=== PATIENT | male | born 1975 | race Caucasian/White ===

== ENCOUNTER 2017-08-31 16:28 | Emergency (ER) | payer OTHER ==
[~2017-08-31] VITALS: Ht 177.8 cm; Wt 89.5 kg
[~2017-08-31 16:28] MED LIST: GLC500 PO; GLIP10TA10 PO; SITA25TA PO
[2017-08-31 16:39] VITALS: Ht 177.8 cm; Wt 89.5 kg
[2017-08-31] MEDS ORDERED: ONDANSETRON INJ 2 MG/ML 2 ML VIAL IV STA (16:55)
[2017-08-31] MEDS ORDERED: MoRPHine SULFATE 10 MG/ML CARP/VIAL IV STA ×2 (16:55→19:01)
[2017-08-31] MEDS ORDERED: SODIUM CHLORIDE 0.9% 1000ML 1,000 ML IV STA ×2 (16:55→19:01)
[2017-08-31] MEDS ORDERED: OPTIRAY 320 IV PRN (17:15)
[2017-08-31 17:53] LABS: CREATININE 0.86 mg/dl (0.60-1.40); POTASSIUM 4.1 mmol/L (3.5-5.1)
[2017-08-31 17:56] LABS: TOTAL PROTEIN 8.2 gm/dl (6.4-8.2)
[2017-08-31 18:17] LABS: BASO % 0.2 %; BASO ABS # 0.02 K/uL (0-0.2); EOS % 0.5 %; EOS ABS # 0.05 K/uL (0-0.5); HEMATOCRIT 31.3 % (42-52); IG# 0.02 K/uL (0.00-0.02); LYMPH % 8.9 %; LYMPH ABS # 0.94 K/uL (1.2-3.4); MEAN CORPUSCULAR HEMOGLOBIN 17.5 pg (25-34); MEAN CORPUSCULAR HGB CONC 28.8 g/dl (32-36); MEAN PLATELET VOLUME 9.4 fL (7.4-10.4); MONO % 9.3 %; MONO ABS # 0.99 K/uL (0.11-0.59); NEUT % 80.9 %; NEUT ABS # 8.57 K/uL (1.4-6.5); PLATELET COUNT 327 K/uL (130-400); RED CELL DISTRIBUTION WIDTH CV 18.7 % (11.5-14.5); RED CELL DISTRIBUTION WIDTH SD 41.2 fL (36.4-46.3); WHITE BLOOD COUNT 10.59 K/uL (4.8-10.8)
--- NOTE | 2017-08-31 18:27 | DIAGNOSTIC IMAGING REPORT ---
ABDOMEN AND PELVIS CT WITH IV CONTRAST CT DOSE: 590.66 mGy.cm HISTORY: Generalized abdominal pain. TECHNIQUE: Multiaxial CT images of the abdomen and pelvis were performed following the use of intravenous contrast. A dose lowering technique was utilized adhering to the principles of ALARA. COMPARISON STUDY: None. FINDINGS: A partially visualized 4 mm subpleural nodule along the right minor fissure. A few patchy groundglass densities within the right lung base. The left lung is clear. No pneumoperitoneum. No pneumatosis. No suspicious lytic or blastic osseous lesions. Mild bilateral gynecomastia. Trace perihepatic ascites. The liver, gallbladder, pancreas, adrenal glands, and kidneys are unremarkable. No hydronephrosis. The spleen is mildly enlarged measuring 13.5 cm in length. Normal bladder. A few colonic diverticula. Focal irregular thickening within the distal transverse colon which measures approximately 6 cm in length consistent with a colonic mass. There are multiple adjacent enlarged pericolonic/mesenteric lymph nodes. Dominant lymph node measures 13 mm best seen on image 130. Proximal to this the colon is distended and fluid-filled. Therefore, this results in a large bowel obstruction. No evidence for acute appendicitis. Trace ascites along the paracolic gutter. Multiple enlarged retroperitoneal lymph nodes. Dominant lymph node measures 2.9 x 1.6 cm. There are also enlarged left common iliac lymph nodes. The bladder is unremarkable. Ill-defined soft tissue density partially encases the proximal superior mesenteric artery best seen on image 190. This measures 15 mm and could represent a pathologically enlarged lymph node. There is also an adjacent partially calcified enlarged lymph node which measures 2.6 x 1.2 cm best seen on image 184. IMPRESSION: 1. A 6 cm mass within the distal transverse colon resulting in a large bowel obstruction. There are multiple adjacent pericolonic/mesenteric lymph nodes. There are also multiple enlarged retroperitoneal and left common iliac lymph nodes consistent with metastatic disease. Surgical consultation is recommended. 2. Trace perihepatic ascites and trace ascites within the right paracolic gutter. 3. The spleen is mildly enlarged. 4. A 1.5 cm ill-defined area of soft tissue abnormality which partially encases the superior mesenteric artery. This may also represent metastatic disease. This bears watching on future examinations. 5. A 4 mm subpleural nodule within the right minor fissure. This is likely benign. However, this also bears watching future examinations. Electronically signed by: Justin Mireles M.D. 08/31/2017 6:26 PM Dictated Date/Time: 08/31/2017 6:12 PM
[2017-08-31] MEDS ORDERED: MoRPHine SULFATE 2 MG/ML CARP ONE (19:08)
[2017-08-31] MEDS ORDERED: MoRPHine SULFATE 4 MG/ML 1 ML CARP\\VIAL ONE (19:08)
--- NOTE | 2017-08-31 19:36 | Surgery Consultation ---
Consultation Date of Consultation: Aug 31, 2017. Attending Physician: History of Present Illness The patient is a 41 year old male who presents to the Emergency Room with complaints of persistent abdominal pain starting yesterday. He has had this pain before, but just let it pass at home. The pain starts in his upper abdomen and moves into his lower abdomen. The pain improves with lying down. He reports constipation with the abdominal pain. His last bowel movement was yesterday. He normally has a bowel movement daily. He is nauseous. He denies any vomiting, diarrhea, cough, rhinorrhea, sore throat, or urinary symptoms. He has a history of type 2 diabetes and is on metformin. He has not checked his sugar recently. He has not eaten since yesterday. He still has his gallbladder and appendix. I saw pt at ER, I reviewed pt's H/P with pt, pt has some abdominal pain, no nausea, no vomiting, last BM yesterday, passed some gas 2 hours ago, pt denies bloody stool no diarrhea, no fever. Family History FH: cancer FH: diabetes mellitus FH: heart disease FH: hypertension Social History Smoking Status: Never Smoker Smokeless Tobacco Use: No Alcohol Use: none Drug Use: none Marital Status: Housing Status: lives with family Occupation Status: employed Allergies Coded Allergies: Codeine (Unverified Allergy, Mild, ?, 02/12/16) Promethazine (Unverified Allergy, Mild, ?, 02/12/16) Home Medications Scheduled Glipizide (Glipizide), 10 MG PO BID Metformin HCL (Glucophage *), 1,000 MG PO BID Sitagliptin (Januvia), 25 MG PO DAILY Current Inpatient Medications Current Inpatient Medications Medications (Trade) Dose Ordered Sig/Sera Route Start Time Stop Time Status Last Admin Dose Admin Ioversol (Optiray 320) 100 ml UD PRN IV 08/31/17 17:15 09/04/17 17:14 Sodium Chloride 1,000 ml @ 999 mls/hr Q1H1M STAT IV 08/31/17 19:01 08/31/17 20:01 08/31/17 19:11 999 MLS/HR Review of Systems Constitutional: No fever, No chills, No sweats, No weight loss, No weakness, No fatigue, No problem reported Eyes: No worsening of vision, No eye pain, No redness, No discharge, No diplopia, No problem reported ENT: No hearing loss, No unusual epistaxis, No nasal symptoms, No sore throat, No tinnitus, No dental problems, No trouble swallowing, No problem reported Respiratory: No cough, No sputum, No wheezing, No shortness of breath, No dyspnea on exertion, No dyspnea at rest, No hemoptysis, No problem reported Cardiovascular: No chest pain, No orthopnea, No PND, No edema, No claudication , No palpitations, No problem reported Abdomen: No pain, No nausea, No vomiting, No diarrhea, No constipation, No GI bleeding, No problem reported Musculoskeletal: No joint pain, No muscle pain, No swelling, No calf pain, No problem reported Genitourinary - Male: No hematuria, No dysuria, No urinary frequency, No urinary urgency, No urinary hesitancy, No urinary retention, No urinary incontinence, No penile discharge, No lesions, No impotence, No problem reported Neurologic: No memory loss, No paralysis, No weakness, No numbness/tingling, No vertigo, No balance problems, No problem reported Psychiatric: No depression symptoms, No anhedonism, No anxiety, No insomnia, No substance abuse, No problem reported Endocrine: + problem reported (DM) Hematologic / Lymphatic: No abnormal bleeding/bruising, No clotting problems, No swollen lymph nodes, No night sweats, No problem reported Physical Exam Date Time Temp Pulse Resp B/P (MAP) Pulse Ox O2 Delivery O2 Flow Rate FiO2 08/31/17 18:48 109 132/80 95 Room Air 08/31/17 16:39 37.0 130 18 139/89 99 Room Air General Appearance: WD/WN, no apparent distress Head: normocephalic Eyes: normal inspection ENT: normal ENT inspection Neck: supple, no JVD Respiratory/Chest: chest non-tender, lungs clear, normal breath sounds Cardiovascular: regular rate, rhythm, no edema, no gallop, no JVD, no murmur Abdomen/GI: normal bowel sounds, soft, no organomegaly, no pulsatile mass, normal rectal exam, + tenderness (at left abdomen, no rebound pain) Extremities/Musculoskelatal: normal inspection, no calf tenderness, normal capillary refill Neurologic/Psych: no motor/sensory deficits, alert, normal mood/affect Skin: normal color, warm/dry, no rash Lymphatic: no adenopathy Laboratory Results Last 24 Hours Test 08/31/17 17:00 08/31/17 18:20 White Blood Count 10.59 K/uL Red Blood Count 5.13 M/uL Hemoglobin 9.0 g/dL Hematocrit 31.3 % Mean Corpuscular Volume 61.0 fL Mean Corpuscular Hemoglobin 17.5 pg Mean Corpuscular Hemoglobin Concent 28.8 g/dl Platelet Count 327 K/uL Mean Platelet Volume 9.4 fL Neutrophils (%) (Auto) 80.9 % Lymphocytes (%) (Auto) 8.9 % Monocytes (%) (Auto) 9.3 % Eosinophils (%) (Auto) 0.5 % Basophils (%) (Auto) 0.2 % Neutrophils # (Auto) 8.57 K/uL Lymphocytes # (Auto) 0.94 K/uL Monocytes # (Auto) 0.99 K/uL Eosinophils # (Auto) 0.05 K/uL Basophils # (Auto) 0.02 K/uL RDW Standard Deviation 41.2 fL RDW Coefficient of Variation 18.7 % Immature Granulocyte % (Auto) 0.2 % Immature Granulocyte # (Auto) 0.02 K/uL Anisocytosis PRESENT Microcytosis PRESENT Ovalocytes 1+ Sodium Level 131 mmol/L Potassium Level 4.1 mmol/L Chloride Level 98 mmol/L Carbon Dioxide Level 26 mmol/L Anion Gap 7.0 mmol/L Blood Urea Nitrogen 9 mg/dl Creatinine 0.86 mg/dl Est Creatinine Clear Calc Drug Dose 128.6 ml/min Estimated GFR () 125.7 Estimated GFR (Non- 108.5 BUN/Creatinine Ratio 10.5 Random Glucose 260 mg/dl Calcium Level 9.0 mg/dl Total Bilirubin 0.9 mg/dl Direct Bilirubin 0.2 mg/dl Aspartate Amino Transf (AST/SGOT) 18 U/L Alanine Aminotransferase (ALT/SGPT) 24 U/L Alkaline Phosphatase 68 U/L Total Protein 8.2 gm/dl Albumin 4.0 gm/dl Lipase 101 U/L Urine Color YELLOW Urine Appearance CLEAR Urine pH 5.0 Urine Specific [place] 1.023 Urine Protein NEG Urine Glucose (UA) 1+ Urine Ketones TRACE Urine Occult Blood NEG Urine Nitrite NEG Urine Bilirubin NEG Urine Urobilinogen NEG Urine Leukocyte Esterase NEG Urine WBC (Auto) 1-5 /hpf Urine RBC (Auto) 0-4 /hpf Urine Hyaline Casts (Auto) 1-5 /lpf Urine Epithelial Cells (Auto) 0-5 /lpf Urine Bacteria (Auto) NEG Assessment & Plan CT scan-FINDINGS: A partially visualized 4 mm subpleural nodule along the right minor fissure. A few patchy groundglass densities within the right lung base. The left lung is clear. No pneumoperitoneum. No pneumatosis. No suspicious lytic or blastic osseous lesions. Mild bilateral gynecomastia. Trace perihepatic ascites. The liver, gallbladder, pancreas, adrenal glands, and kidneys are unremarkable. No hydronephrosis. The spleen is mildly enlarged measuring 13.5 cm in length. Normal bladder. A few colonic diverticula. Focal irregular thickening within the distal transverse colon which measures approximately 6 cm in length consistent with a colonic mass. There are multiple adjacent enlarged pericolonic/mesenteric lymph nodes. Dominant lymph node measures 13 mm best seen on image 130. Proximal to this the colon is distended and fluid-filled. Therefore, this results in a large bowel obstruction. No evidence for acute appendicitis. Trace ascites along the paracolic gutter. Multiple enlarged retroperitoneal lymph nodes. Dominant lymph node measures 2.9 x 1.6 cm. There are also enlarged left common iliac lymph nodes. The bladder is unremarkable. Ill-defined soft tissue density partially encases the proximal superior mesenteric artery best seen on image 190. This measures 15 mm and could represent a pathologically enlarged lymph node. There is also an adjacent partially calcified enlarged lymph node which measures 2.6 x 1.2 cm best seen on image 184. IMPRESSION: 1. A 6 cm mass within the distal transverse colon resulting in a large bowel obstruction. There are multiple adjacent pericolonic/mesenteric lymph nodes. There are also multiple enlarged retroperitoneal and left common iliac lymph nodes consistent with metastatic disease. Surgical consultation is recommended. 2. Trace perihepatic ascites and trace ascites within the right paracolic gutter. 3. The spleen is mildly enlarged. 4. A 1.5 cm ill-defined area of soft tissue abnormality which partially encases the superior mesenteric artery. This may also represent metastatic disease. This bears watching on future examinations. 5. A 4 mm subpleural nodule within the right minor fissure. This is likely benign. However, this also bears watching future examinations. Assessment: pt is a 41 year old male who presents to ER with one day history abdominal pain, pt had CT scan- colon mass, large bowel obstruction, IMP: distal transverse colon mass, large bowel obstruction, I recommend to do exploratory laparostomy, partial colectomy, colostomy, D/W benefits, risks and alternatives of the procedures, pt wants to transfer to higher level care, pt said he is 41 year old he has 6 children, pt wants colorectal surgeon to do his surgery, D/W ER attending.
[2017-08-31] MEDS ORDERED: SODIUM CHLORIDE 0.9% 1000ML 1,000 ML IV SCH (20:45)
[2017-08-31] MEDS ORDERED: INSULIN ASPART 100 UNITS/ML 3 ML PEN SC SCH (20:45)
--- NOTE | 2017-08-31 20:49 | Medical Consult ---
Consultation Date of Consultation: Aug 31, 2017. Attending Physician: History of Present Illness 41 y/o M Hx DM II. Presented to the ER with abdominal pain and persistent constipation. He reports a normal BM one day prior and denies any hematochezia. He denies weight loss, loss of appetite or night sweats. A CT abdomen/pelvis was obtained in the ER and unfortunately revealed a 6 cm mass within the distal transverse colon resulting in a large bowel obstruction. There is lymphadenopathy consistent with metastatic disease. The pt was evaluated by the surgical service and will likely undergo resection. Labs are notable for anemia which may be due to chronic blood loss or marrow suppression but is likely is slow/chronic process based on his lack of symptoms. Past Medical/Surgical History DM II Family History FH: cancer FH: diabetes mellitus FH: heart disease FH: hypertension Social History Smoking Status: Never Smoker Smokeless Tobacco Use: No Alcohol Use: none Drug Use: none Marital Status: Housing Status: lives with family Occupation Status: employed Allergies Coded Allergies: Codeine (Unverified Allergy, Mild, ?, 02/12/16) Promethazine (Unverified Allergy, Mild, ?, 02/12/16) Current Inpatient Medications Current Inpatient Medications Medications (Trade) Dose Ordered Sig/Sera Route Start Time Stop Time Status Last Admin Dose Admin Ioversol (Optiray 320) 100 ml UD PRN IV 08/31/17 17:15 09/04/17 17:14 Review of Systems Constitutional: No fever, No chills, No sweats, No weakness Eyes: No worsening of vision ENT: No hearing loss, No unusual epistaxis, No nasal symptoms Respiratory: No cough, No sputum, No wheezing Cardiovascular: No chest pain Abdomen: No pain, No nausea, No vomiting Musculoskeletal: No joint pain Genitourinary - Male: No hematuria, No dysuria Neurologic: No memory loss, No paralysis, No weakness Psychiatric: No depression symptoms Endocrine: No fatigue Hematologic / Lymphatic: No abnormal bleeding/bruising Integumentary: No rash Allergic / Immunologic: No environmental allergies Physical Exam Date Time Temp Pulse Resp B/P (MAP) Pulse Ox O2 Delivery O2 Flow Rate FiO2 08/31/17 18:48 109 132/80 95 Room Air 08/31/17 16:39 37.0 130 18 139/89 99 Room Air General Appearance: WD/WN, no apparent distress Head: normocephalic Eyes: normal inspection ENT: normal ENT inspection, pharynx normal Neck: supple, no JVD Respiratory/Chest: chest non-tender, lungs clear, normal breath sounds Cardiovascular: regular rate, rhythm, no edema, no gallop Abdomen/GI: + pertinent finding (Abdomen is firm, mildly tender, distended - no guarding/rebound) Back: normal inspection, no CVA tenderness, no muscle spasm Extremities/Musculoskelatal: normal inspection, no calf tenderness, normal capillary refill 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, no motor/sensory deficits, alert, oriented x 3 Skin: normal color, warm/dry Laboratory Results Last 24 Hours Test 08/31/17 17:00 08/31/17 18:20 White Blood Count 10.59 K/uL Red Blood Count 5.13 M/uL Hemoglobin 9.0 g/dL Hematocrit 31.3 % Mean Corpuscular Volume 61.0 fL Mean Corpuscular Hemoglobin 17.5 pg Mean Corpuscular Hemoglobin Concent 28.8 g/dl Platelet Count 327 K/uL Mean Platelet Volume 9.4 fL Neutrophils (%) (Auto) 80.9 % Lymphocytes (%) (Auto) 8.9 % Monocytes (%) (Auto) 9.3 % Eosinophils (%) (Auto) 0.5 % Basophils (%) (Auto) 0.2 % Neutrophils # (Auto) 8.57 K/uL Lymphocytes # (Auto) 0.94 K/uL Monocytes # (Auto) 0.99 K/uL Eosinophils # (Auto) 0.05 K/uL Basophils # (Auto) 0.02 K/uL RDW Standard Deviation 41.2 fL RDW Coefficient of Variation 18.7 % Immature Granulocyte % (Auto) 0.2 % Immature Granulocyte # (Auto) 0.02 K/uL Anisocytosis PRESENT Microcytosis PRESENT Ovalocytes 1+ Sodium Level 131 mmol/L Potassium Level 4.1 mmol/L Chloride Level 98 mmol/L Carbon Dioxide Level 26 mmol/L Anion Gap 7.0 mmol/L Blood Urea Nitrogen 9 mg/dl Creatinine 0.86 mg/dl Est Creatinine Clear Calc Drug Dose 128.6 ml/min Estimated GFR () 125.7 Estimated GFR (Non- 108.5 BUN/Creatinine Ratio 10.5 Random Glucose 260 mg/dl Calcium Level 9.0 mg/dl Total Bilirubin 0.9 mg/dl Direct Bilirubin 0.2 mg/dl Aspartate Amino Transf (AST/SGOT) 18 U/L Alanine Aminotransferase (ALT/SGPT) 24 U/L Alkaline Phosphatase 68 U/L Total Protein 8.2 gm/dl Albumin 4.0 gm/dl Lipase 101 U/L Urine Color YELLOW Urine Appearance CLEAR Urine pH 5.0 Urine Specific [place] 1.023 Urine Protein NEG Urine Glucose (UA) 1+ Urine Ketones TRACE Urine Occult Blood NEG Urine Nitrite NEG Urine Bilirubin NEG Urine Urobilinogen NEG Urine Leukocyte Esterase NEG Urine WBC (Auto) 1-5 /hpf Urine RBC (Auto) 0-4 /hpf Urine Hyaline Casts (Auto) 1-5 /lpf Urine Epithelial Cells (Auto) 0-5 /lpf Urine Bacteria (Auto) NEG Assessment & Plan 41 y/o M Hx DM II. Presented to the ER with abdominal pain and persistent constipation. He reports a normal BM one day prior and denies any hematochezia. He denies weight loss, loss of appetite or night sweats. A CT abdomen/pelvis was obtained in the ER and unfortunately revealed a 6 cm mass within the distal transverse colon resulting in a large bowel obstruction. There is lymphadenopathy consistent with metastatic disease. The pt was evaluated by the surgical service and will likely undergo resection. Labs are notable for anemia which may be due to chronic blood loss or marrow suppression but is likely is slow/chronic process based on his lack of symptoms. 1) Colonic mass - likely metastatic CA - to undergo resection The pt does not have significant CV risk factors - an RCRI is estimated at 04% or 0.9% depending on if he requires pre-op insulin. We will obtain a baseline EKG but would not advise on additional cardiovascular testing prior to proceeding with surgery. 2) DM - pt will be placed on a SS [id number] 3) Anemia - will transfuse prior to surgery - obtain iron profile prior to transfusion Total time for this admit including review of labs, meds, imaging, surgery eval - discussion with pt and ER attending - 32 min
[2017-08-31] MEDS ORDERED: GLUCOSE 40% GEL 15 GM TUBE PO PRN (21:00)
[2017-08-31] MEDS ORDERED: GLUCAGON FOR INJ 1 MG VIAL SQ PRN (21:00)
[2017-08-31] MEDS ORDERED: GLUCOSE 10 TABS/TUBE PO PRN (21:00)
[2017-08-31] MEDS ORDERED: DEXTROSE 50% 50 ML SYR IV PRN (21:00)
[2017-08-31 22:09] VITALS: BP 134/92; PULSE 125; TEMP 36.6
[2017-08-31 22:17] VITALS: BP 145/95; PULSE 130; PULSE 131; TEMP 36.5; O2SAT 98
[2017-08-31] MEDS ORDERED: LORAZEPAM 2 MG/ML 1 ML VIAL IV STA (22:22)
--- NOTE | 2017-08-31 22:32 | DIAGNOSTIC IMAGING REPORT ---
KUB CLINICAL HISTORY: Nasogastric tube placement. COMPARISON STUDY: CT of the abdomen and pelvis August 31, 2017 at 6:09 PM. FINDINGS: The tip of the nasogastric tube projects over the mid body of the stomach. IMPRESSION: Tip of nasogastric tube within the body of the stomach. Electronically signed by: Suleiman Landeros M.D. 08/31/2017 10:31 PM Dictated Date/Time: 08/31/2017 10:29 PM
[2017-08-31 22:37] VITALS: BP 133/92; PULSE 124; TEMP 36.5; O2SAT 96
[2017-08-31 22:58] VITALS: BP 152/79; PULSE 120; TEMP 36.5; O2SAT 97
[2017-08-31] MEDS ORDERED: LANTUS PER UNIT CHARGE SC STA (23:14)
[2017-08-31] MEDS ORDERED: NovoLOG PER UNIT CHARGE SC STA (23:17)
[2017-08-31 23:30] VITALS: BP 134/85; PULSE 113; TEMP 36.5; O2SAT 94
[2017-08-31] MEDS ORDERED: HYDROmorphone INJ 1 MG/ML SYR IV STA (23:55)
[2017-09-01] VITALS: BP 136/90; PULSE 108; TEMP 36.7; O2SAT 94
--- NOTE | 2017-09-01 00:17 | EMERGENCY ROOM VISIT NOTE ---
History Report prepared by Joey: Gena Davila Under the Supervision of: Dr. Zeyad Junior D.O. First contact with patient: 16:46 Chief Complaint: ABDOMINAL PAIN Stated Complaint: SEVERE ABDOMINAL PAIN- REFERRED History of Present Illness The patient is a 41 year old male who presents to the Emergency Room with complaints of persistent abdominal pain starting yesterday. He has had this pain before, but just let it pass at home. The pain starts in his upper abdomen and moves into his lower abdomen. The pain improves with lying down. He reports constipation with the abdominal pain. His last bowel movement was yesterday. He normally has a bowel movement daily. He has been passing gas today. He is nauseous. He denies any vomiting, diarrhea, cough, rhinorrhea, sore throat, or urinary symptoms. He has a history of type 2 diabetes and is on metformin. He has not checked his sugar recently. He has not eaten since yesterday. He still has his gallbladder and appendix. Source of History: patient Onset: yesterday Position: abdomen Quality: other (pain) Timing: other (persistent) Modifying Factors (Relieving): other (lying down) Associated Symptoms: + nausea, No sorethroat, No cough, No vomiting, No diarrhea, No urinary symptoms Note: Pt reports constipation. Review of Systems See HPI for pertinent positives & negatives. A total of 10 systems reviewed and were otherwise negative. Past Medical & Surgical Medical Problems: (1) Asthma, Unspecified (2) Diab Naz Wo Compl, Type Ii Or Unspec Type, Not Uncntrld (3) Heart Disease Nos (4) Hypertension Nos (5) Lumbago Surgical Problems: (1) History of elbow surgery (2) History of shoulder surgery (3) History of tonsillectomy Family History FH: cancer FH: diabetes mellitus FH: heart disease FH: hypertension Social History Smoking Status: Never Smoker Alcohol Use: occasionally Marital Status: Housing Status: lives with family Occupation Status: employed Current/Historical Medications Scheduled Glipizide (Glipizide), 10 MG PO BID Metformin HCL (Glucophage *), 1,000 MG PO BID Sitagliptin (Januvia), 25 MG PO DAILY Allergies Coded Allergies: Codeine (Unverified Allergy, Mild, ?, 02/12/16) Promethazine (Unverified Allergy, Mild, ?, 02/12/16) Physical Exam Vital Signs Date Time Temp Pulse Resp B/P (MAP) Pulse Ox O2 Delivery O2 Flow Rate FiO2 09/01/17 00:05 36.7 108 17 136/90 94 Room Air 09/01/17 00:00 36.7 108 17 136/90 94 08/31/17 23:30 36.5 113 17 134/85 94 08/31/17 23:00 122 08/31/17 22:58 36.5 120 25 152/79 97 08/31/17 22:48 121 133/92 97 Room Air 08/31/17 22:37 36.5 124 14 133/92 96 08/31/17 22:17 36.5 131 19 145/95 98 08/31/17 22:17 36.5 130 15 145/95 08/31/17 22:15 123 08/31/17 22:13 126 134/92 98 Room Air 08/31/17 22:09 36.6 125 16 134/92 08/31/17 20:47 132 141/89 99 Room Air 08/31/17 18:48 109 132/80 95 Room Air 08/31/17 16:39 37.0 130 18 139/89 99 Room Air Physical Exam GENERAL: Laying in bed, holding infraumbilical region, disheveled EYE EXAM: normal conjunctiva. OROPHARYNX: no exudate, no erythema, lips, buccal mucosa, and tongue normal and mucous membranes are moist NECK: supple, no nuchal rigidity, no adenopathy, non-tender LUNGS: Clear to auscultation. Normal chest wall mechanics HEART: no murmurs, S1 normal and S2 normal ABDOMEN: abdomen slightly distended, diffuse tenderness, normo-active bowel sounds, no masses, no rebound or guarding. BACK: Back is symmetrical on inspection and there is no deformity, no midline tenderness, no CVA tenderness. SKIN: no rashes and no bruising UPPER EXTREMITIES: upper extremities are grossly normal. LOWER EXTREMITIES: No pitting edema. NEURO EXAM: Normal sensorium, cranial nerves II-XII grossly intact, normal speech, no gross weakness of arms, no gross weakness of legs. Medical Decision & Procedures ER Provider Diagnostic Interpretation: Xray results as stated below per my and the radiologist's interpretation. Radiology results as stated below per my review and the radiologist's interpretation: ABDOMEN AND PELVIS CT WITH IV CONTRAST CT DOSE: 590.66 mGy.cm HISTORY: Generalized abdominal pain. TECHNIQUE: Multiaxial CT images of the abdomen and pelvis were performed following the use of intravenous contrast. A dose lowering technique was utilized adhering to the principles of ALARA. COMPARISON STUDY: None. FINDINGS: A partially visualized 4 mm subpleural nodule along the right minor fissure. A few patchy groundglass densities within the right lung base. The left lung is clear. No pneumoperitoneum. No pneumatosis. No suspicious lytic or blastic osseous lesions. Mild bilateral gynecomastia. Trace perihepatic ascites. The liver, gallbladder, pancreas, adrenal glands, and kidneys are unremarkable. No hydronephrosis. The spleen is mildly enlarged measuring 13.5 cm in length. Normal bladder. A few colonic diverticula. Focal irregular thickening within the distal transverse colon which measures approximately 6 cm in length consistent with a colonic mass. There are multiple adjacent enlarged pericolonic/mesenteric lymph nodes. Dominant lymph node measures 13 mm best seen on image 130. Proximal to this the colon is distended and fluid-filled. Therefore, this results in a large bowel obstruction. No evidence for acute appendicitis. Trace ascites along the paracolic gutter. Multiple enlarged retroperitoneal lymph nodes. Dominant lymph node measures 2.9 x 1.6 cm. There are also enlarged left common iliac lymph nodes. The bladder is unremarkable. Ill-defined soft tissue density partially encases the proximal superior mesenteric artery best seen on image 190. This measures 15 mm and could represent a pathologically enlarged lymph node. There is also an adjacent partially calcified enlarged lymph node which measures 2.6 x 1.2 cm best seen on image 184. IMPRESSION: 1. A 6 cm mass within the distal transverse colon resulting in a large bowel obstruction. There are multiple adjacent pericolonic/mesenteric lymph nodes. There are also multiple enlarged retroperitoneal and left common iliac lymph nodes consistent with metastatic disease. Surgical consultation is recommended. 2. Trace perihepatic ascites and trace ascites within the right paracolic gutter. 3. The spleen is mildly enlarged. 4. A 1.5 cm ill-defined area of soft tissue abnormality which partially encases the superior mesenteric artery. This may also represent metastatic disease. This bears watching on future examinations. 5. A 4 mm subpleural nodule within the right minor fissure. This is likely benign. However, this also bears watching future examinations. Electronically signed by: Justin Mireles M.D. 08/31/2017 6:26 PM Dictated Date/Time: 08/31/2017 6:12 PM [facility] CLINICAL HISTORY: Nasogastric tube placement. COMPARISON STUDY: CT of the abdomen and pelvis August 31, 2017 at 6:09 PM. FINDINGS: The tip of the nasogastric tube projects over the mid body of the stomach. IMPRESSION: Tip of nasogastric tube within the body of the stomach. Electronically signed by: Suleiman Landeros M.D. 08/31/2017 10:31 PM Dictated Date/Time: 08/31/2017 10:29 PM Laboratory Results 08/31/17 17:00 Red Blood Count 5.13, Mean Corpuscular Volume 61.0, Mean Corpuscular Hemoglobin 17.5, Mean Corpuscular Hemoglobin Concent 28.8, Mean Platelet Volume 9.4, Neutrophils (%) (Auto) 80.9, Lymphocytes (%) (Auto) 8.9, Monocytes (%) (Auto) 9.3, Eosinophils (%) (Auto) 0.5, Basophils (%) (Auto) 0.2, Neutrophils # (Auto) 8.57, Lymphocytes # (Auto) 0.94, Monocytes # (Auto) 0.99, Eosinophils # (Auto) 0.05, Basophils # (Auto) 0.02 08/31/17 17:00 Test 08/31/17 17:00 08/31/17 18:20 08/31/17 20:58 White Blood Count 10.59 K/uL (4.8-10.8) Red Blood Count 5.13 M/uL (4.7-6.1) Hemoglobin 9.0 g/dL (14.0-18.0) Hematocrit 31.3 % (42-52) Mean Corpuscular Volume 61.0 fL (80-100) Mean Corpuscular Hemoglobin 17.5 pg (25-34) Mean Corpuscular Hemoglobin Concent 28.8 g/dl (32-36) Platelet Count 327 K/uL (130-400) Mean Platelet Volume 9.4 fL (7.4-10.4) Neutrophils (%) (Auto) 80.9 % Lymphocytes (%) (Auto) 8.9 % Monocytes (%) (Auto) 9.3 % Eosinophils (%) (Auto) 0.5 % Basophils (%) (Auto) 0.2 % Neutrophils # (Auto) 8.57 K/uL (1.4-6.5) Lymphocytes # (Auto) 0.94 K/uL (1.2-3.4) Monocytes # (Auto) 0.99 K/uL (0.11-0.59) Eosinophils # (Auto) 0.05 K/uL (0-0.5) Basophils # (Auto) 0.02 K/uL (0-0.2) RDW Standard Deviation 41.2 fL (36.4-46.3) RDW Coefficient of Variation 18.7 % (11.5-14.5) Immature Granulocyte % (Auto) 0.2 % Immature Granulocyte # (Auto) 0.02 K/uL (0.00-0.02) Anisocytosis PRESENT Microcytosis PRESENT Ovalocytes 1+ Anion Gap 7.0 mmol/L (3-11) Est Creatinine Clear Calc Drug Dose 128.6 ml/min Estimated GFR () 125.7 Estimated GFR (Non- 108.5 BUN/Creatinine Ratio 10.5 (10-20) Calcium Level 9.0 mg/dl (8.5-10.1) Total Bilirubin 0.9 mg/dl (0.2-1) Direct Bilirubin 0.2 mg/dl (0-0.2) Aspartate Amino Transf (AST/SGOT) 18 U/L (15-37) Alanine Aminotransferase (ALT/SGPT) 24 U/L (12-78) Alkaline Phosphatase 68 U/L (45-117) Total Protein 8.2 gm/dl (6.4-8.2) Albumin 4.0 gm/dl (3.4-5.0) Lipase 101 U/L (73-393) Urine Color YELLOW Urine Appearance CLEAR (CLEAR) Urine pH 5.0 (4.5-7.5) Urine Specific [place] 1.023 (1.000-1.030) Urine Protein NEG (NEG) Urine Glucose (UA) 1+ (NEG) Urine Ketones TRACE (NEG) Urine Occult Blood NEG (NEG) Urine Nitrite NEG (NEG) Urine Bilirubin NEG (NEG) Urine Urobilinogen NEG (NEG) Urine Leukocyte Esterase NEG (NEG) Urine WBC (Auto) 1-5 /hpf (0-5) Urine RBC (Auto) 0-4 /hpf (0-4) Urine Hyaline Casts (Auto) 1-5 /lpf (0-5) Urine Epithelial Cells (Auto) 0-5 /lpf (0-5) Urine Bacteria (Auto) NEG (NEG) Iron Level 10 mcg/dl (35-175) Total Iron Binding Capacity 504 mcg/dl (250-450) Laboratory results per my review. Medications Administered Medications (Trade) Dose Ordered Sig/Sera Route Start Time Stop Time Status Last Admin Dose Admin Sodium Chloride 1,000 ml @ 999 mls/hr Q1H1M STAT IV 08/31/17 16:55 08/31/17 17:55 DC 08/31/17 16:55 999 MLS/HR Ondansetron HCl (Zofran Inj) 4 mg NOW STAT IV 08/31/17 16:55 08/31/17 16:56 DC 08/31/17 17:04 4 MG Morphine Sulfate (MoRPHine SULFATE INJ) 6 mg NOW STAT IV 08/31/17 16:55 08/31/17 16:56 DC 08/31/17 17:05 6 MG Sodium Chloride 1,000 ml @ 999 mls/hr Q1H1M STAT IV 08/31/17 19:01 08/31/17 20:01 DC 08/31/17 19:11 999 MLS/HR Morphine Sulfate (MoRPHine SULFATE INJ) 2 mg STK-MED ONCE .ROUTE 08/31/17 19:08 08/31/17 19:09 DC 08/31/17 19:12 2 MG Morphine Sulfate (MoRPHine SULFATE INJ) 4 mg STK-MED ONCE .ROUTE 08/31/17 19:08 08/31/17 19:09 DC 08/31/17 19:12 4 MG Sodium Chloride 1,000 ml @ 100 mls/hr Q10H IV 08/31/17 20:45 09/01/17 16:44 08/31/17 23:48 100 MLS/HR Insulin Glargine (Lantus Per Unit) 15 units ONE STAT SC 08/31/17 23:14 08/31/17 23:15 DC 08/31/17 23:47 15 UNITS Lorazepam (Ativan Inj) 1 mg NOW STAT IV 08/31/17 22:22 08/31/17 22:23 DC 08/31/17 23:12 1 MG Insulin Aspart (novoLOG PER UNIT) SLIDING SCALE G... NOW STAT SC 08/31/17 23:17 08/31/17 23:18 DC 08/31/17 23:47 2 UNITS Hydromorphone HCl (Dilaudid Inj) 1 mg NOW STAT IV 08/31/17 23:55 08/31/17 23:56 DC 09/01/17 00:11 1 MG ED Course ED COURSE: Vital signs were reviewed and showed tachycardia. The patients medical record was reviewed The above diagnostic studies were performed and reviewed. ED treatments and interventions as stated above. 1651: The patient was evaluated in room A5. A complete history and physical examination was performed. 1654: Morphine Sulfate 6 mg IV, Zofran Inj 4 mg IV, NSS 1000 ml @ 999 mls/hr IV. 1858: I discussed the patient's case with Dr. Beltre, [facility] general surgery. We are in agreement with the plan. 1900: NSS 1000 ml @ 999 mls/hr IV, Morphine Sulfate 6 mg IV. 1903: I reevaluated the patient. I updated him on the plan. 1912: I discussed the patient's case with Dr. Griffiths, [facility] gastroenterology. We are in agreement with the plan. 1919: I reevaluated the patient. He would like to go elsewhere. 2000: I discussed the patient's case with Dr. Zapata, [facility] colorectal surgery. They cannot take the patient until morning. 2004: I spoke with Dr. Beltre and updated him on the situation. He would like the patient to be seen by the hospitalist service. 2009: I discussed the patient's case with Dr. Evans, [facility] hospitalist. He will evaluate the patient for further management. 2018: I spoke with Dr. Evans. He recommends the patient be admitted to surgery. Dr. Beltre was paged again. 2034: I spoke with Dr. Beltre. He does not want to admit the patient and recommends transfer to [place] or admitting the patient to Dr. Evans. 2117: I discussed the patient's case with Dr. Arias, [facility] colorectal surgery. She has accepted the patient for transfer. 2138: Upon reevaluation, the patient is stable.I discussed my findings with the patient and he understands and agrees with the treatment plan. Blood consent was obtained. Based on the patients age, coexisting illnesses, exam and lab findings the decision to treat as an inpatient was made. The patient remained stable while under my care. The patient will be transferred to [facility] for further evaluation. 2221: The patient wants the NG tube removed. He is agreeable to Ativan. 2222: Ativan Inj 1 mg IV. Medical Decision Differential diagnoses includes but is not limited to gastritis, peptic ulcer disease, GERD, gallbladder disease, pancreatitis, small bowel obstruction, acute coronary syndrome, pericarditis, ischemic bowel, irritable bowel disease, irritable bowel syndrome, appendicitis, diverticulitis, malignancy, hernia, urinary tract infection, torsion, perforation, trauma, infectious. Patient is a 41-year-old male who presents to ER for abdominal pain which started yesterday. He has been gradually worsening. Last bowel movement was yesterday. He has been still passing gas up until earlier today. On exam he does have a diffusely tender abdomen. CBC shows a hemoglobin of 9. BMP, LFTs, bilirubin, lipase are unremarkable. UA was negative. CT of the abdomen and pelvis shows a large bowel obstruction. Following these findings I immediately consult general surgery. They recommended admission to internal medicine. After this I discuss case with internal medicine who declined to admit the patient as this is a surgical patient. I did also discuss patient with GI per surgery's request. General surgery discussed the case with the patient and the patient requested to go to [facility]. [facility] will not be able to accept the patient until tomorrow. I then requested a general surgery to admit the patient and they declined and recommended transferring to [place]. He notes now he has two cases to go to the OR. Had multiple conversations with [facility] who accepted the patient. We attempted to obtain transport but was unsuccessful due to the volume. [place] sent their ambulance. Patient was given multiple doses of IV narcotics, 2 L normal saline and PRBCs 1 unit with a hemoglobin of 9 and likely surgery. Patient was updated at bedside. He'll be transferred to [facility] with a large bowel obstruction. NG tube is in place and KUB confirms this. NG tube is removing clear fluid. Patient was transported and left the hospital at 1:15 AM comfortable. Medication Reconcilliation Current Medication List: was personally reviewed by me Blood Pressure Screening Patient's blood pressure: Normal blood pressure Blood pressure disposition: Did not require urgent referral Consults Time Called: 1856 Consulting Physician: Dr. Beltre, [facility] general surgery Returned Call: 1858 I discussed the patient's case with him. We are in agreement with the plan. Additional Consults: Time Called: 1907 Consulted Physician: Dr. Griffiths, [facility] gastroenterology Returned Call: 1912 Additional Comments: I discussed the patient's case with her. We are in agreement with the plan. Time Called: 1929 Consulted Physician: Dr. Zapata, [facility] colorectal surgery Returned Call: 2000 Additional Comments: I discussed the patient's case with him. They cannot take the patient until morning. Impression Primary Impression: Large bowel obstruction Additional Impression: Anemia Critical Care I have personally spent 75 minutes of critical care time in the direct management of this patient. This includes bedside care, interpretation of diagnostic studies, and testing, discussion with consultants, patient, and family members, and other required patient management activities. This 75 minutes is in excess of all separately billable procedures. Scribe Attestation The scribe's documentation has been prepared under my direction and personally reviewed by me in its entirety. I confirm that the note above accurately reflects all work, treatment, procedures, and medical decision making performed by me. Departure Information Dispostion Transfer Acute Care Facility Referrals No Doctor, Assigned (PCP) Patient Instructions My [facility] Problem Qualifiers Additional Impression: Anemia Anemia type: unspecified type Qualified Codes: D64.9 - Anemia, unspecified
[2017-09-01 01:00] VITALS: BP 136/123; PULSE 110; TEMP 36.7; O2SAT 94
== END 2017-09-01 01:13 | disposition short-term general hospital (02) ==
LOC: C.EDB 16:31 → C.EDA 09-01 01:13
DX: K56.609 Unspecified intestinal obstruction, unspecified as to partial versus complete obstruction (principal); D64.9 Anemia, unspecified; K63.89 Other specified diseases of intestine; E11.9 Type 2 diabetes mellitus without complications; J45.909 Unspecified asthma, uncomplicated; I10 Essential (primary) hypertension; Z90.89 Acquired absence of other organs; Z98.890 Other specified postprocedural states; Z83.3 Family history of diabetes mellitus; Z82.49 Family history of ischemic heart disease and other diseases of the circulatory system; Z79.84 Long term (current) use of oral hypoglycemic drugs; Z79.899 Other long term (current) drug therapy

== ENCOUNTER 2017-10-05 08:26 | Day surgery (SDC) | payer OTHER ==
[2017-10-03 10:37] VITALS: BMI 26.0
[~2017-10-05] VITALS: Ht 177.8 cm; Wt 81.8 kg
[~2017-10-05 08:26] MED LIST changes: +ENOX100I SQ; -GLC500 PO; +LACTATED RINGER'S 1000ML 1,000 ML IV SCH; +METF-384 PO; +OXYC-164 PO; +OXYC20TA50 PO
[2017-10-05] MEDS ORDERED: ATROPINE SULFATE 0.1 MG/ML 5ML SYR IV PRN (08:45)
[2017-10-05] MEDS ORDERED: HYDROmorphone INJ 1 MG/ML SYR IV PRN (08:45)
[2017-10-05] MEDS ORDERED: EpHEDrine SULFATE INJ 50 MG/ML AMP IV PRN (08:45)
[2017-10-05] MEDS ORDERED: ONDANSETRON INJ 2 MG/ML 2 ML VIAL IV PRN ×2 (08:45→11:15)
[2017-10-05] MEDS ORDERED: MIDAZOLAM HCL 1 MG/ML 2ML VIAL ONE ×2 (08:53→10:24)
[2017-10-05] MEDS ORDERED: FENTANYL CITRATE INJ 50 MCG/1 ML 2 ML VIAL ONE ×2 (08:53→10:24)
[2017-10-05] MEDS ORDERED: OXYC1TAB3 PO (09:03)
[2017-10-05 09:04] VITALS: BP_SYST 100; PULSE 106; TEMP 36.9; O2SAT 100; Ht 177.8 cm; Wt 81.8 kg
[2017-10-05] MEDS: CEFAZOLIN 2000MG IV PUSH 15 ML IV SCH ×2 (09:36→10:29)
--- NOTE | 2017-10-05 09:51 | History & Physical Bridge Note ---
H&P Re-Evaluation Bridge Note: I have examined the patient, reviewed the History & Physical and in the interval since the performance of the History & Physical I have noted the following changes of clinical significance: No changes noted
[2017-10-05] MEDS ORDERED: HEPARIN SOD (PORCINE) 1000 UNIT/ML 10 ML VIAL ONE (10:02)
[2017-10-05] MEDS ORDERED: BUPIVACAINE 0.5 % 5 MG/1 ML MPF 30ML VIAL ONE (10:02)
[2017-10-05] MEDS ORDERED: LIDOCAINE/EPINEPHRINE 1% 20 ML VIAL ONE (10:02)
[2017-10-05] MEDS ORDERED: HYDROmorphone INJ 2 MG/ML SYR/VIAL ONE ×2 (10:40→11:02)
[2017-10-05] MEDS ORDERED: KETOROLAC TROMETHAMINE 30 MG/ML VIAL ONE (11:04)
[2017-10-05] MEDS ORDERED: LIDOCAINE HCL 2% 2 ML VIAL (20MG/ML) ONE (11:04)
[2017-10-05] MEDS ORDERED: DEXAMETHASONE SOD INJ 4 MG/ML VIAL ONE (11:04)
[2017-10-05] MEDS ORDERED: METOPROLOL TARTRATE 1 MG/ML VIAL ONE (11:04)
[2017-10-05] MEDS ORDERED: PROPOFOL IV EMULSION 10 MG/ML 20 ML VIAL IV ONE (11:04)
[2017-10-05] MEDS ORDERED: ONDANSETRON INJ 2 MG/ML 2 ML VIAL ONE (11:04)
--- NOTE | 2017-10-05 11:06 | [facility] Post Operative Brief Note ---
Immediate Operative Summary Operative Date Oct 05, 2017. Pre-Operative Diagnosis Need for Chemotherapy Post-Operative Diagnosis Same Procedure(s) Performed Insertion of Mediport Left Subclavian Vein Surgeon Dr Turcios Quality Assurance Monitor Surgeon(s) Nara Hollwoay PA-C Estimated Blood Loss 6ml Findings Consistent with Post-Op Diagnosis Fluoroscopy showed placement at the cavoatrial junction Specimens None Drains None Anesthesia Type MAC Complication(s) none Disposition Accompanied Pt To Recover: no Disposition: Recovery Room / PACU
--- NOTE | 2017-10-05 11:09 | [facility] Operative Report ---
Operative Report Operative Date Oct 05, 2017. Pre-Operative Diagnosis Need for Chemotherapy Post-Operative Diagnosis Same Procedure(s) Performed Left subclavian vein PowerPort insertion Surgeon Dr Turcios Salon Sales Consultant Surgeon(s) Nara Holloway PA-C Estimated Blood Loss 6ml Findings Left subclavian vein accessed on first attempt, fluoroscopy confirmed placement the cavoatrial junction, catheter draws and flushes easily. Specimens None Drains None Anesthesia MAC/local Complication(s) None Disposition Recovery Room / PACU Indications 41-year-old male with advanced colon cancer requiring chemotherapy and long- term IV access, plan for port placement. The risks of the procedure were discussed, all questions were answered, and the patient agreed to proceed with surgery as planned. Description of Procedure The patient was properly identified, consented, and taken to the operating room where he was placed in the supine position with both arms tucked and a shoulder roll placed vertically. Monitored anesthesia care was induced. SCDs and a safety belt were placed. Preoperative antibiotics were administered. The patient's chest and neck was prepped and draped in the standard sterile fashion. Surgical timeout was performed and all parties were in agreement that this was the correct patient and procedure to be performed and we continued as planned. The patient was placed in Trendelenburg position. Local anesthetic was injected along the skin incision. The left subclavian vein was accessed on the first attempt using the access needle. The wire was placed and the needle was removed. Fluoroscopy confirmed placement into the subclavian vein extending into the superior vena cava. Transverse skin incision was made and a pocket was created for the port. The dilator and peel-away sheath were inserted over the wire. The catheter was then inserted through the peel-away sheath and fluoroscopy confirmed placement into the superior vena cava. The catheter was cut to 20.5 cm and attached to the port. The port was secured into place with 3 -0 Prolene sutures. A final x-ray revealed good placement of the port at the cavoatrial junction. The wound was irrigated and hemostasis was confirmed. The skin was closed with interrupted 3-0 Vicryl deep dermal sutures, followed by 4-0 Monocryl running subcuticular suture. Dermabond was placed over the wound. The port was accessed and anabella blood easily and flushed easily. It was flushed with heparinized saline. The patient taken to the PACU where he recovered without apparent incident. All sponge, instrument and needle counts were correct at the conclusion of the procedure. The patient tolerated the procedure well. The physician's assistant community director was present and scrubbed for the entirety of the case. She was essential in positioning the patient, prepping and draping, retraction and exposure, placement of the port, closure of the incisions and placement of dressings. I attest to the content of the Intraoperative Record and any orders documented therein. Any exceptions are noted below.
--- NOTE | 2017-10-05 11:11 | [facility] Operative Report ---
Operative Report Operative Date Oct 05, 2017. Pre-Operative Diagnosis Need for Chemotherapy Surgeon Dr Turcios Findings Fluoroscopy was used and interpreted during the procedure for placement of the port. Total of 25.7 seconds of fluoroscopy time was utilized. I attest to the content of the Intraoperative Record and any orders documented therein. Any exceptions are noted below.
[2017-10-05] MEDS ORDERED: SODIUM CHLORIDE 0.9% 1000ML 1,000 ML IV SCH (11:14)
[2017-10-05] MEDS ORDERED: OXYCODONE/ACETAMINOPHEN 5-325 TAB PO PRN ×2 (11:15)
[2017-10-05] MEDS ORDERED: OXYC-57 PO (11:15)
--- NOTE | 2017-10-05 11:17 | Discharge Instructions ---
Discharge Instructions Date of Service Oct 05, 2017. Admission Reason for Admission: Colon Cancer Discharge Discharge Diagnosis / Problem: Colon Cancer Discharge Goals Goal(s): Decrease discomfort, Improve function Activity Recommendations Activity Limitations: as noted below Lifting Limitations: no more than 10 pounds Exercise/Sports Limitations: until after follow-up appointment May Resume Sexual Activity: after follow-up appointment Shower/Bathe: tomorrow Driving or Machine Use: resume 1 day after discharge . Instructions / Follow-Up Instructions / Follow-Up Please follow-up with Dr. Turcios in the General Surgery Clinic for an incision check in 1-2 weeks. Please call the office at [phone] to make an appointment if you do not have one already. Please call the office with any questions or concerns. Current Hospital Diet Patient's current hospital diet: Discharge Diet Recommended Diet: Regular Diet Procedures Procedures Performed: Insertion of Mediport Left Subclavian Vein Pending Studies Studies pending at discharge: no Medical Emergencies . Who to Call and When: Medical Emergencies: If at any time you feel your situation is an emergency, please call 911 immediately. . Non-Emergent Contact Non-Emergency issues call your: Primary Care Provider, Surgeon . "Provider Documentation" section prepared by Nara Holloway. . [place] Drug Monitoring Program Search Results: patient reviewed within database, no issues identified
[2017-10-05] MEDS: FENTANYL CITRATE INJ 50 MCG/1 ML 2 ML VIAL IV PRN ×2 (11:30→11:35)
--- NOTE | 2017-10-05 11:36 | DIAGNOSTIC IMAGING REPORT ---
CHEST ONE VIEW PORTABLE CLINICAL HISTORY: s/p port placement tube position COMPARISON STUDY: None FINDINGS: Central catheter placed in the superior vena cava. No evidence for pneumothorax. Minimal bibasilar platelike atelectasis. Upper lungs are clear. IMPRESSION: Central catheter placed in the superior vena cava. No evidence pneumothorax. The above report was generated using voice recognition software. It may contain grammatical, syntax or spelling errors. Electronically signed by: Will Magana M.D. 10/05/2017 11:34 AM Dictated Date/Time: 10/05/2017 11:33 AM
--- NOTE | 2017-10-05 11:45 | Anesthesiology Progress Note ---
Anesthesia Post Op Note Date & Time Oct 05, 2017 at 11:45 Vital Signs Pain Intensity: 4.0 Vital Signs Past 12 Hours Date Time Temp Pulse Resp B/P (MAP) Pulse Ox O2 Delivery O2 Flow Rate FiO2 10/05/17 11:30 37 92 16 102/64 96 Nasal Cannula 10/05/17 11:20 90 16 102/70 99 Oxymask 10 10/05/17 11:11 37.2 105 16 113/68 99 Oxymask 10 10/05/17 09:04 36.9 106 20 100/ (33) 100 Notes Mental Status: alert / awake / arousable, participated in evaluation Pt Amnestic to Procedure: Yes Nausea / Vomiting: adequately controlled Pain: adequately controlled Airway Patency, RR, SpO2: stable & adequate BP & HR: stable & adequate Hydration State: stable & adequate Anesthetic Complications: no major complications apparent
[2017-10-05 12:01] VITALS: BP 101/57; PULSE 93; TEMP 37; O2SAT 97
[2017-10-05 12:30] VITALS: BP 107/65; PULSE 87; TEMP 37; O2SAT 98
== END 2017-10-05 12:33 | disposition home or self-care (01) ==
LOC: C.ACU 08:26
PROVIDERS: ATTEND Surgery
DX: C18.9 Malignant neoplasm of colon, unspecified (principal); Z79.01 Long term (current) use of anticoagulants; Z86.718 Personal history of other venous thrombosis and embolism; F41.9 Anxiety disorder, unspecified; E78.5 Hyperlipidemia, unspecified; M19.90 Unspecified osteoarthritis, unspecified site; E11.9 Type 2 diabetes mellitus without complications; Z90.89 Acquired absence of other organs; Z83.3 Family history of diabetes mellitus; Z80.0 Family history of malignant neoplasm of digestive organs; Z82.49 Family history of ischemic heart disease and other diseases of the circulatory system; Z79.84 Long term (current) use of oral hypoglycemic drugs; Z88.5 Allergy status to narcotic agent

== ENCOUNTER → 2017-12-15 | Outpatient (CLI) | payer OTHER ==
[~2017-12-15] MED LIST changes: -LACTATED RINGER'S 1000ML 1,000 ML IV SCH; +OXYC1TAB3 PO
[2017-12-15 09:35] LABS: MEAN CORPUSCULAR HGB CONC 31.6 g/dl (32-36)
[2017-12-15 09:58] LABS: ALBUMIN 3.6 gm/dl (3.4-5.0); ALKALINE PHOSPHATASE 88 U/L (45-117); ALT/SGPT 23 U/L (12-78); AST/SGOT 32 U/L (15-37); BLOOD UREA NITROGEN 12 mg/dl (7-18); CALCIUM 8.7 mg/dl (8.5-10.1); CARBON DIOXIDE 28 mmol/L (21-32); CREATININE 0.92 mg/dl (0.60-1.40); GLUCOSE 192 mg/dl (70-99); POTASSIUM 4.3 mmol/L (3.5-5.1); SODIUM 136 mmol/L (136-145); TOTAL PROTEIN 7.7 gm/dl (6.4-8.2)
[2017-12-15 10:04] LABS: HEMATOCRIT 33.2 % (42-52); HEMOGLOBIN 10.5 g/dL (14.0-18.0); MEAN CELL VOLUME 70.9 fL (80-100); MEAN CORPUSCULAR HEMOGLOBIN 22.4 pg (25-34); RED CELL DISTRIBUTION WIDTH CV 24.2 % (11.5-14.5); WHITE BLOOD COUNT 4.25 K/uL (4.8-10.8)
[2017-12-15 10:06] LABS: BASO % 0.5 %; BASO ABS # 0.02 K/uL (0-0.2); EOS % 1.6 %; EOS ABS # 0.07 K/uL (0-0.5); IG# 0.01 K/uL (0.00-0.02); LYMPH % 27.1 %; LYMPH ABS # 1.15 K/uL (1.2-3.4); MONO % 12.5 %; MONO ABS # 0.53 K/uL (0.11-0.59); NEUT % 58.1 %; NEUT ABS # 2.47 K/uL (1.4-6.5); PLATELET COUNT 147 K/uL (130-400)
== END | disposition home or self-care (01) ==
LOC: C.LABSPEC 09:22
PROVIDERS: ATTEND Internal Medicine Hematology & Oncology
DX: C18.4 Malignant neoplasm of transverse colon (principal)

== ENCOUNTER → 2018-03-05 | Outpatient (CLI) | payer OTHER ==
[~2018-03-05] MED LIST changes: +OXYC-737 PO; -OXYC1TAB3 PO
== END | disposition home or self-care (01) ==
LOC: C.LABSPEC 10:30
PROVIDERS: ATTEND Internal Medicine Hematology & Oncology
DX: C18.4 Malignant neoplasm of transverse colon (principal)

== ENCOUNTER 2019-07-02 16:26 | Inpatient (IN) ==
[2019-07-02] MEDS ORDERED: MoRPHine SULFATE 4 MG/ML 1 ML CARP\\VIAL IV STA ×2 (16:48→18:24)
[2019-07-02] MEDS ORDERED: ONDANSETRON INJ 2 MG/ML 2 ML VIAL IV STA (16:48)
[2019-07-02] MEDS ORDERED: SODIUM CHLORIDE 0.9% 1000ML 1,000 ML IV SCH (17:00)
[2019-07-02 17:16] LABS: Basophils # (auto) 0.01 K/uL (0-0.2); Basophils % (auto) 0.1 %; Eosinophils # (auto) 0.08 K/uL (0-0.5); Eosinophils % (auto) 1.1 %; Hematocrit (blood only) 40.7 % (42-52); Hemoglobin 13.7 g/dL (14.0-18.0); Immature Granulocytes # (auto) 0.01 K/uL (0.00-0.02); Immature Granulocytes % (auto) 0.1 %; Lymphocytes # (auto) 1.63 K/uL (1.2-3.4); Mean Corpuscular Hemoglobin 30.8 pg (25-34); Mean Corpuscular Hgb Conc 33.7 g/dL (32-36); Mean Corpuscular Volume 91.5 fL (80-100); Monocytes # (auto) 0.57 K/uL (0.11-0.59); Monocytes % (auto) 7.7 %; Neutrophils # (auto) 5.12 K/uL (1.4-6.5); Platelet Count 265 K/uL (130-400); RDW Coefficient of Variation 13.4 % (11.5-14.5); RDW Standard Deviation 44.6 fL (36.4-46.3); Red Blood Count 4.45 M/uL (4.7-6.1); White Blood Count 7.42 K/uL (4.8-10.8)
--- NOTE | 2019-07-02 17:17 | Emergency Department Note ---
Entered by Annalise Collins acting as a scribe for Leopoldo Morrell MD History of Present Illness General Chief complaint: Abdominal Pain Stated complaint: SEVERE BACK AND STOMACH PAIN Time Seen by Provider: 07/02/19 16:37 Source: patient History of Present Illness Onset (ago): month(s) 1 Location: abdomen Radiation: back and other (left groin) Severity: severe and similar to prior episodes Pain Consistency: + other (persistent) Maximum Pain Intensity: 8 Quality: + other (abdominal pain) Relieved By: not by medication (Ibuprofen, Tylenol, Hydrocodone) Associated symptoms: + other (Positive abdominal pain, back pain, groin pain, depression, ostomy. Negative hematuria, SI, recent overdoses. ); no chest pain, no fever/chills and no shortness of breath Treatments prior to arrival: other (Ibuprofen, Tylenol, Hydrocodone) The patient is a 43 year old male presenting to the Emergency Department complaining of persistent abdominal pain starting 1 month ago. The patient reports that he has severe abdominal pain. He states that this abdominal pain radiates to the left side of his back and his left groin. He explains that he has experienced this pain before. He notes that he has seen his GI and Dr. Barrera [facility] for this pain. He adds that he has been taking Ibuprofen, Tylenol and Hydrocodone for his abdominal pain none of which have improved his pain. The patient reports that he has stage 4 colon cancer that has spread to his chest, abdomen and lymph nodes. He states that he currently receives therapeutic chemotherapy and follows with a [facility] Oncologist in [place], [place]. He notes that he has depression but that it is under control. He adds that he has an ostomy. The patient denies chest pain, shortness of breath, fevers, chills, hematuria, SI and recent overdoses. Home Medications Home Medications Medication Instructions Recorded Confirmed Type acetaminophen [Tylenol Extra 2,000 mg PO UD PRN 10/18/18 07/02/19 History Strength] prochlorperazine maleate 10 mg PO Q6H PRN #20 tab 02/11/19 07/02/19 Rx dronabinol 10 mg capsule 10 mg PO BID 02/22/19 07/02/19 History blood sugar diagnostic #300 ea 02/28/19 06/19/19 Rx lancets 33 gauge #300 ea 02/28/19 06/19/19 Rx metformin 1,000 mg tablet 1,000 mg PO BID #180 tab 03/26/19 07/02/19 Rx dicyclomine 20 mg tablet 20 mg PO TID PRN #270 tab 05/14/19 07/02/19 Rx citalopram 10 mg PO QAM 07/02/19 07/02/19 History ibuprofen 400 mg PO Q6H PRN 07/02/19 07/02/19 History sitagliptin [Januvia] 50 mg PO QAM 07/02/19 07/02/19 History Allergies Allergy/AdvReac Type Severity Reaction Status Date / Time promethazine Allergy Unknown Unknown Verified 07/02/19 17:25 REACTION Past Med/Surg History Medical History Anemia Anxiety Asthma A CHILD Colon cancer CHEMO TX Degenerative disc disease Depression Diabetes mellitus, type 2 Drug addiction "WAS ADDICTED TO METHADONE" Fatty liver Hyperlipidemia Surgical History History of colonoscopy History of creation of ostomy History of myringotomy History of shoulder surgery RT History of tonsillectomy History of vascular access device INTACT LEFT CHEST WALL Family History Mother Family history of diabetes mellitus Social History Preferred Language: Azeri Communication Ability: Effective Visual Impairment: No Limitations Hearing Ability: Normal Senior Living Advisor Required: No Beliefs That Will Affect Care: None marital status: Current Living Situation: Spouse current occupational status: disabled Other Information That Helps Us Care for You: No Feels Safe at Home: Yes Safety Concerns: Feels Safe At This Time Smoking Status: Never smoker Second Hand Exposure: No ; Hx Alcohol Use: No Hx Substance Use: No (pt denies, but H/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) Childhood Exposure to Second-Hand Smoke: No Dental Care, Regularly: No Review of Systems See HPI for pertinent positives & negatives. and A total of 10 systems reviewed and were otherwise negative Physical Exam Vital Signs Vital Signs - 24 hr 07/02/19 16:29 07/02/19 18:20 Pulse Rate 104 H Pulse Rate [Right Finger] 88 Pulse Rhythm Regular Pulse Strength Normal Respiratory Rate 20 20 Respiratory Effort / Characteristics Non-Labored Spontaneous Respiratory Depth Normal Respiratory Pattern Regular Blood Pressure 140/92 Blood Pressure [Right Arm] 123/92 Blood Pressure Mean 108 Blood Pressure Mean [Right Arm] 102 Blood Pressure Position Sitting Pulse Oximetry 96 98 Oxygen Delivery Method Room Air Sepsis Recent Fever Within 48 Hours No Sepsis New/Unexplained Change in Mental Status No Sepsis Action Taken by Nursing No Action Required General: Chronically ill appearing but not acutely ill appearing middle-aged male. HEENT: Normal cephalic atraumatic. Pupils are equal round and reactive to light. Extraocular movements are intact. Oropharynx is pink with moist mucous mem branes. No swelling of the mouth lips or tongue. Neck: Supple with a midline trachea. No meningeal signs or stiffness, no JVD or bruits. No Stridor. Chest: Clear to auscultation bilaterally. No wheezes or rhonchi. No increased work of breathing. Heart: regular rate and rhythm. Abdomen: Ostomy in central abdomen. Abdomen Is mildly tender on left side. No masses. Soft nondistended without rebound guarding or rigidity. : No hernia felt. No significant tenderness of testicles or swelling. Extremities: No cyanosis clubbing or edema. No calf tenderness or asymmetry Spine/Back. Non tender to palpation. No CVA tenderness Skin: Good turgor without rashes. Neurologic exam: Cranial nerves two through 12 are intact. Motor and sensation are intact and symmetrical throughout. Course Course 163: The patient was evaluated in room B7, and a complete history and physical examination were performed. 174: I reevaluated the patient at this time who reports that he feels more comfortable after receiving pain medication. 184: I reevaluated the patient at this time who reports that he is experiencing more abdominal pain. 0: I discussed the patients case with Dr. Marco SMITH hospitalist. She will evaluate the patient for further management. Administered Medications Enoxaparin Sodium (Lovenox) 40 mg SQ DAILY@2100 [facility] Stop: 08/01/19 20:59 Last Admin: 07/02/19 23:22 Dose: 40 mg Documented by: [id number] Lactated Ringer's (Lr) 1,000 mls @ 80 mls/hr IV .[id number] [facility] Stop: 08/01/19 22:01 Last Admin: 07/02/19 22:22 Dose: 80 mls/hr Documented by: [id number] Insulin Aspart (Novolog Flexpen) 0 units SC ACHS [facility] Stop: 08/01/19 22:01 Last Admin: 07/02/19 22:45 Dose: Not Given Documented by: [id number] Cosigned by: [id number] Ioversol (Optiray 320 100ml) 94 ml IV ONCE PRN PRN Reason: Interaction Checking Stop: 07/06/19 18:00 Last Admin: 07/02/19 18:01 Dose: 94 ml Documented by: [id number] Morphine Sulfate (Morphine Sulfate) 4 mg IV Q4H PRN PRN Reason: Pain Stop: 07/16/19 22:01 Last Admin: 07/02/19 22:27 Dose: 4 mg Documented by: [id number] Discontinued Medications Sodium Chloride (Nss 1000ml) 1,000 mls @ 999 mls/hr IV .Q1H1M [facility] Stop: 07/02/19 18:00 Last Infusion: 07/02/19 18:17 Dose: 0 mls/hr Documented by: [id number] Admin: 07/02/19 17:05 Dose: 999 mls/hr Documented by: [id number] Morphine Sulfate (Morphine Sulfate) 4 mg IV NOW STA Stop: 07/02/19 16:49 Last Admin: 07/02/19 17:05 Dose: 4 mg Documented by: [id number] Morphine Sulfate (Morphine Sulfate) 4 mg IV NOW STA Stop: 07/02/19 18:25 Last Admin: 07/02/19 18:31 Dose: 4 mg Documented by: [id number] Ondansetron HCl (Zofran) 4 mg IV NOW STA Stop: 07/02/19 16:49 Last Admin: 07/02/19 17:05 Dose: 4 mg Documented by: [id number] Medical Decision Making Differential Diagnosis Differential diagnoses include colitis, cancer complication, bowel obstruction and electrolyte or metabolic abnormality amongst others. Medical Records Attestation: I reviewed the patient's medical records. Home Medications Current Medication List: was personally reviewed by me Laboratory Data Attestation: I reviewed the patient's lab results. Result diagrams: 07/02/19 17:00 07/02/19 17:00 Lab Results 07/02/19 07/02/19 07/02/19 Range/Units 17:00 17:00 17:03 WBC 7.42 (4.8-10.8) K/uL RBC 4.45 L (4.7-6.1) M/uL Hgb 13.7 L (14.0-18.0) g/dL POC Hgb 13.9 L (14.0-18.0) g/dl Hct 40.7 L (42-52) % POC Hct 41 L (42-52) % MCV 91.5 (80-100) fL MCH 30.8 (25-34) pg MCHC 33.7 (32-36) g/dL RDW Std Deviation 44.6 (36.4-46.3) fL RDW Coeff of Jaylene 13.4 (11.5-14.5) % Plt Count 265 (130-400) K/uL MPV 10.0 (7.4-10.4) fL Immature Gran % (Auto) 0.1 % Neut % (Auto) 69.0 % Lymph % (Auto) 22.0 % [place] % (Auto) 7.7 % Eos % (Auto) 1.1 % Baso % (Auto) 0.1 % Immature Gran # (Auto) 0.01 (0.00-0.02) K/uL Neut # (Auto) 5.12 (1.4-6.5) K/uL Lymph # (Auto) 1.63 (1.2-3.4) K/uL [place] # (Auto) 0.57 (0.11-0.59) K/uL Eos # (Auto) 0.08 (0-0.5) K/uL Baso # (Auto) 0.01 (0-0.2) K/uL POC Sodium 138 (135-144) mEq/L Sodium 135 L (136-145) mmol/L POC Potassium 4.2 (3.3-5.0) mEq/L Potassium 4.0 (3.5-5.1) mmol/L POC Chloride 108 (101-112) mEq/L Chloride 107 (98-107) mmol/L Carbon Dioxide 21 (21-32) mmol/L POC Total CO2 22 L (24-31) mEq/l Anion Gap 7.0 (3-11) POC Anion Gap 13.0 L (16-25) mmol/L POC BUN 35 H (7-18) mg/dl BUN 39 H (7-18) mg/dl Creatinine 1.00 (0.6-1.4) mg/dl POC Creatinine 0.9 (0.6-1.3) mg/dl Est Cr Clr Drug Dosing 93.1 ml/min Est GFR ( Amer) 107.1 Est GFR (Non-Af Amer) 92.4 BUN/Creatinine Ratio 39.1 H (10-20) Glucose 183 H (70-99) mg/dl POC Glucose (other) 181 H (70-99) mg/dl Calcium 10.3 H (8.5-10.1) mg/dl POC Ioniz Calcium Ann Marie 1.20 (1.12-1.32) mmol/l Total Bilirubin 0.6 (0.2-1) mg/dl AST 23 (15-37) U/L ALT 22 (12-78) U/L Alkaline Phosphatase 65 (45-117) U/L Total Protein 8.8 H (6.4-8.2) gm/dl Albumin 4.3 (3.4-5.0) gm/dl Globulin 4.5 H (2.5-4.0) gm/dl Albumin/Globulin Ratio 0.9 (0.9-2) Lipase 423 H (73-393) U/L Imaging Data Radiologist's Impression: Radiology results as stated below per my review and the radiologist's interpretation: ABDOMEN AND PELVIS CT WITH IV CONTRAST CT DOSE: 468.39 mGycm HISTORY: Acute back and left flank pain with acute generalized abdominal pain. History of colon cancer. left flank/abd pain. Colon Ca TECHNIQUE: Multiaxial CT images of the abdomen and pelvis were performed following the IV administration of 94 cc of Optiray 320, A dose lowering technique was utilized adhering to the principles of ALARA. COMPARISON STUDY: CT abdomen and pelvis 05/23/2019, 02/21/2019 and 10/18/2018 FINDINGS: There are 2 subadjacent pulmonary nodules of the basal left lower lobe measuring up to 4 mm on image 22 of series 3 which appear unchanged. 2 mm micronodule of the lingula is also stable. There is no pneumatosis or pneumoperitoneum. The imaged inferior cardiac chambers are unremarkable. Unremarkable liver. No evidence of hepatic metastatic disease. The spleen is mildly enlarged, 14.9 cm. Unremarkable gallbladder, pancreas and adrenal glands. Kidneys, and ureters are unremarkable. Partial distention of the urinary bladder with mild wall thickening. Prostate is upper limits of normal in size. Calcifications of the vas deferens. There are multiple partially calcified retroperitoneal lymph nodes redemonstrated, largest of which measures 1.9 x 2.1 cm on image 231 series 3, unchanged from comparison. There is unchanged soft tissue thickening surrounding the celiac trunk and superior mesenteric artery w ith mild adjacent stranding. No definite evidence of new or progressive disease. No bowel obstruction. Postoperative changes of the transverse colostomy. There is mild wall thickening with surrounding pericolonic stranding involving the transverse colon with abdominal left upper quadrant (for example image 127 series 3). Tiny adjacent soft tissue nodules are suggestive of a lymph node. Terminal ileum and appendix appear normal. Bilateral gynecomastia. Soft tissues are within normal limits. Bones appear to be intact. There are no suspicious lytic or blastic bony lesions. IMPRESSION: 1. Postoperative changes of transverse colostomy. 2. There is mild wall thickening with surrounding inflammatory stranding involving the transverse colon within the abdominal left upper quadrant suspicious for a nonspecific colitis. Correlate clinically. 3. No bowel obstruction, pneumatosis or pneumoperitoneum. 4. Pathologic partially calcified retroperitoneal lymph nodes and soft tissue thickening surrounding the celiac trunk and superior mesenteric arteries appears unchanged from comparison. 5. Splenomegaly. Electronically signed by: Rafael Andersen M.D. 07/02/2019 6:20 PM Blood Pressure Blood Pressure Findings: Elevated blood pressure Blood Pressure Disposition: further management by hospitalist WENCESLAO Dumont This patient comes in as described above. He was placed in room B7. He has been having intermittent abdominal pain and back pain for several months. He is been seen by his primary doctor as well as oncologist. He has an ostomy that is unchanged. He said no fever chills or nausea vomiting is a normal bowel movements. His stage IV cancer and is on have an oral chemo agent. IV access established and blood work was obtained he was given morphine 4 mgs IV and Zofran 4 mgs IV. He tells me that his can come get him. I did order CAT scan as well as additional blood testing. He was reassessed frequently. His CBC is unremarkable. He has no significant electrolyte or metabolic abnormalities. He did require additional morphine 4 mg IV. His CAT scan does show colitis and some inflammation of the transverse colon. He does not feel he can go home, I think that admitting/observed him for pain management as well as further evaluation/GI consultation is prudent. I have consulted the admitting team to see him for these measures. Impression & Plan Intractable abdominal pain, Colitis, Colon carcinoma metastatic to multiple sites, Type 2 diabetes mellitus Discharge Plan Visit Data *Final* Discharge Date/Time: 07/02/19 21:30 Chief Complaint: Abdominal Pain Stated Complaint: SEVERE BACK AND STOMACH PAIN ED Provider: Leopoldo Morrell Discharge Problem: Intractable abdominal pain, Colitis, Colon carcinoma metastatic to multiple sites, Type 2 diabetes mellitus Patient Disposition: Admitted As Inpatient Discharge Instructions Interventions: ED Discharge Assessment Last Done: 07/02/19 21:30 Discharge Problem: Type 2 diabetes mellitus Qualifiers: Diabetes mellitus intermediate accountant insulin use: without intermediate accountant use Diabetes mellitus complication status: without complication Qualified Code(s): E11.9 - Type 2 diabetes mellitus without complications The scribe's documentation has been prepared under my direction and personally reviewed by me in its entirety. I confirm that the note above accurately reflects all work, treatment, procedures, and medical decision making performed by me.
[2019-07-02 17:19] LABS: iSTAT Creatinine 0.9 mg/dl (0.6-1.3); iSTAT Hemoglobin 13.9 g/dl (14.0-18.0); iSTAT Ionized Calcium 1.2 mmol/l (1.12-1.32); iSTAT Potassium 4.2 mEq/L (3.3-5.0)
[2019-07-02 17:39] LABS: Albumin Level 4.3 gm/dl (3.4-5.0); BUN Creatinine Ratio 39.1 (10-20); Calcium 10.3 mg/dl (8.5-10.1); Creatinine Clr Calc Pharmacy 93.1 ml/min; Est GFR (African American) 107.1; Est GFR (Non-African American) 92.4
[2019-07-02 17:41] LABS: Albumin Globulin Ratio 0.9 (0.9-2); Bilirubin,Total 0.6 mg/dl (0.2-1); Globulin 4.5 gm/dl (2.5-4.0); Total Protein 8.8 gm/dl (6.4-8.2)
[2019-07-02] MEDS ORDERED: IOVERSOL 100ml IV PRN (18:01)
--- NOTE | 2019-07-02 18:21 | CT Scan Report ---
ABDOMEN AND PELVIS CT WITH IV CONTRAST CT DOSE: 468.39 mGycm HISTORY: Acute back and left flank pain with acute generalized abdominal pain. History of colon cance r. left flank/abd pain. Colon Ca TECHNIQUE: Multiaxial CT images of the abdomen and pelvis were performed following the IV administrat ion of 94 cc of Optiray 320, A dose lowering technique was utilized adhering to the principles of AL HAL. COMPARISON STUDY: CT abdomen and pelvis 05/23/2019, 02/21/2019 and 10/18/2018 FINDINGS: There are 2 subadjacent pulmonary nodules of the basal left lower lobe measuring up to 4 mm on image 22 of series 3 which appear unchanged. 2 mm micronodule of the lingula is also stable. There is no pn eumatosis or pneumoperitoneum. The imaged inferior cardiac chambers are unremarkable. Unremarkable liver. No evidence of hepatic metastatic disease. The spleen is mildly enlarged, 14.9 cm . Unremarkable gallbladder, pancreas and adrenal glands. Kidneys, and ureters are unremarkable. Parti al distention of the urinary bladder with mild wall thickening. Prostate is upper limits of normal in size. Calcifications of the vas deferens. There are multiple partially calcified retroperitoneal lym ph nodes redemonstrated, largest of which measures 1.9 x 2.1 cm on image 231 series 3, unchanged from comparison. There is unchanged soft tissue thickening surrounding the celiac trunk and superior mese nteric artery with mild adjacent stranding. No definite evidence of new or progressive disease. No bowel obstruction. Postoperative changes of the transverse colostomy. There is mild wall thickenin g with surrounding pericolonic stranding involving the transverse colon with abdominal left upper bernabe drant (for example image 127 series 3). Tiny adjacent soft tissue nodules are suggestive of a lymph n ode. Terminal ileum and appendix appear normal. Bilateral gynecomastia. Soft tissues are within alanna l limits. Bones appear to be intact. There are no suspicious lytic or blastic bony lesions. IMPRESSION: 1. Postoperative changes of transverse colostomy. 2. There is mild wall thickening with surrounding inflammatory stranding involving the transverse col on within the abdominal left upper quadrant suspicious for a nonspecific colitis. Correlate clinicall y. 3. No bowel obstruction, pneumatosis or pneumoperitoneum. 4. Pathologic partially calcified retroperitoneal lymph nodes and soft tissue thickening surrounding the celiac trunk and superior mesenteric arteries appears unchanged from comparison. 5. Splenomegaly. Electronically signed by: Rafael Andersen M.D. 07/02/2019 6:20 PM
--- NOTE | 2019-07-02 20:21 | History & Physical Report ---
Date of Service July 02, 2019 Assessment & Plan (1) Intractable abdominal pain: 43-year-old male was admitted on 02 July 2019 for abdominal pain and a history of metastatic colon cancer. Sub-acute on chronic abdominal pain, stage IV colon cancer (dx Aug 2017): Patient notes frustration with at least a months worth of constant abdominal pain. He denies any fevers, overt diarrhea, or change in the character of his pain recently. Although CT scan findings mention possibility of nonspecific colitis, there is no overt evidence of an acute infectious process, therefore antibiotics are deferred on admission. - Reportedly colon mass treated only with chemotherapy. Did have a transverse loop colostomy in 2018 (Marie). Followed by [facility] oncology in [place] and is on Avastin. - In the ED, afebrile, briefly tachycardic, normotensive, normal room SpO2. WBC 7. CT a/p suggestive of nonspecific colitis without evidence of obstruction or free air (see full report). - In ED, treated with morphine, Zofran, and normal saline IVF. - For now, will continue acute pain management with morphine and Tylenol. Discussed with patient that the day team will review his case along with these acute lab and imaging findings to see if any further hospital management can be helpful. Lab findings (will recheck in a.m. after IVF): - Hypercalcemia: Admit Ca 10.3 with normal ionized Ca. - Elevated BUN at 39 and high urine SG 1.036. - Elevated lipase 423. Ongoing medical issues: - Hyperlipidemia: No noted home meds for this. - Diabetes type 2: At home is on metformin and sitagliptin. Here on insulin sliding scale. - Anxiety/depression, ADHD: Continue home citalopram. - Anemia: Admit hemoglobin 13.7 with baseline around 12s. - Myofascial pain, chronic low back pain: Held home ibuprofen. Continue home dicyclomine prn. Code status: Full code. Diet: Regular. DVT prophy: Lovenox. PT/OT: Deferred. Disbo: Admit to MedSurg for observation. (2) Colon carcinoma metastatic to multiple sites: (3) Hypercalcemia: (4) Elevated BUN: (5) Elevated lipase: (6) Dyslipidemia: (7) Type 2 diabetes mellitus: (8) ADD (attention deficit disorder): (9) Depression with anxiety: (10) Chronic anemia: (11) Myofascial pain: History of Present Illness Primary Care Provider: Noah Barrera DO 43-year-old male presents with concerns for ongoing uncontrolled abdominal pain . Patient says that his most recent constant pain is been going on for about a month. He has a notable history for stage IV colon cancer which has been treated with chemotherapy and a diverting ostomy. Patient has been seen by oncology here at [facility] and most recently at [facility] as well as PMNR, his PCM, and has a pending pain management appointment in a week. He notes he has been on methadone and Suboxone in the past but neither currently. However, patient says he is frustrated that he continues to have uncontrolled abdominal pain without find source per his account. For example, he says for the past 24 hours or so the pain is been so severe that he primarily stays in bed and has had minimal p.o. intake. He has been managing it with Tylenol, ibuprofen, and oxycodone 5 mg tablets with doses of 1 to 4 tablets/day. Notes some associated nausea without vomiting and says that his stools have been normal for him, i.e. more liquid but nonbloody. No known fever. He describes his abdominal pain is bilateral midabdomen with the occasional separate pain around the left low flank that radiates through the inguinal region. No known history of kidney stones and denies any urinary symptoms. Otherwise she denies focal pains elsewhere or other acute concerns. He states he remains on Avastin as therapeutic chemotherapy and only stopped it for a colonoscopy. - Past medical history includes anemia, anxiety, pediatric asthma, colon cancer, degenerative disc disease, depression, DM type II, prior methadone injection, fatty liver, hyperlipidemia. - Past surgical history includes transverse loop colostomy, adenoidectomy, right shoulder surgery, tonsillectomy. - Social history includes never smoked. Former drinker. Lives at home with and family. Allergies Allergy/AdvReac Type Severity Reaction Status Date / Time promethazine Allergy Unknown Unknown Verified 07/02/19 17:25 REACTION Home Medications Home Medications Medication Instructions Recorded Confirmed Type acetaminophen [Tylenol Extra 2,000 mg PO UD PRN 10/18/18 07/02/19 History Strength] prochlorperazine maleate 10 mg PO Q6H PRN #20 tab 02/11/19 07/02/19 Rx dronabinol 10 mg capsule 10 mg PO BID 02/22/19 07/02/19 History blood sugar diagnostic #300 ea 02/28/19 06/19/19 Rx lancets 33 gauge #300 ea 02/28/19 06/19/19 Rx metformin 1,000 mg tablet 1,000 mg PO BID #180 tab 03/26/19 07/02/19 Rx dicyclomine 20 mg tablet 20 mg PO TID PRN #270 tab 05/14/19 07/02/19 Rx citalopram 10 mg PO QAM 07/02/19 07/02/19 History ibuprofen 400 mg PO Q6H PRN 07/02/19 07/02/19 History sitagliptin [Januvia] 50 mg PO QAM 07/02/19 07/02/19 History Past Med/Surg History Medical History Anemia Anxiety Asthma A CHILD Colon cancer CHEMO TX Degenerative disc disease Depression Diabetes mellitus, type 2 Drug addiction "WAS ADDICTED TO METHADONE" Fatty liver Hyperlipidemia Surgical History History of colonoscopy History of creation of ostomy History of myringotomy History of shoulder surgery RT History of tonsillectomy History of vascular access device INTACT LEFT CHEST WALL Family History Mother Family history of diabetes mellitus Social History Preferred Language: Irish Communication Ability: Effective Visual Impairment: No Limitations Hearing Ability: Normal 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 Beliefs That Will Affect Care: None marital status: Current Living Situation: Spouse current occupational status: disabled Other Information That Helps Us Care for You: No Feels Safe at Home: Yes Safety Concerns: Feels Safe At This Time Smoking Status: Never smoker Second Hand Exposure: No ; Hx Alcohol Use: No Hx Substance Use: No (pt denies, but H/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) Childhood Exposure to Second-Hand Smoke: No Dental Care, Regularly: No Review of Systems Review of Systems: Constitutional: Denies fevers, chills, focal weakness Eyes: Denies any visual loss or diplopia ENT: Denies any ear/nose/throat pain or difficulty speaking or swallowing Respiratory: Denies any dyspnea, cough, hemoptysis Cardiovascular: Denies any chest pain or feeling of edema Gastrointestinal: Positive chronic abdominal pain. Positive nausea, denies vomiting, no acute diarrhea. Musculoskeletal: Positive chronic myofascial pain. Skin: Denies any known acute rashes or lesions Neuro: Denies any headache, acute focal weakness or numbness, or difficulties with speech or swallow. Physical Exam Physical Exam: GENERAL: Awake, alert, in no acute distress HENT: Normocephalic, atraumatic. Oropharynx mildly dry. EYES: Normal conjunctiva. Sclera non-icteric. NECK: Inspection normal. Supple and full ROM. No nuchal rigidity. CARDIAC: +S1S2 RRR, no murmurs. RESPIRATORY: Clear to auscultation. No wheezes or rales. Normal respiratory effort. GI: +BS, soft, non-distended. Positive ostomy superior to the umbilicus. Minimal tenderness to palpation bilaterally to the abdomen. EXTREMITIES: No pedal edema or calf tenderness. Moving all extremities naturally and easily. BACK: Positive bilateral CVA tenderness to palpation. NEURO: No gross neuro deficits. Results & Data Vital Signs (Past 12 Hours) Vital Signs Pulse Pulse Resp BP BP Pulse Ox 07/02/19 18:20 88 20 123/92 98 07/02/19 16:29 104 H 20 140/92 96 Laboratory Results 07/02/19 07/02/19 07/02/19 Range/Units 17:03 17:00 17:00 WBC 7.42 (4.8-10.8) K/uL RBC 4.45 L (4.7-6.1) M/uL Hgb 13.7 L (14.0-18.0) g/dL POC Hgb 13.9 L (14.0-18.0) g/dl Hct 40.7 L (42-52) % POC Hct 41 L (42-52) % MCV 91.5 (80-100) fL MCH 30.8 (25-34) pg MCHC 33.7 (32-36) g/dL RDW Std Deviation 44.6 (36.4-46.3) fL RDW Coeff of Jaylene 13.4 (11.5-14.5) % Plt Count 265 (130-400) K/uL MPV 10.0 (7.4-10.4) fL Immature Gran % (Auto) 0.1 % Neut % (Auto) 69.0 % Lymph % (Auto) 22.0 % [place] % (Auto) 7.7 % Eos % (Auto) 1.1 % Baso % (Auto) 0.1 % Immature Gran # (Auto) 0.01 (0.00-0.02) K/uL Neut # (Auto) 5.12 (1.4-6.5) K/uL Lymph # (Auto) 1.63 (1.2-3.4) K/uL [place] # (Auto) 0.57 (0.11-0.59) K/uL Eos # (Auto) 0.08 (0-0.5) K/uL Baso # (Auto) 0.01 (0-0.2) K/uL POC Sodium 138 (135-144) mEq/L Sodium 135 L (136-145) mmol/L POC Potassium 4.2 (3.3-5.0) mEq/L Potassium 4.0 (3.5-5.1) mmol/L POC Chloride 108 (101-112) mEq/L Chloride 107 (98-107) mmol/L Carbon Dioxide 21 (21-32) mmol/L POC Total CO2 22 L (24-31) mEq/l Anion Gap 7.0 (3-11) POC Anion Gap 13.0 L (16-25) mmol/L POC BUN 35 H (7-18) mg/dl BUN 39 H (7-18) mg/dl Creatinine 1.00 (0.6-1.4) mg/dl POC Creatinine 0.9 (0.6-1.3) mg/dl Est Cr Clr Drug Dosing 93.1 ml/min Est GFR ( Amer) 107.1 Est GFR (Non-Af Amer) 92.4 BUN/Creatinine Ratio 39.1 H (10-20) Glucose 183 H (70-99) mg/dl POC Glucose (other) 181 H (70-99) mg/dl Calcium 10.3 H (8.5-10.1) mg/dl POC Ioniz Calcium Ann Marie 1.20 (1.12-1.32) mmol/l Total Bilirubin 0.6 (0.2-1) mg/dl AST 23 (15-37) U/L ALT 22 (12-78) U/L Alkaline Phosphatase 65 (45-117) U/L Total Protein 8.8 H (6.4-8.2) gm/dl Albumin 4.3 (3.4-5.0) gm/dl Globulin 4.5 H (2.5-4.0) gm/dl Albumin/Globulin Ratio 0.9 (0.9-2) Lipase 423 H (73-393) U/L Medications Administered Ioversol (Optiray 320 100ml) 94 ml IV ONCE PRN PRN Reason: Interaction Checking Stop: 07/06/19 18:00 Last Admin: 07/02/19 18:01 Dose: 94 ml Documented by: [id number] Discontinued Medications Sodium Chloride (Nss 1000ml) 1,000 mls @ 999 mls/hr IV .Q1H1M ELI Stop: 07/02/19 18:00 Last Infusion: 07/02/19 18:17 Dose: 0 mls/hr Documented by: [id number] Admin: 07/02/19 17:05 Dose: 999 mls/hr Documented by: [id number] Morphine Sulfate (Morphine Sulfate) 4 mg IV NOW STA Stop: 07/02/19 16:49 Last Admin: 07/02/19 17:05 Dose: 4 mg Documented by: [id number] Morphine Sulfate (Morphine Sulfate) 4 mg IV NOW STA Stop: 07/02/19 18:25 Last Admin: 07/02/19 18:31 Dose: 4 mg Documented by: [id number] Ondansetron HCl (Zofran) 4 mg IV NOW STA Stop: 07/02/19 16:49 Last Admin: 07/02/19 17:05 Dose: 4 mg Documented by: [id number] Code Status & VTE Plan Code Status Full code VTE Prophylaxis Plan VTE Prophylaxis will be ordered: Yes Supervising Physician Co-Signing Physician Notes Patient was seen and examined by me personally. I reviewed the chart, the orders and discussed the case in detail with Dr. Rafael Fletcher MD . I read this H&P and agree with its contents to entirety. Resident Activity Tracking Resident Involvement: Resident Care Provided Care Provided: Adult [facility] Medicine (1) Type 2 diabetes mellitus Diabetes mellitus complication status: without complication Diabetes mellitus long chain quiller tender insulin use: without group home use Qualified Code(s): E11.9 - Type 2 diabetes mellitus without complications
[2019-07-02] MEDS ORDERED: GLUCOSE 10 TABS/TUBE PO PRN (22:02)
[2019-07-02] MEDS ORDERED: GLUCOSE 40% GEL 15 GM TUBE PO PRN (22:02)
[2019-07-02] MEDS ORDERED: DEXTROSE 50% 50 ML SYRINGE IV PRN (22:02)
[2019-07-02] MEDS ORDERED: CARBOHYDRATES FOR HYPOGLYCEMIA PO PRN (22:02)
[2019-07-02] MEDS ORDERED: GLUCAGON FOR INJ 1 MG VIAL SQ PRN (22:02)
[2019-07-02] MEDS ORDERED: ACETAMINOPHEN 325 MG TAB PO PRN (22:02)
[2019-07-02] MEDS ORDERED: MoRPHine SULFATE 4 MG/ML 1 ML CARP\\VIAL IV PRN (22:02)
[2019-07-02] MEDS: LACTATED RINGER'S 1,000 ML IV SCH (22:22)
[2019-07-02] MEDS: INSULIN ASPART 100 UNITS/ML 3 ML PEN SC SCH (22:45)
[2019-07-02] MEDS: ENOXAPARIN INJ 40 MG/0.4 ML SYR SQ SCH (23:22)
[2019-07-02 23:42] LABS: Appearance Urine Clear (Clear); Bacteria Urine Automated Negative (Negative); Bilirubin Urine Negative (Negative); Blood Urine Negative (Negative); Color Urine Yellow; Glucose Urine UA Negative (Negative); Ketones Urine Trace (Negative); Leukocyte Esterase Urine Negative (Negative); Nitrite Urine Negative (Negative); Protein Urine Trace (Negative); RBC Urine Automated 0-4 /hpf (0-4); Specific Gravity Urine > 1.045 (1.000-1.030); Urobilinogen Urine Negative (Negative)
[2019-07-03] MEDS: MoRPHine SULFATE 4 MG/ML 1 ML CARP\\VIAL IV PRN ×7 (01:49→21:18)
[2019-07-03] MEDS: DICYCLOMINE HCL 20 MG TAB PO PRN (01:51)
--- NOTE | 2019-07-03 03:14 | Billing Data ---
Coding Level of Care Code 22126 OBS Care - Level 2
[2019-07-03 06:32] LABS: Basophils # (auto) 0.03 K/uL (0-0.2); Basophils % (auto) 0.4 %; Eosinophils % (auto) 1.3 %; Hematocrit (blood only) 34.6 % (42-52); Hemoglobin 11.4 g/dL (14.0-18.0); Immature Granulocytes # (auto) 0.02 K/uL (0.00-0.02); Immature Granulocytes % (auto) 0.3 %; Lymphocytes # (auto) 2.05 K/uL (1.2-3.4); Lymphocytes % (auto) 26.2 %; Mean Corpuscular Hemoglobin 29.8 pg (25-34); Mean Corpuscular Hgb Conc 32.9 g/dL (32-36); Mean Corpuscular Volume 90.6 fL (80-100); Mean Platelet Volume 9.8 fL (7.4-10.4); Monocytes # (auto) 0.67 K/uL (0.11-0.59); Monocytes % (auto) 8.6 %; Neutrophils # (auto) 4.95 K/uL (1.4-6.5); Neutrophils % (auto) 63.2 %; Platelet Count 219 K/uL (130-400); RDW Coefficient of Variation 13.4 % (11.5-14.5); RDW Standard Deviation 43.9 fL (36.4-46.3); Red Blood Count 3.82 M/uL (4.7-6.1); White Blood Count 7.82 K/uL (4.8-10.8)
[2019-07-03 07:17] LABS: BUN Creatinine Ratio 46.1 (10-20); Calcium 8.9 mg/dl (8.5-10.1); Creatinine Clr Calc Pharmacy 161.1 ml/min; Est GFR (African American) 142.8; Est GFR (Non-African American) 123.2; Magnesium 1.9 mg/dl (1.8-2.4); Phosphorus 3.1 mg/dl (2.5-4.9); Potassium 3.9 mmol/L (3.5-5.1)
[2019-07-03] MEDS: CITALOPRAM 20 MG TAB PO SCH (07:44)
[2019-07-03] MEDS: INSULIN ASPART 100 UNITS/ML 3 ML PEN SC SCH ×4 (08:12→21:18)
[2019-07-03] MEDS: LACTATED RINGER'S 1,000 ML IV SCH (11:18)
--- NOTE | 2019-07-03 15:44 | Hospitalist Progress Note ---
Date of Service July 03, 2019 Assessment & Plan (1) Intractable abdominal pain: 43-year-old male was admitted on 02 July 2019 for abdominal pain and a history of metastatic colon cancer. Sub-acute on chronic abdominal pain, stage IV colon cancer (dx Aug 2017): Patient notes frustration with at least a months worth of constant abdominal pain. He denies any fevers, overt diarrhea, or change in the character of his pain recently. Although CT scan findings mention possibility of nonspecific colitis, there is no overt evidence of an acute infectious process, therefore antibiotics are deferred on admission. - Reportedly colon mass treated only with chemotherapy. Did have a transverse loop colostomy in 2018 (Marie). Followed by [facility] oncology in [place] and is on Avastin. - In the ED, afebrile, briefly tachycardic, normotensive, normal room SpO2. WBC 7. CT a/p suggestive of nonspecific colitis without evidence of obstruction or free air (see full report). - In ED, treated with morphine, Zofran, and normal saline IVF. -D/W patient regarding celiac plexus nerve block as an option. -This pain appears chronic and is not responding to pain medicine. -Though GI believes this to be musculoskeletal, this could also be pain secondary to his colon cancer. will consult pain management: for possible celiac plexus nerve block. Lab findings (will recheck in a.m. after IVF): - Hypercalcemia: Admit Ca 10.3 with normal ionized Ca. - Elevated BUN at 39 and high urine SG 1.036. - Elevated lipase 423. Ongoing medical issues: - Hyperlipidemia: No noted home meds for this. - Diabetes type 2: At home is on metformin and sitagliptin. Here on insulin sliding scale. - Anxiety/depression, ADHD: Continue home citalopram. - Anemia: Admit hemoglobin 13.7 with baseline around 12s. - Myofascial pain, chronic low back pain: Held home ibuprofen. Continue home dicyclomine prn. Code status: Full code. Diet: Regular. DVT prophy: Lovenox. . (2) Colon carcinoma metastatic to multiple sites: (3) Hypercalcemia: (4) Elevated BUN: (5) Elevated lipase: (6) Dyslipidemia: (7) Type 2 diabetes mellitus: (8) ADD (attention deficit disorder): (9) Depression with anxiety: (10) Chronic anemia: (11) Myofascial pain: Subjective 43 yo male reports having abd. pain, which is located in bilateral flanks and radiates to the back. Patient reports pain has been intense and severe intermittently for past month. Patient denies any fever or chills, diarrhea. Review of Systems Review of Systems: All systems reviewed & are unremarkable except as noted in HPI & below Physical Exam Physical Exam: GENERAL: Awake, alert, in no acute distress HENT: Normocephalic, atraumatic. Oropharynx mildly dry. EYES: Normal conjunctiva. Sclera non-icteric. NECK: Inspection normal. Supple and full ROM. No nuchal rigidity. CARDIAC: +S1S2 RRR, no murmurs. RESPIRATORY: Clear to auscultation. No wheezes or rales. Normal respiratory effort. GI: +BS, soft, non-distended. Positive ostomy superior to the umbilicus. Minimal tenderness to palpation bilaterally to the abdomen. EXTREMITIES: No pedal edema or calf tenderness. Moving all extremities naturally and easily. NEURO: No gross neuro deficits. Results & Data Vital Signs (Past 12 Hours) Vital Signs Temp Pulse Resp BP Pulse Ox 07/03/19 15:02 36.6 C 92 H 16 133/83 99 07/03/19 11:31 36.6 C 90 16 130/89 98 07/03/19 07:26 36.8 C 89 16 130/76 98 07/03/19 03:53 36.7 C 102 H 20 133/83 98 PG Care Time/CCT Total # of Minutes Spent Total Time Spent with Patient: Total time spent is greater than 50% in coordination of care (as documented) at patient's floor/unit and/or counseling patient: (1) Type 2 diabetes mellitus Diabetes mellitus complication status: without complication Diabetes mellitus senior care insulin use: without senior care use Qualified Code(s): E11.9 - Type 2 diabetes mellitus without complications
--- NOTE | 2019-07-03 15:55 | Gastrointestinal Consultation ---
Date of Consultation July 03, 2019 Assessment & Plan (1) Colon carcinoma metastatic to multiple sites: (2) Abdominal pain of multiple sites: I believe the patient's pain is most likely related to myofascial/musculoskeletal pain Recommend Pain management consultation Continue current therapy and supportive care. History of Present Illness Reason for Consultation: Abdominal pain Attending Physician: Josué Montes History of Present Illness Russel Vickers is a 43 yo CM with a significant PMHx of metastatic colon cancer. He was initially diagnosed in early 2017, at which time he underwent a partial colectomy with Transverse colostomy. Recent imaging has noted lymphadenopathy surrounding the Celiac and SMA arteries. He has been on chemotherapy since his surgery, and has been seeing HemOnc at [facility]. He was seen in our office in mid-February with similar complaints. It was felt at that time that his pain may be related to a prolapsed stoma. He has subsequently been seen by a surgeon at [facility], who does not feel it is the source of his pain, but would like him to have an ostomy reversal. Unfortunately he states that when he went off chemo for a short period of time, his CEA level increased and he was restarted on maintenance chemo. He has not returned to the surgeon at [facility] since that time. He was admitted from the ER, and at the time I saw him, he continued to complain of B/L lower abdominal pain, L>R. He describes the pain as chronic, radiating to the back, up to 8/10 in intensity, without alleviating factors. He is having good ostomy output, and empties his bag 3-4 times per day with noted brown liquid stool. He does not have any output via his rectum. He denies any fevers, chills, nausea, vomiting, hematemesis, jaundice, acolic stools, dark urine or pruritus, and no further complaints. Allergies Allergy/AdvReac Type Severity Reaction Status Date / Time promethazine Allergy Unknown Unknown Verified 07/02/19 17:25 REACTION Home Medications Home Medications Medication Instructions Recorded Confirmed Type acetaminophen [Tylenol Extra 2,000 mg PO UD PRN 10/18/18 07/02/19 History Strength] prochlorperazine maleate 10 mg PO Q6H PRN #20 tab 02/11/19 07/02/19 Rx dronabinol 10 mg capsule 10 mg PO BID 02/22/19 07/02/19 History blood sugar diagnostic #300 ea 02/28/19 06/19/19 Rx lancets 33 gauge #300 ea 02/28/19 06/19/19 Rx metformin 1,000 mg tablet 1,000 mg PO BID #180 tab 03/26/19 07/02/19 Rx dicyclomine 20 mg tablet 20 mg PO TID PRN #270 tab 05/14/19 07/02/19 Rx citalopram 10 mg PO QAM 07/02/19 07/02/19 History ibuprofen 400 mg PO Q6H PRN 07/02/19 07/02/19 History sitagliptin [Januvia] 50 mg PO QAM 07/02/19 07/02/19 History Patient History Medical History Anemia Anxiety Asthma A CHILD Colon cancer CHEMO TX Degenerative disc disease Depression Diabetes mellitus, type 2 Drug addiction "WAS ADDICTED TO METHADONE" Fatty liver Hyperlipidemia Surgical History History of colonoscopy History of creation of ostomy History of myringotomy History of shoulder surgery RT History of tonsillectomy History of vascular access device INTACT LEFT CHEST WALL Family History Mother Family history of diabetes mellitus Social History Preferred Language: Lao Communication Ability: Effective Visual Impairment: No Limitations Hearing Ability: Normal 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: No Beliefs That Will Affect Care: None marital status: Current Living Situation: Spouse current occupational status: disabled Feels Safe at Home: Yes Smoking Status: Never smoker Second Hand Exposure: No ; Hx Alcohol Use: No Hx Substance Use: No (pt denies, but H/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) Childhood Exposure to Second-Hand Smoke: No Dental Care, Regularly: No Review of Systems Review of Systems: All systems reviewed & are unremarkable except as noted in HPI & below Physical Exam Constitutional: + ill appearing and + malnourished Eyes: PERRL, conjunctivae normal, anicteric sclerae ENMT: external ear and nose normal, oropharynx normal Neck: trachea midline, no thyromegaly Respiratory: normal respiratory effort, lungs clear to auscultation Cardiovascular: RRR, no murmur, no edema Gastrointestinal (Abdomen): Inspection/Auscultation: abdomen not distended Percussion/Palpation: + abdomen tender (LLQ>RLQ) and abdomen soft; no guarding and abdomen not rigid Stoma is prolapsed, pink, no bleeding or ulcerations noted, brown liquid stool in ostomy bag Results & Data Vital Signs (Past 12 Hours) Vital Signs Temp Pulse Resp BP Pulse Ox 07/03/19 15:02 36.6 C 92 H 16 133/83 99 07/03/19 11:31 36.6 C 90 16 130/89 98 07/03/19 07:26 36.8 C 89 16 130/76 98 07/03/19 03:53 36.7 C 102 H 20 133/83 98 PG Care Time/CCT Total # of Minutes Spent Total Time Spent with Patient: Total time spent is greater than 50% in coordination of care (as documented) at patient's floor/unit and/or counseling patient:
[2019-07-03] MEDS ORDERED: CYCLOBENZAPRINE HCL 5 MG TAB PO PRN (17:42)
[2019-07-03] MEDS: PROCHLORPERAZINE MALEATE 10 MG TAB PO PRN (18:13)
[2019-07-03] MEDS: ENOXAPARIN INJ 40 MG/0.4 ML SYR SQ SCH (21:19)
[2019-07-03] MEDS ORDERED: LORazepam 0.5 MG/1 ML VIAL IV PRN (21:38)
[2019-07-04] MEDS: MoRPHine SULFATE 4 MG/ML 1 ML CARP\\VIAL IV PRN ×3 (00:52→07:32)
[2019-07-04] MEDS ORDERED: TRIAMCINOLONE ACET 40 MG/ML VIAL ONE (07:50)
[2019-07-04] MEDS ORDERED: KETOROLAC 30 MG/ML VIAL ONE (07:50)
[2019-07-04] MEDS ORDERED: KETOROLAC TROMETHAMINE 60 MG/2 ML VIAL IM STA ×2 (08:29)
[2019-07-04] MEDS ORDERED: ROPIVACAINE 0.5% 5 MG/ML 30 ML VIAL INSTIL ONE (08:30)
[2019-07-04] MEDS ORDERED: TRIAMCINOLONE ACET 40 MG/ML VIAL IM ONE (08:30)
--- NOTE | 2019-07-04 08:49 | Pain Management Consultation ---
Date of Consultation July 04, 2019 Assessment & Plan (1) Abdominal pain of multiple sites: Present on Admission?: Yes (2) Myofascial pain: Present on Admission?: Yes (3) Intractable abdominal pain: Present on Admission?: Yes (4) Colon carcinoma metastatic to multiple sites: Present on Admission?: Yes (5) S/P colostomy: 1. We discussed potential etiologies with the patient as well as various treatment options. We will initially recommend a trial of abdominal wall trigger point injections and he was agreeable. Refer to procedure note below. 2. Should the patient fail to respond to above would consider a transverse abdominal plain block. Given location of his pain it appears unlikely that celiac plexus block would provide the patient with any significant pain relief. 3. Will initiate IV Toradol 30 mg every 6 H for as needed breakthrough pain 4. Patient may reserve IV morphine for pain not well controlled with IV Toradol 5. Will reevaluate patient tomorrow TRIGGER POINT INJECTION Diagnosis: Myofascial pain with spasm Side/Level injected: Left lower quadrant abdomen x5 Surgeon: Dung WRIGHT Prior to starting, the Patients diagnosis and the procedure were reviewed with the patient in detail. Possible risks and complications including infection, bleeding, damage to surrounding structures and increased pain were discussed. Alternative therapies were also reviewed. Patients questions were answered and they agreed to proceed. Informed consent was obtained. Allergies and me dication list was reviewed. The patient was brought to the procedure room and placed in prone position. Immediately prior to starting the procedure, a ``time out was conducted with the staff and the patient where the patient was identified, proposed procedure was verified, consent was reviewed and the proper site for the planned procedure was identified. Patient was not given any intravenous sedation and constant verbal contact was maintained throughout the procedure. On examination, no signs of skin breakdown or infection were noted at the injection site. The site was cleansed with ChloraPrep. Palpation over the site produced patients typical pain. Using an 1.5 inch 25-gauge needle, the above muscles were injected in similar fashion after negative aspiration for blood with 1.5-2 mL of a combination of 7 mL of 0.5% bupivacaine containing 40 mg of Kenalog and 60 mg of ketorolac without complication. Needle was withdrawn and hemostasis noted. Band-Aid was applied where needed. Patient tolerated the procedure uneventfully without complications. Patient was discharged home with standard discharge instructions after 15-20 minutes. Present on Admission?: Yes History of Present Illness Reason for Consultation: Intractable abdominal pain Requesting Physician: Dr. Montes Attending Physician: Josué Montes History of Present Illness Mr. Ag is a 43-year-old white male who was admitted with intractable subacute on chronic abdominal pain predominantly in the left lower quadrant. Patient has history of stage IV colon cancer diagnosed August 2017 treated with chemotherapy currently on Avastin. The patient had no radiation therapy but did have a transverse loop colostomy in 2018 due to colon mass. Patient reports his abdominal pain has been ongoing over the past 2-3 months but has become more constant. His pain is constant on a daily basis described as a aching and cramping sensation in the left lower quadrant which can occasionally radiate from the left flank and into the left groin and scrotal region. He has minimal right-sided similar pain. He denies change in location or characte ristic of the pain since the time of onset. He denies change with dietary intake. The patient is passing stool through the colostomy. He does not pass stool through the rectum. He denies dysuria, hematuria or history of renal stones. Patient has been treated with multiple muscle relaxers, opiates, antiemetics as well as antispasmodics without improvement in symptomatic complaints. Patient reports benefit from use of IV morphine lasting for a few hours. He does find some moderate benefit from use of a heating pad. Patient has some chronic axial low back pain but denies a lumbar radicular component to symptoms. He has no true radicular pain in the abdominal region and denies thoracic back pain complaints. Patient has been evaluated by GI upon this admission with abdominal and pelvic CT scan failing to reveal obvious etiology of his presenting complaints. There has been some concern about prolapsed ostomy contributing to pain complaints. Surgical correction has not been planne d at this time but has been discussed. He is followed by hematology oncology in [place]. Patient has no further constitutional complaints. Plan of care discussed with Dr. Vandana Barnes. Pain Assessment Full Body Front + Back: 1. Left lower quadrant abdomen 2. Left flank Pain scale - at its best (0-10): 6 Pain scale - at its worst (0-10): 8 Allergies Allergy/AdvReac Type Severity Reaction Status Date / Time promethazine Allergy Unknown Unknown Verified 07/02/19 17:25 REACTION Home Medications Home Medications Medication Instructions Recorded Confirmed Type acetaminophen [Tylenol Extra 2,000 mg PO UD PRN 10/18/18 07/02/19 History Strength] prochlorperazine maleate 10 mg PO Q6H PRN #20 tab 02/11/19 07/02/19 Rx dronabinol 10 mg capsule 10 mg PO BID 02/22/19 07/02/19 History blood sugar diagnostic #300 ea 02/28/19 06/19/19 Rx lancets 33 gauge #300 ea 02/28/19 06/19/19 Rx metformin 1,000 mg tablet 1,000 mg PO BID #180 tab 03/26/19 07/02/19 Rx dicyclomine 20 mg tablet 20 mg PO TID PRN #270 tab 05/14/19 07/02/19 Rx citalopram 10 mg PO QAM 07/02/19 07/02/19 History ibuprofen 400 mg PO Q6H PRN 07/02/19 07/02/19 History sitagliptin [Januvia] 50 mg PO QAM 07/02/19 07/02/19 History Pain History Pain Intensity Pain scale - at its best (0-10): 6 Pain scale - at its worst (0-10): 8 Patient History Family History Mother Family history of diabetes mellitus Social History Preferred Language: Lithuanian Communication Ability: Effective Visual Impairment: No Limitations Hearing Ability: Normal Feed Weigher Required: No Beliefs That Will Affect Care: None marital status: Current Living Situation: Spouse current occupational status: disabled Other Information That Helps Us Care for You: No Feels Safe at Home: Yes Safety Concerns: Feels Safe At This Time Smoking Status: Never smoker Second Hand Exposure: No ; Hx Alcohol Use: No Hx Substance Use: No (pt denies, but 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 Speech and thought process appropriate. Mood and affect appropriate. Cognition intact. Head: Normocephalic and atraumatic. ENT: No evidence of nasal or oral mucosal lesions. Mucous membranes are moist. Eyes: Pupils equal round reactive to light. Neck: Supple without adenopathy and full range of motion. Chest: Nontender to palpation of the costosternal junction. Nontender over the rib or intercostal spaces to direct outpatient. Nontender with AP/lateral comp ression. Abdomen: Soft and nondistended. No organomegaly. Bowel sounds active. Colostomy present in the midepigastric region. Patient tender in the left lower quadrant to direct palpation without evidence of rebound or guarding. Evidence of myoneural trigger points in the left lower quadrant or palpable at sites of maximal tenderness. No focal tenderness over the ilioinguinal or genitofemoral nerve to direct outpatient. Patient minimally tender in the right lower quadrant to palpation without evidence of myoneural trigger points. Slight increase in abdominal pain with resisted sit up maneuvering. Back/spine: Patient nontender over the midline to palpation percussion of the thoracolumbar spine. Nontender in the paravertebral musculature. Patient moderately tender along the left flank to palpation without spasm or myoneural trigger points. Nontender corresponding the right. Lower extremities: SLR negative bilaterally. Strength testing 5/5 and equal. Sensation intact without deficit. No increase in abdominal discomfort with resisted hip flexion. Hips are nontender with internal/external rotation. Neurologic: Cranial nerves grossly intact. Ambulatory function not witnessed. Results Diagnostic Review CT: non enhanced and reports reviewed CT Findings: [place], [place] [phone] CT Scan Report Patient: MARCUS AG Date: 07/02/19 MR#: [id number]: [address] [place] [address] Acct ID:[id number]: Date: 1975City Zip: [place] [address] Age: 43Location: ED Sex: M Room/Bed: Att Phy:Diagnosis: SEVERE BACK AND STOMACH PAIN Vandana Phy: Noah Barrera, DOService Date: 07/02/19 Fam Phy:Interpreting Phy: Johny Andersen Admit Phy: Ordering Phy: Leopoldo Morrell M.D. cc: ~ ABDOMEN AND PELVIS CT WITH IV CONTRAST CT DOSE: 468.39 mGycm HISTORY: Acute back and left flank pain with acute generalized abdominal pain. History of colon cancer. left flank/abd pain. Colon Ca TECHNIQUE: Multiaxial CT images of the abdomen and pelvis were performed following the IV administration of 94 cc of Optiray 320, A dose lowering technique was utilized adhering to the principles of ALARA. COMPARISON STUDY: CT abdomen and pelvis 05/23/2019, 02/21/2019 and 10/18/2018 FINDINGS: There are 2 subadjacent pulmonary nodules of the basal left lower lobe measuring up to 4 mm on image 22 of series 3 which appear unchanged. 2 mm micronodule of the lingula is also stable. There is no pneumatosis or pneumoperitoneum. The imaged inferior cardiac chambers are unremarkable. Unremarkable liver. No evidence of hepatic metastatic disease. The spleen is mildly enlarged, 14.9 cm. Unremarkable gallbladder, pancreas and adrenal glands. Kidneys, and ureters are unremarkable. Partial distention of the urinary bladder with mild wall thickening. Prostate is upper limits of normal in size. Calcifications of the vas deferens. There are multiple partially calcified retroperitoneal lymph nodes redemonstrated, largest of which measures 1.9 x 2.1 cm on image 231 series 3, unchanged from comparison. There is unchanged soft tissue thickening surrounding the celiac trunk and superior mesenteric artery with mild adjacent stranding. No definite evidence of new or progressive disease. No bowel obstruction. Postoperative changes of the transverse colostomy. There is mild wall thickening with surrounding pericolonic stranding involving the transverse colon with abdominal left upper quadrant (for example image 127 series 3). Tiny adjacent soft tissue nodules are suggestive of a lymph node. Terminal ileum and appendix appear normal. Bilateral gynecomastia. Soft tissues are within normal limits. Bones appear to be intact. There are no suspicious lytic or blastic bony lesions. IMPRESSION: 1. Postoperative changes of transverse colostomy. 2. There is mild wall thickening with surrounding inflammatory stranding involving the transverse colon within the abdominal left upper quadrant suspicious for a nonspecific colitis. Correlate clinically. 3. No bowel obstruction, pneumatosis or pneumoperitoneum. 4. Pathologic partially calcified retroperitoneal lymph nodes and soft tissue th ickening surrounding the celiac trunk and superior mesenteric arteries appears unchanged from comparison. 5. Splenomegaly. Electronically signed by: Rafael Andersen M.D. 07/02/2019 6:20 PM Dictated: 07/02/191807 Transcribed: 07/02/191807 Previous Records Review Previous Records: personally reviewed by
[2019-07-04] MEDS: CITALOPRAM 20 MG TAB PO SCH (08:58)
[2019-07-04] MEDS: INSULIN ASPART 100 UNITS/ML 3 ML PEN SC SCH ×4 (09:00→20:57)
[2019-07-04] MEDS: LACTATED RINGER'S 1,000 ML IV SCH ×2 (13:11)
[2019-07-04] MEDS: KETOROLAC 30 MG/ML VIAL IV PRN (16:01)
[2019-07-04] MEDS: PROCHLORPERAZINE MALEATE 10 MG TAB PO PRN (18:45)
[2019-07-04] MEDS: ENOXAPARIN INJ 40 MG/0.4 ML SYR SQ SCH (20:55)
[2019-07-04] MEDS: DICYCLOMINE HCL 20 MG TAB PO PRN (21:44)
--- NOTE | 2019-07-04 22:12 | Hospitalist Progress Note ---
Date of Service July 04, 2019 Assessment & Plan (1) Intractable abdominal pain: 43-year-old male was admitted on 02 July 2019 for abdominal pain and a history of metastatic colon cancer. Sub-acute on chronic abdominal pain, stage IV colon cancer (dx Aug 2017): Patient notes frustration with at least a months worth of constant abdominal pain. He denies any fevers, overt diarrhea, or change in the character of his pain recently. Although CT scan findings mention possibility of nonspecific colitis, there is no overt evidence of an acute infectious process, therefore antibiotics are deferred on admission. - Reportedly colon mass treated only with chemotherapy. Did have a transverse loop colostomy in 2018 (Marie). Followed by [facility] oncology in [place] and is on Avastin. - In the ED, afebrile, briefly tachycardic, normotensive, normal room SpO2. WBC 7. CT a/p suggestive of nonspecific colitis without evidence of obstruction or free air (see full report). - In ED, treated with morphine, Zofran, and normal saline IVF. -D/W patient regarding celiac plexus nerve block as an option. -This pain appears chronic and is not responding to pain medicine. -Though GI believes this to be musculoskeletal, this could also be pain secondary to his colon cancer. will consult pain management: patient improved after trigger point injection to left lower anterior quadrant of abdomen. Will monitor for another 24 hours. If he continues to feel well, will discharge. Lab findings (will recheck in a.m. after IVF): -Tachycardia: HR has been around 90-100, EKG shows sinus, will repeat labs in AM. - Hypercalcemia: Admit Ca 10.3 with normal ionized Ca. - Elevated BUN at 39 and high urine SG 1.036. - Elevated lipase 423. Ongoing medical issues: - Hyperlipidemia: No noted home meds for this. - Diabetes type 2: At home is on metformin and sitagliptin. Here on insulin sliding scale. - Anxiety/depression, ADHD: Continue home citalopram. - Anemia: Admit hemoglobin 13.7 with baseline around 12s. - Myofascial pain, chronic low back pain: Held home ibuprofen. Continue home dicyclomine prn. Code status: Full code. Diet: Regular. DVT prophy: Lovenox. . (2) Colon carcinoma metastatic to multiple sites: (3) Hypercalcemia: (4) Elevated BUN: (5) Elevated lipase: (6) Dyslipidemia: (7) Type 2 diabetes mellitus: (8) ADD (attention deficit disorder): (9) Depression with anxiety: (10) Chronic anemia: (11) Myofascial pain: Subjective 43 yo male reports feeling well after trigger point injection. His pain has significantly improved. Patient denies any nausea or vomiting. Review of Systems Review of Systems: All systems reviewed & are unremarkable except as noted in HPI & below Physical Exam Physical Exam: GENERAL: Awake, alert, in no acute distress HENT: Normocephalic, atraumatic. Oropharynx mildly dry. EYES: Normal conjunctiva. Sclera non-icteric. NECK: Inspection normal. Supple and full ROM. No nuchal rigidity. CARDIAC: +S1S2 RRR, no murmurs. RESPIRATORY: Clear to auscultation. No wheezes or rales. Normal respiratory effort. GI: +BS, soft, non-distended. Positive ostomy superior to the umbilicus. No longer tender to palpation bilaterally to the abdomen. EXTREMITIES: No pedal edema or calf tenderness. Moving all extremities naturally and easily. NEURO: No gross neuro deficits. Results & Data Vital Signs (Past 12 Hours) Vital Signs Temp Pulse Resp BP Pulse Ox 07/04/19 19:48 36.5 C 94 H 18 137/81 99 07/04/19 15:20 36.9 C 83 18 125/84 98 07/04/19 12:04 36.9 C 97 H 18 127/88 98 PG Care Time/CCT Total # of Minutes Spent Total Time Spent with Patient: Total time spent is greater than 50% in coordination of care (as documented) at patient's floor/unit and/or counseling patient: (1) Type 2 diabetes mellitus Diabetes mellitus complication status: without complication Diabetes mellitus moth exterminator insulin use: without moth exterminator use Qualified Code(s): E11.9 - Type 2 diabetes mellitus without complications
[2019-07-05] MEDS: LACTATED RINGER'S 1,000 ML IV SCH (01:48)
[2019-07-05] MEDS: KETOROLAC 30 MG/ML VIAL IV PRN (01:55)
[2019-07-05] MEDS: MoRPHine SULFATE 4 MG/ML 1 ML CARP\\VIAL IV PRN (05:42)
--- NOTE | 2019-07-05 08:36 | Pain Management Progress Note ---
Date of Service July 05, 2019 Assessment & Plan (1) Abdominal pain of multiple sites: Present on Admission?: Yes (2) Myofascial pain: Present on Admission?: Yes (3) Intractable abdominal pain: Present on Admission?: Yes (4) Colon carcinoma metastatic to multiple sites: Present on Admission?: Yes (5) S/P colostomy: 1. Currently pleased with relief the patient experience status post the abdominal wall trigger point injections. Expectations were reviewed and discussed and he verbalized understanding. Should the patient develop recurrence he would be a candidate for repeat trigger point injections at that time in the outpatient setting. Information provided for the patient to obtain outpatient follow-up as needed. 2. Patient may continue with IV Toradol upon this admission for as needed breakthrough pain. Consider discharge with a short prescription for oral Toradol. Side effects versus benefits of use of oral Toradol were discussed with the patient. He will discuss further with hospitalist at the time of discharge. 3. We will sign off on patient at this time Present on Admission?: Yes Subjective Mr. Vickers is a 43-year-old white male who was admitted with intractable subacute on chronic abdominal pain probably left lower quadrant with history of stage IV colon cancer diagnosed August 2017. The patient had predominant complaint of left lower quadrant abdominal pain without obvious etiology based on imaging. The patient does have transverse loop colostomy placed 2018 due to colon mass. Abdominal wall trigger points were completed yesterday morning to treat suspected myofascial etiology of his presenting pain complaints. The patient has reported a significant reduction in the frequency and severity of pain in the left lower abdomen since the time of the trigger point injections. He is reporting his pain is a 2/10 at this time rarely escalating to a 4/10 over the past 24 hours. Patient reported no discomfort, redness or drainage from the injection sites in the left lower quadrant abdomen. He feels that IV Toradol has been somewhat effective at diminishing his pain as well without side effects. Patient is eager to be discharged home at this time given improved pain control. Patient did not use any IV morphine throughout the day yesterday although did utilize 4 mg at 05:42 this morning. Patient has no further constitutional complaints. Plan of care discussed with Dr. Vandana Barnes. Pain Assessment Pain Assessment Full Body Front + Back: 1. Left lower quadrant abdominal wall Pain scale - at its best (0-10): 2 Pain scale - at its worst (0-10): 4 Physical Exam Physical Exam: General: Patient sitting up upon entering the room in no acute distress. Speech and thought process appropriate. Mood and affect appropriate. Cognition intact. Abdomen: Patient does not have heating pad in place. There is no evidence of edema, erythema or skin breakdown at site of trigger point injections in the left lower quadrant of the abdomen. Patient is minimally tender to palpation. There are a few scattered residual minor trigger points noted upon palpation. No rebound or guarding. Neurologic: Cranial nerves grossly intact.
[2019-07-05] MEDS: CITALOPRAM 20 MG TAB PO SCH (08:57)
[2019-07-05] MEDS: INSULIN ASPART 100 UNITS/ML 3 ML PEN SC SCH (08:59)
[2019-07-05 09:00] LABS: Basophils # (auto) 0.02 K/uL (0-0.2); Basophils % (auto) 0.3 %; Eosinophils # (auto) 0.22 K/uL (0-0.5); Hematocrit (blood only) 37.6 % (42-52); Hemoglobin 12.6 g/dL (14.0-18.0); Immature Granulocytes # (auto) 0.01 K/uL (0.00-0.02); Immature Granulocytes % (auto) 0.1 %; Lymphocytes # (auto) 1.46 K/uL (1.2-3.4); Mean Corpuscular Hemoglobin 30.5 pg (25-34); Mean Corpuscular Hgb Conc 33.5 g/dL (32-36); Mean Platelet Volume 9.5 fL (7.4-10.4); Monocytes # (auto) 0.51 K/uL (0.11-0.59); Neutrophils # (auto) 5.09 K/uL (1.4-6.5); Neutrophils % (auto) 69.6 %; Platelet Count 244 K/uL (130-400); RDW Coefficient of Variation 13.1 % (11.5-14.5); RDW Standard Deviation 43.7 fL (36.4-46.3); Red Blood Count 4.13 M/uL (4.7-6.1); White Blood Count 7.31 K/uL (4.8-10.8)
[2019-07-05 09:38] LABS: Albumin Level 3.6 gm/dl (3.4-5.0); BUN Creatinine Ratio 34.8 (10-20); Calcium 9.6 mg/dl (8.5-10.1); Creatinine Clr Calc Pharmacy 120.5 ml/min; Est GFR (African American) 126.4; Est GFR (Non-African American) 109.1; Potassium 3.9 mmol/L (3.5-5.1)
[2019-07-05 09:41] LABS: Albumin Globulin Ratio 0.8 (0.9-2); Bilirubin,Total 0.9 mg/dl (0.2-1); Globulin 4.3 gm/dl (2.5-4.0); Total Protein 7.9 gm/dl (6.4-8.2)
[2019-07-05] MEDS ORDERED: LIDOCAINE 5% 1 PATCH TD SCH (10:45)
--- NOTE | 2019-07-08 20:37 | Discharge Summary ---
Date of Service July 05, 2019 Admission HPI Per Admitting Provider 43-year-old male presents with concerns for ongoing uncontrolled abdominal pain. Patient says that his most recent constant pain is been going on for about a month. He has a notable history for stage IV colon cancer which has been treated with chemotherapy and a diverting ostomy. Patient has been seen by oncology here at [facility] and most recently at [facility] as well as [facility], his PCM, and has a pending pain management appointment in a week. He notes he has been on methadone and Suboxone in the past but neither currently. However, patient says he is frustrated that he continues to have uncontrolled abdominal pain without find source per his account. For example, he says for the past 24 hours or so the pain is been so severe that he primarily stays in bed and has had minimal p.o. intake. He has been managing it with Tylenol, ibuprofen, and oxycodone 5 mg tablets with doses of 1 to 4 tablets/day. Notes some associated nausea without vomiting and says that his stools have been normal for him, i.e. more liquid but nonbloody. No known fever. He describes his abdominal pain is bilateral midabdomen with the occasional separate pain around the left low flank that radiates through the inguinal region. No known history of kidney stones and denies any urinary symptoms. Otherwise she denies focal pains elsewhere or other acute concerns. He states he remains on Avastin as therapeutic chemotherapy and only stopped it for a colonoscopy. - Past medical history includes anemia, anxiety, pediatric asthma, colon cancer, degenerative disc disease, depression, DM type II, prior methadone injection, fatty liver, hyperlipidemia. - Past surgical history includes transverse loop colostomy, adenoidectomy, right shoulder surgery, tonsillectomy. - Social history includes never smoked. Former drinker. Lives at home with and family. Principal Diagnosis iNTRACTABLE ABDOMINAL PAIN Discharge Exam GENERAL: Awake, alert, in no acute distress HENT: Normocephalic, atraumatic. Oropharynx mildly dry. EYES: Normal conjunctiva. Sclera non-icteric. NECK: Inspection normal. Supple and full ROM. No nuchal rigidity. CARDIAC: +S1S2 RRR, no murmurs. RESPIRATORY: Clear to auscultation. No wheezes or rales. Normal respiratory effort. GI: +BS, soft, non-distended. Positive ostomy superior to the umbilicus. No longer tender to palpation bilaterally to the abdomen. EXTREMITIES: No pedal edema or calf tenderness. Moving all extremities naturally and easily. NEURO: No gross neuro deficits. Discharge Data Allergies Allergy/AdvReac Type Severity Reaction Status Date / Time promethazine Allergy Unknown Unknown Verified 07/02/19 17:25 REACTION Consultations 07/02/19 18:51 ED Decision to Admit Stat 07/03/19 13:19 Consult Gastroenterology Routine 07/03/19 13:22 Consult Pain Management Routine Ordered Studies 07/02/19 16:48 CT abd pelvis IV con only Stat Hospital Course (1) Intractable abdominal pain: 43-year-old male was admitted on 02 July 2019 for abdominal pain and a history of metastatic colon cancer. Sub-acute on chronic abdominal pain, stage IV colon cancer (dx Aug 2017): Patient notes frustration with at least a months worth of constant abdominal pain. He denies any fevers, overt diarrhea, or change in the character of his pain recently. Although CT scan findings mention possibility of nonspecific colitis, there is no overt evidence of an acute infectious process, therefore antibiotics are deferred on admission. - Reportedly colon mass treated only with chemotherapy. Did have a transverse loop colostomy in 2018 (Marie). Followed by [facility] oncology in [place] and is on Avastin. - In the ED, afebrile, briefly tachycardic, normotensive, normal room SpO2. WBC 7. CT a/p suggestive of nonspecific colitis without evidence of obstruction or free air (see full report). - In ED, treated with morphine, Zofran, and normal saline IVF. -D/W patient regarding celiac plexus nerve block as an option. -This pain appears chronic and is not responding to pain medicine. -Though GI believes this to be musculoskeletal, this could also be pain secondary to his colon cancer. will consult pain management: patient improved after trigger point injection to left lower anterior quadrant of abdomen. pain was well controlled after 24 hours of procedure. Patient was also given instructions which are noted below. Patient will also have a trial of lidocaine patch, instructions on how to use were verbalized and written to the patient. Lab findings (will recheck in a.m. after IVF): -Tachycardia: HR has been around 90-100, EKG shows sinus, will repeat labs in AM. - Hypercalcemia: Admit Ca 10.3 with normal ionized Ca. - Elevated BUN at 39 and high urine SG 1.036. - Elevated lipase 423. Ongoing medical issues: - Hyperlipidemia: No noted home meds for this. - Diabetes type 2: At home is on metformin and sitagliptin. Here on insulin sliding scale. - Anxiety/depression, ADHD: Continue home citalopram. - Anemia: Admit hemoglobin 13.7 with baseline around 12s. - Myofascial pain, chronic low back pain: Held home ibuprofen. Continue home dicyclomine prn. Code status: Full code. Diet: Regular. DVT prophy: Lovenox. . (2) Colon carcinoma metastatic to multiple sites: (3) Hypercalcemia: (4) Elevated BUN: (5) Elevated lipase: (6) Dyslipidemia: (7) Type 2 diabetes mellitus: (8) ADD (attention deficit disorder): (9) Depression with anxiety: (10) Chronic anemia: (11) Myofascial pain: Total Time Total Time Spent Total Time Spent (In Minutes): 33 Total Time Includes: Examination of the Patient, Discharge Planning and Medication Reconciliation Discharge Plan Discharge Items Patient Disposition: Home - Self-Care Reason For Visit: CHRONIC ABDOMINAL PAIN, COLON CA Discharge Diagnosis: chronic abdominal pain. colon cancer Activity: Resume your previous activity Non-emergency contact: Primary Care Provider Call non-emergency contact if: you have any medication questions Follow-up/Referrals: [facility] [Provider Group] - 07/22/19 1:00 pm (Please, follow up at [facility] on MondayJuly 22 at 1:00 pm. *[address] in [place]. If you need to change this appointment, call the clinic [phone].) Noah Barrera, DO [Primary Care Provider] - 07/08/19 9:15 am (Please, follow up with Dr. Noah Barrera on MondayJuly 08 at 9:15 am. *If you need to change this appointment, call the office at [phone].) Diet: Regular and Carb Consistent or DM2 Addtl Attending Provider Instructions: Continue pain medciine as below. If pain becomes sevre, can do a trial of lidocaine patches as you await appointment for repeat trigger point injections. will give you one patch before you are discharge, so you can see how you feel wiht it. This will need to be removed in 12 hours. Pending Studies at Discharge: No Stand-Alone Forms: My [facility], Smoking Cessation Medications and DC Order Prescriptions: New lidocaine 4 % adhesive patch,medicated 1 patch TOP DAILY PRN (Reason: pain) Qty: 6 RF: 0 ketorolac 10 mg tablet 10 mg PO Q6H PRN (Reason: pain) 5 Days Qty: 20 RF: 0 Continued (DME) OneTouch Verio strip See Dose Instructions .ROUTE .MEDSUPPLY Qty: 300 RF: 1 (DME) lancets [OneTouch Delica Lancets] 33 gauge misc See Dose Instructions .ROUTE .MEDSUPPLY Qty: 300 RF: 1 metformin 1,000 mg tablet 1,000 mg PO BID Qty: 180 RF: 1 dicyclomine 20 mg tablet 20 mg PO TID PRN (Reason: gastrointestinal spasms or cramping) Qty: 270 RF: 1 dronabinol [Marinol] 10 mg capsule 10 mg PO BID RF: 0 acetaminophen [Tylenol Extra Strength] 500 mg Tablet 2,000 mg PO UD PRN (Reason: Pain) RF: 0 prochlorperazine maleate 10 mg tablet 10 mg PO Q6H PRN (Reason: nausea and vomiting) Qty: 20 RF: 0 citalopram 10 mg tablet 10 mg PO QAM RF: 0 sitagliptin 50 mg tablet 50 mg PO QAM RF: 0 Discontinued ibuprofen 200 mg Tablet 400 mg PO Q6H PRN (Reason: Pain) RF: 0 Discharge Orders: Discharge Order (Routine); Ordered 07/05/19 Ordered By: Josué Montes Admission Data Admit Date/Time: 07/03/19 16:18 Attending Provider: Josué Montes Admit Provider: Rafael Fletcher Primary Care Provider: Noah Barrera Other Providers: Marisabel Lara ; Dheeraj Thomas ; Vandana Barnes Other Interventions: Discharge Summary Assessment (RN) Last Done: 07/05/19 11:02 DC Date/Time DO NOT enter until pt leaves facility: 07/05/19 11:30
== END 2019-07-05 11:30 | disposition home or self-care (01) | DRG 375 ==
LOC: ED 16:26 → 2N 16:26 → SUATTDRO 20:17 → 2N 21:30 → 4W 07-03 16:13

== ENCOUNTER 2020-08-26 10:33 | Observation (INO) ==
[2020-08-26] MEDS ORDERED: MoRPHine SULFATE 10 MG/ML CARP/VIAL IV STA ×2 (10:52→13:41)
[2020-08-26] MEDS ORDERED: ACETAMINOPHEN 1,000 MG/100 ML VIAL IV STA (10:55)
[2020-08-26] MEDS ORDERED: SODIUM CHLORIDE 0.9% 1000ML 1,000 ML IV ONE (10:58)
[2020-08-26] MEDS ORDERED: SODIUM CHLORIDE 0.9% 500 ML IV SCH (11:00)
[2020-08-26 11:03] LABS: iSTAT Creatinine 0.6 mg/dl (0.6-1.3); iSTAT Hemoglobin 10.2 g/dl (14.0-18.0); iSTAT Ionized Calcium 1.11 mmol/l (1.12-1.32); iSTAT Potassium 4.4 mmol/L (3.3-5.0)
--- NOTE | 2020-08-26 11:14 | Emergency Department Note ---
ED Visit Note This patient was seen with Dr. Mccracken. We discussed and agreed upon the history, physical, assessment and plan. Resident Activity Tracking Resident Involvement: Resident Care Provided Care Provided: Adult ED
[2020-08-26 11:17] LABS: Basophils # (auto) 0.03 K/uL (0-0.2); Basophils % (auto) 0.5 %; Eosinophils # (auto) 0.18 K/uL (0-0.5); Eosinophils % (auto) 3.2 %; Hematocrit (blood only) 31.8 % (42-52); Hemoglobin 10.5 g/dL (14.0-18.0); Immature Granulocytes # (auto) 0.02 K/uL (0.00-0.02); Immature Granulocytes % (auto) 0.4 %; Lymphocytes # (auto) 1.28 K/uL (1.2-3.4); Lymphocytes % (auto) 22.9 %; Mean Corpuscular Hemoglobin 33.5 pg (25-34); Mean Corpuscular Volume 101.6 fL (80-100); Mean Platelet Volume 9.5 fL (7.4-10.4); Monocytes # (auto) 0.47 K/uL (0.11-0.59); Monocytes % (auto) 8.4 %; Neutrophils # (auto) 3.61 K/uL (1.4-6.5); Neutrophils % (auto) 64.6 %; Platelet Count 236 K/uL (130-400); RDW Coefficient of Variation 15.4 % (11.5-14.5); RDW Standard Deviation 57.1 fL (36.4-46.3); Red Blood Count 3.13 M/uL (4.7-6.1); White Blood Count 5.59 K/uL (4.8-10.8)
[2020-08-26] MEDS ORDERED: KETAMINE HCL INJ 50 MG/ML 10 ML VIAL IV STA (11:17)
[2020-08-26 11:34] LABS: Albumin Globulin Ratio 0.9 (0.9-2); Albumin Level 3.3 gm/dl (3.4-5.0); BUN Creatinine Ratio 46.9 (10-20); Bilirubin,Total 0.5 mg/dl (0.2-1); Calcium 8.7 mg/dl (8.5-10.1); Creatinine Clr Calc Pharmacy 98.7 ml/min; Est GFR (African American) 133.2; Est GFR (Non-African American) 114.9; Globulin 3.7 gm/dl (2.5-4.0); Potassium 4.4 mmol/L (3.5-5.1)
[2020-08-26] MEDS ORDERED: KETAMINE 50 MG/5 ML SYRINGE IV STA ×2 (12:01→12:02)
[2020-08-26] MEDS ORDERED: IOVERSOL 100ml IV ONE (12:13)
--- NOTE | 2020-08-26 12:48 | CT Scan Report ---
CT abd pelvis IV con only CLINICAL HISTORY: abd pain, metastatic cancer. STAGE IV COLON CARCINOMA COMPARISON STUDY: 08/10/2020 TECHNIQUE: The patient was scanned in a dynamic helical fashion during intravenous administration of 94 cc of Optiray 320 A dose lowering technique was utilized adhering to the principles of ALARA. CT DOSE: 287.25 mGy.cm FINDINGS: Lower chest: There are persistent left lower lobe and lingular pulmonary nodules. Liver: There are multiple space-occupying hepatic masses consistent with metastasis. There is been sl ight interval increase in the size of the masses with a dominant left lobe mass measuring 34 mm. Ther e is severe splenic vein stenosis near the SMV confluence Gallbladder: Unremarkable. Spleen: Mildly enlarged measuring 13.2 cm Pancreas: Unremarkable. Adrenal glands: Unremarkable. Kidneys: There is very subtle diminution in the left-sided nephrogram. No focal renal masses are visu alized. There is no hydronephrosis. Bowel: There are no transition zones indicate bowel obstruction. The appendix is not visualized with certainty. There is a right-sided colostomy. There is a bowel containing ventral hernia adjacent to t he colostomy. Peritoneum: There is no intraperitoneal free air or abdominal ascites. Vasculature: The abdominal aorta is normal in course and caliber. Adenopathy: There is soft tissue surrounding the origin of the celiac and superior mesenteric arterie s suspicious for adenopathy. Calcified mesenteric lymph nodes, and calcified para-aortic adenopathy r emains similar. Pelvic viscera: The bladder, and pelvic viscera are unremarkable. Skeletal structures: No destructive osseous lesions are seen. IMPRESSION: 1. Persistent left lower lobe and lingular pulmonary nodules 2. Slight increase in the size of the multiple hepatic masses consistent with metastatic disease 3. Persistent mild splenomegaly 4. Persistent partially calcified retroperitoneal lymphadenopathy 5. Persistent soft tissue surrounding the celiac and superior mesenteric arteries consistent with genesis nopathy 6. No evidence of bowel obstruction. No evidence of free air 7. Persistent large anterior abdominal defect containing bowel loops. This is currently nonobstructiv e 8. Subtly diminished left-sided nephrogram. Equivocal renal vein narrowing at the level of the superi or mesenteric vein 9. 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 ACT 112: Negative or not required by law. Electronically signed by: Dilip Soto M.D. 08/26/2020 12:47 PM
[2020-08-26] MEDS ORDERED: MAGNESIUM CITRATE 296 ML/BTL PO STA (13:41)
[2020-08-26] MEDS: DICYCLOMINE HCL 10 MG/ML 2 ML AMP/VIAL IM ONE ×2 (13:59→14:43)
[2020-08-26] MEDS ORDERED: ETHYL CHLORIDE AER PER SPRAY 100 ML CAN EXT ONE (14:20)
[2020-08-26] MEDS ORDERED: HYDROmorphone INJ 2 MG/ML SYR/VIAL IV STA (14:40)
--- NOTE | 2020-08-26 15:39 | History & Physical Report ---
Date of Service August 26, 2020 Assessment & Plan (1) Intractable abdominal pain: Mr. Vickers is a 44 year old male with a history of Colon Cancer with Metastases to Multiple Sites s/p Diverting Colostomy, Anemia, Anxiety, Depression, Hyperlipidemia, Degenerative Disc Disease, Type 2 Diabetes Mellitus, and Fatty Liver who presents to [facility] today with Intractable Severe Abdominal Pain which is unresponsive to his current pain management regimen. He is complaining of acute worsening of chronic abdominal pain, hard stool passing from his colostomy, and poor appetite over the past several days. He went for a few days without any much stool passing through his colostomy, until passing some harder stools today. His appetite is poor chronically. He does drink fluids, but still appears dehydrated. He denies any fever, chills, vomiting, or any significant nausea. He denies any cough, SOB, or chest discomfort. -- Admit to Med-Surg. -- IV Dilaudid 2 mg now x 1, then Q2H prn. -- Continue Oxycodone 30 mg every 6 hours as needed. -- Continue Fentanyl 150 mcg patches Q3D. -- Consider Ketamine for pain relief. -- Consult Pain Management, trigger point injections helped in the past. -- IV NSS as he appears dehydrated. (2) Colon cancer metastasized to multiple sites: -- Followed by Dr. gAuilera. -- s/p Diverting Colostomy 08/2018. -- s/p FOLFOX and Avastin. -- Xeloda 1300 mg b.i.d. and Avastin every other week from 02/26/20 through 07/31 12/18. -- As of 08/14/2020 - changing chemotherapy to Herceptin and Pertuzumab combination. (3) Type 2 diabetes mellitus: -- On Metformin 1000 mg b.i.d. -- No longer take Januvia. -- BSG checks. (4) Myofascial pain: -- Consult Pain Management, abdominal trigger point injections helped in the past. History of Present Illness Chief Complaint: -- Intractable Abdominal Pain related to Metastatic Colon Cancer. -- Obstipation. Primary Care Provider: Noah Barrera DO Mr. Vickers is a 44 year old male with a history of Colon Cancer with Metastases to Multiple Sites s/p Diverting Colostomy, Anemia, Anxiety, Depression, Hyperlipidemia, Degenerative Disc Disease, Type 2 Diabetes Mellitus, and Fatty Liver who presents to [facility] today complaining of acute worsening of chronic abdominal pain, hard stool passing from his colostomy, and poor appetite over the past several days. He went for a few days without any much stool passing through his colostomy, until passing some harder stools today. His appetite is poor chronically. He does drink fluids, but still appears dehydrated. He denies any fever, chills, vomiting, or any significant nausea. He denies any cough, SOB, or chest discomfort. Patient is on opiates chronically including Fentanyl Patches 150 mcg q 3 days and Oxycodone 30 mg q.i.d. prn -- and these medications have not helped. In the past Pain Management injected his abdominal trigger points, and that was helpful. Allergies Allergy/AdvReac Type Severity Reaction Status Date / Time promethazine Allergy Unknown Unknown Verified 08/26/20 11:42 REACTION Home Medications Medication Instructions Recorded Confirmed Type blood sugar diagnostic #300 ea 02/28/19 07/22/19 Rx lancets 33 gauge #300 ea 02/28/19 07/22/19 Rx fentanyl 50 mcg/hr transdermal 1 patch TD Q72H 08/14/19 08/26/20 History patch buspirone 10 mg tablet 10 mg PO BID #60 tab 02/26/20 08/26/20 Rx metformin 1,000 mg tablet 1,000 mg PO BID #180 tab 05/11/20 08/26/20 Rx dicyclomine 20 mg tablet See Rx Instructions .ROUTE 06/15/20 08/26/20 Rx .COMPLEX #270 tab fentanyl 1 patch TRANSDERMAL Q72H 08/26/20 08/26/20 History gabapentin 0 mg PO TID 08/26/20 08/26/20 History oxycodone 30 mg PO QID PRN 08/26/20 08/26/20 History sitagliptin [Januvia] 0 mg PO QAM 08/26/20 08/26/20 History Past Med/Surg History Medical History Anemia Anxiety Asthma A CHILD Colon cancer CHEMO TX Degenerative disc disease Depression Diabetes mellitus, type 2 Drug addiction "WAS ADDICTED TO METHADONE" Fatty liver Hyperlipidemia Surgical History History of colonoscopy History of creation of ostomy History of myringotomy History of shoulder surgery RT History of tonsillectomy and adenoidectomy History of vascular access device INTACT LEFT CHEST WALL Family History Mother Family history of diabetes mellitus Father Colorectal cancer Cancer Aunt Cancer Grandfather (Maternal) Myocardial infarction Other Hypertension Denies family history of Ovarian cancer Prostate cancer Breast cancer Social History Smoking Status: Never smoker Second Hand Exposure: No; Hx Alcohol Use: No Hx Substance Use: No (pt denies, but H/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) Preferred Language: Guinean Communication Ability: Effective Visual Impairment: No Limitations Hearing Ability: Normal Proposition Player Required: No Beliefs That Will Affect Care: None marital status: Current Living Situation: Spouse current occupational status: disabled Feels Safe at Home: Yes Childhood Exposure to Second-Hand Smoke: No Dental Care, Regularly: No Assistive Devices: None Review of Systems Review of Systems: All systems reviewed & are unremarkable except as noted in Subjective Physical Exam Physical Exam: GENERAL: Patient appears cachectic, chronically ill, and appears to be in pain. . HEENT: Head is atraumatic, normocephalic. Sclerae anicteric. EOM's intact. Facies symmetric. No perioral cyanosis. NECK: No JVD. JVP is at the level of the clavicle sitting upright. Carotid upstrokes are + 2 bilaterally. CHEST/LUNGS: Mildly diminished breath sounds throughout but otherwise clear. No wheezes, rales, or crackles. CVS: S1 and S2 are regular without obvious murmurs, gallops, or rubs. PMI is nondisplaced. No lifts, heaves, or thrills. No abdominal aortic or renal bruits. ABDOMINAL EXAM: Bowel sounds are present. Colostomy is present with formed stool. Tender to palpation diffusely. EXTREMITIES: No clubbing or cyanosis. No edema. Intact posterior radial pulses bilaterally. NEUROLOGIC EXAM: Patient is awake, alert, and cooperative. Answers questions appropriately. Speech is quiet but clear. Normal movement in all 4 extremities. Gait pattern was not assessed. Constitutional: + ill appearing and + cachectic Eyes: normal visual kenny by confrontation and + anicteric sclerae Neck: normal visual inspection and trachea midline Respiratory: normal respiratory effort, lungs clear to auscultation Cardiovascular: Rate/Rhythm: regular rate and regular rhythm Gastrointestinal (Abdomen): Inspection/Auscultation: abdomen not distended Percussion/Palpation: + abdomen tender (diffuse) and abdomen soft Musculoskeletal: Head/Neck/Chest: normocephalic and head atraumatic Neg for peripheral LE edema, + pedal pulses Skin: no rashes, warm and dry Neurologic: awake; not confused Speech / Cognition: normal speech Psychiatric: A+Ox3, euthymic affect Lymphatic: Exam as done by Kristi Owen DO Results & Data Results & Data ([facility]) Vital Signs (Past 12 Hours) Vital Signs Temp Pulse Pulse Resp BP BP Pulse Ox 08/26/20 14:30 90 12 113/79 95 08/26/20 14:00 98 H 15 104/84 100 08/26/20 13:30 106 H 12 122/90 99 08/26/20 13:00 105 H 12 125/87 100 08/26/20 12:30 86 12 130/89 95 08/26/20 12:23 95 H 12 124/80 100 08/26/20 11:41 86 16 134/80 99 08/26/20 10:51 100 08/26/20 10:49 36.8 C 82 20 153/94 H 99 Laboratory Results Laboratory Results - last 24 hr 08/26/20 08/26/20 08/26/20 10:45 10:45 10:51 WBC 5.59 RBC 3.13 L Hgb 10.5 L POC Hgb 10.2 L Hct 31.8 L POC Hct 30 L MCV 101.6 H MCH 33.5 MCHC 33.0 RDW Std Deviation 57.1 H RDW Coeff of Jaylene 15.4 H Plt Count 236 MPV 9.5 Immature Gran % (Auto) 0.4 Neut % (Auto) 64.6 Lymph % (Auto) 22.9 [place] % (Auto) 8.4 Eos % (Auto) 3.2 Baso % (Auto) 0.5 Neut # (Auto) 3.61 Lymph # (Auto) 1.28 [place] # (Auto) 0.47 Eos # (Auto) 0.18 Baso # (Auto) 0.03 Immature Gran # (Auto) 0.02 POC Sodium 137 Sodium 138 POC Potassium 4.4 Potassium 4.4 POC Chloride 103 Chloride 107 Carbon Dioxide 28 POC Total CO2 30 Anion Gap 4.0 POC Anion Gap 10.0 L POC BUN 39 H BUN 34 H Creatinine 0.71 POC Creatinine 0.6 Est Cr Clr Drug Dosing 98.7 Est GFR ( Amer) 133.2 Est GFR (Non-Af Amer) 114.9 BUN/Creatinine Ratio 46.9 H Glucose 107 H POC Glucose (other) 110 H Calcium 8.7 POC Ioniz Calcium Ann Marie 1.11 L Total Bilirubin 0.5 AST 33 ALT 22 Alkaline Phosphatase 48 Total Protein 7.0 Albumin 3.3 L Globulin 3.7 Albumin/Globulin Ratio 0.9 Lipase 100 Specimen Hemolysis COVID-19 Eval Order SARS-CoV-2, RNA, NAAT 08/26/20 08/26/20 15:30 15:30 WBC RBC Hgb POC Hgb Hct POC Hct MCV MCH MCHC RDW Std Deviation RDW Coeff of Jaylene Plt Count MPV Immature Gran % (Auto) Neut % (Auto) Lymph % (Auto) [place] % (Auto) Eos % (Auto) Baso % (Auto) Neut # (Auto) Lymph # (Auto) [place] # (Auto) Eos # (Auto) Baso # (Auto) Immature Gran # (Auto) POC Sodium Sodium POC Potassium Potassium POC Chloride Chloride Carbon Dioxide POC Total CO2 Anion Gap POC Anion Gap POC BUN BUN Creatinine POC Creatinine Est Cr Clr Drug Dosing Est GFR ( Amer) Est GFR (Non-Af Amer) BUN/Creatinine Ratio Glucose POC Glucose (other) Calcium POC Ioniz Calcium Ann Marie Total Bilirubin AST ALT Alkaline Phosphatase Total Protein Albumin Globulin Albumin/Globulin Ratio Lipase Specimen Hemolysis COVID-19 Eval Order [facility]19 [facility] SARS-CoV-2, RNA, NAAT Pending Diagnostic Findings Abdominal X-ray: 1. Persistent left lower lobe and lingular pulmonary nodules 2. Slight increase in the size of the multiple hepatic masses consistent with metastatic disease 3. Persistent mild splenomegaly 4. Persistent partially calcified retroperitoneal lymphadenopathy 5. Persistent soft tissue surrounding the celiac and superior mesenteric a rteries consistent with adenopathy 6. No evidence of bowel obstruction. No evidence of free air 7. Persistent large anterior abdominal defect containing bowel loops. This is currently nonobstructive 8. Subtly diminished left-sided nephrogram. Equivocal renal vein narrowing at the level of the superior mesenteric vein 9. 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 Code Status & VTE Plan Code Status Full Code VTE Prophylaxis Plan VTE Prophylaxis will be ordered: Yes Supervising Physician Co-Signing Physician Notes Pt seen and examined by me. Denies chest pain or SOB. Abd pain was helped with ketamine for about 30 minutes. States none of the other pain meds are helping. Did feel slightly better s/p passing a hard stool after CT, but still has return of abd pain. States he was helped last admission with injections from PM team. Agree with HPI/ROS as noted by PA See above for my exam in PE section Agree with plan as outlined above Abd pain, likely related to constipation given minimal ostomy output in the last 24 hrs CTAP noted PM c/s pending Redose ketamine in the ED x1, unfortunately this cannot be given on the medical floors Dilaudid PRN PG Care Time/CCT Total # of Minutes Spent Total Time Spent with Patient: Total time spent is greater than 50% in coordination of care (as documented) at patient's floor/unit and/or counseling patient:55 Coding Level of Care Code 61976 Initial Inpt Care Lvl 3 Diagnoses Intractable abdominal pain R10.9 Colon cancer metastasized to multiple sites C18.9 Type 2 diabetes mellitus E11.9 Diabetes mellitus complication status: without complication Diabetes mellitus long-term insulin use: without long-term use Myofascial pain M79.18 Time Spent (min) 65 (1) Type 2 diabetes mellitus Diabetes mellitus complication status: without complication Diabetes mellitus intermediate project manager insulin use: without intermediate project manager use Qualified Code(s): E11.9 - Type 2 diabetes mellitus without complications
--- NOTE | 2020-08-26 15:42 | XRay Report ---
XR chest 1V portable HISTORY: 44 years-old Male Resp sx c/w COVID-19 acute respiratory symptoms. COVID Positive. COMPARISON: Chest CT 08/10/2020 TECHNIQUE: Portable AP view of the chest FINDINGS: Cardiomediastinal and hilar silhouettes are within normal limits. No pneumothorax, pleural effusion, airspace consolidation or overt pulmonary edema. Left subclavian Oydkzu-b-Ioni catheter distal tip te rminates in the expected location of the mid to inferior SVC. Bones appear grossly intact. IMPRESSION: No acute process. ACT 112: Negative or not required by law. The above report was generated using voice recognition software. It may contain grammatical, syntax o r spelling errors. Electronically signed by: Rafael Andersen M.D. 08/26/2020 3:41 PM
[2020-08-26] MEDS ORDERED: KETAMINE HCL IV ONE (16:00)
[2020-08-26] MEDS ORDERED: SODIUM CHLORIDE 0.9% IV ONE (16:00)
[2020-08-26 16:51] LABS: Appearance Urine Clear (Clear); Bilirubin Urine Negative (Negative); Blood Urine Negative (Negative); Color Urine Yellow; Glucose Urine UA Negative (Negative); Ketones Urine Negative (Negative); Leukocyte Esterase Urine Negative (Negative); Nitrite Urine Negative (Negative); Protein Urine Negative (Negative); Specific Gravity Urine > 1.045 (1.000-1.030); Urobilinogen Urine Negative (Negative)
[2020-08-26] MEDS: HYDROmorphone INJ 2 MG/ML SYR/VIAL IV PRN ×2 (18:26→22:31)
[2020-08-26] MEDS ORDERED: ZOLPIDEM TARTRATE 5 MG TAB PO PRN (20:14)
[2020-08-26] MEDS ORDERED: DICYCLOMINE HCL 20 MG TAB PO PRN (20:14)
[2020-08-26] MEDS ORDERED: ALUMINUM/MAGNESIUM/SIMETH (MAALOX MAX) 30 ML UDC PO PRN (20:14)
[2020-08-26] MEDS ORDERED: oxyCODONE HCL IR 30 MG TAB (IMMEDIATE RELEASE) PO PRN (20:14)
[2020-08-26] MEDS ORDERED: MAGNESIUM HYDROXIDE SUSP 30 ML UDC PO PRN (20:14)
[2020-08-26] MEDS ORDERED: ACETAMINOPHEN 325 MG TAB PO PRN (20:14)
[2020-08-26] MEDS ORDERED: ONDANSETRON INJ 2 MG/ML 2 ML VIAL IV PRN (20:14)
[2020-08-26] MEDS: SODIUM CHLORIDE 0.9% 1000ML 1,000 ML IV SCH (20:52)
[2020-08-26] MEDS ORDERED: ENOXAPARIN INJ 40 MG/0.4 ML SYR SQ SCH (21:00)
[2020-08-26] MEDS ORDERED: fentaNYL 50 MCG/HR TDSY TD SCH (21:00)
[2020-08-26] MEDS ORDERED: fentaNYL 100 MCG/HR TDSY TD SCH (21:00)
[2020-08-26] MEDS: busPIRone 5 MG TAB PO SCH (22:31)
[2020-08-26] MEDS: GABAPENTIN 300 MG CAP PO SCH (22:31)
--- NOTE | 2020-08-26 22:55 | Emergency Department Note ---
Impression & Plan Intractable abdominal pain, Metastatic colon cancer to liver, Colostomy present ED Provider Note NAME: MARCUS AG AGE: 44 SEX: M ARRIVES VIA: Walk-In INFORMANT: Patient ED PROVIDER(S): Elías Mccracken MD CHIEF COMPLAINT: Abdominal pain PLAN: Disposition: Admit MEDICAL DECISION MAKING: The patient is a pleasant 44 y/o gentleman with a pmhx of metastatic colon cancer s/p resection and colostomy undergoing intermittent maintenance chemo therapy who presents to the emergency department with worsening generalized abdominal over the past 4 days but acutely worsening today where he reports eaiting breakfast this morning but has yet to have ostomy output, which is not typical. Patient is on fentanyl patch and Oxycodone 30mg QID for pain. He reports nausea but no vomiting. Denies fevers, cough, congestion, CP, sob, known Covid19 exposures. Patient has CT scans performed 10 days ago, which showed new liver metastasis. On arrival the patient is uncomfortable in severe pain distress however AFVSS. Patient appears cachectic and clinically dry. He exhibits severe tenderness to light touch of the abdomen throughout. Chronic prolapsed colostomy without surrounding erythema or warmth. Given patient's fentanyl patch was still on, he was administered 6mg of IV morphine as well as IV apap and IVF. He reported no improvement and continued to writhe in pain. Given likely tolerance and hyperalgesia from chronic narcotics. Low (analgesic) dose Ketamine was use, which I administer myself and the patient had instant relief of his pain and was appreciate. CT abd/pelvis was ordered initially with IV and PO contrast however the patient was adamant that he can never tolerate the oral contrast and so this was deferred. WBC and platelets wnl. H/H 10.5/31.8 without recent for comparison. Chemistry without acidosis. BUN/Cr > 40 c/w patient's clinically dry appearance. LFTs and electrolytes unremarkable. Lipase wnl. UA negative. CXR negative for acute process. CT demonstrates slight increase in the size of the multiple hepatic masses consistent with metastatic disease and otherwise no significant change from recent CT. Upon re-evaluation the patient was reporting return of his pain however he was able to hold a conversation and in no distress, unlike when he arrived to the ED. After CT he did pass hard-formed stool in his colostomy, and thereafter did feel some decreased pressure. He did report that he was still more uncomfortable from his recent baseline and we did agree to proceed with admission for treatment of his intractable pain. He was ordered for additional morphine and this time as well as Magnesium citrate with help with his constipation, which is suspected to be playing a significant role in his acute pain today. Case was discussed with Dr. Owen, [facility] hospitalist, who will evaluate the patient for admission. This patient was managed with the assistance of resident, Dr. Rios. I discussed the case with the resident, examined the patient, and confirm the findings and plan as documented in this note. Triage Nursing notes reviewed and agree them. Prior medical records reviewed Vital Signs: reviewed and remarkable for tachycardia. Differential diagnosis: Appendicitis, testicular torsion, infections, diverticulitis, UTI, obstruction, mesenteric ischemia, aortic pathology, inflammatory bowel disease, renal colic, PUD, pancreatitis, biliary pathology, hernia, volvulus, constipation, as well as other pathologies. ER treatment provided: See below. Diagnostics interpreted by me: Cardiac Monitoring: An order for continuous cardiac monitoring was placed and demonstrated Sinus tachycardia, 102 bpm, no ectopy. Laboratory studies: See below Imaging studies: XR chest 1V portable HISTORY: 44 years-old Male Resp sx c/w COVID-19 acute respiratory symptoms. COVID Positive. COMPARISON: Chest CT 08/10/2020 TECHNIQUE: Portable AP view of the chest FINDINGS: Cardiomediastinal and hilar silhouettes are within normal limits. No pneumothorax, pleural effusion, airspace consolidation or overt pulmonary edema. Left subclavian [id number] catheter distal tip terminates in the expected location of the mid to inferior SVC. Bones appear grossly intact. IMPRESSION: No acute process. CT abd pelvis IV con only CLINICAL HISTORY: abd pain, metastatic cancer. STAGE IV COLON CARCINOMA COMPARISON STUDY: 08/10/2020 TECHNIQUE: The patient was scanned in a dynamic helical fashion during intrav enous administration of 94 cc of Optiray 320 A dose lowering technique was utilized adhering to the principles of ALARA. CT DOSE: 287.25 mGy.cm FINDINGS: Lower chest: There are persistent left lower lobe and lingular pulmonary nodules. Liver: There are multiple space-occupying hepatic masses consistent with metastasis. There is been slight interval increase in the size of the masses with a dominant left lobe mass measuring 34 mm. There is severe splenic vein stenosis near the SMV confluence Gallbladder: Unremarkable. Spleen: Mildly enlarged measuring 13.2 cm Pancreas: Unremarkable. Adrenal glands: Unremarkable. Kidneys: There is very subtle diminution in the left-sided nephrogram. No focal renal masses are visualized. There is no hydronephrosis. Bowel: There are no transition zones indicate bowel obstruction. The appendix is not visualized with certainty. There is a right-sided colostomy. There is a bowel containing ventral hernia adjacent to the colostomy. Peritoneum: There is no intraperitoneal free air or abdominal ascites. Vasculature: The abdominal aorta is normal in course and caliber. Adenopathy: There is soft tissue surrounding the origin of the celiac and watt perior mesenteric arteries suspicious for adenopathy. Calcified mesenteric lymph nodes, and calcified para-aortic adenopathy remains similar. Pelvic viscera: The bladder, and pelvic viscera are unremarkable. Skeletal structures: No destructive osseous lesions are seen. IMPRESSION: 1. Persistent left lower lobe and lingular pulmonary nodules 2. Slight increase in the size of the multiple hepatic masses consistent with metastatic disease 3. Persistent mild splenomegaly 4. Persistent partially calcified retroperitoneal lymphadenopathy 5. Persistent soft tissue surrounding the celiac and superior mesenteric arteries consistent with adenopathy 6. No evidence of bowel obstruction. No evidence of free air 7. Persistent large anterior abdominal defect containing bowel loops. This is currently nonobstructive 8. Subtly diminished left-sided nephrogram. Equivocal renal vein narrowing at the level of the superior mesenteric vein 9. 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 ACT 112: Negative or not required by law. Consultation(s): Dr. Owen, [facility] hospitalist. HPI: The patient is a pleasant 44 y/o gentleman with a pmhx of metastatic colon cancer s/p resection and colostomy undergoing intermittent maintenance chemotherapy who presents to the emergency department with worsening generalized abdominal over the past 4 days but acutely worsening today where he reports eaiting breakfast this morning but has yet to have ostomy output, which is not typical. Patient is on fentanyl patch and Oxycodone 30mg QID for pain. He repor ts nausea but no vomiting. Denies fevers, cough, congestion, CP, sob, known Covid19 exposures[address] Patient has CT scans performed 10 days ago, which showed new liver metastasis. ROS: See above HPI for pertinent positives & negatives. A total of [10] systems reviewed and were otherwise negative. PAST MEDICAL HISTORY:See below. PAST SURGICAL HISTORY:See below. FAMILY HISTORY:See below. SOCIAL HISTORY:See below. HOME MEDICATIONS:See below. ALLERGIES:See below. VITALS:See below. PHYSICAL EXAMINATION: GENERAL: Awake, alert, uncomfortable in severe pain distress. Appears cachectic. HENT: Normocephalic, atraumatic. Oropharynx with dry mucous membranes and otherwise unremarkable. EYES: Normal conjunctiva. Sclera non-icteric. NECK: Supple. No nuchal rigidity. FROM. No JVD. RESPIRATORY: Clear to auscultation. CARDIAC: Regular rate, normal rhythm. Extremities warm and well perfused. Pulses equal. ABDOMEN: Severe tenderness to light touch of the abdomen throughout. Chronic prolapsed colostomy without surrounding erythema or warmth. RECTAL: Deferred. MUSCULOSKELETAL: Chest examination reveals no tenderness. The back is symmetrical on inspection without obvious abnormality. There is no CVA tenderness to palpation. No joint edema. LOWER EXTREMITIES: Calves are equal size bilaterally and non-tender. No edema. No discoloration. NEURO: Normal sensorium. No sensory or motor deficits noted. SKIN: No rash or jaundice noted. Elías Mccracken MD Past Med/Surg History Medical History Anemia Anxiety Asthma A CHILD Colon cancer CHEMO TX Degenerative disc disease Depression Diabetes mellitus, type 2 Drug addiction "WAS ADDICTED TO METHADONE" Fatty liver Hyperlipidemia Surgical History History of colonoscopy History of creation of ostomy History of myringotomy History of shoulder surgery RT History of tonsillectomy and adenoidectomy History of vascular access device INTACT LEFT CHEST WALL Family History Mother Family history of diabetes mellitus Father Colorectal cancer Cancer Aunt Cancer Grandfather (Maternal) Myocardial infarction Other Hypertension Denies family history of Ovarian cancer Prostate cancer Breast cancer Social History Smoking Status: Former smoker Second Hand Exposure: No; Hx Alcohol Use: No Hx Substance Use: No (pt denies, but H/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) Preferred Language: Wolof Communication Ability: Effective Visual Impairment: No Limitations Hearing Ability: Normal Contract Accountant Required: No Beliefs That Will Affect Care: None marital status: Current Living Situation: Family current occupational status: disabled Feels Safe at Home: Yes Childhood Exposure to Second-Hand Smoke: No Dental Care, Regularly: No Assistive Devices: None Allergies Allergies Allergy/AdvReac Type Severity Reaction Status Date / Time promethazine Allergy Unknown Unknown Verified 08/26/20 11:42 REACTION Home Meds Home Medications Medication Instructions Recorded Confirmed fentanyl 50 mcg/hr transdermal 1 patch TD Q72H 08/14/19 08/26/20 patch fentanyl 1 patch TRANSDERMAL Q72H 08/26/20 08/26/20 gabapentin 0 mg PO TID 08/26/20 08/26/20 oxycodone 30 mg PO QID PRN 08/26/20 08/26/20 sitagliptin [Januvia] 0 mg PO QAM 08/26/20 08/26/20 Previous Rx's Medication Instructions Recorded blood sugar diagnostic #300 ea 02/28/19 lancets 33 gauge #300 ea 02/28/19 buspirone 10 mg tablet 10 mg PO BID #60 tab 02/26/20 metformin 1,000 mg tablet 1,000 mg PO BID #180 tab 05/11/20 dicyclomine 20 mg tablet See Rx Instructions .ROUTE 06/15/20 .COMPLEX #270 tab Results & Data (ED) Vital Signs Vital Signs - 24 hr 08/26/20 10:49 08/26/20 10:51 08/26/20 11:41 Temperature 36.8 C Temperature Source Oral Pulse Rate 82 Pulse Rate [Apical] 86 Pulse Rate from SpO2 Sensor Pulse Rhythm [Apical] Regular Pulse Strength [Apical] Normal Respiratory Rate 20 16 Respiratory Effort / Characteristics Non-Labored Non-Labored Spontaneous Respiratory Depth Normal Normal Respiratory Pattern Regular Blood Pressure 153/94 H Blood Pressure [Right Arm] 134/80 Blood Pressure Mean 113 Blood Pressure Mean [Right Arm] 98 Pulse Oximetry 99 100 99 Oxygen Delivery Method Room Air Room Air Room Air Sepsis Recent Fever Within 48 Hours No Sepsis New/Unexplained Change in Mental Status N/A Sepsis Action Taken by Nursing No Action Required 08/26/20 12:23 08/26/20 12:30 08/26/20 13:00 Temperature Temperature Source Pulse Rate 95 H 86 105 H Pulse Rate [Apical] Pulse Rate from SpO2 Sensor 95 H Pulse Rhythm [Apical] Pulse Strength [Apical] Respiratory Rate 12 12 12 Respiratory Effort / Characteristics Respiratory Depth Respiratory Pattern Blood Pressure 124/80 130/89 125/87 Blood Pressure [Right Arm] Blood Pressure Mean 94 102 99 Blood Pressure Mean [Right Arm] Pulse Oximetry 100 95 100 Oxygen Delivery Method Room Air Room Air Sepsis Recent Fever Within 48 Hours Sepsis New/Unexplained Change in Mental Status Sepsis Action Taken by Nursing 08/26/20 13:30 08/26/20 14:00 08/26/20 14:30 Temperature Temperature Source Pulse Rate 106 H 98 H 90 Pulse Rate [Apical] Pulse Rate from SpO2 Sensor 106 H 98 H Pulse Rhythm [Apical] Pulse Strength [Apical] Respiratory Rate 12 15 12 Respiratory Effort / Characteristics Respiratory Depth Respiratory Pattern Blood Pressure 122/90 104/84 113/79 Blood Pressure [Right Arm] Blood Pressure Mean 100 90 90 Blood Pressure Mean [Right Arm] Pulse Oximetry 99 100 95 Oxygen Delivery Method Room Air Room Air Room Air Sepsis Recent Fever Within 48 Hours Sepsis New/Unexplained Change in Mental Status Sepsis Action Taken by Nursing 08/26/20 15:00 Temperature Temperature Source Pulse Rate 83 Pulse Rate [Apical] Pulse Rate from SpO2 Sensor 83 Pulse Rhythm [Apical] Pulse Strength [Apical] Respiratory Rate Respiratory Effort / Characteristics Respiratory Depth Respiratory Pattern Blood Pressure 121/83 Blood Pressure [Right Arm] Blood Pressure Mean 95 Blood Pressure Mean [Right Arm] Pulse Oximetry 100 Oxygen Delivery Method Sepsis Recent Fever Within 48 Hours Sepsis New/Unexplained Change in Mental Status Sepsis Action Taken by Nursing Laboratory Data Result diagrams: 08/26/20 10:45 08/26/20 10:45 Lab Results 08/26/20 08/26/20 08/26/20 Range/Units 10:45 10:45 10:51 WBC 5.59 (4.8-10.8) K/uL RBC 3.13 L (4.7-6.1) M/uL Hgb 10.5 L (14.0-18.0) g/dL POC Hgb 10.2 L (14.0-18.0) g/dl Hct 31.8 L (42-52) % POC Hct 30 L (42-52) % MCV 101.6 H (80-100) fL MCH 33.5 (25-34) pg MCHC 33.0 (32-36) g/dL RDW Std Deviation 57.1 H (36.4-46.3) fL RDW Coeff of Jaylene 15.4 H (11.5-14.5) % Plt Count 236 (130-400) K/uL MPV 9.5 (7.4-10.4) fL Immature Gran % (Auto) 0.4 % Neut % (Auto) 64.6 % Lymph % (Auto) 22.9 % Graves % (Auto) 8.4 % Eos % (Auto) 3.2 % Baso % (Auto) 0.5 % Neut # (Auto) 3.61 (1.4-6.5) K/uL Lymph # (Auto) 1.28 (1.2-3.4) K/uL Graves # (Auto) 0.47 (0.11-0.59) K/uL Eos # (Auto) 0.18 (0-0.5) K/uL Baso # (Auto) 0.03 (0-0.2) K/uL Immature Gran # (Auto) 0.02 (0.00-0.02) K/uL POC Sodium 137 (135-144) mmol/L Sodium 138 (136-145) mmol/L POC Potassium 4.4 (3.3-5.0) mmol/L Potassium 4.4 (3.5-5.1) mmol/L POC Chloride 103 (101-112) mmol/L Chloride 107 (98-107) mmol/L Carbon Dioxide 28 (21-32) mmol/L POC Total CO2 30 (24-31) mmol/L Anion Gap 4.0 (3-11) POC Anion Gap 10.0 L (16-25) mmol/L POC BUN 39 H (7-18) mg/dl BUN 34 H (7-18) mg/dl Creatinine 0.71 (0.6-1.4) mg/dl POC Creatinine 0.6 (0.6-1.3) mg/dl Est Cr Clr Drug Dosing 98.7 ml/min Est GFR ( Amer) 133.2 Est GFR (Non-Af Amer) 114.9 BUN/Creatinine Ratio 46.9 H (10-20) Glucose 107 H (70-99) mg/dl POC Glucose (other) 110 H (70-99) mg/dl Calcium 8.7 (8.5-10.1) mg/dl POC Ioniz Calcium Ann Marie 1.11 L (1.12-1.32) mmol/l Total Bilirubin 0.5 (0.2-1) mg/dl AST 33 (15-37) U/L ALT 22 (12-78) U/L Alkaline Phosphatase 48 (45-117) U/L Total Protein 7.0 (6.4-8.2) gm/dl Albumin 3.3 L (3.4-5.0) gm/dl Globulin 3.7 (2.5-4.0) gm/dl Albumin/Globulin Ratio 0.9 (0.9-2) Lipase 100 (73-393) U/L Specimen Hemolysis Administered Medications Buspirone HCl (Buspirone 5 Mg Tab) 10 mg PO BID [facility] Stop: 09/25/20 20:59 Last Admin: 08/26/20 22:31 Dose: 10 mg Documented by: [id number] Enoxaparin Sodium (Enoxaparin Inj 40 Mg/0.4 Ml Syr) 40 mg SQ Q24H [facility] Stop: 09/25/20 20:59 Last Admin: 08/26/20 22:32 Dose: Not Given Documented by: [id number] Fentanyl (Fentanyl 50 Mcg/Hr Tdsy) 50 mcg TD Q3D@2100 [facility] Stop: 09/09/20 20:59 Last Admin: 08/26/20 20:55 Dose: 50 mcg Documented by: [id number] Fentanyl (Fentanyl 100 Mcg/Hr Tdsy) 100 mcg TD Q3D@2100 [facility] Stop: 09/09/20 20:59 Last Admin: 08/26/20 20:54 Dose: 100 mcg Documented by: [id number] Gabapentin (Gabapentin 300 Mg Cap) 300 mg PO TID [facility] Stop: 09/25/20 20:59 Last Admin: 08/26/20 22:31 Dose: 300 mg Documented by: [id number] Hydromorphone HCl (Hydromorphone Inj 2 Mg/Ml Syr/Vial) 2 mg IV Q2H PRN PRN Reason: Pain Stop: 09/09/20 14:48 Last Admin: 08/26/20 22:31 Dose: 2 mg Documented by: [id number] Admin: 08/26/20 18:26 Dose: 2 mg Documented by: [id number] Sodium Chloride (Nss 1000ml) 1,000 mls @ 100 mls/hr IV .Q10H [facility] Stop: 08/27/20 16:13 Last Admin: 08/26/20 20:52 Dose: 100 mls/hr Documented by: [id number] Miscellaneous (Fentanyl Patch Remove & Waste) 1 ea N/A Q3D@2100 [facility]I Stop: 09/25/20 20:59 Last Admin: 08/26/20 20:52 Dose: 1 ea Documented by: [id number] Cosigned by: [id number] Miscellaneous (Fentanyl Patch Remove & Waste) 1 ea N/A Q3D@2100 [facility] Stop: 09/25/20 20:59 Last Admin: 08/26/20 20:53 Dose: 1 ea Documented by: [id number] Cosigned by: [id number] Discontinued Medications Dicyclomine HCl (Dicyclomine Hcl 10 Mg/Ml 2 Ml Amp/Vial) 20 mg IM NOW ONE Stop: 08/26/20 12:56 Last Admin: 08/26/20 14:43 Dose: 20 mg Documented by: [id number] Ethyl Chloride (Ethyl Chloride Aer Per [place] 100 Ml Can) Confirm Administered Dose 1 sprays EXT .STK-MED ONE Stop: 08/26/20 14:21 Last Admin: 08/26/20 14:47 Dose: 1 sprays Documented by: [id number] Hydromorphone HCl (Hydromorphone Inj 2 Mg/Ml Syr/Vial) 2 mg IV NOW STA Stop: 08/26/20 14:41 Last Admin: 08/26/20 14:50 Dose: 2 mg Documented by: [id number] Acetaminophen (Ofirmev) 1,000 mg in 100 mls @ 400 mls/hr IV NOW STA Stop: 08/26/20 11:09 Last Infusion: 08/26/20 11:19 Dose: 0 mls/hr Documented by: [id number] Admin: 08/26/20 11:03 Dose: 400 mls/hr Documented by: [id number] Sodium Chloride (Nss 1000ml) 1,000 mls @ 999 mls/hr IV .Q1H1M ONE Stop: 08/26/20 11:58 Last Infusion: 08/26/20 12:08 Dose: 0 mls/hr Documented by: [id number] Admin: 08/26/20 11:03 Dose: 999 mls/hr Documented by: [id number] Ketamine HCl 12.5 mg/ Sodium (Chloride) 50.25 mls @ 301.5 mls/hr IV NOW ONE Stop: 08/26/20 16:09 Last Infusion: 08/26/20 16:21 Dose: 0 mls/hr Documented by: [id number] Admin: 08/26/20 16:10 Dose: 301.5 mls/hr Documented by: [id number] Ioversol (Ioversol 100ml) 94 ml IV ONCE ONE Stop: 08/26/20 12:14 Last Admin: 08/26/20 12:14 Dose: 94 ml Documented by: [id number] Ketamine HCl (Ketamine Hcl Inj 50 Mg/Ml 10 Ml Vial) 0.25 mg IV NOW STA Stop: 08/26/20 11:18 Last Admin: 08/26/20 12:10 Dose: Not Given Documented by: [id number] Ketamine HCl (Ketamine 50 Mg/5 Ml Syringe) 12.5 mg IV NOW STA Stop: 08/26/20 12:02 Last Admin: 08/26/20 11:35 Dose: 12.5 mg Documented by: [id number] Ketamine HCl (Ketamine 50 Mg/5 Ml Syringe) 12.5 mg IV NOW STA Stop: 08/26/20 12:03 Last Admin: 08/26/20 13:44 Dose: Not Given Documented by: [id number] Magnesium Citrate (Magnesium Citrate 296 Ml/Btl) 296 ml PO NOW STA Stop: 08/26/20 13:42 Last Admin: 08/26/20 14:43 Dose: 296 ml Documented by: [id number] Morphine Sulfate (Morphine Sulfate 10 Mg/Ml Carp/Vial) 6 mg IV NOW STA Stop: 08/26/20 10:53 Last Admin: 08/26/20 11:03 Dose: 6 mg Documented by: [id number] Morphine Sulfate (Morphine Sulfate 10 Mg/Ml Carp/Vial) 6 mg IV NOW STA Stop: 08/26/20 13:42 Last Admin: 08/26/20 13:58 Dose: 6 mg Documented by: [id number] Discharge Plan Visit Data Chief Complaint: Abdominal Pain Stated Complaint: SEVERE ABD PAIN/STAGE 4 CANCER ED Provider: Elías Mccracken ED Midlevel Provider: Geovanna Rios Discharge Problem: Intractable abdominal pain, Metastatic colon cancer to liver, Colostomy present Patient Disposition: Admitted As Inpatient Discharge Instructions Interventions: ED Discharge Assessment Last Done: 08/26/20 19:51
[2020-08-27] MEDS: CHECK fentaNYL PATCH PLACEMENT SCH ×2 (00:12→09:02)
[2020-08-27] MEDS: HYDROmorphone INJ 2 MG/ML SYR/VIAL IV PRN ×4 (02:57→15:42)
[2020-08-27] MEDS ORDERED: ACETAMINOPHEN 1,000 MG/100 ML VIAL IV STA (05:12)
[2020-08-27 07:12] LABS: Basophils # (auto) 0.03 K/uL (0-0.2); Basophils % (auto) 0.5 %; Eosinophils % (auto) 3.6 %; Hematocrit (blood only) 30.2 % (42-52); Hemoglobin 9.8 g/dL (14.0-18.0); Immature Granulocytes # (auto) 0.01 K/uL (0.00-0.02); Immature Granulocytes % (auto) 0.2 %; Lymphocytes % (auto) 23.4 %; Mean Corpuscular Hgb Conc 32.5 g/dL (32-36); Mean Corpuscular Volume 101.7 fL (80-100); Mean Platelet Volume 9.3 fL (7.4-10.4); Monocytes # (auto) 0.51 K/uL (0.11-0.59); Monocytes % (auto) 9.2 %; Neutrophils # (auto) 3.51 K/uL (1.4-6.5); Neutrophils % (auto) 63.1 %; Platelet Count 188 K/uL (130-400); RDW Coefficient of Variation 15.4 % (11.5-14.5); RDW Standard Deviation 56.6 fL (36.4-46.3); Red Blood Count 2.97 M/uL (4.7-6.1); White Blood Count 5.56 K/uL (4.8-10.8)
[2020-08-27 07:41] LABS: BUN Creatinine Ratio 48.2 (10-20); Blood Urea Nitrogen 25 mg/dl (7-18); Calcium 8.5 mg/dl (8.5-10.1); Carbon Dioxide 27 mmol/L (21-32); Chloride 105 mmol/L (98-107); Creatinine Clr Calc Pharmacy 126.7 ml/min; Est GFR (African American) > 150.0; Est GFR (Non-African American) 130.6; Glucose 80 mg/dl (70-99); Potassium 3.7 mmol/L (3.5-5.1); Sodium 136 mmol/L (136-145)
[2020-08-27] MEDS ORDERED: KETOROLAC 30 MG/ML VIAL ONE (07:45)
--- NOTE | 2020-08-27 08:47 | Pain Management Consultation ---
Date of Consultation August 27, 2020 Assessment & Plan (1) Intractable abdominal pain: (2) Metastatic colon cancer to liver: (3) Colostomy present: (4) Colon cancer metastasized to multiple sites: (5) Myofascial pain: * I have offered trigger point injections for the patient. Procedure was explained. Risks and benefits were reviewed and he would like to proceed. Please refer to procedure note for further details. * Trigger point injections could be performed on at outpatient basis every 90 days if needed. * He will continue current at home regimen of Fentanyl patch 150mcg/hr and Oxycodone 30mg x 6 hours PRN. * He does have IV Hydromorphone ordered x 2 hours if needed for breakthrough pain. History of Present Illness Attending Physician: Bipin Magana MD History of Present Illness Mr. Vickers is a 44 year old male with a significant history of colon cancer with metastasis. He does also have a colostomy, type 2 diabetes mellitus, and fatty liver. Patient was admitted to the [facility] for intractable abdominal pain that has responded poorly to his at home pain regimen. Patient is on Fentanyl patch 150mcg/hr and Oxycodone 30mg x 6 hours PRN pain. He has been fairly stable on his current regimen until the pain worsened about a week ago. The sharp stabbing abdominal pain is along the left lower abdomen. No radiation of pain. He was having difficulty with passing any stools in the colostomy. Last night he passed some hard stool and this morning the stool is back to baseline liquid. He was previously seen in consultation in 06/2019 in which trigger point injections were performed into the left lower abdomen that provided about 75% pain relief for 4 months. He is interested in repeating the procedure. His appetite is poor. No fevers, chills, nausea, vomiting, flank pain, urinary sx. Case discussed with Dr. Vandana Barnes Pain Assessment Full [facility] Front + [facility]: [facility]. [facility]: 7-Severe - Pain prevents productive activity. Impossible to tolerate. Allergies Allergy/AdvReac Type Severity Reaction Status Date / Time promethazine Allergy Unknown Unknown Verified 08/26/20 11:42 REACTION Home Medications Medication Instructions Recorded Confirmed Type blood sugar diagnostic #300 ea 02/28/19 07/22/19 Rx lancets 33 gauge #300 ea 02/28/19 07/22/19 Rx fentanyl 50 mcg/hr transdermal 1 patch TD Q72H 08/14/19 08/26/20 History patch buspirone 10 mg tablet 10 mg PO BID #60 tab 02/26/20 08/26/20 Rx metformin 1,000 mg tablet 1,000 mg PO BID #180 tab 05/11/20 08/26/20 Rx dicyclomine 20 mg tablet See Rx Instructions .ROUTE 06/15/20 08/26/20 Rx .COMPLEX #270 tab fentanyl 1 patch TRANSDERMAL Q72H 08/26/20 08/26/20 History gabapentin 0 mg PO TID 08/26/20 08/26/20 History oxycodone 30 mg PO QID PRN 08/26/20 08/26/20 History sitagliptin [Januvia] 0 mg PO QAM 08/26/20 08/26/20 History Patient History Medical History Anemia Anxiety Asthma A CHILD Colon cancer CHEMO TX Degenerative disc disease Depression Diabetes mellitus, type 2 Drug addiction "WAS ADDICTED TO METHADONE" Fatty liver Hyperlipidemia Surgical History History of colonoscopy History of creation of ostomy History of myringotomy History of shoulder surgery RT History of tonsillectomy and adenoidectomy History of vascular access device INTACT LEFT CHEST WALL Family History Mother Family history of diabetes mellitus Father Colorectal cancer Cancer Aunt Cancer Grandfather (Maternal) Myocardial infarction Other Hypertension Denies family history of Ovarian cancer Prostate cancer Breast cancer Social History Smoking Status: Former smoker Second Hand Exposure: No; Hx Alcohol Use: No Hx Substance Use: No (pt denies, but H/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) Preferred Language: Haitian Communication Ability: Effective Visual Impairment: No Limitations Hearing Ability: Normal Angio Technologist Required: No Beliefs That Will Affect Care: None marital status: Current Living Situation: Family current occupational status: disabled Feels Safe at Home: Yes Childhood Exposure to Second-Hand Smoke: No Dental Care, Regularly: No Assistive Devices: None Physical Exam Physical Exam: GENERAL: This is a thin and frail appearing 44 year old male. Does not appear toxic. HEAD/FACE: Normocephalic and atraumatic. EYES: No drainage or conjunctival injection. ENT: Nose without bleeding or discharge. Oral mucosa appears slightly dry. RESPIRATORY: Patient with unlabored breathing. No signs of respiratory distress. CHEST/AXILLA: Chest movement symmetrical. No deformities noted. ABDOMEN/GI: No distension. There are multiple trigger points in the left lower abdomen that are exquisitely tender to palpation. + Colostomy is in the right upper abdomen with loose stool. BACK: Moves without difficulty SKIN: [place], warm and dry. No rash noted. MS/EXTREMITY: No swelling, no deformities. Moving extremities appropriately. NEURO: Alert and appears oriented. Speech is fluent. Cranial Nerves are grossly intact. PSYCH: Alert, pleasant, affect is calm
[2020-08-27] MEDS: busPIRone 5 MG TAB PO SCH (08:54)
[2020-08-27] MEDS: SODIUM CHLORIDE 0.9% 1000ML 1,000 ML IV SCH (08:54)
[2020-08-27] MEDS: GABAPENTIN 300 MG CAP PO SCH ×2 (08:54→12:59)
[2020-08-27] MEDS: HEPARIN 100 UNIT/ML 5ML FLUSH FLUSH PRN ×2 (08:56→15:42)
--- NOTE | 2020-08-27 11:29 | Hospitalist Progress Note ---
Date of Service August 27, 2020 Assessment & Plan Admission and Anticipated Discharge Date Admission Date: August 26, 2020 Results & Data Results & Data ([facility]) Vital Signs (Past 12 Hours) Vital Signs Temp Pulse Pulse Resp BP Pulse Ox 08/27/20 07:59 36.7 C 104 H 20 103/70 96 08/27/20 04:00 36.9 C 59 L 20 132/86 98 Laboratory Results 08/27/20 08/27/20 08/26/20 Range/Units 06:26 06:26 20:49 WBC 5.56 (4.8-10.8) K/uL RBC 2.97 L (4.7-6.1) M/uL Hgb 9.8 L (14.0-18.0) g/dL Hct 30.2 L (42-52) % MCV 101.7 H (80-100) fL MCH 33.0 (25-34) pg MCHC 32.5 (32-36) g/dL RDW Std Deviation 56.6 H (36.4-46.3) fL RDW Coeff of Jaylene 15.4 H (11.5-14.5) % Plt Count 188 (130-400) K/uL MPV 9.3 (7.4-10.4) fL Immature Gran % (Auto) 0.2 % Neut % (Auto) 63.1 % Lymph % (Auto) 23.4 % Dickson % (Auto) 9.2 % Eos % (Auto) 3.6 % Baso % (Auto) 0.5 % Neut # (Auto) 3.51 (1.4-6.5) K/uL Lymph # (Auto) 1.30 (1.2-3.4) K/uL Dickson # (Auto) 0.51 (0.11-0.59) K/uL Eos # (Auto) 0.20 (0-0.5) K/uL Baso # (Auto) 0.03 (0-0.2) K/uL Immature Gran # (Auto) 0.01 (0.00-0.02) K/uL Sodium 136 (136-145) mmol/L Potassium 3.7 D (3.5-5.1) mmol/L Chloride 105 (98-107) mmol/L Carbon Dioxide 27 (21-32) mmol/L Anion Gap 4.0 (3-11) BUN 25 H (7-18) mg/dl Creatinine 0.52 L (0.6-1.4) mg/dl Est Cr Clr Drug Dosing 126.7 ml/min Est GFR ( Amer) > 150.0 Est GFR (Non-Af Amer) 130.6 BUN/Creatinine Ratio 48.2 H (10-20) Glucose 80 (70-99) mg/dl POC Glucose 94 (70-99) mg/dl Calcium 8.5 (8.5-10.1) mg/dl Total Bilirubin (0.2-1) mg/dl AST (15-37) U/L ALT (12-78) U/L Alkaline Phosphatase (45-117) U/L Total Protein (6.4-8.2) gm/dl Albumin (3.4-5.0) gm/dl Globulin (2.5-4.0) gm/dl Albumin/Globulin Ratio (0.9-2) Lipase (73-393) U/L Specimen Hemolysis Urine Color Urine Appearance (Clear) Urine pH (4.5-7.5) Ur Specific [place] (1.000-1.030) Urine Protein (Negative) Urine Glucose (UA) (Negative) Urine Ketones (Negative) Urine Blood (Negative) Urine Nitrite (Negative) Urine Bilirubin (Negative) Urine Urobilinogen (Negative) Ur Leukocyte Esterase (Negative) COVID-19 Eval Order SARS-CoV-2, RNA, NAAT (NEGATIVE) 08/26/20 08/26/20 08/26/20 Range/Units 20:48 20:16 20:15 WBC (4.8-10.8) K/uL RBC (4.7-6.1) M/uL Hgb (14.0-18.0) g/dL Hct (42-52) % MCV (80-100) fL MCH (25-34) pg MCHC (32-36) g/dL RDW Std Deviation (36.4-46.3) fL RDW Coeff of Jaylene (11.5-14.5) % Plt Count (130-400) K/uL MPV (7.4-10.4) fL Immature Gran % (Auto) % Neut % (Auto) % Lymph % (Auto) % Dickson % (Auto) % Eos % (Auto) % Baso % (Auto) % Neut # (Auto) (1.4-6.5) K/uL Lymph # (Auto) (1.2-3.4) K/uL Dickson # (Auto) (0.11-0.59) K/uL Eos # (Auto) (0-0.5) K/uL Baso # (Auto) (0-0.2) K/uL Immature Gran # (Auto) (0.00-0.02) K/uL Sodium (136-145) mmol/L Potassium (3.5-5.1) mmol/L Chloride (98-107) mmol/L Carbon Dioxide (21-32) mmol/L Anion Gap (3-11) BUN (7-18) mg/dl Creatinine (0.6-1.4) mg/dl Est Cr Clr Drug Dosing ml/min Est GFR ( Amer) Est GFR (Non-Af Amer) BUN/Creatinine Ratio (10-20) Glucose (70-99) mg/dl POC Glucose 69 L* 69 L* 56 L* (70-99) mg/dl Calcium (8.5-10.1) mg/dl Total Bilirubin (0.2-1) mg/dl AST (15-37) U/L ALT (12-78) U/L Alkaline Phosphatase (45-117) U/L Total Protein (6.4-8.2) gm/dl Albumin (3.4-5.0) gm/dl Globulin (2.5-4.0) gm/dl Albumin/Globulin Ratio (0.9-2) Lipase (73-393) U/L Specimen Hemolysis Urine Color Urine Appearance (Clear) Urine pH (4.5-7.5) Ur Specific [place] (1.000-1.030) Urine Protein (Negative) Urine Glucose (UA) (Negative) Urine Ketones (Negative) Urine Blood (Negative) Urine Nitrite (Negative) Urine Bilirubin (Negative) Urine Urobilinogen (Negative) Ur Leukocyte Esterase (Negative) COVID-19 Eval Order SARS-CoV-2, RNA, NAAT (NEGATIVE) 08/26/20 08/26/20 08/26/20 Range/Units 16:40 15:30 15:30 WBC (4.8-10.8) K/uL RBC (4.7-6.1) M/uL Hgb (14.0-18.0) g/dL Hct (42-52) % MCV (80-100) fL MCH (25-34) pg MCHC (32-36) g/dL RDW Std Deviation (36.4-46.3) fL RDW Coeff of Jaylene (11.5-14.5) % Plt Count (130-400) K/uL MPV (7.4-10.4) fL Immature Gran % (Auto) % Neut % (Auto) % Lymph % (Auto) % Dickson % (Auto) % Eos % (Auto) % Baso % (Auto) % Neut # (Auto) (1.4-6.5) K/uL Lymph # (Auto) (1.2-3.4) K/uL Dickson # (Auto) (0.11-0.59) K/uL Eos # (Auto) (0-0.5) K/uL Baso # (Auto) (0-0.2) K/uL Immature Gran # (Auto) (0.00-0.02) K/uL Sodium (136-145) mmol/L Potassium (3.5-5.1) mmol/L Chloride (98-107) mmol/L Carbon Dioxide (21-32) mmol/L Anion Gap (3-11) BUN (7-18) mg/dl Creatinine (0.6-1.4) mg/dl Est Cr Clr Drug Dosing ml/min Est GFR ( Amer) Est GFR (Non-Af Amer) BUN/Creatinine Ratio (10-20) Glucose (70-99) mg/dl POC Glucose (70-99) mg/dl Calcium (8.5-10.1) mg/dl Total Bilirubin (0.2-1) mg/dl AST (15-37) U/L ALT (12-78) U/L Alkaline Phosphatase (45-117) U/L Total Protein (6.4-8.2) gm/dl Albumin (3.4-5.0) gm/dl Globulin (2.5-4.0) gm/dl Albumin/Globulin Ratio (0.9-2) Lipase (73-393) U/L Specimen Hemolysis Urine Color Yellow Urine Appearance Clear (Clear) Urine pH 5.0 (4.5-7.5) Ur Specific [place] > 1.045 H (1.000-1.030) Urine Protein Negative (Negative) Urine Glucose (UA) Negative (Negative) Urine Ketones Negative (Negative) Urine Blood Negative (Negative) Urine Nitrite Negative (Negative) Urine Bilirubin Negative (Negative) Urine Urobilinogen Negative (Negative) Ur Leukocyte Esterase Negative (Negative) COVID-19 Eval [facility] SARS-[facility]-2, RNA, NAAT NEGATIVE (NEGATIVE) 08/26/20 Range/Units 10:45 WBC (4.8-10.8) K/uL RBC (4.7-6.1) M/uL Hgb (14.0-18.0) g/dL Hct (42-52) % MCV (80-100) fL MCH (25-34) pg MCHC (32-36) g/dL RDW Std Deviation (36.4-46.3) fL RDW Coeff of Jaylene (11.5-14.5) % Plt Count (130-400) K/uL MPV (7.4-10.4) fL Immature Gran % (Auto) % Neut % (Auto) % Lymph % (Auto) % Dickson % (Auto) % Eos % (Auto) % Baso % (Auto) % Neut # (Auto) (1.4-6.5) K/uL Lymph # (Auto) (1.2-3.4) K/uL Dickson # (Auto) (0.11-0.59) K/uL Eos # (Auto) (0-0.5) K/uL Baso # (Auto) (0-0.2) K/uL Immature Gran # (Auto) (0.00-0.02) K/uL Sodium 138 (136-145) mmol/L Potassium 4.4 (3.5-5.1) mmol/L Chloride 107 (98-107) mmol/L Carbon Dioxide 28 (21-32) mmol/L Anion Gap 4.0 (3-11) BUN 34 H (7-18) mg/dl Creatinine 0.71 (0.6-1.4) mg/dl Est Cr Clr Drug Dosing 98.7 ml/min Est GFR ( Amer) 133.2 Est GFR (Non-Af Amer) 114.9 BUN/Creatinine Ratio 46.9 H (10-20) Glucose 107 H (70-99) mg/dl POC Glucose (70-99) mg/dl Calcium 8.7 (8.5-10.1) mg/dl Total Bilirubin 0.5 (0.2-1) mg/dl AST 33 (15-37) U/L ALT 22 (12-78) U/L Alkaline Phosphatase 48 (45-117) U/L Total Protein 7.0 (6.4-8.2) gm/dl Albumin 3.3 L (3.4-5.0) gm/dl Globulin 3.7 (2.5-4.0) gm/dl Albumin/Globulin Ratio 0.9 (0.9-2) Lipase 100 (73-393) U/L Specimen Hemolysis Urine Color Urine Appearance (Clear) Urine pH (4.5-7.5) Ur Specific [place] (1.000-1.030) Urine Protein (Negative) Urine Glucose (UA) (Negative) Urine Ketones (Negative) Urine Blood (Negative) Urine Nitrite (Negative) Urine Bilirubin (Negative) Urine Urobilinogen (Negative) Ur Leukocyte Esterase (Negative) COVID-19 Eval Order SARS-CoV-2, RNA, NAAT (NEGATIVE) PG Care Time/CCT Total # of Minutes Spent Total Time Spent with Patient: Total time spent is greater than 50% in coordination of care (as documented) at patient's floor/unit and/or counseling patient: Coding
[2020-08-27] MEDS ORDERED: oxyCODONE HCL IR 30 MG TAB (IMMEDIATE RELEASE) PO SCH (13:00)
--- NOTE | 2020-08-27 13:57 | Discharge Summary ---
Date of Service August 27, 2020 Admission HPI Per Admitting Provider Mr. Vickers is a 44 year old male with a history of Colon Cancer with Metastases to Multiple Sites s/p Diverting Colostomy, Anemia, Anxiety, Depression, Hyperlipidemia, Degenerative Disc Disease, Type 2 Diabetes Mellitus, and Fatty Liver who presents to [facility] ER today complaining of acute worsening of chronic abdominal pain, hard stool passing from his colostomy, and poor appetite over the past several days. He went for a few days without any much stool passing through his colostomy, until passing some harder stools today. His appetite is poor chronically. He does drink fluids, but still appears dehydrated. He denies any fever, chills, vomiting, or any significant nausea. He denies any cough, SOB, or chest discomfort. Patient is on opiates chronically including Fentanyl Patches 150 mcg q 3 days and Oxycodone 30 mg q.i.d. prn -- and these medications have not helped. In the past Pain Management injected his abdominal trigger points, and that was helpful. Admission Exam Per Admitting Provider Physical Exam: GENERAL: Patient appears cachectic, chronically ill, and appears to be in pain. . HEENT: Head is atraumatic, normocephalic. Sclerae anicteric. EOM's intact. Facies symmetric. No perioral cyanosis. NECK: No JVD. JVP is at the level of the clavicle sitting upright. Carotid upstrokes are + 2 bilaterally. CHEST/LUNGS: Mildly diminished breath sounds throughout but otherwise clear. No wheezes, rales, or crackles. CVS: S1 and S2 are regular without obvious murmurs, gallops, or rubs. PMI is nondisplaced. No lifts, heaves, or thrills. No abdominal aortic or renal bruits. ABDOMINAL EXAM: Bowel sounds are present. Colostomy is present with formed stool. Tender to palpation diffusely. EXTREMITIES: No clubbing or cyanosis. No edema. Intact posterior radial pulses bilaterally. NEUROLOGIC EXAM: Patient is awake, alert, and cooperative. Answers questions appropriately. Speech is quiet but clear. Normal movement in all 4 extremities. Gait pattern was not assessed. Constitutional: + ill appearing and + cachectic Eyes: normal visual kenny by confrontation and + anicteric sclerae Neck: normal visual inspection and trachea midline Respiratory: normal respiratory effort, lungs clear to auscultation Cardiovascular: Rate/Rhythm: regular rate and regular rhythm Gastrointestinal (Abdomen): Inspection/Auscultation: abdomen not distended Percussion/Palpation: + abdomen tender (diffuse) and abdomen soft Musculoskeletal: Head/Neck/Chest: normocephalic and head atraumatic Neg for peripheral LE edema, + pedal pulses Skin: no rashes, warm and dry Neurologic: awake; not confused Speech / Cognition: normal speech Psychiatric: A+Ox3, euthymic affect Lymphatic: Exam as done by Kristi Owen DO Principal Diagnosis Intractable Abdominal Pain, Obstipation, Metastatic Colon Ca Discharge Exam Constitutional + ill appearing (chronically, emaciated), + thin, + cachectic and comfortable; no acute distress Eyes normal visual kenny by confrontation and + anicteric sclerae ENMT slightly dry mm Neck normal visual inspection and trachea midline Respiratory normal respiratory effort, lungs clear to auscultation Cardiovascular Rate/Rhythm: regular rate and regular rhythm Vessels: no JVD Extremities: no edema Chest (Breasts) Additional Comments: L port Gastrointestinal (Abdomen) Inspection/Auscultation: normal bowel sounds; abdomen not distended Percussion/Palpation: abdomen soft; abdomen nontender ostomy with liquid brown output RLQ Musculoskeletal Head/Neck/Chest: normocephalic and head atraumatic Skin cool, dry Neurologic awake; not confused Speech / Cognition: normal speech Psychiatric A+Ox3, euthymic affect Genitourinary NO MONTES Lymphatic no lymphedema Discharge Data Allergies Allergy/AdvReac Type Severity Reaction Status Date / Time promethazine Allergy Unknown Unknown Verified 08/26/20 11:42 REACTION Consultations 08/26/20 13:49 ED Decision to Admit Stat 08/26/20 20:14 Consult Pain Management Routine Ordered Studies 08/26/20 11:41 CT abd pelvis IV con only Stat CXR Hospital Course (1) Intractable abdominal pain: (1) Intractable abdominal pain: Mr. Vickers is a 44 year old male with a history of Colon Cancer with Metastases to Multiple Sites s/p Diverting Colostomy, Anemia, Anxiety, Depression, Hyperlipidemia, Degenerative Disc Disease, Type 2 Diabetes Mellitus, and Fatty Liver who presents to [facility] ER today with Intractable Severe Abdominal Pain which is unresponsive to his current pain management regimen. He is complaining of acute worsening of chronic abdominal pain, hard stool passing from his colostomy, and poor appetite over the past several days. He went for a few days without any much stool passing through his colostomy, until passing some harder stools today. His appetite is poor chronically. He does drink fluids, but still appears dehydrated. He denies any fever, chills, vomiting, or any significant nausea. He denied any cough, SOB, or chest discomfort. Admitted to medical floor Pain control with dilaudid IV prn and his usual oxycodone 30mg TID and Fentanyl 150mcg Q3D Was significantly dehydrated on admission due to lack of appetite d/t pain in addition to his already poor appetite d/t metastatic disease Given IVF x 3L while inpatient -- additional 2 L on day of discharge with improvement and improvement of appetite Pain management consulted -- s/p trigger point injections with significant improvement Ostomy with increased output -- discussed miralax daily for next week to help keep bowels regular and would benefit from boost supplementation with meals or in leiu of meals when he is not hungry to help with nutrition status. Would also benefit from added boost with fiber. Patient to utilize stool softener for next week. Follow up with Dr. Dorantes from oncology and should consider appetite stimulant if appetite still poor. Also sent Dr. 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 Of note, CT does show progression of metastatic lesions. Consider palliative consultation in the future if condition continues to deteriorate. (2) Colon cancer metastasized to multiple sites: -- Followed by Dr. Dorantes with [facility] -- s/p Diverting Colostomy 08/2018. -- s/p FOLFOX and Avastin. -- Xeloda 1300 mg b.i.d. and Avastin every other week from 02/26/20 through 08/14/20. -- As of 08/14/2020 - changing chemotherapy to Herceptin and Pertuzumab combination. Consider palliative consultation outpatient given progression of metastatic disease (3) Type 2 diabetes mellitus: -- On Metformin 1000 mg b.i.d. -- No longer takes Januvia. -- BSG checks acceptable -- Resumed metformin at discharge (4) Myofascial pain: -- Consulted Pain Management, abdominal trigger point injections helped in the past and provided significant relief while inpatient Set up follow up for repeat injections in 3 months (2) Colon cancer metastasized to multiple sites: (3) Type 2 diabetes mellitus: (4) Myofascial pain: Total Time Total Time Spent Total Time Spent (In Minutes): 60 Discharge Plan Discharge Items Patient Disposition: Home - Self-Care Reason For Visit: ABDOMINAL PAIN, METASTATIC COLON CANCER, OBSTIPATI Discharge Diagnosis: Intractable Abdominal Pain, Obstipation Goals: You have been hospitalized for an acute medical problem. During your stay at [facility], we have made an effort to correct the problem that brought you to the hospital while keeping you as comfortable as possible. Medications were used to bring your condition under control and your discharge instructions will include directions for any medications you should take after leaving the hospital. Please make sure you see your Primary Care Provider as part of your follow up plan. Activity: Resume your previous activity Non-emergency contact: Primary Care Provider and Oncologist Call non-emergency contact if: you have any medication questions, your symptoms worsen and your pain is not controlled Follow-up/Referrals: Vandana Barnes DO [Physician] - (Office will call patient with appointment date and time) Noah Barrera DO [Primary Care Provider] - Michel Dorantes MD [Surgeon] - (as previously scheduled) Diet: Carb Consistent or DM2 Addtl Attending Provider Instructions: You have been hospitalized for intractable abdominal pain and lack of oral intake. You were treated with pain medication and IV fluids and were seen by pain management. They performed trigger point injections, which have been beneficial at controlling your pain and are being set up with a follow up appointment to have repeat injections in 3 months. As discussed, while your bowel movements have been regular typically on your usual pain medications, you should continue Miralax supplementation for the next week to ensure they stay regular. If you continue to have lack of appetite, which is not abnormal give your metastatic disease and receiving chemotherapy, you should strongly consider supplementation with boost 1-2x/daily and would be beneficial to utilize boost with fiber as well to keep your bowels regular. Please follow up with Dr. Dorantes as previously scheduled for continued treatment. You may want to discuss initiation of appetite stimulant. Please follow up with your PCP in the next 1-2 weeks. Please return to the emergency department if you have any worsening pain, decreased output, inability to keep up with oral intake, fevers, chest pain, shortness of breath, or for any other symptoms that are concerning for you. It has been a pleasure being a part of the medical team providing for you while you have been in the hospital. Take care! Pending Studies at Discharge: No Stand-Alone Forms: [facility] Medications and DC Order Prescriptions: New polyethylene glycol 3350 17 gram/dose powder 17 g PO DAILY Qty: 119 RF: 0 Continued (DME) OneTouch Verio test strips strip See Dose Instructions .ROUTE .MEDSUPPLY Qty: 300 RF: 1 (DME) lancets [OneTouch Delica Lancets] 33 gauge misc See Dose Instructions .ROUTE .MEDSUPPLY Qty: 300 RF: 1 fentanyl 50 mcg/hr patch 72 hour 1 patch TD Q72H RF: 0 buspirone 10 mg tablet 10 mg PO BID Qty: 60 RF: 5 metformin 1,000 mg tablet 1,000 mg PO BID Qty: 180 RF: 1 dicyclomine 20 mg tablet See Rx Instructions .ROUTE .COMPLEX Qty: 270 RF: 0 fentanyl 100 mcg/hr patch 72 hour 1 patch transdermal Q72H RF: 0 gabapentin 300 mg capsule 0 mg PO TID RF: 0 oxycodone 30 mg tablet 30 mg PO QID PRN (Reason: Pain) RF: 0 Januvia 50 mg tablet 0 mg PO QAM RF: 0 Discharge Orders: Discharge Order (Routine); Ordered 08/27/20 Ordered By: Komal Lucas/Other Patient Handouts: Preventing Deep Vein Thrombosis Admission Data Admit Date/Time: 08/26/20 15:03 Attending Provider: Bipin Magana Admit Provider: Kristi Owen Primary Care Provider: Noah Barrera Other Providers: Kristi Owen ; Dung Tyson ; Vandana Barnes ; Man Harrison ; Analia Avalos Other Interventions: Discharge Summary Assessment (RN) Last Done: 08/27/20 15:29 Coding Level of Care Code 06394 OBS Care - Discharge Diagnoses Intractable abdominal pain R10.9 Colon cancer metastasized to multiple sites C18.9 Type 2 diabetes mellitus E11.9 Diabetes mellitus complication status: without complication Diabetes mellitus intermediate school 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
== END 2020-08-27 16:02 | disposition home or self-care (01) ==
LOC: ED 10:33 → SUATTDRO 15:03 → 2W 15:03 → INTOOBSV 15:03 → 2W 19:51 → 3W 08-27 07:28

== ENCOUNTER 2020-09-21 17:06 | Inpatient (IN) ==
[2020-09-21] MEDS ORDERED: SODIUM CHLORIDE 0.9% 500 ML IV SCH (18:00)
--- NOTE | 2020-09-21 18:00 | Emergency Department Note ---
History of Present Illness General Chief complaint: Cardiac Assessment Stated complaint: SOB, CHEST PAIN, DR ZAFAR OVER Time Seen by Provider: 09/21/20 17:32 Source: patient and family ( who is at the bedside) Mode of arrival: ambulatory Limitations: no limitations History of Present Illness Maximum Pain Intensity: 8 This patient has metastatic colon cancer, comes in after having chest pain on the left. He has had pain since yesterday feels short of breath it is pleuritic he has had no fall or trauma he was on a fentanyl patch and took it off about an hour ago because he was concerned that could be causing this. He is not sure using keeping up with his fluid he said no cough or fever. He had an echo done at [facility] about 2 weeks ago on September 07 which showed normal EF there was a small circumferential pericardial effusion with absent cardiac tamponade. He is currently on immunotherapy for his cancer followed by Dr. Dorantes. No known exposure to Covid or Covid symptoms and he has not had the Covid vaccine. He was seen in the ER back here on September 03 and had a CTA of his chest which did not show any PE. There was some splenic/left renal vein near occlusion he had multiple metastatic areas from his cancer to his liver lungs and nodes. Home Medications Medication Instructions Recorded Confirmed Type blood sugar diagnostic #300 ea 02/28/19 07/22/19 Rx lancets 33 gauge #300 ea 02/28/19 07/22/19 Rx metformin 1,000 mg tablet 1,000 mg PO BID #180 tab 05/11/20 09/03/20 Rx fentanyl 1 patch TRANSDERMAL Q72H 08/26/20 09/03/20 History gabapentin 0 mg PO TID 08/26/20 09/03/20 History oxycodone 30 mg PO QID PRN 08/26/20 09/03/20 History polyethylene glycol 3350 17 g PO DAILY #119 g 08/27/20 09/03/20 Rx dicyclomine 20 mg PO TID PRN 09/03/20 09/03/20 History buspirone 10 mg tablet 10 mg PO BID #60 tab 09/07/20 Rx Allergies Allergy/AdvReac Type Severity Reaction Status Date / Time promethazine Allergy Unknown Unknown Verified 09/03/20 11:11 REACTION Past Med/Surg History Medical History Anemia Anxiety Asthma A CHILD Colon cancer CHEMO TX Degenerative disc disease Depression Diabetes mellitus, type 2 Drug addiction "WAS ADDICTED TO METHADONE" Fatty liver Hyperlipidemia Intractable abdominal pain Intractable abdominal pain Surgical History History of colonoscopy History of creation of ostomy History of myringotomy History of shoulder surgery RT History of tonsillectomy and adenoidectomy History of vascular access device INTACT LEFT CHEST WALL Family History Mother Family history of diabetes mellitus Father Colorectal cancer Cancer Aunt Cancer Grandfather (Maternal) Myocardial infarction Other Hypertension Denies family history of Ovarian cancer Prostate cancer Breast cancer Social History Smoking Status: Never smoker Second Hand Exposure: No; Hx Alcohol Use: No Hx Substance Use: No (pt denies, but H/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) Preferred Language: Korean Communication Ability: Effective Visual Impairment: No Limitations Hearing Ability: Normal Fusing Machine Feeder Required: No Beliefs That Will Affect Care: None marital status: Current Living Situation: Family current occupational status: disabled Feels Safe at Home: Yes Childhood Exposure to Second-Hand Smoke: No Dental Care, Regularly: No Assistive Devices: None Review of Systems A total of 10 systems reviewed and were otherwise negative Physical Exam Vital Signs Vital Signs - 24 hr 09/21/20 17:11 09/21/20 18:15 09/21/20 18:31 Temperature 36.7 C Temperature Source Temporal Artery Scan Pulse Rate 14 L 88 96 H Pulse Rate from SpO2 Sensor 91 H Pulse Rhythm Regular Respiratory Rate 16 16 17 Blood Pressure 102/73 107/68 Blood Pressure Mean 82 81 Pulse Oximetry 98 98 98 Oxygen Delivery Method Room Air Sepsis Recent Fever Within 48 Hours No Sepsis New/Unexplained Change in Mental Status No Sepsis Action Taken by Nursing No Action Required 09/21/20 19:00 09/21/20 19:30 09/21/20 20:00 Temperature Temperature Source Pulse Rate 76 89 86 Pulse Rate from SpO2 Sensor 78 89 87 Pulse Rhythm Respiratory Rate 12 13 14 Blood Pressure 101/75 106/78 104/55 L Blood Pressure Mean 83 87 71 Pulse Oximetry 100 99 100 Oxygen Delivery Method Sepsis Recent Fever Within 48 Hours Sepsis New/Unexplained Change in Mental Status Sepsis Action Taken by Nursing General: Cachectic, chronically ill appearing young male who appears uncomfortable but in no acute Pittore distress, breathing comfortably on room air. Normal speech HEENT: Normal cephalic atraumatic. Pupils are equal round and reactive to light. Sclera anicteric extraocular movements are intact. Oropharynx is pink with moist mucous membranes. No swelling of the mouth lips or tongue. Neck: Supple with a midline trachea. No meningeal signs or stiffness, no JVD or bruits. No Stridor. Chest: Clear to auscultation bilaterally. No wheezes or rhonchi. No increased work of breathing. Heart: Regular rate and rhythm without murmurs or gallops. Abdomen: Soft nontender, nondistended without rebound guarding or rigidity. Extremities: No cyanosis clubbing or edema. No calf tenderness or assymetry Spine/Back. Non tender to palpation. No CVA tenderness Skin: Good turgor without rashes. Neurologic exam: Cranial nerves two through 12 are intact. Motor and sensation are intact and symmetrical throughout. Course Administered Medications Discontinued Medications Hydromorphone HCl (Hydromorphone Inj 1 Mg/Ml Syringe) 1 mg IV NOW STA Stop: 09/21/20 18:12 Last Admin: 09/21/20 18:21 Dose: 1 mg Documented by: [id number] Hydromorphone HCl (Hydromorphone Inj 1 Mg/Ml Syringe) 1 mg IV NOW STA Stop: 09/21/20 18:36 Last Admin: 09/21/20 18:48 Dose: 1 mg Documented by: [id number] Sodium Chloride (Nss) 500 mls @ 999 mls/hr IV .Q31M ELI Stop: 09/21/20 18:30 Last Infusion: 09/21/20 18:51 Dose: 0 mls/hr Documented by: [id number] Admin: 09/21/20 18:21 Dose: 999 mls/hr Documented by: [id number] Medical Decision Making Differential Diagnosis Arrhythmia, acute coronary syndrome, complication related to his cancer, complication related to chemotherapy, PE, pneumothorax, CHF, pericardial effusion/tamponade, infection, Covid Medical Records Attestation: I reviewed the patient's medical records. Home Medications Current Medication List: was personally reviewed by me Laboratory Data Attestation: I reviewed the patient's lab results. Result diagrams: 09/21/20 18:15 09/21/20 18:15 Lab Results 09/21/20 09/21/20 09/21/20 Range/Units 18:15 18:15 18:15 WBC 6.53 (4.8-10.8) K/uL RBC 3.74 L (4.7-6.1) M/uL Hgb 12.2 L (14.0-18.0) g/dL Hct 35.3 L (42-52) % MCV 94.4 (80-100) fL MCH 32.6 (25-34) pg MCHC 34.6 (32-36) g/dL RDW Std Deviation 51.2 H (36.4-46.3) fL RDW Coeff of Jaylene 14.7 H (11.5-14.5) % Plt Count 359 (130-400) K/uL MPV 9.2 (7.4-10.4) fL Immature Gran % (Auto) 0.2 % Neut % (Auto) 66.2 % Lymph % (Auto) 21.3 % [place] % (Auto) 10.6 % Eos % (Auto) 1.4 % Baso % (Auto) 0.3 % Neut # (Auto) 4.33 (1.4-6.5) K/uL Lymph # (Auto) 1.39 (1.2-3.4) K/uL [place] # (Auto) 0.69 H (0.11-0.59) K/uL Eos # (Auto) 0.09 (0-0.5) K/uL Baso # (Auto) 0.02 (0-0.2) K/uL Immature Gran # (Auto) 0.01 (0.00-0.02) K/uL PT 10.9 (9.0-12.0) Seconds INR 1.1 (0.9-1.1) APTT 106.9 H* (21.0-31.0) Seconds PTT Ratio 4.1 Sodium 135 L (136-145) mmol/L Potassium 3.3 L (3.5-5.1) mmol/L Chloride 103 (98-107) mmol/L Carbon Dioxide 23 (21-32) mmol/L Anion Gap 9.0 (3-11) BUN 54 H (7-18) mg/dl Creatinine 1.11 (0.6-1.4) mg/dl Est Cr Clr Drug Dosing 55.6 ml/min Est GFR ( Amer) 93.8 Est GFR (Non-Af Amer) 80.9 BUN/Creatinine Ratio 48.6 H (10-20) Glucose 100 H (70-99) mg/dl Calcium 10.0 (8.5-10.1) mg/dl Total Bilirubin 0.9 (0.2-1) mg/dl AST 19 (15-37) U/L ALT 18 (12-78) U/L Alkaline Phosphatase 58 (45-117) U/L Troponin I < 0.015 (0-0.045) ng/ml Total Protein 8.5 H (6.4-8.2) gm/dl Albumin 4.0 (3.4-5.0) gm/dl Globulin 4.5 H (2.5-4.0) gm/dl Albumin/Globulin Ratio 0.9 (0.9-2) COVID-19 Eval Order SARS-CoV-2, RNA, NAAT (NEGATIVE) 09/21/20 09/21/20 Range/Units 18:43 18:43 WBC (4.8-10.8) K/uL RBC (4.7-6.1) M/uL Hgb (14.0-18.0) g/dL Hct (42-52) % MCV (80-100) fL MCH (25-34) pg MCHC (32-36) g/dL RDW Std Deviation (36.4-46.3) fL RDW Coeff of Jaylene (11.5-14.5) % Plt Count (130-400) K/uL MPV (7.4-10.4) fL Immature Gran % (Auto) % Neut % (Auto) % Lymph % (Auto) % [place] % (Auto) % Eos % (Auto) % Baso % (Auto) % Neut # (Auto) (1.4-6.5) K/uL Lymph # (Auto) (1.2-3.4) K/uL [place] # (Auto) (0.11-0.59) K/uL Eos # (Auto) (0-0.5) K/uL Baso # (Auto) (0-0.2) K/uL Immature Gran # (Auto) (0.00-0.02) K/uL PT (9.0-12.0) Seconds INR (0.9-1.1) APTT (21.0-31.0) Seconds PTT Ratio Sodium (136-145) mmol/L Potassium (3.5-5.1) mmol/L Chloride (98-107) mmol/L Carbon Dioxide (21-32) mmol/L Anion Gap (3-11) BUN (7-18) mg/dl Creatinine (0.6-1.4) mg/dl Est Cr Clr Drug Dosing ml/min Est GFR ( Amer) Est GFR (Non-Af Amer) BUN/Creatinine Ratio (10-20) Glucose (70-99) mg/dl Calcium (8.5-10.1) mg/dl Total Bilirubin (0.2-1) mg/dl AST (15-37) U/L ALT (12-78) U/L Alkaline Phosphatase (45-117) U/L Troponin I (0-0.045) ng/ml Total Protein (6.4-8.2) gm/dl Albumin (3.4-5.0) gm/dl Globulin (2.5-4.0) gm/dl Albumin/Globulin Ratio (0.9-2) COVID-19 Eval Order Covid19 IDNow atMDEC SARS-CoV-2, RNA, NAAT NEGATIVE (NEGATIVE) Imaging Data Attestation: I personally reviewed and interpreted this imaging study as follows: My Impression: Chest x-rayno acute infiltrate, failure, pneumothorax. A port in place. Cardiac silhouette is small and does not suggest a significant pericardial effusion Radiologist's Impression: XR chest 1V portable HISTORY: Atypical Chest Pain COMPARISON: Chest 09/03/2020. FINDINGS: Left subclavian Port-A-Cath terminates in the SVC. This remains unchanged. The patient's known small pulmonary nodules are better appreciated on the recent chest CT. No pneumothorax. No pleural effusions. No new focal lung consolidations to suggest pneumonia. The heart is normal in size. IMPRESSION: No significant change compared to the prior study. No acute process. ECG Data Attestation: I personally reviewed and interpreted this ECG as follows: Indication: + chest pain Rate (beats per minute): 96 Rhythm: + normal sinus ECG Intervals/blocks: + Normal QRS, + Normal QT and + Normal OR ECG [place]: + Normal ECG ST segments: + Normal ST segments ECG Findings: no PACs and no PVCs Comparison ECG Date: from (07/04/19) Change: no significant change MDM Narrative This patient has metastatic colon cancer, comes in with chest pain. He was seen a couple weeks ago with similar presentation and had a work-up which included CT of his chest which showed no evidence of PE there was a lot of missed metastatic disease. He did have an echo which showed a small effusion done on the eighth. He was placed on a bisque kiln drawer in room B2. We did access his port we gave him a small IV fluid bolus. EKG does not suggest any ischemic changes. When I did put him on the monitor he did have episodes where he was tachycardic but would become nontachycardic and on the monitor it was either sinus tach or SVT. Chest x-ray does not suggest pericardial effusion or enlarged heart. There is no pneumothorax or CHF. He was given Dilaudid 1 mg IV which is what he was given before. He had been on Lovenox but stopped taking it. This was for a nonocclusive clot in his splenic artery. He seemed more comfortable with the Dilaudid and received additional Dilaudid 1 mg IV. EKG does not suggest ischemia his troponin was negative. He has no significant electrolyte or metabolic abnormalities. He did have a CAT scan of the chest abdomen and pelvis about 2 weeks ago for similar complaints. I do think he needs to be observed/admitted for pain management and monitoring/cardiac work-up. I have consulted Dr. Lara to see him in the ER for these measures. His Covid testing was negative. He was given additional Dilaudid 1 mg IV for pain Continuous cardiac monitoring: Order was placed in the EMR for continuous cardiac monitoring. The patient was noted to be in normal sinus with a pulse of 95 Impression & Plan Chest pain, Colon cancer metastasized to multiple sites, Weight loss, abnormal, Dyspnea, COVID-19 ruled out by laboratory testing Discharge Plan Visit Data Chief Complaint: Cardiac Assessment Stated Complaint: SOB, CHEST PAIN, DR REF OVER ED Provider: Leopoldo Morrell Discharge Problem: Chest pain, Colon cancer metastasized to multiple sites, Weight loss, abnormal, Dyspnea, COVID-19 ruled out by laboratory testing Forms Stand Alone Forms: My [facility] Prescriptions Prescriptions: No Action (DME) OneTouch Verio test strips strip See Dose Instructions .ROUTE .MEDSUPPLY Qty: 300 RF: 1 (DME) lancets [OneTouch Delica Lancets] 33 gauge misc See Dose Instructions .ROUTE .MEDSUPPLY Qty: 300 RF: 1 metformin 1,000 mg tablet 1,000 mg PO BID Qty: 180 RF: 1 buspirone 10 mg tablet 10 mg PO BID Qty: 60 RF: 5 fentanyl 100 mcg/hr patch 72 hour 1 patch transdermal Q72H RF: 0 gabapentin 300 mg capsule 0 mg PO TID RF: 0 oxycodone 30 mg tablet 30 mg PO QID PRN (Reason: Pain) RF: 0 polyethylene glycol 3350 17 gram/dose powder 17 g PO DAILY Qty: 119 RF: 0 dicyclomine 20 mg tablet 20 mg PO TID PRN (Reason: STOMACH) RF: 0 Discharge Problem: Chest pain Qualifiers: Chest pain type: unspecified Qualified Code(s): R07.9 - Chest pain, unspecified Dyspnea Qualifiers: Dyspnea type: unspecified Qualified Code(s): R06.00 - Dyspnea, unspecified
[2020-09-21] MEDS ORDERED: HYDROmorphone INJ 1 MG/ML SYRINGE IV STA ×3 (18:11→20:15)
--- NOTE | 2020-09-21 18:20 | XRay Report ---
XR chest 1V portable HISTORY: Atypical Chest Pain COMPARISON: Chest 09/03/2020. FINDINGS: Left subclavian Port-A-Cath terminates in the SVC. This remains unchanged. The patient's kn own small pulmonary nodules are better appreciated on the recent chest CT. No pneumothorax. No pleura l effusions. No new focal lung consolidations to suggest pneumonia. The heart is normal in size. IMPRESSION: No significant change compared to the prior study. No acute process. ACT 112: Negative or not required by law. Electronically signed by: Justin Mireles M.D. 09/21/2020 6:18 PM
[2020-09-21 18:24] LABS: Basophils # (auto) 0.02 K/uL (0-0.2); Basophils % (auto) 0.3 %; Eosinophils # (auto) 0.09 K/uL (0-0.5); Eosinophils % (auto) 1.4 %; Hematocrit (blood only) 35.3 % (42-52); Hemoglobin 12.2 g/dL (14.0-18.0); Immature Granulocytes # (auto) 0.01 K/uL (0.00-0.02); Immature Granulocytes % (auto) 0.2 %; Lymphocytes # (auto) 1.39 K/uL (1.2-3.4); Lymphocytes % (auto) 21.3 %; Mean Corpuscular Hemoglobin 32.6 pg (25-34); Mean Corpuscular Hgb Conc 34.6 g/dL (32-36); Mean Corpuscular Volume 94.4 fL (80-100); Mean Platelet Volume 9.2 fL (7.4-10.4); Monocytes # (auto) 0.69 K/uL (0.11-0.59); Monocytes % (auto) 10.6 %; Neutrophils # (auto) 4.33 K/uL (1.4-6.5); Neutrophils % (auto) 66.2 %; Platelet Count 359 K/uL (130-400); RDW Coefficient of Variation 14.7 % (11.5-14.5); RDW Standard Deviation 51.2 fL (36.4-46.3); Red Blood Count 3.74 M/uL (4.7-6.1); White Blood Count 6.53 K/uL (4.8-10.8)
[2020-09-21 18:40] LABS: Alanine Aminotransferase 18 U/L (12-78); Aspartate Aminotransferase 19 U/L (15-37); BUN Creatinine Ratio 48.6 (10-20); Blood Urea Nitrogen 54 mg/dl (7-18); Carbon Dioxide 23 mmol/L (21-32); Chloride 103 mmol/L (98-107); Creatinine Clr Calc Pharmacy 55.6 ml/min; Est GFR (African American) 93.8; Est GFR (Non-African American) 80.9; Glucose 100 mg/dl (70-99); Potassium 3.3 mmol/L (3.5-5.1); Sodium 135 mmol/L (136-145)
[2020-09-21 18:43] LABS: INR 1.1 (0.9-1.1); Partial Thromboplastin Ratio 4.1; Prothrombin Time 10.9 Seconds (9.0-12.0)
[2020-09-21 18:45] LABS: Albumin Globulin Ratio 0.9 (0.9-2); Alkaline Phosphatase 58 U/L (45-117); Bilirubin,Total 0.9 mg/dl (0.2-1); Globulin 4.5 gm/dl (2.5-4.0); Total Protein 8.5 gm/dl (6.4-8.2); Troponin I < 0.015 ng/ml (0-0.045)
[2020-09-21 18:47] LABS: Partial Thromboplastin Time 106.9 Seconds (21.0-31.0)
--- NOTE | 2020-09-21 21:04 | History & Physical Report ---
Date of Service September 21, 2020 Assessment & Plan Admission and Anticipated Discharge Date Admission Date: 44 yo M w/ pMHx. of DM II, ADD, depression, anxiety, anemia, Hx. of renal vein thrombosis and metastatic splenic flexure adenocarcinoma HER2/LV+ presents with chest pain, found to have significant weight loss over the last 2 weeks. - admit to med/surg. - tele Chest pain aggravated by movement concerning for possible malignant pericardial effusion --> tamponade although normotensive, normal heart sounds and no clear JVD on exam, vs. cardiotoxicity from new chemotherapeutics vs. costochondritis (+ pain on palpation) and ruling out ACS and maintaining a high index of suspicion for PE given active cancer. initial troponin negative, CTA from Sep.03 negative for PE - trend troponin - repeat ECHO ordered to further evaluate pericardial effusion - continue with current pain regimen + added Dilaudid .5 mg for moderate pain 1 mg for severe pain - if shortness of breath worsens have low threshold to obtain CTA to rule out PE Adenocarcinoma of the splenic flexure s/p diverting colectomy - HER2, LV +, BRAF, KRAS, NRAS - - follows with Dr. Dorantes with oncology - previously on FOLFOX and Avastin - recently started Herceptin and Pertuzumab last given approx. 2 weeks prior Tachycardia on monitor in ED, appeared to be sinus tach vs. SVT has resolved without intervention - monitor on tele - replete electrolytes with goal potassium 4 Hypokalemia 3.3, mg. 2.1, ? poor intake - 20 oral & 20 iv replacement - recheck potassium in AM, replete as needed Malnutrition / failure to thrive with 17 lb weight loss in 10 days, BMI 14.6, does not endorse nausea or vomiting; potentially from malignancy vs. poor intake - dietary supplementation ordered - encourage PO intake - consulted palliative care to clarify goals of care, discussed with patient the potential role palliative may play DM, on Metformin at home BSG 100 on admission - continue to monitor for now Depression/Anxiety - continue Buspirone DVT: Lovenox Diet: regular, LR 80 ml/h (2bags ordered) Code: full code COVID: negative 09/21/20 History of Present Illness Chief Complaint: chest pain Primary Care Provider: DO Russel Jones is here for chest pain. He has a past medical history of metastatic splenic flexure adenocarcinoma HER2/Lv + s/p diverting colostomy with metastasis to the liver and lungs, diabetes mellitus II on metformin, ADD, depression, and anxiety. He has one day of left sided chest pain. The pain was 8/10 and alternating sharp and dull worse with movement. The pain does not radiate. The pain did not bother him when he was staying still. He also complained of abdominal pain in the room. He is taking Fentanyl and Gabapentin scheduled, and PRN Oxycodone for pain. His oncologist is Dr. Dorantes and he gets direction from [facility], with most recent note from 09/11 he has started Herceptin and Pertuzumab last Monday. He has lost 17 lbs since that visit 10 days ago. CTA on 09/03/20 no PE ECHO 09/07/20 small circumferential pericardial effusion without tamponade (nl EF) ED course: 1mg Hydrocodone X2, fluid Allergies Allergy/AdvReac Type Severity Reaction Status Date / Time promethazine Allergy Unknown Unknown Verified 09/21/20 20:57 REACTION Home Medications Medication Instructions Recorded Confirmed Type metformin 1,000 mg tablet 1,000 mg PO BID #180 tab 05/11/20 09/21/20 Rx fentanyl 1 patch TRANSDERMAL Q72H 08/26/20 09/21/20 History gabapentin 300 mg PO TID PRN 08/26/20 09/21/20 History polyethylene glycol 3350 17 g PO DAILY #119 g 08/27/20 09/21/20 Rx buspirone 10 mg tablet 10 mg PO BID #60 tab 09/07/20 09/21/20 Rx lidocaine-prilocaine 1 applic TOPICAL UD 09/21/20 09/21/20 History naloxone [Narcan] 1 spray INTRANASAL UD 09/21/20 09/21/20 History oxycodone 60 mg PO QID PRN 09/21/20 09/21/20 History sitagliptin [Januvia] 50 mg PO QAM 09/21/20 09/21/20 History Past Med/Surg History Medical History Anemia Anxiety Asthma A CHILD Colon cancer CHEMO TX Degenerative disc disease Depression Diabetes mellitus, type 2 Drug addiction "WAS ADDICTED TO METHADONE" Fatty liver Hyperlipidemia Intractable abdominal pain Intractable abdominal pain Surgical History History of colonoscopy History of creation of ostomy History of myringotomy History of shoulder surgery RT History of tonsillectomy and adenoidectomy History of vascular access device INTACT LEFT CHEST WALL Family History Mother Family history of diabetes mellitus Father Colorectal cancer Cancer Aunt Cancer Grandfather (Maternal) Myocardial infarction Other Hypertension Denies family history of Ovarian cancer Prostate cancer Breast cancer Social History Smoking Status: Former smoker Second Hand Exposure: No; Hx Alcohol Use: No Hx Substance Use: No (pt denies, but H/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) Preferred Language: Montenegrin Communication Ability: Effective Visual Impairment: No Limitations Hearing Ability: Normal Hard Hat Diver Required: No Beliefs That Will Affect Care: None marital status: Current Living Situation: Family current occupational status: disabled Other Information That Helps Us Care for You: No Feels Safe at Home: Yes Safety Concerns: Feels Safe At This Time Childhood Exposure to Second-Hand Smoke: No Dental Care, Regularly: No Assistive Devices: None Review of Systems Review of Systems: Constitutional: Denies fevers, chills, vomiting, change in weight admits fatigue Head: denies trauma, vision changes Neuro: denies syncope slurring speech Cardiac: denies leg swelling admits palpitations Pulm.: deneis cough, hemoptysis, sputum production GI: denies diarrhea constipation, change in ostomy output color : denies dysuria, frequency, urgency Physical Exam Constitutional: + ill appearing, + cachectic and + frail appearing Eyes: PERRL, conjunctivae normal, anicteric sclerae ENMT: external ear and nose normal, oropharynx normal Neck: normal visual inspection Respiratory: normal respiratory effort, lungs clear to auscultation Cardiovascular: RRR, no murmur, no edema Chest (Breasts): Additional Comments: - catheter left upper chest c/d/i - pain reproduced on left lower chest Gastrointestinal (Abdomen): - scaphoid abdomen, nTTP - bowel sounds present Skin: no rashes, warm and dry Neurologic: awake Motor/Sensory: normal movement Psychiatric: - tearful affect Results & Data Results & Data ([facility]) Vital Signs (Past 12 Hours) Vital Signs Temp Pulse Resp BP Pulse Ox 09/21/20 20:00 86 14 104/55 L 100 09/21/20 19:30 89 13 106/78 99 09/21/20 19:00 76 12 101/75 100 09/21/20 18:31 96 H 17 107/68 98 09/21/20 18:15 88 16 98 09/21/20 17:11 36.7 C 14 L 16 102/73 98 CBC Results Results Complete Blood Count Results: RBC 3.74 M/uL (4.7-6.1) L 09/21/20 WBC 6.53 K/uL (4.8-10.8) 09/21/20 Hgb 12.2 g/dL (14.0-18.0) L 09/21/20 Hct 35.3 % (42-52) L 09/21/20 Plt Count 359 K/uL (130-400) 09/21/20 Chemistry (BMP) Results BMP Results: Sodium 135 mmol/L (136-145) L 09/21/20 Potassium 3.3 mmol/L (3.5-5.1) L 09/21/20 Chloride 103 mmol/L (98-107) 09/21/20 BUN 54 mg/dl (7-18) H 09/21/20 Creatinine 1.11 mg/dl (0.6-1.4) 09/21/20 Glucose 100 mg/dl (70-99) H 09/21/20 Supervising Physician Co-Signing Physician Notes Patient seen and examined, chart reviewed, case discussed with Dr. Atkins and I agree with his assessment and plan as documented above. Briefly, patient is an unfortunate 44yo C male with history of metastatic colon CA presenlty on immunoptherapy with Herceptin/pertuzumab presenting with left sided CP. Episode of tachycardia while in ER - HR to 150's - possibly SVT upon review of telemetry On exam he is afebrile, HD stable Cachectic, chronically ill in appearance Dry MM Heart - +S1/S2, regular, no m/r/g, port in left upper chest wall, nontender to palpation. Reproducible chest pain left chest Lungs- CTA Abd - +BS, soft, NT/ND, colostomy in place Ext - no edema Labs and images reviewed Assessment/Plan: -Observation to medical with telemetry -IVF and electrolyte repletion -Pain control -Repeat troponin and 2D echo - assess effusion. Patient showing no clinical signs of tamponade - he is HD stable. ?pericarditis, ?expansion of malignancy -Palliative Care consultation appreciated. Discussed with patient. He has not yet seen Palliative Care -Continue home medications -Remainder of plan as above Resident Activity Tracking Resident Involvement: Resident Care Provided Care Provided: Adult Hospital Medicine
[2020-09-21] MEDS ORDERED: POTASSIUM CHLORIDE 20 MEQ/15 ML UDC PO STA (22:05)
[2020-09-21] MEDS ORDERED: HYDROmorphone INJ 0.5 MG/0.5 ML SYR IV PRN (22:10)
[2020-09-21 22:25] LABS: Magnesium 2.1 mg/dl (1.8-2.4)
[2020-09-21] MEDS: POTASSIUM CHLORIDE / WTR 10 MEQ/100 ML PLCT IV SCH ×2 (22:36→23:38)
[2020-09-21] MEDS: GABAPENTIN 300 MG CAP PO SCH (22:39)
[2020-09-21] MEDS: busPIRone 5 MG TAB PO SCH (22:39)
[2020-09-21] MEDS: ENOXAPARIN INJ 40 MG/0.4 ML SYR SQ SCH (22:39)
[2020-09-21] MEDS: HYDROmorphone INJ 0.5 MG/0.5 ML SYR IV PRN (22:40)
[2020-09-21] MEDS: LACTATED RINGER'S 1,000 ML IV SCH (22:46)
[2020-09-21] MEDS: CHECK fentaNYL PATCH PLACEMENT SCH (23:39)
[2020-09-21] MEDS: oxyCODONE HCL IR 30 MG TAB (IMMEDIATE RELEASE) PO PRN (23:42)
--- NOTE | 2020-09-22 02:24 | Billing Data ---
Date of Service September 21, 2020 Coding Level of Care Code 10840 OBS Care - Level 3
[2020-09-22] MEDS: HYDROmorphone INJ 0.5 MG/0.5 ML SYR IV PRN ×3 (02:31→09:28)
[2020-09-22 06:32] LABS: Basophils # (auto) 0.03 K/uL (0-0.2); Basophils % (auto) 0.6 %; Eosinophils # (auto) 0.11 K/uL (0-0.5); Hematocrit (blood only) 30.9 % (42-52); Hemoglobin 10.3 g/dL (14.0-18.0); Immature Granulocytes # (auto) 0.01 K/uL (0.00-0.02); Immature Granulocytes % (auto) 0.2 %; Lymphocytes # (auto) 1.41 K/uL (1.2-3.4); Lymphocytes % (auto) 26.1 %; Mean Corpuscular Hemoglobin 31.8 pg (25-34); Mean Corpuscular Hgb Conc 33.3 g/dL (32-36); Mean Corpuscular Volume 95.4 fL (80-100); Mean Platelet Volume 9.2 fL (7.4-10.4); Monocytes # (auto) 0.51 K/uL (0.11-0.59); Monocytes % (auto) 9.4 %; Neutrophils # (auto) 3.34 K/uL (1.4-6.5); Neutrophils % (auto) 61.7 %; Platelet Count 269 K/uL (130-400); RDW Coefficient of Variation 14.5 % (11.5-14.5); RDW Standard Deviation 51.1 fL (36.4-46.3); Red Blood Count 3.24 M/uL (4.7-6.1); White Blood Count 5.41 K/uL (4.8-10.8)
[2020-09-22 07:10] LABS: BUN Creatinine Ratio 62.8 (10-20); Blood Urea Nitrogen 50 mg/dl (7-18); Calcium 9.1 mg/dl (8.5-10.1); Carbon Dioxide 23 mmol/L (21-32); Chloride 104 mmol/L (98-107); Creatinine Clr Calc Pharmacy 76.3 ml/min; Est GFR (African American) 126.8; Est GFR (Non-African American) 109.4; Glucose 83 mg/dl (70-99); Potassium 3.2 mmol/L (3.5-5.1); Sodium 134 mmol/L (136-145); Troponin I < 0.015 ng/ml (0-0.045)
[2020-09-22] MEDS: oxyCODONE HCL IR 30 MG TAB (IMMEDIATE RELEASE) PO PRN ×2 (08:40→17:48)
[2020-09-22] MEDS: fentaNYL 100 MCG/HR TDSY TD SCH (08:41)
[2020-09-22] MEDS: CHECK fentaNYL PATCH PLACEMENT SCH ×2 (08:44→15:21)
[2020-09-22] MEDS: busPIRone 5 MG TAB PO SCH ×2 (08:45→21:10)
[2020-09-22] MEDS: POLYETHYLENE (MIRALAX) 17 GM PACK PO SCH (08:45)
[2020-09-22] MEDS: GABAPENTIN 300 MG CAP PO SCH ×4 (08:45→21:11)
--- NOTE | 2020-09-22 10:51 | Palliative Care Consultation ---
Date of Consultation September 22, 2020 Assessment & Plan (1) Chest pain: with lung metastases. Not sure that fentanyl is therapeutic with BMI of 14.6. I would not recommend increasing the fentanyl. It is not clear if there is a neuropathic component to this. Given high dose opioids with limited effect, I would consider low dose methadone for NMDA receptor activity. The QTc on his EKG from 09/21 is 452. He may benefit from antiinflammatory effect of decadron which could also stimulate his appetite, though this would need to be short course with his immunotherapy. Chest pain type: unspecified Qualified Code(s): R07.9 - Chest pain, unspecified (2) Abdominal pain of multiple sites: As above. There does seem to be a gas component to this. Would consider routine dosing of bentyl with monitoring for constipation, which has been a problem for him in the past. (3) Palliative care encounter: We discussed the difficult course that he has had with his cancer treatment. He tells me that his four sons, the youngest of whom is six, are the thing that keeps him going. He does not consider stopping treatment as an option. He tells me that he is not a quitter. We discussed whether he has thought about what he would do if cancer was no longer treatable and he admits that he does from time to time but doesn't dwell on it. He cannot imagine any scenario when he would not want to continue with treatment. He did identify that his SO, Shauna Cruz, who is the mother of his two youngest sons, would be his surrogate decision maker in the event that he was not able to make decisions for himself. (4) Low body mass index (BMI): Cachectic with severe protein calorie malnutrition. He has been using supplements but has poor appetite. Monitor with steroid. (5) Colon cancer metastasized to multiple sites: (6) Type 2 diabetes mellitus: Diabetes mellitus complication status: without complication Diabetes mellitus usp insulin use: without rn radiation oncology use Qualified Code(s): E11.9 - Type 2 diabetes mellitus without complications History of Present Illness Reason for Consultation: goals of care Requesting Physician: Dr. 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 He had diverting colostomy in 2019 and has received chemotherapy with folfox and avastin in the past. He was recently started on a regimen of herceptin and pertuzumab. He is followed by Dr. Michel Dorantes. 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 However, his bigger concerns are severe pain in his chest and RLQ. He is followed by a pain management provider in [place] who has been prescribing fentanyl patch and prn oxycodone. Doses were increased to 300mcg fentanyl and 60mg oxycodone about a week ago. He has not been using 300mcg of fentanyl but continues with 150mcg. He has also been getting hydromorphone prn which he says takes the edge off for about 20 minutes. He denies pleuritic chest pain and has had chest CT about 10 days ago which was negative for PE but showed small pericardial effusion with no tamponade. He describes the pain as sharp and intermittent. He does have known pulmonary mets. He has had ongoing problems with LLQ pain and has had benefit from trigger point injections with the last injection done on 08/27/20. He was hospitalized at that time for the pain and constipation. At this time the pain is more RLQ and he describes it as gas pain. He has had some flatus. CT done on 09/03 showed liver mets, splenic flexure mass, para aortic, mesenteric and retroperitoneal lymphadenopathy. Allergies Allergy/AdvReac Type Severity Reaction Status Date / Time promethazine Allergy Unknown Unknown Verified 09/21/20 20:57 REACTION Home Medications Medication Instructions Recorded Confirmed Type metformin 1,000 mg tablet 1,000 mg PO BID #180 tab 05/11/20 09/21/20 Rx fentanyl 1 patch TRANSDERMAL Q72H 08/26/20 09/21/20 History gabapentin 300 mg PO TID PRN 08/26/20 09/21/20 History polyethylene glycol 3350 17 g PO DAILY #119 g 08/27/20 09/21/20 Rx buspirone 10 mg tablet 10 mg PO BID #60 tab 09/07/20 09/21/20 Rx lidocaine-prilocaine 1 applic TOPICAL UD 09/21/20 09/21/20 History naloxone [Narcan] 1 spray INTRANASAL UD 09/21/20 09/21/20 History oxycodone 60 mg PO QID PRN 09/21/20 09/21/20 History sitagliptin [Januvia] 50 mg PO QAM 09/21/20 09/21/20 History Patient History Medical History Anemia Anxiety Asthma A CHILD Colon cancer CHEMO TX Degenerative disc disease Depression Diabetes mellitus, type 2 Drug addiction "WAS ADDICTED TO METHADONE" Fatty liver Hyperlipidemia Intractable abdominal pain Intractable abdominal pain Surgical History History of colonoscopy History of creation of ostomy History of myringotomy History of shoulder surgery RT History of tonsillectomy and adenoidectomy History of vascular access device INTACT LEFT CHEST WALL Family History Mother Family history of diabetes mellitus Father Colorectal cancer Cancer Aunt Cancer Grandfather (Maternal) Myocardial infarction Other Hypertension Denies family history of Ovarian cancer Prostate cancer Breast cancer Social History Smoking Status: Former smoker Second Hand Exposure: No; Hx Alcohol Use: No Hx Substance Use: No (pt denies, but H/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) Preferred Language: Maori Communication Ability: Effective Visual Impairment: No Limitations Hearing Ability: Normal Organ Grinder Required: No Beliefs That Will Affect Care: None marital status: Current Living Situation: Family current occupational status: disabled Other Information That Helps Us Care for You: No Feels Safe at Home: Yes Safety Concerns: Feels Safe At This Time Childhood Exposure to Second-Hand Smoke: No Dental Care, Regularly: No Assistive Devices: None Review of Systems Review of Systems: [place] Symptom Assessment Scale Pain 3/3 Dyspnea 0/3 Nausea 1/3 Anorexia 3/3 Anxiety 0/3 Drowsiness 1/3 Fatigue 1/3 Palliative Performance Score 50% He reports being independent for some ADLs at home and is able to ambulate to the bathroom with minimal assistance. Physical Exam Constitutional: + ill appearing and + cachectic ENMT: facial grimace at rest Respiratory: normal respiratory effort; no labored breathing Gastrointestinal (Abdomen): colostomy with brown stool Musculoskeletal: Extremities: + muscle atrophy Neurologic: no focal motor deficits and not confused Psychiatric: Orientation: alert and oriented x 3 Results & Data ([facility]) Vital Signs (Past 12 Hours) Vital Signs Temp Pulse Resp BP Pulse Ox 02/23/21 07:00 98.1 F 75 16 94/54 L 100 09/22/20 03:50 98.2 F 85 20 97/68 L 97 PG Care Time/CCT Total # of Minutes Spent Total Time Spent with Patient: Total time spent is greater than 50% in coordination of care (as documented) at patient's floor/unit and/or counseling patient: Total time spent is 75 minutes with more than 50% of time spent on symptom management, goals of care, coordination of care. Coding Level of Care Code 40031 Inpt Consult Level 4 Diagnoses Chest pain R07.9 Chest pain type: unspecified Abdominal pain of multiple sites R10.9 Palliative care encounter Z51.5 Low body mass index (BMI) Colon cancer metastasized to multiple sites C18.9 Type 2 diabetes mellitus E11.9 Diabetes mellitus complication status: without complication Diabetes mellitus usp insulin use: without rn radiation oncology use
[2020-09-22] MEDS: HYDROmorphone INJ 2 MG/ML SYR/VIAL IV PRN ×4 (12:23→21:28)
[2020-09-22] MEDS: LACTATED RINGER'S 1,000 ML IV SCH (12:25)
--- NOTE | 2020-09-22 13:16 | XCELERA ---
[id number]
[2020-09-22] MEDS: POTASSIUM CHLORIDE / WTR 10 MEQ/100 ML PLCT IV SCH ×3 (13:21→15:21)
[2020-09-22] MEDS: ondansetron HCL 8 MG in DEXTROSE 5% 50 ML IV PRN (14:17)
--- NOTE | 2020-09-22 16:01 | Hospitalist Progress Note ---
Date of Service September 22, 2020 Assessment & Plan (1) Chest pain: Admission Date: 44 yo M w/ pMHx. of DM II, ADD, depression, anxiety, anemia, Hx. of renal vein thrombosis and metastatic splenic flexure adenocarcinoma HER2/NETTA+ presents with chest pain, found to have significant weight loss over the last 2 weeks. - admit to med/surg. - tele Chest pain aggravated by movement concerning for possible malignant pericardial effusion --> tamponade although normotensive, normal heart sounds and no clear JVD on exam, vs. cardiotoxicity from new chemotherapeutics vs. costochondritis (+ pain on palpation) and ruling out ACS and maintaining a high index of suspicion for PE given active cancer. initial troponin negative, CTA from Sep.03 negative for PE - trop neg x3 - ECHO with EF 55-60% and small pericardial effusion noted, was noted on prior ECHO done at [facility] (per ED physician's note, no record in our system) - continue with current pain regimen, increased dilaudid D/W Dr. Silverman who is going to try a course of decadron and possibly methadone - if shortness of breath worsens have low threshold to obtain CTA to rule out PE O2 sats are upper 90s on RA, HR WNL Tachycardia on monitor in ED on presentation, appeared to be sinus tach vs. SVT, however has resolved without intervention - monitor on tele - replete electrolytes with goal potassium 4 COVID: negative 09/21/20 (2) Dyspnea: (3) Metastatic colon cancer to liver: Adenocarcinoma of the splenic flexure s/p diverting colectomy - HER2, NETTA +, BRAF, KRAS, NRAS - - follows with Dr. Dorantes with oncology - previously on FOLFOX and Avastin - recently started Herceptin and Pertuzumab last given approx. 2 weeks prior Malnutrition / failure to thrive with 17 lb weight loss in 10 days, BMI 14.6, does not endorse nausea or vomiting; potentially from malignancy vs. poor intake - dietary supplementation ordered - encourage PO intake - consulted palliative care to clarify goals of care, discussed with patient the potential role palliative may play (4) Colostomy present: (5) Type 2 diabetes mellitus: on Metformin at home BSG 100 on admission - continue to monitor for now (6) Chronic anemia: Hb 12.2 on admission with drop to 10.3, likely dilutional in the setting of poor PO intake at home Monitor (7) ADD (attention deficit disorder): (8) Dyslipidemia: (9) Depression with anxiety: - continue Buspirone (10) Hypokalemia: Hypokalemia 3.3 on admission, mg. 2.1, ? poor intake K actually decreased s/p replacement Add K riders and monitor (11) DVT prophylaxis: DVT: Lovenox Diet: regular, LR 80 ml/h (2bags ordered) Code: full code (12) Chest pain: Admission and Anticipated Discharge Date Admission Date: September 21, 2020 Subjective Pt has ongoing chest pain. When I push on pt's chest, he has pain, but he states this is different than the chest pain he was having that brought him into the ED. He has SOB and notes it is with even limited exertion, but also at rest. He has ongoing nausea. He has no appetite. States that everything tastes like sawdust. Pt denies fever, LE pain or swelling. Pt tells me he just started a new immunotherapy with Dr. Dorantes at [facility]. His first dose was / and it is Q3week dosing. He had an ECHO that was listed as 2/ by the ED that showed a small circumferential pericardial effusion without tamponade. I cannot find this record. His chest pain started 2 days ago. Review of Systems Review of Systems: Pertinent positives and negatives reviewed in HPI--all others negative Physical Exam Constitutional: well developed, + ill appearing and + cachectic Eyes: normal visual kenny by confrontation and + anicteric sclerae Neck: normal visual inspection and trachea midline Respiratory: normal respiratory effort, lungs clear to auscultation Cardiovascular: Rate/Rhythm: regular rate and regular rhythm Chest (Breasts): Additional Comments: chest wall TTP diffusely Gastrointestinal (Abdomen): Inspection/Auscultation: abdomen not distended Percussion/Palpation: abdomen soft; abdomen nontender Musculoskeletal: Head/Neck/Chest: normocephalic and head atraumatic negative for edema, peripheral pulses intact Skin: no rashes, warm and dry Neurologic: awake; not confused Speech / Cognition: normal speech Psychiatric: Orientation: oriented x 3 and cooperative Affect: + depressed affect Results & Data Results & Data ([facility]) Vital Signs (Past 12 Hours) Vital Signs Temp Pulse Resp BP Pulse Ox 09/22/20 15:00 36.8 C 74 20 107/70 100 09/22/20 11:00 36.6 C 83 16 105/73 100 09/22/20 07:00 36.7 C 75 16 94/54 L 100 PG Care Time/CCT Total # of Minutes Spent Total Time Spent with Patient: Total time spent is greater than 50% in coordination of care (as documented) at patient's floor/unit and/or counseling patient: Coding Level of Care Code 86628 Subseq Hosp Care Lvl 3 Diagnoses Chest pain R07.9 Chest pain type: unspecified Dyspnea R06.00 Dyspnea type: unspecified Metastatic colon cancer to liver C18.9; C78.7 Colostomy present Z93.3 Type 2 diabetes mellitus E11.9 Diabetes mellitus complication status: without complication Diabetes mellitus terminal worker insulin use: without terminal worker use Chronic anemia D64.9 ADD (attention deficit disorder) F98.8 Dyslipidemia E78.5 Depression with anxiety F41.8 Hypokalemia E87.6 DVT prophylaxis Z29.9 Chest pain R07.9 (1) Chest pain Chest pain type: unspecified Qualified Code(s): R07.9 - Chest pain, unspecified (2) Dyspnea Dyspnea type: unspecified Qualified Code(s): R06.00 - Dyspnea, unspecified (3) Type 2 diabetes mellitus Diabetes mellitus complication status: without complication Diabetes mellitus snf insulin use: without snf use Qualified Code(s): E11.9 - Type 2 diabetes mellitus without complications
--- NOTE | 2020-09-22 16:51 | Electrocardiogram Report ---
Test Reason : Blood Pressure : / mmHG Vent. Rate : 096 BPM Atrial Rate : 096 BPM P-R Int : 178 ms QRS Dur : 094 ms QT Int : 358 ms P-R-T Axes : 082 089 071 degrees QTc Int : 452 ms Normal sinus rhythm Normal ECG When compared with ECG of 04-JUL-2019 10:45, No significant change was found Confirmed by Russel Albarado ([id number]) on 09/22/2020 4:50:50 PM Referred By: Michel Dorantes Confirmed By:Milton Albarado
[2020-09-22] MEDS: DICYCLOMINE HCL 20 MG TAB PO PRN (17:43)
[2020-09-22] MEDS ORDERED: Nursing to Pharmacy Communication SCH (19:00)
[2020-09-22] MEDS ORDERED: ondansetron HCL 8 MG in DEXTROSE 5% 50 ML IV ONE (19:30)
[2020-09-22] MEDS: dexAMETHasone 4 MG in SYRINGE 0 ML IV SCH (21:11)
[2020-09-22] MEDS: ENOXAPARIN INJ 40 MG/0.4 ML SYR SQ SCH (21:11)
[2020-09-22] MEDS: METHADONE HCL 5 MG TAB PO SCH (21:21)
[2020-09-23] MEDS: HYDROmorphone INJ 2 MG/ML SYR/VIAL IV PRN ×5 (00:45→20:23)
[2020-09-23] MEDS: CHECK fentaNYL PATCH PLACEMENT SCH ×4 (00:46→23:48)
[2020-09-23] MEDS: dexAMETHasone 4 MG in SYRINGE 0 ML IV SCH ×2 (08:59→20:24)
[2020-09-23] MEDS: POLYETHYLENE (MIRALAX) 17 GM PACK PO SCH (08:59)
[2020-09-23] MEDS: GABAPENTIN 300 MG CAP PO SCH ×3 (08:59→20:24)
[2020-09-23] MEDS: busPIRone 5 MG TAB PO SCH ×2 (09:00→20:24)
[2020-09-23] MEDS: DICYCLOMINE HCL 20 MG TAB PO PRN (09:00)
[2020-09-23] MEDS: METHADONE HCL 5 MG TAB PO SCH (09:01)
[2020-09-23 10:02] LABS: BUN Creatinine Ratio 53.5 (10-20); Blood Urea Nitrogen 40 mg/dl (7-18); C Reactive Protein < 0.29 mg/dl (0-0.29); Calcium 8.9 mg/dl (8.5-10.1); Carbon Dioxide 25 mmol/L (21-32); Chloride 105 mmol/L (98-107); Creatinine Clr Calc Pharmacy 81.4 ml/min; Est GFR (African American) 130.2; Est GFR (Non-African American) 112.4; Glucose 129 mg/dl (70-99); Magnesium 1.7 mg/dl (1.8-2.4); Potassium 3.2 mmol/L (3.5-5.1); Sodium 136 mmol/L (136-145)
[2020-09-23] MEDS ORDERED: MAGNESIUM SULFATE / D5W 1 GM/100 ML BAG IV ONE (10:30)
[2020-09-23] MEDS: POTASSIUM CHLORIDE / WTR 10 MEQ/100 ML PLCT IV SCH ×2 (11:21→12:35)
[2020-09-23] MEDS: oxyCODONE HCL IR 30 MG TAB (IMMEDIATE RELEASE) PO PRN (11:41)
[2020-09-23] MEDS: POTASSIUM CHLORIDE CRTAB 20 MEQ TABCR PO SCH ×2 (12:37→20:24)
--- NOTE | 2020-09-23 14:40 | Palliative Care Progress Note ---
Date of Service September 23, 2020 Assessment & Plan (1) Abdominal pain of multiple sites: He has refused to take methadone, having had a bad experience with it in the past. Continue steroids. We discussed options for analgesia. He is established with pain management in [place] and has a good relationship with his provider. They had increased fentanyl to 300mcg just prior to his admission. He did not start that due to concern about that being related to his chest pain and shortness of breath. It remains unclear how much fentanyl he is absorbing with his cachexia. Hydromorphone has been effective. Will start scheduled oral hydromorphone for more sustained relief and continue IV hydromorphone prn if oral is not effective. (2) Palliative care encounter: (3) Colon cancer metastasized to multiple sites: Admission and Anticipated Discharge Date Admission Date: September 21, 2020 Subjective Reports eating breakfast this morning. He denies nausea. Right lower abdominal pain has resolved today. He has his "usual" pain in LLQ which is severe, achy pain. He denies burning, shooting or stabbing pain. It does not radiate. He has had 470 OME in last 24 hours. He notes that the hydromorphone "takes the edge off" but does not last until next dose available. He denies constipation. Review of Systems Review of Systems: [place] Symptom Assessment Scale Pain 3/3 Dyspnea 1/3 Nausea 0/3 Anxiety 0/3 Fatigue 2/3 Palliative Performance Score 50% Physical Exam Constitutional: + ill appearing and + cachectic ENMT: Mouth: + dry oral mucous membranes Respiratory: no labored breathing Gastrointestinal (Abdomen): colostomy Musculoskeletal: Extremities: + muscle atrophy Psychiatric: Orientation: alert and oriented x 3 Results & Data ([facility]) Vital Signs (Past 12 Hours) Vital Signs Temp Pulse Pulse Resp BP Pulse Ox 09/23/20 11:08 98.4 F 72 20 103/68 98 09/23/20 07:12 79 09/23/20 07:11 97.9 F 52 L 20 98/55 L 100 09/23/20 03:26 97.7 F 80 16 96/64 L 98 PG Care Time/CCT Total # of Minutes Spent Total Time Spent with Patient: Total time spent is greater than 50% in coordination of care (as documented) at patient's floor/unit and/or counseling patient: Total time spent 35 minutes with more than 50% of time spent on symptom management and coordination of care. Coding Level of Care Code 16063 Subseq Hosp Care Lvl 3 Diagnoses Abdominal pain of multiple sites R10.9 Palliative care encounter Z51.5 Colon cancer metastasized to multiple sites C18.9
[2020-09-23] MEDS: HEPARIN 100 UNIT/ML 5ML FLUSH FLUSH PRN (16:00)
[2020-09-23] MEDS ORDERED: OPTIRAY 320 125ml IV ONE (16:29)
--- NOTE | 2020-09-23 20:07 | Hospitalist Progress Note ---
Date of Service September 23, 2020 Assessment & Plan (1) Pneumomediastinum: Nothing to do at this time. Likely the cause of his recent chest pain. Probably from a forceful cough or similar; no evidence of esophageal rupture on CT. Will repeat cxr tomorrow am to ensure not growing (previous cxr 48 hours ago did not show the pneumomediastinum). Patient made aware of this finding. (2) Chest pain: Likely 2nd to pneumomediastinum. CTA negative for PE this admission. Echo again shows small pericardial effusion but no tamponade features on echo or on exam. Although sed rate is modestly high, crp is normal and he has no EKG features or symptoms to suggest pericarditis causing chest pain. Troponins negative. Pain should gradually subside over the next few days. (3) Dyspnea: Likely 2nd to pneumomediastinum. CTA neg for PE. Mild infiltrate noted in RUL but no symptoms suggesting pneumonia. Hold off on antibiotics for now but consider procal in am. 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 Dorantes with oncology - previously on FOLFOX and Avastin - recently started Herceptin and Pertuzumab. -- last given approx. 2 weeks prior large intra-abdominal mass noted on recent imaging causing chronic abdominal pain appreciate Dr Silverman's recommendations from palliative re: pain meds steroids also added there is evidence of metastatic disease to lungs on today's CTA chest (5) Colostomy present: functioning well (6) Type 2 diabetes mellitus: given profound weight loss would stop DM meds BSGs here acceptable (7) Chronic anemia: 2nd to advanced cancer (8) ADD (attention deficit disorder): (9) Dyslipidemia: not on meds (10) Depression with anxiety: continue Buspirone (11) Hypokalemia: replace again both IV and PO today replace low mag as well repeat levels am (12) Hypomagnesemia: replace IV repeat level am (13) Severe protein-calorie malnutrition: profound weight loss in setting of advanced cancer steroids for pain may help appetite to some degree but suspect wasting will continue (14) DVT prophylaxis: lovenox change observation status to admission status Admission and Anticipated Discharge Date Admission Date: September 23, 2020 Subjective patient continues with mild left-sided chest discomfort but improved from admission. "I want to know what is causing it". he continues with ROME but denies any worsening from admission. no cough. no fever. reports that when the chest pain/dyspnea started 2 days prior to admission he was having rapid heart rate/palpitations. the palpitations occurred w/ activity. he also was having dizziness upon standing at home - this is improved s/p copious fluids. denies any worsening of pain with laying down. denies pleuritic component to chest pain. reports ongoing abdominal pain despite fentanyl patch, etc. tele with episodes of sinus tach but no dysrhythmia. Review of Systems Constitutional: + fatigue, + anorexia and + weight loss (Over 100 pounds since dx of cancer); no fever Respiratory: as per Subjective / HPI, + dyspnea and + dyspnea on exertion Cardiovascular: + chest pain; no orthopnea and no edema Gastrointestinal: + abdominal pain; no vomiting Physical Exam Constitutional: + cachectic and + frail appearing; no acute distress and no altered mental status ENMT: external ear and nose normal, oropharynx normal Respiratory: normal respiratory effort, lungs clear to auscultation no respiratory distress Cardiovascular: Rate/Rhythm: regular rate and regular rhythm Heart Sounds: normal S1 and normal S2; no murmur Vessels: posterior tibial pulses present and dorsalis pedis pulses present; no JVD Extremities: no edema Chest (Breasts): Additional Comments: no reproducible chest wall tenderness to palpation any location Gastrointestinal (Abdomen): Inspection/Auscultation: normal bowel sounds and + scaphoid Percussion/Palpation: + abdomen tender (Generalized ) colostomy bag in place with stool Skin: + pallor Psychiatric: Orientation: alert and oriented x 3 Results & Data Results & Data ([facility]) Vital Signs (Past 12 Hours) Vital Signs Temp Pulse Resp BP Pulse Ox 09/23/20 19:00 36.7 C 79 16 102/68 99 09/23/20 15:00 35.5 C L 72 16 100/67 100 09/23/20 11:08 36.9 C 72 20 103/68 98 Laboratory Results Laboratory Results - last 24 hr 09/23/20 09/23/20 09:01 09:01 ESR 46 H Sodium 136 Potassium 3.2 L Chloride 105 Carbon Dioxide 25 Anion Gap 6.0 BUN 40 H Creatinine 0.75 Est Cr Clr Drug Dosing 81.4 Est GFR ( Amer) 130.2 Est GFR (Non-Af Amer) 112.4 BUN/Creatinine Ratio 53.5 H Glucose 129 H Calcium 8.9 Magnesium 1.7 L C-Reactive Protein < 0.29 PG Care Time/CCT Total # of Minutes Spent Total Time Spent with Patient: Total time spent is greater than 50% in c oordination of care (as documented) at patient's floor/unit and/or counseling patient: Coding Level of Care Code 26800 Subseq Hosp Care Lvl 3 Diagnoses Pneumomediastinum J98.2 Chest pain R07.9 Chest pain type: unspecified Dyspnea R06.00 Dyspnea type: unspecified Metastatic colon cancer to liver C18.9; C78.7 Colostomy present Z93.3 Type 2 diabetes mellitus E11.9 Diabetes mellitus complication status: without complication Diabetes mellitus fpc insulin use: without fpc use Chronic anemia D64.9 ADD (attention deficit disorder) F98.8 Dyslipidemia E78.5 Depression with anxiety F41.8 Hypokalemia E87.6 Hypomagnesemia E83.42 Severe protein-calorie malnutrition E43 DVT prophylaxis Z29.9 (1) Type 2 diabetes mellitus Diabetes mellitus complication status: without complication Diabetes mellitus extermination supervisor insulin use: without extermination supervisor use Qualified Code(s): E11.9 - Type 2 diabetes mellitus without complications (2) Dyspnea Dyspnea type: unspecified Qualified Code(s): R06.00 - Dyspnea, unspecified (3) Chest pain Chest pain type: unspecified Qualified Code(s): R07.9 - Chest pain, unspecified
[2020-09-23] MEDS: ENOXAPARIN INJ 40 MG/0.4 ML SYR SQ SCH (20:28)
--- NOTE | 2020-09-23 20:31 | CT Scan Report ---
CT angio chest PE protocol CT DOSE: 224.64 mGy.cm HISTORY: 44 years-old Male with L-sided CP; stage 4 ca; eval PE. Acute chest pain with shortness of breath. TECHNIQUE: Multiple CTA images of the chest were obtained after the intravenous administration of 120 ml Optiray 320. Coronal and sagittal MIPS were obtained from the axial data set and were submitted for review. All measurements were obtained according to NASCET criteria. A dose lowering technique w as utilized adhering to the principles of ALARA. COMPARISON: Chest radiograph 09/21/2020, CTA chest 09/03/2020 FINDINGS: CTA: Left subclavian [id number]-[id number] catheter distal tip terminates at the superior cavoatrial junction. Hea rt is normal in size without pericardial effusion. No thoracic aortic aneurysm or dissection. Patency of the imaged great vessels. Mild coronary artery calcifications. Pulmonary artery is opacified to t he segmental branches. No filling defects to suggest pulmonary emboli. CT CHEST: Unremarkable thyroid. Prevascular lymph nodes are again noted measuring up to 8 mm. No new adenopathy . Moderate pneumomediastinum tracks into the base of the neck. No pneumothorax, pleural effusion, ove rt pulmonary edema or airspace consolidation. Mild tree-in-bud nodules are again seen most notably wi thin the right upper lobe with decreased tree-in-bud nodules of the left lower lobe. Scattered bilate ral solid pulmonary nodules are redemonstrated (please see bookmarks) measuring up to 5 mm within the left lower lobe. No new or enlarging pulmonary nodules. Distention of the stomach. Multifocal hepatic metastasis redemonstrated. Please refer to CT abdomen a nd pelvis study from 09/03/2020 for discussion of the abdominal findings. Patient is cachectic. No acut e fracture. IMPRESSION: 1. No pulmonary emboli. 2. Moderate pneumomediastinum is new from comparison, likely from bronchoalveolar injury. No evidence of esophageal injury or pleural effusion. 3. Unchanged subtle subsegmental tree-in-bud nodules of the right upper lobe suggestive of an infecti ous or inflammatory pneumonitis. 4. No new adenopathy. 5. Unchanged scattered bilateral solid pulmonary nodules measuring up to 5 mm suspicious for pulmonar y metastasis. 6. Hepatic metastasis redemonstrated. ACT 112: Negative or not required by law. The above report was generated using voice recognition software. It may contain grammatical, syntax o r spelling errors. Electronically signed by: Rafael Andersen M.D. 09/23/2020 8:30 PM
[2020-09-24] MEDS: HYDROmorphone INJ 2 MG/ML SYR/VIAL IV PRN ×7 (01:00→20:12)
[2020-09-24 06:39] LABS: BUN Creatinine Ratio 54.2 (10-20); Calcium 8.6 mg/dl (8.5-10.1); Creatinine Clr Calc Pharmacy 93.9 ml/min; Est GFR (African American) 138.1; Est GFR (Non-African American) 119.2; Magnesium 1.7 mg/dl (1.8-2.4); Potassium 3.9 mmol/L (3.5-5.1)
[2020-09-24] MEDS: dexAMETHasone 4 MG in SYRINGE 0 ML IV SCH (07:34)
[2020-09-24] MEDS: HEPARIN 100 UNIT/ML 5ML FLUSH FLUSH PRN ×4 (07:34→20:12)
[2020-09-24] MEDS: CHECK fentaNYL PATCH PLACEMENT SCH ×2 (07:37→15:27)
[2020-09-24] MEDS: ondansetron HCL 8 MG in DEXTROSE 5% 50 ML IV PRN (08:15)
[2020-09-24] MEDS: GABAPENTIN 300 MG CAP PO SCH ×3 (08:16→22:01)
[2020-09-24] MEDS: busPIRone 5 MG TAB PO SCH ×2 (08:16→22:01)
[2020-09-24] MEDS: POLYETHYLENE (MIRALAX) 17 GM PACK PO SCH (08:31)
[2020-09-24] MEDS: POTASSIUM CHLORIDE CRTAB 20 MEQ TABCR PO SCH ×2 (09:06→22:01)
[2020-09-24] MEDS ORDERED: MAGNESIUM SULFATE / D5W 1 GM/100 ML BAG IV ONE (10:45)
[2020-09-24] MEDS ORDERED: MAGNESIUM OXIDE 400 MG TAB PO ONE (10:45)
--- NOTE | 2020-09-24 13:43 | Palliative Care Progress Note ---
Date of Service September 24, 2020 Assessment & Plan (1) Palliative care encounter: He continues to use frequent IV dilaudid. Discussed sitting up in chair to help with back pain but he declines. Will continue current dosing of hydromorphone and monitor. Given ongoing immunotherapy and diabetes, will begin slow taper of decadron. (2) Metastatic colon cancer to liver: (3) Severe protein-calorie malnutrition: Eating small frequent amounts. Monitor with steroid dose adjustment. Admission and Anticipated Discharge Date Admission Date: September 23, 2020 Subjective Had uncomfortable night last night. Having back pain which he attributes to the bed. Using IV hydromorphone pretty much every three hours. Eating ice cream during visit. Review of Systems Review of Systems: [place] Symptom Assessment Scale Pain 3/3 Dyspnea 1/3 Nausea 0/3 Anorexia 2/3 Fatigue 2/3 Palliative Performance Score 50% Physical Exam Constitutional: + cachectic ENMT: Mouth: oral mucous membranes not dry Respiratory: no labored breathing and does not use accessory muscles Gastrointestinal (Abdomen): colostomy with soft brown stool Neurologic: no focal motor deficits Psychiatric: Orientation: alert and oriented x 3 Affect: euthymic affect Results & Data ([facility]) Vital Signs (Past 12 Hours) Vital Signs Temp Pulse Pulse Resp BP Pulse Ox 09/24/20 11:25 98.2 F 77 16 92/63 L 100 09/24/20 07:28 97.7 F 56 L 20 129/81 100 09/24/20 07:15 78 09/24/20 04:56 98.1 F 74 16 106/71 99 09/24/20 03:01 77 PG Care Time/CCT Total # of Minutes Spent Total Time Spent with Patient: Total time spent is greater than 50% in coordination of care (as documented) at patient's floor/unit and/or counseling patient: Coding Level of Care Code 81286 Subseq Hosp Care Lvl 2 Diagnoses Palliative care encounter Z51.5 Metastatic colon cancer to liver C18.9; C78.7 Severe protein-calorie malnutrition E43
[2020-09-24] MEDS: dexAMETHasone 2 MG in SYRINGE 0 ML IV SCH (14:16)
--- NOTE | 2020-09-24 14:55 | XRay Report ---
XR chest 2V PA/lateral CLINICAL HISTORY: Pneumomediastinum COMPARISON STUDY: September 21, 2020, CT scan dated 09/23/2020 FINDINGS: The cardiac and mediastinal contours remain stable. There is no failure. There is no focal pulmonary consolidation. There are no pleural effusions. There is a left subclavian A-Port catheter. There is equivocal trace pneumomediastinum.[ IMPRESSION: 1. Equivocal trace pneumomediastinum 2. No evidence of pneumothorax 3. No evidence of focal pulmonary consolidation ACT 112: Negative or not required by law. Electronically signed by: Dilip Soto M.D. 09/24/2020 2:54 PM
[2020-09-24] MEDS: CALCIUM CARBONATE 500 MG CHEWABLE TAB PO PRN (20:12)
[2020-09-24] MEDS: ENOXAPARIN INJ 40 MG/0.4 ML SYR SQ SCH (22:02)
[2020-09-25] MEDS: HYDROmorphone INJ 2 MG/ML SYR/VIAL IV PRN ×6 (00:03→15:36)
[2020-09-25] MEDS: CALCIUM CARBONATE 500 MG CHEWABLE TAB PO PRN (00:07)
[2020-09-25] MEDS: CHECK fentaNYL PATCH PLACEMENT SCH ×3 (01:06→16:01)
--- NOTE | 2020-09-25 06:12 | Hospitalist Progress Note ---
Date of Service September 24, 2020 Assessment & Plan (1) Pneumomediastinum: improved on cxr this am. chest pain resolved. etiology - either forceful cough leading to air leak, or tiny esophageal tear (but none seen on CT). either way symptoms resolved and cxr stable. (2) Chest pain: Likely 2nd to pneumomediastinum. CTA negative for PE this admission. Echo again shows small pericardial effusion but no tamponade features on echo or on exam. Although sed rate is modestly high, crp is normal and he has no EKG features or symptoms to suggest pericarditis causing chest pain. Troponins negative. Pain resolved today. (3) Dyspnea: Likely 2nd to pneumomediastinum. CTA neg for PE. Mild infiltrate noted in RUL but no symptoms suggesting pneumonia. Procal also negative/normal. Hold off on antibiotics. 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 Dorantes with oncology - previously on FOLFOX and Avastin - recently started Herceptin and Pertuzumab. -- last given approx. 2 weeks prior large intra-abdominal mass noted on recent imaging causing chronic abdominal pain appreciate Dr Silverman's recommendations from palliative re: pain meds steroids also added there is evidence of metastatic disease to lungs on imaging this admission (5) Colostomy present: functioning well (6) Type 2 diabetes mellitus: given profound weight loss would stop DM meds BSGs here acceptable check a1c am (7) Chronic anemia: 2nd to advanced cancer (8) ADD (attention deficit disorder): (9) Dyslipidemia: not on meds (10) Depression with anxiety: continue Buspirone (11) Hypokalemia: replaced and resolved (12) Hypomagnesemia: give additional IV replacement today start PO supplement as well mag level am (13) Severe protein-calorie malnutrition: profound weight loss in setting of advanced cancer steroids for pain may help appetite to some degree but suspect wasting will continue continue steroids (14) DVT prophylaxis: lovenox no discharge until pain control is satisfactory attempted to call pt's - could not leave message; voicemail box not "set up" care d/w Dr Silverman from palliative Admission and Anticipated Discharge Date Admission Date: September 23, 2020 Subjective chest pain essentially resolved. no pleurisy. no dyspnea. dizziness improved. strength improved. palpitations with activity are better. eating fair at best. still w/ abdominal pain. ostomy output unchanged. Review of Systems Constitutional: no fever Respiratory: no cough Cardiovascular: no chest pain, no orthopnea, no lightheadedness and no edema Gastrointestinal: + abdominal pain; no nausea and no vomiting Physical Exam Constitutional: + cachectic and + frail appearing; no acute distress and no altered mental status ENMT: external ear and nose normal, oropharynx normal Respiratory: normal respiratory effort, lungs clear to auscultation no respiratory distress Cardiovascular: Rate/Rhythm: regular rate and regular rhythm Heart Sounds: normal S1 and normal S2; no murmur Vessels: posterior tibial pulses present and dorsalis pedis pulses present; no JVD Extremities: no edema Chest (Breasts): Additional Comments: no tenderness to palpation over chest wall; due to emaciated appearance all ribs are seen/palpable Gastrointestinal (Abdomen): Inspection/Auscultation: normal bowel sounds and + scaphoid Percussion/Palpation: + abdomen tender (Generalized ) colostomy in place with liquid stool Skin: + pallor Psychiatric: Orientation: alert and oriented x 3 Results & Data Results & Data ([facility]) Vital Signs (Past 12 Hours) Vital Signs Temp Pulse Pulse Resp BP Pulse Ox 09/25/20 03:00 36.9 C 58 L 20 124/72 99 09/24/20 23:47 76 09/24/20 19:00 36.8 C 81 16 104/67 99 Laboratory Results Laboratory Results - last 24 hr 09/24/20 09/24/20 09/24/20 05:38 05:38 07:19 Sodium 135 L Potassium 3.9 D Chloride 105 Carbon Dioxide 24 Anion Gap 5.0 BUN 35 H Creatinine 0.65 Est Cr Clr Drug Dosing 93.9 Est GFR ( Amer) 138.1 Est GFR (Non-Af Amer) 119.2 BUN/Creatinine Ratio 54.2 H Glucose 121 H POC Glucose 114 H Calcium 8.6 Magnesium 1.7 L Procalcitonin < 0.05 PG Care Time/CCT Total # of Minutes Spent Total Time Spent with Patient: Total time spent is greater than 50% in coordination of care (as documented) at patient's floor/unit and/or counseling patient: Coding Level of Care Code 43746 Subseq Hosp Care Lvl 2 Diagnoses Pneumomediastinum J98.2 Chest pain R07.9 Chest pain type: unspecified Dyspnea R06.00 Dyspnea type: unspecified Metastatic colon cancer to liver C18.9; C78.7 Colostomy present Z93.3 Type 2 diabetes mellitus E11.9 Diabetes mellitus complication status: without complication Diabetes mellitus longterm insulin use: without intermodal dispatcher use Chronic anemia D64.9 ADD (attention deficit disorder) F98.8 Dyslipidemia E78.5 Depression with anxiety F41.8 Hypokalemia E87.6 Hypomagnesemia E83.42 Severe protein-calorie malnutrition E43 DVT prophylaxis Z29.9 (1) Type 2 diabetes mellitus Diabetes mellitus complication status: without complication Diabetes mellitus longterm insulin use: without intermodal dispatcher use Qualified Code(s): E11.9 - Type 2 diabetes mellitus without complications (2) Dyspnea Dyspnea type: unspecified Qualified Code(s): R06.00 - Dyspnea, unspecified (3) Chest pain Chest pain type: unspecified Qualified Code(s): R07.9 - Chest pain, unspecified
[2020-09-25] MEDS ORDERED: HYDROmorphone INJ 1 MG/ML SYRINGE IV STA (06:38)
[2020-09-25] MEDS ORDERED: KETOROLAC TROMETHAMINE 15 MG/ML VIAL IV ONE (06:40)
[2020-09-25 07:31] LABS: Hematocrit (blood only) 28.6 % (42-52); Hemoglobin 9.8 g/dL (14.0-18.0); Mean Corpuscular Hemoglobin 32.5 pg (25-34); Mean Corpuscular Hgb Conc 34.3 g/dL (32-36); Mean Corpuscular Volume 94.7 fL (80-100); Mean Platelet Volume 9.5 fL (7.4-10.4); Platelet Count 183 K/uL (130-400); RDW Coefficient of Variation 14.2 % (11.5-14.5); RDW Standard Deviation 49.3 fL (36.4-46.3); Red Blood Count 3.02 M/uL (4.7-6.1)
[2020-09-25 07:59] LABS: BUN Creatinine Ratio 49.6 (10-20); Calcium 8.9 mg/dl (8.5-10.1); Creatinine Clr Calc Pharmacy 108.7 ml/min; Est GFR (African American) 145.8; Est GFR (Non-African American) 125.8; Estimated Average Glucose 111 mg/dl; Hemoglobin A1C 5.5 % (4.5-5.6); Magnesium 1.6 mg/dl (1.8-2.4); Potassium 3.7 mmol/L (3.5-5.1)
[2020-09-25] MEDS ORDERED: dexAMETHasone 4 MG in SYRINGE 0 ML IV SCH (08:00)
[2020-09-25] MEDS ORDERED: MAGNESIUM OXIDE 400 MG TAB PO SCH (09:00)
[2020-09-25] MEDS: POLYETHYLENE (MIRALAX) 17 GM PACK PO SCH (09:17)
[2020-09-25] MEDS: fentaNYL 100 MCG/HR TDSY TD SCH (09:18)
[2020-09-25] MEDS: busPIRone 5 MG TAB PO SCH (09:20)
[2020-09-25] MEDS: POTASSIUM CHLORIDE CRTAB 20 MEQ TABCR PO SCH (09:20)
[2020-09-25] MEDS: GABAPENTIN 300 MG CAP PO SCH ×2 (09:20→13:29)
[2020-09-25] MEDS: MAGNESIUM SULFATE / D5W 1 GM/100 ML BAG IV SCH ×2 (09:21→11:09)
--- NOTE | 2020-09-25 12:01 | Palliative Care Progress Note ---
Date of Service September 25, 2020 Assessment & Plan (1) Abdominal pain of multiple sites: Seems to be improved. We discussed plan for pain management as an outpatient and will switch oxycodone to hydromorphone for prn use. I would recommend discharge on hydromorphone 12mg po every four hours as needed. He will call his pain management provider for f/u. I advised him to discuss fentanyl dosing with him before increasing to 300mcg. (2) Colon cancer metastasized to multiple sites: (3) Pneumomediastinum: (4) Type 2 diabetes mellitus: Admission and Anticipated Discharge Date Admission Date: September 23, 2020 Subjective Reports increased back pain which he attributes to the bed. He wants to be discharged today and see his chiropractor. He notes that the abdominal pain is better. He denies chest pain or shortness of breath Review of Systems Review of Systems: [place] Symptom Assessment Scale Pain 2/3 Dyspnea 0/3 Nausea 0/3 Drowsiness 0/3 Palliative Performance Score 50% Physical Exam Constitutional: + cachectic; no acute distress ENMT: Mouth: oral mucous membranes not dry Respiratory: no labored breathing Cardiovascular: Extremities: no edema Gastrointestinal (Abdomen): colostomy Musculoskeletal: Extremities: + muscle atrophy Neurologic: no focal motor deficits Results & Data ([facility]) Vital Signs (Past 12 Hours) Vital Signs Temp Pulse Resp BP Pulse Ox 09/25/20 11:08 97.7 F 80 18 94/53 L 99 09/25/20 08:10 98.2 F 89 18 94/64 L 98 09/25/20 03:00 98.4 F 58 L 20 124/72 99 PG Care Time/CCT Total # of Minutes Spent Total Time Spent with Patient: Total time spent is greater than 50% in coordination of care (as documented) at patient's floor/unit and/or counseling patient: Coding Level of Care Code 45190 Subseq Hosp Care Lvl 2 Diagnoses Abdominal pain of multiple sites R10.9 Colon cancer metastasized to multiple sites C18.9 Pneumomediastinum J98.2 Type 2 diabetes mellitus E11.9 Diabetes mellitus complication status: without complication Diabetes mellitus fdc insulin use: without fdc use (1) Type 2 diabetes mellitus Diabetes mellitus complication status: without complication Diabetes mellitus patient relations liaison insulin use: without fdc use Qualified Code(s): E11.9 - Type 2 diabetes mellitus without complications
[2020-09-25] MEDS: HEPARIN 100 UNIT/ML 5ML FLUSH FLUSH PRN ×2 (13:27→15:37)
[2020-09-25] MEDS: dexAMETHasone 2 MG in SYRINGE 0 ML IV SCH (13:29)
--- NOTE | 2020-09-25 16:42 | Discharge Summary ---
Date of Service date of admission - September 21, 2020 date of discharge - September 25, 2020 Admission HPI Per Admitting Provider Russel Vickers is a 44yo male with past medical history of metastatic splenic flexure adenocarcinoma HER2/Lv+, s/p diverting colostomy with metastasis to the liver and lungs, diabetes mellitus II on metformin, ADD, depression, and anxiety. He presents with one day of left sided chest pain. The pain was 8/10, alternating sharp and dull, and worse with movement. The pain does not radiate. The pain did not bother him when he was staying still. He also complained of abdominal pain in the room. He is taking Fentanyl and Gabapentin scheduled, and PRN Oxycodone for pain. His oncologist is Dr. Dorantes and he gets direction from [facility]on[facility], with most recent note from 09/11 he has started Herceptin and Pertuzumab last Monday. He has lost 17 lbs since that visit 10 days ago. CTA on 09/03/20 no PE ECHO 09/07/20 small circumferential pericardial effusion without tamponade (nl EF) ED course: 1mg Hydrocodone X2, fluid Principal Diagnosis Spontaneous Pneumomediastinum Stage 4 colon cancer Discharge Exam Constitutional + cachectic and + frail appearing; no acute distress and no altered mental status ENMT external ear and nose normal, oropharynx normal Respiratory normal respiratory effort, lungs clear to auscultation no respiratory distress Cardiovascular Rate/Rhythm: regular rate and regular rhythm Heart Sounds: normal S1 and normal S2; no murmur Vessels: posterior tibial pulses present and dorsalis pedis pulses present; no JVD Extremities: no edema Gastrointestinal (Abdomen) Inspection/Auscultation: normal bowel sounds and + scaphoid Percussion/Palpation: + abdomen tender (Generalized - mild ) colostomy with bag in place; liquid stool present Skin + pallor Psychiatric Orientation: alert and oriented x 3 Discharge Data Allergies Allergy/AdvReac Type Severity Reaction Status Date / Time promethazine Allergy Unknown Unknown Verified 09/21/20 20:57 REACTION Consultations Palliative Care Ordered Studies 09/23/20 13:06 CT angio chest PE protocol - IMPRESSION: 1. No pulmonary emboli. 2. Moderate pneumomediastinum is new from comparison, likely from bronchoalveolar injury. No evidence of esophageal injury or pleural effusion. 3. Unchanged subtle subsegmental tree-in-bud nodules of the right upper lobe suggestive of an infectious or inflammatory pneumonitis. 4. No new adenopathy. 5. Unchanged scattered bilateral solid pulmonary nodules measuring up to 5 mm suspicious for pulmonary metastasis. 6. Hepatic metastasis redemonstrated. Hospital Course (1) Pneumomediastinum: This was the likely cause of the patient's presenting chest pain. Etiology of the pneumomediastinum was either a forceful cough leading to air leak, or tiny esophageal tear (but none seen on CT and patient had no upper GI symptoms). Either way his symptoms resolved and chest x-ray later in his stay showed tiny pneumomediastinum only. He was advised to have a follow-up 2-view chest x-ray in 1 week post-discharge to ensure resolution. (2) Chest pain: Likely 2nd to pneumomediastinum. CTA negative for PE this admission. Echo again showed small pericardial effusion but no tamponade features on echo or on exam. Although sed rate was modestly high, crp was normal and he had no EKG features or symptoms to suggest pericarditis causing chest pain. Troponins were negative. Pain resolved by the time of discharge. (3) Dyspnea: Likely 2nd to pneumomediastinum. CTA neg for PE. Mild infiltrate noted in RUL but no symptoms suggesting pneumonia. Procalcitonin was also negative/normal. (4) Metastatic colon cancer to liver: Adenocarcinoma of the splenic flexure of colon s/p diverting colostomy - HER2/LV+. BRAF, KRAS, NRAS - Follows with Dr. Michel Dorantes with [facility] oncology. Previously on FOLFOX and Avastin. Recently started Herceptin and Pertuzumab. Last dose given approx. 2 weeks prior to admission. Large intra-abdominal mass noted on recent imaging causing chronic abdominal pain. Was seen by Dr Magdalene Silverman from the palliative care team. Of note - patient follows with palliative care in [place]. Due to the patient's severe abdominal pain, back pain, etc Dr Silverman advised addition of steroids and changing prn oxycodone to prn oral dilaudid. Between the above 2 recommendations along with fentanyl patch his pain improved during the visit. At discharge we recommended the following - * fentanyl patch 100mcg q72h * gabapentin 300mg TID * dexamethasone 4mg daily * dilaudid 12mg q6h prn breakthrough pain * omeprazole 40mg daily for GI prophylaxis given the steroid use The patient voiced he wished to follow with his palliative care physician in [place] post-discharge for ongoing pain management. Of note - hospice was briefly discussed with patient by the palliative care team. At this time patient wishes to continue chemotherapy for his cancer. (5) Dizziness: This symptom improved with copious IV fluids and IV steroids. He had low-normal or low BPs early in his stay consistent with his dizziness. BPs improved to normal range later in the stay. (6) Colostomy present: Ostomy functioning well (7) Type 2 diabetes mellitus: HbA1C 5.5%. He is no longer in the diabetic or pre-DM range given his profound weight loss. BSGs were acceptable while hospitalized. Patient's metformin was stopped. (8) Severe protein-calorie malnutrition: profound weight loss in setting of advanced cancer steroids for pain may help appetite to some degree but suspect wasting will cont inue continue steroids - dexamethasone 4mg daily (9) Chronic anemia: 2nd to advanced cancer Hb 9.8 day of discharge (10) ADD (attention deficit disorder): (11) Dyslipidemia: not on meds (12) Depression with anxiety: continue Buspirone (13) Hypokalemia: replaced and resolved (14) Hypomagnesemia: received IV and oral replacement will continue oral supplementation at discharge Total Time Total Time Spent Total Time Spent (In Minutes): 45 Total Time Includes: Examination of the Patient, Discharge Planning, Medication Reconciliation and Communication With Other Providers Discharge Plan Discharge Items Patient Disposition: Home - Self-Care Reason For Visit: CHEST PAIN Discharge Diagnosis: 1. chest pain due to pneumomediastinum (seepage of free air into a cavity in the middle of the chest) - improved; see handout 2. pain due to advanced cancer 3. dizziness, palpitations - due to dehydration 4. shortness of breath - likely multiple causes Activity: As commented below Activity Comment: as tolerated/as desired Driving/Machine Use: no driving due to narcotic pain killer use Non-emergency contact: Primary Care Provider and Pain Management Call non-emergency contact if: you have any medication questions, your symptoms worsen, your pain is not controlled, your pain is worsening and you have a fever Follow-up/Referrals: Noah Barrera DO [Primary Care Provider] - 10/05/20 9:20 am Michel Dorantes MD [Surgeon] - (follow-up as scheduled with Dr Dorantes) Diet: Regular Addtl Attending Provider Instructions: Mr Vickers, You were treated for the problems listed above in "discharge diagnoses." The cause of your chest pain was likely "pneumomediastinum." See handout from [facility]. Your chest x-ray on 09/24 showed that it was improving. As it improves the chest pain resolves as well. I would recommend a repeat chest x-ray in 1 week to look at the lungs again. This can be done at [facility]. I am uncertain why this happened but in many cases it can be spontaneous. Your palpitations and dizziness were likely due to dehydration. These symptoms with IV fluids and IV steroids along with time. I would recommend you remain on oral steroids (dexamethasone) every day. This steroid should help your pain, your appetite, etc. Dr Barrera or Dr Dorantes can wean the dose over the next few weeks as necessary. You were seen by Dr Silverman from palliative care. She has changed your oxycodone to hydromorphone for breakthrough pain. This seems to be working well for you. Recommendations - 1. STOP your oxycodone. DO NOT TAKE THIS ANY LONGER. 2. START hydromorphone -- 12mg (1.5 tablets) every 6 hours as needed for pain. DO NOT TAKE BOTH OXYCODONE AND HYDROMORPHONE TOGETHER THIS CAN LEAD TO AN OVERDOSE OR EVEN . Prescription sent to [facility] for you. 3. START dexamethasone 4mg once daily with food. This is your steroid. Start tomorrow, 09/26/20. 4. START omeprazole 40mg once daily to protect your stomach from the effects of the steroid. Start this TODAY. 5. Take magnesium supplement once daily. Start this TODAY. 6. Continue fentanyl patch -- STAY AT THE 100mcg patch. DO NOT INCREASE unless specifically instructed by your pain doctor in [place]. 7. STOP your diabetes medications - metformin and januvia. Because of your weight loss you are no longer a diabetic. Your hemoglobin a1c is 5.5% -- this is normal range. You are not even in the pre-diabetic range. 8. Obtain a chest x-ray in 1 week - bring script with you when you come to [facility] for the films. 9. TAKE gabapentin 300mg three times a day every day. I gave you a refill if you are in need of this medication. Follow-up - * pain management/palliative care in [place] - ideally within 5-7 days * Dr Dorantes, oncology, as scheduled * Dr Barrera within 1 week Return to [facility] if - * you have worsening chest pain * you have worsening shortness of breath * you have recurrent dizziness/lightheadedness or pass out * you have severe, uncontrolled pain despite your pain medications * any other concerns Feel better and it was a pleasure caring for you! -Dr To Pending Studies at Discharge: No Stand-Alone Forms: My [facility], Smoking Cessation Medications and DC Order Prescriptions: New magnesium oxide 400 mg (241.3 mg magnesium) Tablet 400 mg PO QAM Qty: 90 RF: 1 dexamethasone [Decadron] 4 mg tablet 4 mg PO DAILY Qty: 30 RF: 1 omeprazole 40 mg capsule,delayed release(DR/EC) 40 mg PO DAILY Qty: 30 RF: 1 gabapentin 300 mg capsule 300 mg PO TID Qty: 90 RF: 0 hydromorphone [Dilaudid] 8 mg tablet 12 mg PO Q6H PRN (Reason: pain) Qty: 40 RF: 0 Continued buspirone 10 mg tablet 10 mg PO BID Qty: 60 RF: 5 fentanyl 100 mcg/hr patch 72 hour 1 patch transdermal Q72H RF: 0 polyethylene glycol 3350 17 gram/dose powder 17 g PO DAILY Qty: 119 RF: 0 lidocaine-prilocaine 2.5-2.5 % cream 1 applic topical UD RF: 0 Narcan 4 mg/actuation spray,non-aerosol 1 spray INTRANASAL UD RF: 0 Discontinued metformin 1,000 mg tablet 1,000 mg PO BID Qty: 180 RF: 1 gabapentin 300 mg capsule 300 mg PO TID PRN (Reason: Pain) RF: 0 oxycodone 30 mg tablet 60 mg PO QID PRN (Reason: Pain) RF: 0 Januvia 50 mg tablet 50 mg PO QAM RF: 0 Discharge Orders: Discharge Order (Routine); Ordered 09/25/20 Ordered By: Karan To Admission Data Admit Date/Time: 09/23/20 15:30 Attending Provider: Karan To Admit Provider: Mark Atkins Primary Care Provider: Noah Barrera Other Providers: Magdalene Silverman Other Interventions: Discharge Summary Assessment (RN) Last Done: 09/25/20 16:41 Coding Level of Care Code D/C Day Management >30 mins Diagnoses Pneumomediastinum J98.2 Chest pain R07.9 Chest pain type: unspecified Dyspnea R06.00 Dyspnea type: unspecified Metastatic colon cancer to liver C18.9; C78.7 Dizziness R42 Colostomy present Z93.3 Type 2 diabetes mellitus E11.9 Diabetes mellitus complication status: without complication Diabetes mellitus senior care insulin use: without senior care use Severe protein-calorie malnutrition E43 Chronic anemia D64.9 ADD (attention deficit disorder) F98.8 Dyslipidemia E78.5 Depression with anxiety F41.8 Hypokalemia E87.6 Hypomagnesemia E83.42
== END 2020-09-25 16:56 | disposition home or self-care (01) | DRG 199 ==
LOC: ED 17:06 → 2W 17:06 → SUATTDRO 21:03 → 2W 21:30

== ENCOUNTER 2020-12-25 01:30 | Inpatient (IN) ==
[2020-12-25] MEDS ORDERED: ONDANSETRON INJ 2 MG/ML 2 ML VIAL IV STA (02:27)
[2020-12-25] MEDS ORDERED: HYDROmorphone INJ 0.5 MG/0.5 ML SYR IV STA ×3 (02:27→03:51)
[2020-12-25] MEDS ORDERED: SODIUM CHLORIDE 0.9% 1000ML 1,000 ML IV ONE (02:27)
[2020-12-25] MEDS ORDERED: LORazepam 0.5 MG/1 ML VIAL IV STA ×2 (02:55→04:21)
[2020-12-25 04:12] LABS: Basophils # (auto) 0.01 K/uL (0-0.2); Basophils % (auto) 0.1 %; Eosinophils % (auto) 1.4 %; Hemoglobin 8.7 g/dL (14.0-18.0); Immature Granulocytes # (auto) 0.03 K/uL (0.00-0.02); Immature Granulocytes % (auto) 0.4 %; Lymphocytes # (auto) 1.08 K/uL (1.2-3.4); Lymphocytes % (auto) 15.7 %; Mean Corpuscular Hemoglobin 27.6 pg (25-34); Mean Corpuscular Hgb Conc 32.2 g/dL (32-36); Mean Corpuscular Volume 85.7 fL (80-100); Mean Platelet Volume 9.9 fL (7.4-10.4); Monocytes # (auto) 0.66 K/uL (0.11-0.59); Monocytes % (auto) 9.6 %; Neutrophils # (auto) 5.02 K/uL (1.4-6.5); Neutrophils % (auto) 72.8 %; Platelet Count 174 K/uL (130-400); RDW Coefficient of Variation 14.9 % (11.5-14.5); RDW Standard Deviation 46.4 fL (36.4-46.3); Red Blood Count 3.15 M/uL (4.7-6.1)
[2020-12-25 04:29] LABS: Albumin Level 2.5 gm/dl (3.4-5.0); BUN Creatinine Ratio 30.2 (10-20); Calcium 7.6 mg/dl (8.5-10.1); Creatinine Clr Calc Pharmacy 104.4 ml/min; Est GFR (African American) 141.7 ml/min; Est GFR (Non-African American) 122.3 ml/min; Potassium 3.5 mmol/L (3.5-5.1)
[2020-12-25 04:31] LABS: Albumin Globulin Ratio 0.7 (0.9-2); Bilirubin,Total 2.6 mg/dl (0.2-1); Globulin 3.7 gm/dl (2.5-4.0); Total Protein 6.2 gm/dl (6.4-8.2)
[2020-12-25 05:35] LABS: Appearance Urine Clear (Clear); Bacteria Urine Automated Negative (Negative); Blood Urine 2+ (Negative); Color Urine Dark Yellow; Epithelial Cell Urine Auto 0-5 /lpf (0-5); Glucose Urine UA Negative (Negative); Ketones Urine Negative (Negative); Leukocyte Esterase Urine Trace (Negative); Nitrite Urine Negative (Negative); Protein Urine Trace (Negative); Specific Gravity Urine 1.018 (1.000-1.030); Urobilinogen Urine Negative (Negative)
[2020-12-25 05:40] LABS: Bilirubin Urine 1+ (Negative)
[2020-12-25] MEDS ORDERED: OPTIRAY 320 100ml IV ONE (05:45)
--- NOTE | 2020-12-25 05:48 | History & Physical Report ---
Date of Service December 25, 2020 Assessment & Plan (1) Colon cancer metastasized to multiple sites: Metastatic colon cancer to multiple sites/liver metastases/abnormal liver test/intractable abdominal pain- Admit for pain control Increase fentanyl patch from 100 250 mcg change in every 72 hours Placed on Dilaudid 1 mg IV every 2 hours as needed severe pain Consult palliative care Consult pain management Present on Admission?: Yes (2) Intractable abdominal pain: Pain management as above Present on Admission?: Yes (3) Abnormal LFTs: CT pending Present on Admission?: Yes (4) Cachexia: Secondary to decreased oral intake Present on Admission?: Yes (5) GERD (gastroesophageal reflux disease): Placed on famotidine 20 mg IV every 12 hours Present on Admission?: Yes (6) Anxiety: Buspirone 10 mg p.o. twice daily Present on Admission?: Yes (7) S/P colostomy: History of Present Illness Chief Complaint: The patient presents to the emergency department with worsening abdominal, pelvic and groin cancer pain Primary Care Provider: Noah Barrera DO The patient is a 45-year-old male with a past medical history including metastatic adenocarcinoma of the splenic flexure status post diverting colostomy, cachexia, hypercalcemia, history of large bowel obstruction, diabetes mellitus type 2, lumbar radiculopathy, liver metastases, extrinsic asthma, anxiety, GERD and anemia. Patient's last chemotherapy with [facility] oncology Dr. Dorantes was 2 weeks ago, and is due for chemotherapy again next week. His reports that the pain had been worsening throughout the day yesterday, and then at midnight said he could not stand anymore and asked his to bring him to the ED for assessment. She reports that he has had decreased oral intake due to severity of the pain. He has been seen by palliative care in the past, and she reports that he was seen by Dr. Avalos from pain management with some improvement in his pain with that injection. Allergies Allergy/AdvReac Type Severity Reaction Status Date / Time promethazine Allergy Unknown Unknown-CHILDHOOD Verified 12/25/20 01:46 ALLERGY Home Medications Medication Instructions Recorded Confirmed Type fentanyl 3 patch TRANSDERMAL Q72H 08/26/20 12/25/20 History buspirone 10 mg tablet 10 mg PO BID #60 tab 09/07/20 12/25/20 Rx Narcan 1 spray INTRANASAL DIRECTED PRN 09/21/20 12/25/20 History lidocaine-prilocaine 1 applic TOPICAL DIRECTED PRN 09/21/20 12/25/20 History magnesium oxide 400 mg PO QAM #90 tab 09/25/20 12/25/20 Rx dexamethasone 4 mg tablet 4 mg PO DAILY #30 tab 12/09/20 12/25/20 Rx omeprazole 40 mg capsule,delayed 40 mg PO DAILY #30 cap 12/09/20 12/25/20 Rx release hydromorphone [Dilaudid] 16 mg PO Q6H PRN 12/25/20 12/25/20 History ondansetron 8 mg TRANSLINGUAL Q8H PRN 12/25/20 12/25/20 History Past Med/Surg History Medical History Anemia Anxiety Asthma A CHILD Colon cancer CHEMO TX Degenerative disc disease Depression Diabetes mellitus, type 2 Drug addiction "WAS ADDICTED TO METHADONE" Fatty liver Hyperlipidemia Intractable abdominal pain Intractable abdominal pain Surgical History History of colonoscopy History of creation of ostomy History of myringotomy History of shoulder surgery History of tonsillectomy and adenoidectomy History of vascular access device Family History Mother Family history of diabetes mellitus Father Colorectal cancer Cancer Aunt Cancer Grandfather (Maternal) Myocardial infarction Other Hypertension Denies family history of Ovarian cancer Prostate cancer Breast cancer Social History Smoking Status: Never smoker Second Hand Exposure: No; Hx Alcohol Use: No Hx Substance Use: No (pt denies, but H/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) Preferred Language: Swedish Communication Ability: Effective Visual Impairment: No Limitations Hearing Ability: Normal Laundry Helper Required: No Beliefs That Will Affect Care: None marital status: Unknown Current Living Situation: Family current occupational status: disabled Feels Safe at Home: Yes Childhood Exposure to Second-Hand Smoke: No Dental Care, Regularly: No Assistive Devices: None Review of Systems Review of Systems: Unobtainable due to cognitive status Review of systems is as noted above as told by his Physical Exam Physical Exam: The patient is lethargic, cachectic, normocephalic and atraumatic, lying in bed and in no acute distress. HEENT--PERRL, EOMI, mucous membranes and oropharynx dry. Neck--supple. No JVD. No bruits. Thyroid normal, trachea midline, no adenopathy. Heart--normal S1 and S2. No murmurs, rubs or gallops. Lungs--clear bilaterally, no respiratory distress, no accessory muscle use. Abdomen--normal bowel sounds and soft. Nontender. Nondistended Extremities--no cyanosis or clubbing. No edema. Dermatologic--normal skin turgor, normal color, no abnormal lymph nodes, no rash. Neurologic--cranial nerves II through XII grossly intact. Rheumatologic--limited exam Psychiatric-- lethargic Results & Data Results & Data ([facility]) Vital Signs (Past 12 Hours) Vital Signs Temp Pulse Pulse Resp BP BP Pulse Ox 12/25/20 02:35 99 12/25/20 02:21 82 18 146/96 H 99 12/25/20 01:32 98.1 F 82 20 152/97 H 100 Laboratory Results Laboratory Results WBC 6.90 K/uL (4.8-10.8) 12/25/20 04:01 RBC 3.15 M/uL (4.7-6.1) L 12/25/20 04:01 Hgb 8.7 g/dL (14.0-18.0) L 12/25/20 04:01 Hct 27.0 % (42-52) L 12/25/20 04:01 MCV 85.7 fL (80-100) 12/25/20 04:01 MCH 27.6 pg (25-34) 12/25/20 04:01 MCHC 32.2 g/dL (32-36) 12/25/20 04:01 RDW Std Deviation 46.4 fL (36.4-46.3) H 12/25/20 04:01 RDW Coeff of Jaylene 14.9 % (11.5-14.5) H 12/25/20 04:01 Plt Count 174 K/uL (130-400) 12/25/20 04:01 MPV 9.9 fL (7.4-10.4) 12/25/20 04:01 Immature Gran % (Auto) 0.4 % 12/25/20 04:01 Neut % (Auto) 72.8 % 12/25/20 04:01 Lymph % (Auto) 15.7 % 12/25/20 04:01 [place] % (Auto) 9.6 % 12/25/20 04:01 Eos % (Auto) 1.4 % 12/25/20 04:01 Baso % (Auto) 0.1 % 12/25/20 04:01 Neut # (Auto) 5.02 K/uL (1.4-6.5) 12/25/20 04:01 Lymph # (Auto) 1.08 K/uL (1.2-3.4) L 12/25/20 04:01 [place] # (Auto) 0.66 K/uL (0.11-0.59) H 12/25/20 04:01 Eos # (Auto) 0.10 K/uL (0-0.5) 12/25/20 04:01 Baso # (Auto) 0.01 K/uL (0-0.2) 12/25/20 04:01 Immature Gran # (Auto) 0.03 K/uL (0.00-0.02) H 12/25/20 04:01 Sodium 135 mmol/L (136-145) L 12/25/20 04:01 Potassium 3.5 mmol/L (3.5-5.1) 12/25/20 04:01 Chloride 105 mmol/L (98-107) 12/25/20 04:01 Carbon Dioxide 27 mmol/L (21-32) 12/25/20 04:01 Anion Gap 3.0 (3-11) 12/25/20 04:01 BUN 18 mg/dl (7-18) 12/25/20 04:01 Creatinine 0.60 mg/dl (0.6-1.4) 12/25/20 04:01 Est Cr Clr Drug Dosing 104.4 ml/min 12/25/20 04:01 Est GFR ( Amer) 141.7 ml/min 12/25/20 04:01 Est GFR (Non-Af Amer) 122.3 ml/min 12/25/20 04:01 BUN/Creatinine Ratio 30.2 (10-20) H 12/25/20 04:01 Glucose 97 mg/dl (70-99) 12/25/20 04:01 Calcium 7.6 mg/dl (8.5-10.1) L 12/25/20 04:01 Total Bilirubin 2.6 mg/dl (0.2-1) H 12/25/20 04:01 AST 169 U/L (15-37) H 12/25/20 04:01 ALT 167 U/L (12-78) H 12/25/20 04:01 Alkaline Phosphatase 228 U/L (45-117) H 12/25/20 04:01 Total Protein 6.2 gm/dl (6.4-8.2) L 12/25/20 04:01 Albumin 2.5 gm/dl (3.4-5.0) L 12/25/20 04:01 Globulin 3.7 gm/dl (2.5-4.0) 12/25/20 04:01 Albumin/Globulin Ratio 0.7 (0.9-2) L 12/25/20 04:01 Lipase 116 U/L (73-393) 12/25/20 04:01 Urine Color Dark Yellow 12/25/20 04:27 Urine Appearance Clear (Clear) 12/25/20 04:27 Urine pH 5.0 (4.5-7.5) 12/25/20 04:27 Ur Specific [place] 1.018 (1.000-1.030) 12/25/20 04:27 Urine Protein Trace (Negative) H 12/25/20 04:27 Urine Glucose (UA) Negative (Negative) 12/25/20 04:27 Urine Ketones Negative (Negative) 12/25/20 04:27 Urine Blood 2+ (Negative) H 12/25/20 04:27 Urine Nitrite Negative (Negative) 12/25/20 04:27 Urine Bilirubin 1+ (Negative) H 12/25/20 04:27 Urine Urobilinogen Negative (Negative) 12/25/20 04:27 Ur Leukocyte Esterase Trace (Negative) H 12/25/20 04:27 Urine WBC (Auto) 5-10 /hpf (0-5) H 12/25/20 04:27 Urine RBC (Auto) 10-30 /hpf (0-4) H 12/25/20 04:27 U Hyaline Cast (Auto) 1-5 /lpf (0-5) 12/25/20 04:27 U Epithel Cells (Auto) 0-5 /lpf (0-5) 12/25/20 04:27 Urine Bacteria (Auto) Negative (Negative) 12/25/20 04:27 COVID-19 Eval Order Covid19 at [facility] 12/25/20 05:56 Code Status & VTE Plan Code Status Full code VTE Prophylaxis Plan VTE Prophylaxis will be ordered: Yes PG Care Time/CCT Total # of Minutes Spent Total Time Spent with Patient: Total time spent is greater than 50% in coordination of care (as documented) at patient's floor/unit and/or counseling patient: Coding Level of Care Code 36002 OBS Care - Level 3 Diagnoses Colon cancer metastasized to multiple sites C18.9 Intractable abdominal pain R10.9 Abnormal LFTs R94.5 Cachexia R64 GERD (gastroesophageal reflux disease) K21.9 Anxiety F41.9 S/P colostomy Z93.3
--- NOTE | 2020-12-25 06:32 | Emergency Department Note ---
Impression & Plan Intractable abdominal pain ED Provider Note NAME: MARCUS AG AGE: 45 SEX: M ARRIVES VIA: Walk-In INFORMANT: Patient, patient's ED PROVIDER(S): Yaritza Vigil DO CHIEF COMPLAINT: Diffuse abdominal PLAN: [facility] Fair MEDICAL DECISION MAKING: This is a 45-year-old male patient with advanced colon cancer who presents to the emergency department with intractable abdominal pain. The patient is being followed by [facility] oncology despite wearing a fentanyl patch and taking increased dose of oral Dilaudid, the pain has become unbearable. Here in the emergency department, I have provided multiple doses of IV Dilaudid and IV Ativan. Laboratory testing has revealed significantly increased LFTs. The patient will go for CT scan of the abdomen/pelvis. The patient states that his last CT scan was performed 5 months ago. The patient will be evaluated by the [facility] for further inpatient care. Triage Nursing notes reviewed and agree them. Additional history obtained from the patient's is at the bedside. Prior medical records reviewed Vital Signs: reviewed and remarkable for hypertension Differential diagnosis: Small bowel obstruction, perforated viscus, intractable oncologic abdominal pain. ER treatment provided: IV Dilaudid x3 IV normal saline IV Zofran IV Ativan x2 Diagnostics interpreted by me: Cardiac Monitoring: Normal sinus rhythm at a rate of 86 Laboratory studies: See below Imaging studies: CT scan of the abdomen/pelvis: Pending HPI: 45/M arrives for evaluation of abdominal pain. The patient has a history of advanced colon cancer on chemotherapy who presents with severe abdominal pain that he rates as a 10/10. The patient has an ostomy in place. He describes the output as normal or unchanged. However, the patient's pain has escalated. He wears a 300 mcg fentanyl patch and uses 16 mg of Dilaudid every 6 hours for his pain and he denies any relief with these medications. He states that the pain has become so severe that he has become nauseated with it. ROS: See above HPI for pertinent positives & negatives. A total of 10 systems reviewed and were otherwise negative. PAST MEDICAL HISTORY:See Below PAST SURGICAL HISTORY:See Below FAMILY HISTORY:See Below SOCIAL HISTORY:See Below HOME MEDICATIONS:See list ALLERGIES:See list VITALS:See Below PHYSICAL EXAMINATION: HEENT: Head - normocephalic and atraumatic Pupils are equal, round, and reactive to light. Extraocular eye muscles are intact, and sclera are anicteric. Nose - moist nasal mucosa without discharge. Mouth - moist buccal mucosa. Oropharynx is nonerythematous and there is no tonsillar exudate or edema noted. Neck: Supple; no JVD, nuchal rigidity, cervical lymphadenopathy, or auscultated bruits. Heart: Regular rate and rhythm. There is a normal S1 and S2 with no murmurs, cl icks, or gallops appreciated. Lungs: Clear to auscultation bilaterally with no wheezes, rales, or rhonchi. Abdomen: Soft, moderately distended and tender to palpation. There are no palpable pulsatile masses or hepatosplenomegaly. There is no guarding, rigidity, or rebound noted. Extremities: No evidence of cyanosis, clubbing, or edema. There are easily palpable peripheral pulses. Skin: warm and dry with good turgor and no rashes. ED COURSE: Times/Reassessments: 0210: The patient was evaluated in room C 11. A complete history and physical was performed. His port was accessed and the patient was given 0.5 mg of IV Dilaudid for pain. He was given 4 mg of IV Zofran for his nausea. This gave only minimal relief for his discomfort and therefore he was given an additional 0.5 mg of IV Dilaudid for his discomfort. Laboratory studies were drawn. The patient was quite anxious and therefore was given 0.5 mg of IV Ativan. The patient was able to rest for a brief period of time but then the pain returned. He was given additional doses of IV Dilaudid and IV Ativan. After some discussion with the patient's , he again became uncomfortable. I ordered a CT scan of the abdomen/pelvis but felt that he would require admission to the hospital for intractable abdominal pain. She explained that his last CT scan was approximately 5 months ago. This was concerning given the patient's significantly elevated LFTs. I discussed the case with the [facility] hospitalist and they will evaluate for further management. The CT scan of the abdomen/pelvis is still pending. Yaritza Vigil DO Past Med/Surg History Medical History (Updated 12/25/20 @ 06:36 by Yaritza Vigil DO) Abdominal pain of multiple sites Anemia Anxiety Asthma A CHILD Colon cancer CHEMO TX Colon cancer metastasized to multiple sites Colostomy present Degenerative disc disease Depression Diabetes mellitus, type 2 Drug addiction "WAS ADDICTED TO METHADONE" Dyspnea Fatty liver Hyperlipidemia Intractable abdominal pain Intractable abdominal pain Metastatic colon cancer to liver Surgical History History of colonoscopy History of creation of ostomy History of myringotomy History of shoulder surgery RT History of tonsillectomy and adenoidectomy History of vascular access device INTACT LEFT CHEST WALL Family History Mother Family history of diabetes mellitus Father Colorectal cancer Cancer Aunt Cancer Grandfather (Maternal) Myocardial infarction Other Hypertension Denies family history of Ovarian cancer Prostate cancer Breast cancer Social History Smoking Status: Never smoker Second Hand Exposure: No; Hx Alcohol Use: No Hx Substance Use: No (pt denies, but H/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) Preferred Language: Fijian Communication Ability: Effective Visual Impairment: No Limitations Hearing Ability: Normal Backup Administrative Coordinator Required: No Beliefs That Will Affect Care: None marital status: Unknown Current Living Situation: Family current occupational status: disabled Feels Safe at Home: Yes Childhood Exposure to Second-Hand Smoke: No Dental Care, Regularly: No Assistive Devices: None Allergies Allergies Allergy/AdvReac Type Severity Reaction Status Date / Time promethazine Allergy Unknown Unknown-CHILDHOOD Verified 12/25/20 01:46 ALLERGY Home Meds Home Medications Medication Instructions Recorded Confirmed fentanyl 3 patch TRANSDERMAL Q72H 08/26/20 12/25/20 Narcan 1 spray INTRANASAL DIRECTED PRN 09/21/20 12/25/20 lidocaine-prilocaine 1 applic TOPICAL DIRECTED PRN 09/21/20 12/25/20 hydromorphone [Dilaudid] 16 mg PO Q6H PRN 12/25/20 12/25/20 ondansetron 8 mg TRANSLINGUAL Q8H PRN 12/25/20 12/25/20 Previous Rx's Medication Instructions Recorded buspirone 10 mg tablet 10 mg PO BID #60 tab 09/07/20 magnesium oxide 400 mg PO QAM #90 tab 09/25/20 dexamethasone 4 mg tablet 4 mg PO DAILY #30 tab 12/09/20 omeprazole 40 mg capsule,delayed 40 mg PO DAILY #30 cap 12/09/20 release Results & Data (ED) Vital Signs Vital Signs - 24 hr 12/25/20 01:32 12/25/20 02:21 12/25/20 02:35 Temperature 36.7 C Temperature Source Temporal Artery Scan Pulse Rate 82 Pulse Rate [Finger] 82 Pulse Rhythm [Finger] Regular Pulse Strength [Finger] Normal Respiratory Rate 20 18 Respiratory Effort / Characteristics Non-Labored Respiratory Depth Normal Respiratory Pattern Regular Blood Pressure 152/97 H Blood Pressure [Right Arm] 146/96 H Blood Pressure Mean 115 Blood Pressure Mean [Right Arm] 112 Blood Pressure Position [Right Arm] Sitting Pulse Oximetry 100 99 99 Oxygen Delivery Method Room Air Room Air Room Air Sepsis Recent Fever Within 48 Hours No Sepsis New/Unexplained Change in Mental Status No Sepsis Action Taken by Nursing No Action Required 12/25/20 06:00 Temperature Temperature Source Pulse Rate Pulse Rate [Finger] 86 Pulse Rhythm [Finger] Regular Pulse Strength [Finger] Normal Respiratory Rate 18 Respiratory Effort / Characteristics Non-Labored Respiratory Depth Normal Respiratory Pattern Blood Pressure Blood Pressure [Right Arm] Blood Pressure Mean Blood Pressure Mean [Right Arm] Blood Pressure Position [Right Arm] Pulse Oximetry 98 Oxygen Delivery Method Room Air Sepsis Recent Fever Within 48 Hours Sepsis New/Unexplained Change in Mental Status Sepsis Action Taken by Nursing Laboratory Data Result diagrams: 12/25/20 04:01 12/25/20 04:01 Lab Results 12/25/20 12/25/20 12/25/20 Range/Units 04:01 04:01 04:27 WBC 6.90 (4.8-10.8) K/uL RBC 3.15 L (4.7-6.1) M/uL Hgb 8.7 L (14.0-18.0) g/dL Hct 27.0 L (42-52) % MCV 85.7 (80-100) fL MCH 27.6 (25-34) pg MCHC 32.2 (32-36) g/dL RDW Std Deviation 46.4 H (36.4-46.3) fL RDW Coeff of Jaylene 14.9 H (11.5-14.5) % Plt Count 174 (130-400) K/uL MPV 9.9 (7.4-10.4) fL Immature Gran % (Auto) 0.4 % Neut % (Auto) 72.8 % Lymph % (Auto) 15.7 % [place] % (Auto) 9.6 % Eos % (Auto) 1.4 % Baso % (Auto) 0.1 % Neut # (Auto) 5.02 (1.4-6.5) K/uL Lymph # (Auto) 1.08 L (1.2-3.4) K/uL [place] # (Auto) 0.66 H (0.11-0.59) K/uL Eos # (Auto) 0.10 (0-0.5) K/uL Baso # (Auto) 0.01 (0-0.2) K/uL Immature Gran # (Auto) 0.03 H (0.00-0.02) K/uL Sodium 135 L (136-145) mmol/L Potassium 3.5 (3.5-5.1) mmol/L Chloride 105 (98-107) mmol/L Carbon Dioxide 27 (21-32) mmol/L Anion Gap 3.0 (3-11) BUN 18 (7-18) mg/dl Creatinine 0.60 (0.6-1.4) mg/dl Est Cr Clr Drug Dosing 104.4 ml/min Est GFR ( Amer) 141.7 ml/min Est GFR (Non-Af Amer) 122.3 ml/min BUN/Creatinine Ratio 30.2 H (10-20) Glucose 97 (70-99) mg/dl Calcium 7.6 L (8.5-10.1) mg/dl Total Bilirubin 2.6 H (0.2-1) mg/dl AST 169 H (15-37) U/L ALT 167 H (12-78) U/L Alkaline Phosphatase 228 H (45-117) U/L Total Protein 6.2 L (6.4-8.2) gm/dl Albumin 2.5 L (3.4-5.0) gm/dl Globulin 3.7 (2.5-4.0) gm/dl Albumin/Globulin Ratio 0.7 L (0.9-2) Lipase 116 (73-393) U/L Urine Color Dark Yellow Urine Appearance Clear (Clear) Urine pH 5.0 (4.5-7.5) Ur Specific [place] 1.018 (1.000-1.030) Urine Protein Trace H (Negative) Urine Glucose (UA) Negative (Negative) Urine Ketones Negative (Negative) Urine Blood 2+ H (Negative) Urine Nitrite Negative (Negative) Urine Bilirubin 1+ H (Negative) Urine Urobilinogen Negative (Negative) Ur Leukocyte Esterase Trace H (Negative) Urine WBC (Auto) 5-10 H (0-5) /hpf Urine RBC (Auto) 10-30 H (0-4) /hpf U Hyaline Cast (Auto) 1-5 (0-5) /lpf U Epithel Cells (Auto) 0-5 (0-5) /lpf Urine Bacteria (Auto) Negative (Negative) COVID-19 Eval Order 12/25/20 Range/Units 05:56 WBC (4.8-10.8) K/uL RBC (4.7-6.1) M/uL Hgb (14.0-18.0) g/dL Hct (42-52) % MCV (80-100) fL MCH (25-34) pg MCHC (32-36) g/dL RDW Std Deviation (36.4-46.3) fL RDW Coeff of Jaylene (11.5-14.5) % Plt Count (130-400) K/uL MPV (7.4-10.4) fL Immature Gran % (Auto) % Neut % (Auto) % Lymph % (Auto) % [place] % (Auto) % Eos % (Auto) % Baso % (Auto) % Neut # (Auto) (1.4-6.5) K/uL Lymph # (Auto) (1.2-3.4) K/uL [place] # (Auto) (0.11-0.59) K/uL Eos # (Auto) (0-0.5) K/uL Baso # (Auto) (0-0.2) K/uL Immature Gran # (Auto) (0.00-0.02) K/uL Sodium (136-145) mmol/L Potassium (3.5-5.1) mmol/L Chloride (98-107) mmol/L Carbon Dioxide (21-32) mmol/L Anion Gap (3-11) BUN (7-18) mg/dl Creatinine (0.6-1.4) mg/dl Est Cr Clr Drug Dosing ml/min Est GFR ( Amer) ml/min Est GFR (Non-Af Amer) ml/min BUN/Creatinine Ratio (10-20) Glucose (70-99) mg/dl Calcium (8.5-10.1) mg/dl Total Bilirubin (0.2-1) mg/dl AST (15-37) U/L ALT (12-78) U/L Alkaline Phosphatase (45-117) U/L Total Protein (6.4-8.2) gm/dl Albumin (3.4-5.0) gm/dl Globulin (2.5-4.0) gm/dl Albumin/Globulin Ratio (0.9-2) Lipase (73-393) U/L Urine Color Urine Appearance (Clear) Urine pH (4.5-7.5) Ur Specific [place] (1.000-1.030) Urine Protein (Negative) Urine Glucose (UA) (Negative) Urine Ketones (Negative) Urine Blood (Negative) Urine Nitrite (Negative) Urine Bilirubin (Negative) Urine Urobilinogen (Negative) Ur Leukocyte Esterase (Negative) Urine WBC (Auto) (0-5) /hpf Urine RBC (Auto) (0-4) /hpf U Hyaline Cast (Auto) (0-5) /lpf U Epithel Cells (Auto) (0-5) /lpf Urine Bacteria (Auto) (Negative) COVID-19 Eval Order Covid19 at [facility] Administered Medications Discontinued Medications Hydromorphone HCl (Hydromorphone Inj 0.5 Mg/0.5 Ml Syr) 0.5 mg IV NOW STA Stop: 12/25/20 02:28 Last Admin: 12/25/20 02:30 Dose: 0.5 mg Documented by: [id number] Hydromorphone HCl (Hydromorphone Inj 0.5 Mg/0.5 Ml Syr) 0.5 mg IV NOW STA Stop: 12/25/20 02:41 Last Admin: 12/25/20 02:57 Dose: 0.5 mg Documented by: [id number] Hydromorphone HCl (Hydromorphone Inj 0.5 Mg/0.5 Ml Syr) 0.5 mg IV NOW STA Stop: 12/25/20 03:52 Last Admin: 12/25/20 04:04 Dose: 0.5 mg Documented by: [id number] Sodium Chloride (Nss 1000ml) 1,000 mls @ 999 mls/hr IV .Q1H1M ONE Stop: 12/25/20 03:27 Last Infusion: 12/25/20 03:33 Dose: 0 mls/hr Documented by: [id number] Admin: 12/25/20 02:30 Dose: 999 mls/hr Documented by: [id number] Lorazepam (Ativan) 0.5 mg in 1 mls @ 1 mls/min IV NOW STA Stop: 12/25/20 02:56 Last Admin: 12/25/20 03:05 Dose: 1 mls/min Documented by: [id number] Lorazepam (Ativan) 0.5 mg in 1 mls @ 1 mls/min IV NOW STA Stop: 12/25/20 04:22 Last Admin: 12/25/20 04:29 Dose: 1 mls/min Documented by: [id number] Ioversol (Optiray 320 100ml) 100 ml IV ONCE ONE Stop: 12/25/20 05:46 Last Admin: 12/25/20 05:45 Dose: 79 ml Documented by: [id number] Ondansetron HCl (Ondansetron Inj 2 Mg/Ml 2 Ml Vial) 4 mg IV NOW STA Stop: 12/25/20 02:28 Last Admin: 12/25/20 02:30 Dose: 4 mg Documented by: [id number] Discharge Plan Visit Data Chief Complaint: Abdominal Pain Stated Complaint: ABD PAIN,STAGE 4 CANCER PATIENT ED Provider: Yaritza Vigil Discharge Problem: Intractable abdominal pain Forms Stand Alone Forms: [facility] Prescriptions Prescriptions: No Action buspirone 10 mg tablet 10 mg PO BID Qty: 60 RF: 5 dexamethasone [Decadron] 4 mg tablet 4 mg PO DAILY Qty: 30 RF: 1 omeprazole 40 mg capsule,delayed release(DR/EC) 40 mg PO DAILY Qty: 30 RF: 1 fentanyl 100 mcg/hr patch 72 hour 3 patch transdermal Q72H RF: 0 lidocaine-prilocaine 2.5-2.5 % cream 1 applic topical DIRECTED PRN (Reason: WHEN ACCESSING MEDIPORT) RF: 0 Narcan 4 mg/actuation spray,non-aerosol 1 spray INTRANASAL DIRECTED PRN (Reason: OVERSEDATION) RF: 0 magnesium oxide 400 mg (241.3 mg magnesium) Tablet 400 mg PO QAM Qty: 90 RF: 1 ondansetron 8 mg tablet,disintegrating 8 mg translingual Q8H PRN (Reason: NAUSEA/VOMITING) RF: 0 hydromorphone [Dilaudid] 8 mg tablet 16 mg PO Q6H PRN (Reason: pain) RF: 0
--- NOTE | 2020-12-25 07:54 | CT Scan Report ---
CT abd pelvis IV con only CLINICAL HISTORY: Colon carcinoma. Elevated LFTs. Increasing abdominal pain. Weakness. COMPARISON STUDY: September 03, 2020 TECHNIQUE: The patient was scanned in a dynamic helical fashion during intravenous administration of 79 cc of Optiray 320. A dose lowering technique was utilized adhering to the principles of ALARA. CT DOSE: 364.76 mGy.cm FINDINGS: Lower chest: There are patchy lower lobe groundglass opacities, likely infectious/inflammatory. Liver: There are multiple space-occupying hepatic masses consistent with metastatic disease. These simmons ve enlarged when compared the preceding study. An index left hepatic lobe lesion measures 39 mm. This previously measured 31 mm. The hepatic and portal veins appear patent. Gallbladder: Mildly distended Spleen: Enlarged measuring 14.1 cm. Pancreas: No intrinsic pancreatic masses are visualized Adrenal glands: Unremarkable. Kidneys: There is symmetric renal cortical enhancement. The kidneys are normal in size without hydron ephrosis. Bowel: There are no transition zones to indicate bowel obstruction. There is no evidence of acute div erticulitis. The appendix is not visualized with certainty. There are postsurgical changes of a trans verse colonic resection with a midline upper abdominal colostomy. There is colonic bowel wall thicken ing near the level of the splenic flexure possibly secondary to a colitis Peritoneum: There is a small amount of free pelvic fluid Vasculature: There is no evidence of abdominal aortic aneurysm. There is marked narrowing of the sple makayla vein. There is narrowing of the left renal vein. There is narrowing in the superior mesenteric ve in. Adenopathy: There is retroperitoneal adenopathy with encasement of the celiac origin and superior mes enteric artery. There are pathologic para-aortic lymph nodes, some of which are calcified. Pelvic viscera: There is mild bladder wall thickening Skeletal structures: No destructive osseous lesions are seen. IMPRESSION: 1. Progressive hepatic metastatic disease. 2. Pathologic retroperitoneal adenopathy with encasement and narrowing of the splenic vein. There is also narrowing of the left renal vein and superior mesenteric vein. There is also vascular encasement of the celiac and superior mesenteric arteries. 3. No evidence of bowel obstruction. No evidence of free air 4. Mild gallbladder distention 5. Mild splenomegaly 6. Bowel wall thickening involving the colon at the level of the splenic flexure likely secondary to a nonspecific colitis ACT 112: Negative or not required by law. Electronically signed by: Dilip Soto M.D. 12/25/2020 7:53 AM
[2020-12-25] MEDS ORDERED: LIDOCAINE/PRILOCAINE 2.5% EA CRM EXT PRN (09:05)
[2020-12-25] MEDS ORDERED: HYDROmorphone INJ 1 MG/ML SYRINGE IV PRN (09:05)
[2020-12-25] MEDS ORDERED: NON-FORMULARY MEDICATION (Naloxone [Narcan] 4 mg/actuation spray,non-aerosol) INTNAS PRN (09:05)
[2020-12-25] MEDS ORDERED: fentaNYL 50 MCG/HR TDSY TD SCH (09:05)
--- NOTE | 2020-12-25 09:25 | Pain Management Consultation ---
Date of Consultation December 25, 2020 Assessment & Plan (1) Intractable abdominal pain: Patient is not a candidate for abdominal wall trigger point injections at today's visit. His pain is diffuse. There is little to no muscular abdominal wall due to his significant weight loss. No trigger points noted. The pain does seem to be in the deep abdomen which could be due to colitis, increased m etastasis, ect. If the pain is more localized in the upper vs lower abdomen we could consider celiac plexus nerve block vs superior hypogastric nerve block. I would recommend that the patient continue to work with palliative care to discuss medication options vs hospice. History of Present Illness Attending Physician: Ernesto Carpio MD History of Present Illness Mr. Vickers is a 45 year old male with a significant history of colon cancer with metastasis. He does also have a colostomy, type 2 diabetes mellitus, and elevated LFTs. Patient was admitted to the [facility] for intractable abdominal pain that has responded poorly to his at home pain regimen. Patient is on Fentanyl patch and Dilaudid PO for pain. He has been fairly stable on his current regimen until the pain worsened a few days ago. There is pain in the entire abdomen, worse in the epigastrium and left lower abdomen. His states that he typically has pain in the left groin areas and he applies pressure which does help. He was previously seen in consultation in 06/2019 and 07/2020 in which trigger point injections were performed into the left lower abdomen that provided significant pain relief. He is interested in repeating the procedure. His appetite is poor - has lost 50 lbs since 06/2019. No fevers, chills, nausea, vomiting, flank pain, urinary sx. Case discussed with Dr. Vandana Barnes Pain Assessment Full Body Front + Back: 1. Allergies Allergy/AdvReac Type Severity Reaction Status Date / Time promethazine Allergy Unknown Unknown-CHILDHOOD Verified 12/25/20 01:46 ALLERGY Home Medications Medication Instructions Recorded Confirmed Type fentanyl 3 patch TRANSDERMAL Q72H 08/26/20 12/25/20 History buspirone 10 mg tablet 10 mg PO BID #60 tab 09/07/20 12/25/20 Rx Narcan 1 spray INTRANASAL DIRECTED PRN 09/21/20 12/25/20 History lidocaine-prilocaine 1 applic TOPICAL DIRECTED PRN 09/21/20 12/25/20 History magnesium oxide 400 mg PO QAM #90 tab 09/25/20 12/25/20 Rx dexamethasone 4 mg tablet 4 mg PO DAILY #30 tab 12/09/20 12/25/20 Rx omeprazole 40 mg capsule,delayed 40 mg PO DAILY #30 cap 12/09/20 12/25/20 Rx release hydromorphone [Dilaudid] 16 mg PO Q6H PRN 12/25/20 12/25/20 History ondansetron 8 mg TRANSLINGUAL Q8H PRN 12/25/20 12/25/20 History Patient History Medical History Abdominal pain of multiple sites Anemia Anxiety Asthma A CHILD Colon cancer CHEMO TX Colon cancer metastasized to multiple sites Colostomy present Degenerative disc disease Depression Diabetes mellitus, type 2 Drug addiction "WAS ADDICTED TO METHADONE" Dyspnea Fatty liver Hyperlipidemia Intractable abdominal pain Intractable abdominal pain Metastatic colon cancer to liver Surgical History History of colonoscopy History of creation of ostomy History of myringotomy History of shoulder surgery RT History of tonsillectomy and adenoidectomy History of vascular access device INTACT LEFT CHEST WALL Family History Mother Family history of diabetes mellitus Father Colorectal cancer Cancer Aunt Cancer Grandfather (Maternal) Myocardial infarction Other Hypertension Denies family history of Ovarian cancer Prostate cancer Breast cancer Social History Smoking Status: Never smoker Second Hand Exposure: No; Hx Alcohol Use: No Hx Substance Use: No Preferred Language: Estonian Communication Ability: Effective Visual Impairment: No Limitations Hearing Ability: Normal Assistant Finance Manager Required: No Beliefs That Will Affect Care: None marital status: Unknown Current Living Situation: Family current occupational status: disabled Feels Safe at Home: Yes Childhood Exposure to Second-Hand Smoke: No Dental Care, Regularly: No Assistive Devices: None Physical Exam Physical Exam: GENERAL: This is a thin and frail appearing 45 year old male. + cachectic. Accompanied by his . HEAD/FACE: Normocephalic and atraumatic. EYES: No drainage or conjunctival injection. ENT: Nose without bleeding or discharge. Oral mucosa appears slightly dry. RESPIRATORY: Patient with unlabored breathing. No signs of respiratory distress. CHEST/AXILLA: Chest movement symmetrical. No deformities noted. ABDOMEN/GI: No distension. There is mild diffuse tenderness of the abdomen. No focal trigger points noted. There is more tenderness along the left inguinal ligament. + Colostomy is in the right upper abdomen with loose stool. BACK: Moves without difficulty SKIN: [place], warm and dry. No rash noted. MS/EXTREMITY: No swelling, no deformities. Moving extremities appropriately. NEURO: Alert and appears oriented. Speech is fluent. Cranial Nerves are grossly intact. PSYCH: Alert, pleasant, affect is calm
[2020-12-25] MEDS: SODIUM CHLORIDE 0.9% 1000ML 1,000 ML IV SCH ×3 (09:50→19:38)
[2020-12-25] MEDS ORDERED: NALOXONE HCL 0.4 MG/1 ML VIAL/CARP IV PRN ×2 (10:41→12:10)
[2020-12-25] MEDS ORDERED: HYDROmorphone INJ 2 MG/ML SYR/VIAL IV STA (11:09)
[2020-12-25] MEDS: HYDROmorphone INJ 2 MG/ML SYR/VIAL IV PRN ×3 (11:16→21:47)
[2020-12-25] MEDS: CHECK fentaNYL PATCH PLACEMENT SCH ×3 (11:18→22:32)
[2020-12-25] MEDS: MAGNESIUM OXIDE 400 MG TAB PO SCH (12:10)
[2020-12-25] MEDS ORDERED: HYDROmorphone Bolus from PCA IV PRN (12:10)
[2020-12-25] MEDS: busPIRone 5 MG TAB PO SCH ×2 (12:10→22:01)
[2020-12-25] MEDS: HEPARIN SOD 5,000 UNIT/0.5 ML VIAL SQ SCH ×2 (12:11→22:32)
[2020-12-25] MEDS: FAMOTIDINE 20 MG in SYRINGE 3 ML IV SCH ×2 (12:11→21:47)
[2020-12-25] MEDS: HYDROmorphone HCL 2 MG TAB PO PRN (12:11)
[2020-12-25] MEDS: PANTOprazole 40 MG TAB PO SCH (12:11)
[2020-12-25] MEDS: dexAMETHasone 4 MG TAB PO SCH (12:11)
--- NOTE | 2020-12-25 12:12 | Communication Note ---
Date of Service: December 25, 2020 Patient is a 45 y.o. male with a history of metastatic colon cancer with associated chronic abdominal pain admitted with worsened abdominal pain in the LLQ and COVID-[address] Galvan. 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 Also with elevated liver panel. MRCP is planned. ?need for palliative biliary stent. Would defer to [facility] in this regard. Will start Rowasa enemas 4 g VA BID x 6 weeks, then daily thereafter.
--- NOTE | 2020-12-25 12:47 | Palliative Care Consultation ---
Date of Consultation December 25, 2020 Assessment & Plan (1) Intractable abdominal pain: With metastatic colon cancer. Possibly related to ischemia with vascular encasement by tumor or inflammation. He is on dexamethasone. Given his severe cachexia, there is no benefit to increasing fentanyl patches. In the absence of any significant subcutaneous tissue, it is difficult to know how much fentanyl he is absorbing, if any. He has had partial relief with hydromorphone. Dose equivalent of his po dose would be 4mg IV. Agree with BOX TENDER for bolus dosing to establish a better understanding of his opioid need to control the pain. It is likely that this represents disease progression and will continue to be a problem but he is very anxious to get home. When we have a baseline, we can convert to oral dose for breakthrough pain. (2) Palliative care encounter: I have talked with Russel in the past about his goals for care. He has small children at home and has been adamant that there is no option other than to continue pursuing treatment. We have discussed that at some point, treatment will not be an option and he recognizes this. My fear is that we are approaching that point. I asked him how he is coping at this time and he says that he's doing what he needs to do but is not interested in discussing goals of care further with current pain level. Palliative care will follow. (3) Colon cancer: Colon location: unspecified part of colon Qualified Code(s): C18.9 - Malignant neoplasm of colon, unspecified History of Present Illness Reason for Consultation: pain managment Requesting Physician: Dr. Carpio Attending Physician: Karan Galvan MD History of Present Illness 45 yo gentleman with advanced colon cancer metastatic to liver who has had ongoing problems with severe abdominal pain. He receives his cancer treatment at [facility] with Dr. Dorantes and has been seeing a physician in [place] for pain management. He has been on 300mcg fentanyl patch with oral hydromorphone as needed at a dose of 16mg. He tells me that he has been taking it every four to six hours at home. He has baseline somewhat generalized abdominal pain as well as chronic back pain with radicular symptoms in his left leg. Prior to admission he developed acute onset of severe "squeezing and stabbing" pain across the front of his abdomen. It is not related to eating, bowel movements, position. He describes it as the worst pain that he's ever had. He did get some relief with 1mg of IV hydromorphone and was able to eat some breakfast but continues to have severe pain. CT done on admission shows cancer progression with encasement of abdominal vasculature with increased hepatic metastases. He does have elevated liver transaminases on this admission which he did not have in the past. Allergies Allergy/AdvReac Type Severity Reaction Status Date / Time promethazine Allergy Unknown Unknown-CHILDHOOD Verified 12/25/20 01:46 ALLERGY Home Medications Medication Instructions Recorded Confirmed Type fentanyl 3 patch TRANSDERMAL Q72H 08/26/20 12/25/20 History buspirone 10 mg tablet 10 mg PO BID #60 tab 09/07/20 12/25/20 Rx Narcan 1 spray INTRANASAL DIRECTED PRN 09/21/20 12/25/20 History lidocaine-prilocaine 1 applic TOPICAL DIRECTED PRN 09/21/20 12/25/20 History magnesium oxide 400 mg PO QAM #90 tab 09/25/20 12/25/20 Rx dexamethasone 4 mg tablet 4 mg PO DAILY #30 tab 12/09/20 12/25/20 Rx omeprazole 40 mg capsule,delayed 40 mg PO DAILY #30 cap 12/09/20 12/25/20 Rx release hydromorphone [Dilaudid] 16 mg PO Q6H PRN 12/25/20 12/25/20 History ondansetron 8 mg TRANSLINGUAL Q8H PRN 12/25/20 12/25/20 History Patient History Medical History Abdominal pain of multiple sites Anemia Anxiety Asthma A CHILD Colon cancer CHEMO TX Colon cancer metastasized to multiple sites Colostomy present Degenerative disc disease Depression Diabetes mellitus, type 2 Drug addiction "WAS ADDICTED TO METHADONE" Dyspnea Fatty liver Hyperlipidemia Intractable abdominal pain Intractable abdominal pain Metastatic colon cancer to liver Surgical History History of colonoscopy History of creation of ostomy History of myringotomy History of shoulder surgery RT History of tonsillectomy and adenoidectomy History of vascular access device INTACT LEFT CHEST WALL Family History Mother Family history of diabetes mellitus Father Colorectal cancer Cancer Aunt Cancer Grandfather (Maternal) Myocardial infarction Other Hypertension Denies family history of Ovarian cancer Prostate cancer Breast cancer Social History Smoking Status: Never smoker Second Hand Exposure: No; Hx Alcohol Use: No Hx Substance Use: No Preferred Language: German Communication Ability: Effective Visual Impairment: No Limitations Hearing Ability: Normal Decision Analyst Required: No Beliefs That Will Affect Care: None marital status: Unknown Current Living Situation: Family current occupational status: disabled Feels Safe at Home: Yes Childhood Exposure to Second-Hand Smoke: No Dental Care, Regularly: No Assistive Devices: None Review of Systems Review of Systems: [place] Symptom Assessment Score Pain 3/3 Dyspnea 0/3 Anxiety 0/3 Fatigue 2/3 Nausea 0/3 Drowsiness 1/3 Palliative Performance Score 50% Physical Exam Constitutional: + ill appearing and + cachectic Respiratory: normal respiratory effort; no labored breathing Gastrointestinal (Abdomen): colostomy Neurologic: awake; not confused Results & Data ([facility]) Vital Signs (Past 12 Hours) Vital Signs Temp Pulse Pulse Resp BP BP Pulse Ox 12/25/20 09:06 98.1 F 90 18 129/88 100 12/25/20 08:00 97 H 12 98 12/25/20 06:00 86 18 98 12/25/20 02:35 99 12/25/20 02:21 82 18 146/96 H 99 12/25/20 01:32 98.1 F 82 20 152/97 H 100 PG Care Time/CCT Total # of Minutes Spent Total Time Spent with Patient: Total time spent is greater than 50% in coordination of care (as documented) at patient's floor/unit and/or counseling patient: total time spent 60 min with more than 50% of time spent on symptom management and goals of care Coding Level of Care Code 77429 Initial Inpt Care Lvl 3 Diagnoses Intractable abdominal pain R10.9 Palliative care encounter Z51.5 Colon cancer C18.9 Colon location: unspecified part of colon
[2020-12-25] MEDS: HYDROmorphone PCA 30 MG/30 ML IV PRN (13:08)
[2020-12-25] MEDS: MESALAMINE 4 GM/60 ML ENEMA PR SCH ×2 (13:44→22:01)
--- NOTE | 2020-12-25 16:11 | XRay Report ---
SINGLE VIEW PELVIS; 2 VIEWS LEFT HIP CLINICAL HISTORY: Left groin pain. FINDINGS: An AP view of the pelvis with AP and frog-leg views of the left hip are correlated with pel disha CT dated 12/25/2020. The skeletal structures appear osteopenic. There is no radiographic evidence of fracture involving the hips or bony pelvis. The joint spaces of the hips are maintained. The sacro iliac joints are normal. Excreted IV contrast fills the bladder. The patient is cachectic. Nonspecifi c edema is noted throughout the soft tissues. Phlebolith are noted in the pelvis. IMPRESSION: No acute bony abnormality is identified. No change from today's pelvic CT. Electronically signed by: Branden Young M.D. 12/25/2020 4:09 PM
--- NOTE | 2020-12-25 16:12 | XRay Report ---
XR chest 1V portable CLINICAL HISTORY: COVID-19 COMPARISON STUDY: September 24, 2020 FINDINGS: No pneumothorax. No pleural effusion. No large infiltrates or consolidative lesions are seen. Cardiomediastinal silhouette is within normal limits in size. No significant pulmonary vascular congestion.. Osseous structures: Multilevel degenerative changes of the spine. Stable position of left-sided chemotherapy port. IMPRESSION: 1. No acute pulmonary process. ACT 112: Negative or not required by law. The above report was generated using voice recognition software. It may contain grammatical, syntax o r spelling errors. Electronically signed by: Laura Laurent DO 12/25/2020 4:10 PM
[2020-12-25 19:25] LABS: Hemoglobin 8.6 g/dL (14.0-18.0)
[2020-12-25] MEDS ORDERED: ondansetron HCL 8 MG in DEXTROSE 5% 50 ML IV PRN (21:55)
--- NOTE | 2020-12-25 22:32 | Magnetic Resonance Report ---
MRCP CLINICAL HISTORY: Elevated hepatic transaminases. Metastatic disease. COMPARISON STUDY: Abdominal CT dated 12/17/2020. TECHNIQUE: Abdominal MRCP is performed utilizing various T2-weighted sequences in the axial and coron al planes. IV contrast was not administered for this examination. The examination is compromised by m otion artifact. FINDINGS: The gallbladder is markedly distended. No gallstones are identified. The gallbladder wall is thickene d and there is pericholecystic fluid. There is intra and extrahepatic biliary ductal dilatation. The common bile duct measures up to 11 mm in diameter below the hilum. The mid to distal common bile duct is not visualized. This could be due to choledocholithiasis, or possibly extrinsic compression from a mass lesion. The pancreatic duct is normal in caliber. Again seen are findings of multifocal hepatic metastatic disease. The largest lesion measures up to 3 .7 cm. The unenhanced spleen and adrenal glands are grossly normal. The kidneys are normal in size an d without hydronephrosis. A mass lesion or adenopathy is again seen along the posterior aspect of the pancreatic head and neck. This measures approximately 2.5 cm and appears to encase vascular structur es. Additional adenopathy is suggested in the timo hepatis. There is trace upper abdominal ascites. There is no bowel obstruction. Moderate fecal retention is present throughout the colon No pleural ef fusion is identified. No destructive bony lesion is clearly seen. IMPRESSION: 1. Motion compromised examination. 2. The gallbladder is distended and appears thick walled with trace surrounding fluid. Findings are t ypical for acute cholecystitis. 3. No gallstones are identified in the gallbladder lumen. 4. There is intra and extrahepatic biliary ductal dilatation. 5. There is focal cutoff of the proximal to mid common bile duct. This could be related to choledocho lithiasis or possibly extrinsic compression by adjacent mass lesion. 6. Trace ascites. 7. Multifocal hepatic metastatic disease and upper abdominal lymphadenopathy is again noted. These fi ndings were better characterized on today's abdominal CT. Electronically signed by: Branden Young M.D. 12/25/2020 10:31 PM
[2020-12-25] MEDS ORDERED: PIPERACILL/TAZOBAC CONSULT ACTIVE PRN (23:28)
[2020-12-25] MEDS ORDERED: PIPERACILLIN/TAZOBACTAM 4.5 GM in DEXTROSE 5% 100 ML IV SCH (23:30)
[2020-12-26] MEDS: HYDROmorphone HCL 2 MG TAB PO PRN ×3 (00:25→19:43)
[2020-12-26] MEDS: HYDROmorphone INJ 2 MG/ML SYR/VIAL IV PRN ×7 (00:25→22:27)
[2020-12-26] MEDS ORDERED: PIPERACILLIN/TAZOBACTAM 3.375 GM in DEXTROSE 5% 100 ML IV ONE (00:30)
[2020-12-26] MEDS: HYDROmorphone PCA 30 MG/30 ML IV PRN ×4 (00:57→19:11)
[2020-12-26] MEDS: SODIUM CHLORIDE 0.9% 1000ML 1,000 ML IV SCH ×3 (05:41→16:00)
[2020-12-26] MEDS: PIPERACILLIN/TAZOBACTAM 3.375 GM in DEXTROSE 5% 100 ML IV SCH ×3 (05:43→22:27)
[2020-12-26] MEDS: CHECK fentaNYL PATCH PLACEMENT SCH ×2 (07:46→16:01)
[2020-12-26] MEDS ORDERED: fentaNYL 100 MCG/HR TDSY TD SCH (09:00)
[2020-12-26 09:15] LABS: Basophils # (auto) 0.01 K/uL (0-0.2); Basophils % (auto) 0.2 %; Eosinophils # (auto) 0.24 K/uL (0-0.5); Eosinophils % (auto) 3.7 %; Hematocrit (blood only) 27.2 % (42-52); Hemoglobin 8.7 g/dL (14.0-18.0); Immature Granulocytes # (auto) 0.02 K/uL (0.00-0.02); Immature Granulocytes % (auto) 0.3 %; Lymphocytes # (auto) 0.86 K/uL (1.2-3.4); Lymphocytes % (auto) 13.4 %; Mean Corpuscular Hemoglobin 27.4 pg (25-34); Mean Corpuscular Volume 85.8 fL (80-100); Mean Platelet Volume 9.9 fL (7.4-10.4); Monocytes # (auto) 0.63 K/uL (0.11-0.59); Monocytes % (auto) 9.8 %; Neutrophils # (auto) 4.65 K/uL (1.4-6.5); Neutrophils % (auto) 72.6 %; Platelet Count 170 K/uL (130-400); RDW Standard Deviation 47.2 fL (36.4-46.3); Red Blood Count 3.17 M/uL (4.7-6.1); White Blood Count 6.41 K/uL (4.8-10.8)
[2020-12-26 09:32] LABS: Albumin Level 2.5 gm/dl (3.4-5.0); Calcium 8.3 mg/dl (8.5-10.1); Creatinine Clr Calc Pharmacy 94.9 ml/min; Est GFR (African American) 136.3 ml/min; Est GFR (Non-African American) 117.6 ml/min; Potassium 3.4 mmol/L (3.5-5.1)
[2020-12-26] MEDS: HEPARIN SOD 5,000 UNIT/0.5 ML VIAL SQ SCH ×2 (09:32→19:57)
[2020-12-26] MEDS: MESALAMINE 4 GM/60 ML ENEMA PR SCH ×2 (09:32→19:57)
[2020-12-26] MEDS: busPIRone 5 MG TAB PO SCH ×2 (09:32→19:56)
[2020-12-26 09:36] LABS: Albumin Globulin Ratio 0.7 (0.9-2); Bilirubin,Total 2.6 mg/dl (0.2-1); Globulin 3.6 gm/dl (2.5-4.0); Total Protein 6.1 gm/dl (6.4-8.2)
[2020-12-26] MEDS: FAMOTIDINE 20 MG in SYRINGE 3 ML IV SCH ×2 (09:37→22:26)
[2020-12-26] MEDS: MAGNESIUM OXIDE 400 MG TAB PO SCH (09:46)
[2020-12-26] MEDS: dexAMETHasone 4 MG TAB PO SCH (09:46)
[2020-12-26] MEDS: PANTOprazole 40 MG TAB PO SCH (09:47)
--- NOTE | 2020-12-26 19:27 | Hospitalist Progress Note ---
Date of Service December 26, 2020 Assessment & Plan (1) Abnormal LFTs: LFTs in 08/2020 were wnl. He now has elevation of transaminases as well as alk phos and t. bili. MRCP done yesterday showed a dilated CBD of 11mm with proximal to mid-CBD "Cutoff". Latter could be 2nd to extrinsic compression from a colon cancer metastatic lesion, or choledocholithiasis. I suspect the former as no imaging study shows gallstones in the gall bladder. Despite the abnormal LFTs, abdominal pain, etc his current clinical picture is not c/w cholangitis. He also does not have RUQ or epigastric abd pain - his pain is in the lower quadrants. This would argue against but does not rule out cholecystitis. Plan - advance diet to full liquids repeat LFTs am continue zosyn to cover the gall bladder and biliary tree for infectious process GI consult pending; need for palliative biliary stent? cholecystostomy tube? other? Although he has had recent COVID I do not suspect the abnormal LFTs are due to such. Finally, metastatic liver lesions could be contributing to abnormal LFTs in some fashion. (2) Biliary obstruction due to cancer: MRCP concerning for such. See above in "abnormal LFTs." repeat labs in am. GI consult in am. (3) Intractable abdominal pain: Complex pain regimen including fentanyl patch 300mcg q72h + dilaudid 16mg q6h prn. in addition to these he is on TICKER INSTALLER dilaudid. pain is 2nd to extensive intra-abdominal colonic mets causing encasement of blood vessels, compression of organs, etc. acutely he is having lower abdominal pain - 2nd to colitis as seen on CT?? check c.diff. some of current pain could be biliary in nature as well - see above. (4) COVID-19 virus infection: suspect he had COVID-19 in early November and is in recovery phase. lung cuts of bottom of lungs from admission CT c/w viral pneumonia/COVID-19. he is stable from a COVID standpoint. cont airborne precautions - we do not know an exact date for the onset of his symptoms. (5) Colon cancer metastasized to multiple sites: Metastatic colon cancer to liver, etc. Appreciate pain management and palliative consultations. Adjusted TICKER INSTALLER dilaudid today. Cont fentanyl patch. (6) Colitis: mild, as seen on CT from admission. check c diff testing. (7) GERD (gastroesophageal reflux disease): Famotidine 20 mg IV every 12 hours Protonix 40mg daily (8) Anxiety: Buspirone 10 mg p.o. twice daily (9) S/P colostomy: 2019, created at [facility] no issues (10) Cachexia: Secondary to advanced stage 4 colon ca (11) Severe protein-calorie malnutrition: BMI 14.9 20+ kg weight loss since 06/2019 (12) Hyponatremia: 2nd volume depletion and poor oral intake NS hydration recheck bmp am (13) Hypokalemia: replace repeat K and mag levels am (14) DVT prophylaxis: heparin 5000 BID change observation status to full admission status Admission and Anticipated Discharge Date Admission Date: December 26, 2020 Subjective alerted by staff this am that patient was very hungry and desiring to eat. up until this am he was NPO. at the same time this am he was also c/o severe abdominal pain. patient has TICKER INSTALLER dilaudid, and I changed his lock-out from 30 min to 15 min; demand dose left the same. after pain was improved I ordered clear liquids. during bedside rounds he reported his abd pain was improved with TICKER INSTALLER adjustment most of his pain was lower abdomen, NOT the upper abdomen or RUQ. he also reported that the clear liquids did NOT make his pain worse. stool via ostomy is liquid - this is chronic for him. no changes with stool. he reports that his 3 children and had COVID during the first week of November. he was not tested for COVID personally but thinks he had it at the same time as them. had mild flu-like symptoms in early November. Review of Systems Constitutional: no fever and no chills Ear, Nose, Mouth, Throat: denies loss of taste or smell recently Respiratory: no cough and no dyspnea Cardiovascular: no chest pain Gastrointestinal: + abdominal pain and + diarrhea/loose stools; no nausea, no vomiting, no blood in stools and no melena Physical Exam Constitutional: + cachectic and + frail appearing; no acute distress and no altered mental status Eyes: + anicteric sclerae ENMT: external ear and nose normal, oropharynx normal Respiratory: normal respiratory effort, lungs clear to auscultation Auscultation: + diminished lung sounds (Bases) Cardiovascular: Rate/Rhythm: regular rate and regular rhythm Heart Sounds: normal S1 and normal S2 Vessels: posterior tibial pulses present and dorsalis pedis pulses present; no JVD Extremities: no edema Gastrointestinal (Abdomen): Inspection/Auscultation: normal bowel sounds and + scaphoid; abdomen not distended Percussion/Palpation: + abdomen tender; no guarding and no hepatosplenomegaly ostomy bag in place with liquid stool; stoma appears healthy Skin: + pallor Psychiatric: A+Ox3, euthymic affect Results & Data Results & Data ([facility]) Vital Signs (Past 12 Hours) Vital Signs Temp Pulse Resp BP BP Pulse Ox 12/26/20 17:35 36.3 C L 73 16 100/67 100 12/26/20 13:50 36.7 C 91 H 16 98/63 L 98 12/26/20 09:35 36.7 C 70 16 119/81 98 Laboratory Results Laboratory Results - last 24 hr 12/26/20 12/26/20 12/26/20 08:55 08:55 17:30 WBC 6.41 RBC 3.17 L Hgb 8.7 L Hct 27.2 L MCV 85.8 MCH 27.4 MCHC 32.0 RDW Std Deviation 47.2 H RDW Coeff of Jaylene 15.0 H Plt Count 170 MPV 9.9 Immature Gran % (Auto) 0.3 Neut % (Auto) 72.6 Lymph % (Auto) 13.4 [place] % (Auto) 9.8 Eos % (Auto) 3.7 Baso % (Auto) 0.2 Neut # (Auto) 4.65 Lymph # (Auto) 0.86 L [place] # (Auto) 0.63 H Eos # (Auto) 0.24 Baso # (Auto) 0.01 Immature Gran # (Auto) 0.02 Sodium 134 L Potassium 3.4 L Chloride 103 Carbon Dioxide 27 Anion Gap 5.0 BUN 16 Creatinine 0.66 Est Cr Clr Drug Dosing 94.9 Est GFR ( Amer) 136.3 Est GFR (Non-Af Amer) 117.6 BUN/Creatinine Ratio 24.0 H Glucose 103 H Calcium 8.3 L Iron 30 L Transferrin 159 L Transferrin % Sat 13 L Total Bilirubin 2.6 H AST 108 H ALT 133 H Alkaline Phosphatase 245 H Total Protein 6.1 L Albumin 2.5 L Globulin 3.6 Albumin/Globulin Ratio 0.7 L Stl C. diff Tox B Gene Positive Cdiff Gene H Stl C.difficile Tox A&B Negative Cdiff Toxin PG Care Time/CCT Total # of Minutes Spent Total Time Spent with Patient: Total time spent is greater than 50% in coordination of care (as documented) at patient's floor/unit and/or counseling patient: Coding Level of Care Code 08972 Subseq Hosp Care Lvl 3 Diagnoses Abnormal LFTs R94.5 Biliary obstruction due to cancer K83.1; C80.1 Intractable abdominal pain R10.9 COVID-19 virus infection U07.1 Colon cancer metastasized to multiple sites C18.9 Colitis K52.9 GERD (gastroesophageal reflux disease) K21.9 Esophagitis presence: without esophagitis Anxiety F41.9 S/P colostomy Z93.3 Cachexia R64 Severe protein-calorie malnutrition E43 Hyponatremia E87.1 Hypokalemia E87.6 DVT prophylaxis Z29.9 (1) GERD (gastroesophageal reflux disease) Esophagitis presence: without esophagitis Qualified Code(s): K21.9 - Gastro- esophageal reflux disease without esophagitis
[2020-12-26 20:21] LABS: Cdiff Antigen Negative; Cdiff Toxin A+B Negative Cdiff Toxin (Negative)
[2020-12-27] MEDS: SODIUM CHLORIDE 0.9% 1000ML 1,000 ML IV SCH ×3 (01:31→20:38)
[2020-12-27] MEDS: HYDROmorphone INJ 2 MG/ML SYR/VIAL IV PRN ×2 (01:32→05:00)
[2020-12-27] MEDS: HYDROmorphone PCA 30 MG/30 ML IV PRN ×5 (01:41→21:21)
[2020-12-27] MEDS: CHECK fentaNYL PATCH PLACEMENT SCH ×3 (01:47→16:43)
[2020-12-27] MEDS: HYDROmorphone HCL 2 MG TAB PO PRN (05:01)
[2020-12-27] MEDS: PIPERACILLIN/TAZOBACTAM 3.375 GM in DEXTROSE 5% 100 ML IV SCH (05:02)
[2020-12-27 07:53] LABS: Hematocrit (blood only) 26.2 % (42-52); Hemoglobin 8.4 g/dL (14.0-18.0); Mean Corpuscular Hemoglobin 27.7 pg (25-34); Mean Corpuscular Hgb Conc 32.1 g/dL (32-36); Mean Corpuscular Volume 86.5 fL (80-100); Platelet Count 150 K/uL (130-400); RDW Coefficient of Variation 15.1 % (11.5-14.5); RDW Standard Deviation 48.4 fL (36.4-46.3); Red Blood Count 3.03 M/uL (4.7-6.1); White Blood Count 5.75 K/uL (4.8-10.8)
--- NOTE | 2020-12-27 07:56 | Gastrointestinal Consultation ---
Date of Consultation December 27, 2020 Assessment & Plan (1) COVID-19 virus infection: (2) Biliary obstruction due to cancer: 45 yo male with metastatic colon cancer with elevated AP and bili and imaging showing dilated CBD and ?extrinsic compression of the biliary system. Chronic abd pain controlled at present. No fever or s/s of cholangitis. Will arrange an outpatient EUS/+/- ERCP for possible palliative stenting of the bile duct. Patient will be contacted by our office [facility]. History of Present Illness Reason for Consultation: elevated liver enzymes and biliary compression Attending Physician: Karan To History of Present Illness 45 yo male with advanced metastatic colon cancer diagnosed 3 years ago with mets to the liver and chronic abd pain. s/o surgery partial colectomy and transverse colostomy and on chemotherapy. Admitted with worsening abd pain. We are asked to see him regarding elevated liver enzymes and MRCP showing: FINDINGS: The gallbladder is markedly distended. No gallstones are identified. The gallbladder wall is thickened and there is pericholecystic fluid. There is intra and extrahepatic biliary ductal dilatation. The common bile duct measures up to 11 mm in diameter below the hilum. The mid to distal common bile duct is not visualized. This could be due to choledocholithiasis, or possibly extrinsic compression from a mass lesion. The pancreatic duct is normal in caliber. Again seen are findings of multifocal hepatic metastatic disease. The largest lesion measures up to 3.7 cm. The unenhanced spleen and adrenal glands are grossly normal. The kidneys are normal in size and without hydronephrosis. A mass lesion or adenopathy is again seen along the posterior aspect of the pancreatic head and neck. This measures approximately 2.5 cm and appears to encase vascular structures. Additional adenopathy is suggested in the timo hepatis. There is trace upper abdominal ascites. There is no bowel obstruction. Moderate fecal retention is present throughout the colon No pleural effusion is identified. No destructive bony lesion is clearly seen. Allergies Allergy/AdvReac Type Severity Reaction Status Date / Time promethazine Allergy Unknown Unknown-CHILDHOOD Verified 12/25/20 01:46 ALLERGY Home Medications Medication Instructions Recorded Confirmed Type fentanyl 3 patch TRANSDERMAL Q72H 08/26/20 12/25/20 History buspirone 10 mg tablet 10 mg PO BID #60 tab 09/07/20 12/25/20 Rx Narcan 1 spray INTRANASAL DIRECTED PRN 09/21/20 12/25/20 History lidocaine-prilocaine 1 applic TOPICAL DIRECTED PRN 09/21/20 12/25/20 History magnesium oxide 400 mg PO QAM #90 tab 09/25/20 12/25/20 Rx dexamethasone 4 mg tablet 4 mg PO DAILY #30 tab 12/09/20 12/25/20 Rx omeprazole 40 mg capsule,delayed 40 mg PO DAILY #30 cap 12/09/20 12/25/20 Rx release hydromorphone [Dilaudid] 16 mg PO Q6H PRN 12/25/20 12/25/20 History ondansetron 8 mg TRANSLINGUAL Q8H PRN 12/25/20 12/25/20 History Patient History Medical History Abdominal pain of multiple sites Anemia Anxiety Asthma A CHILD Colon cancer CHEMO TX Colon cancer metastasized to multiple sites Colostomy present Degenerative disc disease Depression Diabetes mellitus, type 2 Drug addiction "WAS ADDICTED TO METHADONE" Dyspnea Fatty liver Hyperlipidemia Intractable abdominal pain Intractable abdominal pain Metastatic colon cancer to liver Surgical History History of colonoscopy History of creation of ostomy History of myringotomy History of shoulder surgery RT History of tonsillectomy and adenoidectomy History of vascular access device INTACT LEFT CHEST WALL Family History Mother Family history of diabetes mellitus Father Colorectal cancer Cancer Aunt Cancer Grandfather (Maternal) Myocardial infarction Other Hypertension Denies family history of Ovarian cancer Prostate cancer Breast cancer Social History Smoking Status: Never smoker Second Hand Exposure: No; Hx Alcohol Use: No Hx Substance Use: No Preferred Language: Georgian Communication Ability: Effective Visual Impairment: No Limitations Hearing Ability: Normal [employer] Electrical Systems 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 Required: No Beliefs That Will Affect Care: None marital status: Life Partner Current Living Situation: Family current occupational status: disabled Other Information That Helps Us Care for You: No Feels Safe at Home: Yes Safety Concerns: Feels Safe At This Time Childhood Exposure to Second-Hand Smoke: No Dental Care, Regularly: No Assistive Devices: None Review of Systems Review of Systems: All systems reviewed & are unremarkable except as noted in HPI & below Physical Exam Constitutional: WD/WN, vitals as above Respiratory: normal respiratory effort, lungs clear to auscultation Cardiovascular: RRR, no murmur, no edema Gastrointestinal (Abdomen): ostomy appears normal Results & Data ([facility]) Vital Signs (Past 12 Hours) Vital Signs Temp Pulse Resp BP Pulse Ox 12/27/20 04:45 74 18 143/86 H 99 12/26/20 22:30 36.5 C 66 20 115/75 99
[2020-12-27 08:09] LABS: Albumin Level 2.2 gm/dl (3.4-5.0); BUN Creatinine Ratio 24.7 (10-20); Calcium 8.2 mg/dl (8.5-10.1); Creatinine Clr Calc Pharmacy 89.5 ml/min; Est GFR (Non-African American) 114.8 ml/min; Magnesium 1.6 mg/dl (1.8-2.4); Potassium 3.3 mmol/L (3.5-5.1)
[2020-12-27 08:11] LABS: Albumin Globulin Ratio 0.6 (0.9-2); Bilirubin,Total 2.2 mg/dl (0.2-1); Globulin 3.5 gm/dl (2.5-4.0); Total Protein 5.7 gm/dl (6.4-8.2)
[2020-12-27] MEDS: busPIRone 5 MG TAB PO SCH ×2 (08:36→19:21)
[2020-12-27] MEDS: PANTOprazole 40 MG TAB PO SCH (08:36)
[2020-12-27] MEDS: MESALAMINE 4 GM/60 ML ENEMA PR SCH ×2 (08:36→20:41)
[2020-12-27] MEDS: dexAMETHasone 4 MG TAB PO SCH ×2 (08:36→20:39)
[2020-12-27] MEDS: MAGNESIUM OXIDE 400 MG TAB PO SCH (08:36)
[2020-12-27] MEDS: HEPARIN SOD 5,000 UNIT/0.5 ML VIAL SQ SCH ×2 (08:36→20:39)
[2020-12-27] MEDS: FAMOTIDINE 20 MG in SYRINGE 3 ML IV SCH ×2 (10:50→20:39)
[2020-12-27] MEDS: VANCOMYCIN HCL 125 MG/2.5ML SOLN PO SCH ×2 (12:09→17:23)
[2020-12-27] MEDS: RASPBERRY SYRUP 5 ML UDP PO SCH ×2 (12:09→17:23)
[2020-12-27] MEDS: MAGNESIUM SULFATE / D5W 1 GM/100 ML BAG IV SCH ×2 (12:10→14:42)
[2020-12-27] MEDS: POTASSIUM CHLORIDE / WTR 10 MEQ/100 ML PLCT IV SCH ×2 (12:10→14:42)
--- NOTE | 2020-12-27 21:38 | Hospitalist Progress Note ---
Date of Service December 27, 2020 Assessment & Plan (1) Abnormal LFTs: LFTs in 08/2020 were wnl. He now has elevation of transaminases as well as alk phos and t. bili. No significant change in LFTs overnight. MRCP done this admission showed a dilated CBD of 11mm with proximal to mid-CBD "Cutoff". Latter could be 2nd to extrinsic compression from a colon cancer metastatic lesion, or choledocholithiasis. I suspect the former as no imaging study shows gallstones in the gall bladder. Despite the abnormal LFTs, abdominal pain, etc his current clinical picture is not c/w cholangitis. Clinical picture also now c/w acalculous cholecystitis. He also does not have RUQ or epigastric abd pain - his pain is in the lower quadrants. Plan - repeat LFTs am stop IV abx GI consult appreciated; they are recommending EUS/ERCP with possible palliative biliary stent placement allow regular diet Although he has had recent COVID I do not suspect the abnormal LFTs are due to such. Finally, metastatic liver lesions could be contributing to abnormal LFTs in some fashion. (2) Biliary obstruction due to cancer: MRCP concerning for such. See above in "abnormal LFTs." repeat labs in am. GI consult appreciated. stop IV abx. (3) Intractable abdominal pain: Complex pain regimen including fentanyl patch 300mcg q72h + dilaudid 16mg q6h prn. in addition to these he is on [employer] dilaudid. overall his pain is improved. see "history" section of this note re: dilaudid usage from [employer]. will d/w pharmacy and palliative care what to do with outpatient regimen of meds. will give "Stress" dose steroids of dexamethasone BID for a few days to hasten recovery as well. (4) COVID-19 virus infection: suspect he had COVID-19 in early November and is in recovery phase. lung cuts of bottom of lungs from admission CT c/w viral pneumonia/COVID-19. he is stable from a COVID standpoint. cont airborne precautions - we do not know an exact date for the onset of his symptoms. entire family had COVID in early November. (5) Colon cancer metastasized to multiple sites: Metastatic colon cancer to liver, etc. Appreciate pain management and palliative consultations. Cont ENV[employer] dilaudid but allow 3mg demand doses q20m lock-out. no basal. Cont fentanyl patch. (6) Colitis: will Rx for cdiff despite neg toxin. colitis on CT, liquid stool, lower abd pain, etc all suggest possible active infection. vancomycin 125mg QID x 10 days. (7) GERD (gastroesophageal reflux disease): Famotidine 20 mg IV every 12 hours Protonix 40mg daily (8) Anxiety: Buspirone 10 mg p.o. twice daily - he had been refusing, but he will take it tonight (9) S/P colostomy: 2019, created at [facility] no issues (10) Cachexia: Secondary to advanced stage 4 colon ca (11) Severe protein-calorie malnutrition: BMI 14.9 20+ kg weight loss since 06/2019 (12) Hyponatremia: improved to 136 today (13) Hypokalemia: replace again today replete low mag as well repeat K and mag levels am (14) DVT prophylaxis: heparin 5000 BID he is refusing this unfortunately explained he is at high risk of VTE due to cancer and recent COVID he wants to d/c home in am will try to get him home tomorrow Admission and Anticipated Discharge Date Admission Date: December 26, 2020 Subjective I spoke with nursing and from 830am to 430pm today Mr Vickers used the following on his [employer] dilaudid -- attempts - 99 actually received demand doses - 23 total mg of dilaudid received - 44mg current settings - no basal; lockout 15min; demand dose of 2mg Despite the above usage of [employer] he reports feeling better abd pain IS improved; denies RUQ or epigastric pain worst pain is over the left groin still with liquid stool via ostomy tolerating normal diet no respiratory symptoms Review of Systems Constitutional: no fever, no chills and no anorexia Respiratory: no cough and no dyspnea Cardiovascular: no chest pain Gastrointestinal: as per Subjective / HPI Physical Exam Constitutional: + cachectic and + frail appearing; no acute distress and no altered mental status Eyes: + anicteric sclerae ENMT: external ear and nose normal, oropharynx normal Respiratory: normal respiratory effort, lungs clear to auscultation Auscultation: + diminished lung sounds (Bases) Cardiovascular: Rate/Rhythm: regular rate and regular rhythm Heart Sounds: normal S1 and normal S2 Vessels: posterior tibial pulses present and dorsalis pedis pulses present; no JVD Extremities: no edema Gastrointestinal (Abdomen): Inspection/Auscultation: normal bowel sounds and + scaphoid; abdomen not distended Percussion/Palpation: + abdomen tender ( mainly LLQ and near the left groin; no hernia present in left groin); no guarding, no hepatosplenomegaly and no hernia ostomy with liquid stool Skin: + pallor Psychiatric: A+Ox3, euthymic affect Results & Data Results & Data ([facility]) Vital Signs (Past 12 Hours) Vital Signs Temp Pulse Resp BP BP Pulse Ox 12/27/20 20:50 100 12/27/20 16:33 36.7 C 70 16 104/71 100 12/27/20 12:26 36.8 C 76 16 106/70 100 Laboratory Results Laboratory Results - last 24 hr 12/27/20 12/27/20 07:33 07:33 WBC 5.75 RBC 3.03 L Hgb 8.4 L Hct 26.2 L MCV 86.5 MCH 27.7 MCHC 32.1 RDW Std Deviation 48.4 H RDW Coeff of Jaylene 15.1 H Plt Count 150 MPV 10.0 Sodium 136 Potassium 3.3 L Chloride 106 Carbon Dioxide 25 Anion Gap 5.0 BUN 17 Creatinine 0.70 Est Cr Clr Drug Dosing 89.5 Est GFR ( Amer) 133.0 Est GFR (Non-Af Amer) 114.8 BUN/Creatinine Ratio 24.7 H Glucose 97 Calcium 8.2 L Magnesium 1.6 L Total Bilirubin 2.2 H AST 91 H ALT 111 H Alkaline Phosphatase 242 H Total Protein 5.7 L Albumin 2.2 L Globulin 3.5 Albumin/Globulin Ratio 0.6 L PG Care Time/CCT Total # of Minutes Spent Total Time Spent with Patient: Total time spent is greater than 50% in coordination of care (as documented) at patient's floor/unit and/or counseling patient: Coding Level of Care Code 93266 Subseq Hosp Care Lvl 3 Diagnoses Abnormal LFTs R94.5 Biliary obstruction due to cancer K83.1; C80.1 Intractable abdominal pain R10.9 COVID-19 virus infection U07.1 Colon cancer metastasized to multiple sites C18.9 Colitis K52.9 GERD (gastroesophageal reflux disease) K21.9 Esophagitis presence: without esophagitis Anxiety F41.9 S/P colostomy Z93.3 Cachexia R64 Severe protein-calorie malnutrition E43 Hyponatremia E87.1 Hypokalemia E87.6 DVT prophylaxis Z29.9 (1) GERD (gastroesophageal reflux disease) Esophagitis presence: without esophagitis Qualified Code(s): K21.9 - Gastro- esophageal reflux disease without esophagitis
[2020-12-28] MEDS: HYDROmorphone PCA 30 MG/30 ML IV PRN (01:14)
[2020-12-28] MEDS: RASPBERRY SYRUP 5 ML UDP PO SCH ×3 (01:15→12:21)
[2020-12-28] MEDS: VANCOMYCIN HCL 125 MG/2.5ML SOLN PO SCH ×3 (01:15→12:21)
[2020-12-28] MEDS: CHECK fentaNYL PATCH PLACEMENT SCH ×2 (01:16→07:19)
[2020-12-28 06:41] LABS: Albumin Globulin Ratio 0.6 (0.9-2); Albumin Level 2.4 gm/dl (3.4-5.0); BUN Creatinine Ratio 18.9 (10-20); Bilirubin,Total 2.4 mg/dl (0.2-1); Calcium 7.8 mg/dl (8.5-10.1); Creatinine Clr Calc Pharmacy 93.5 ml/min; Est GFR (African American) 135.4 ml/min; Est GFR (Non-African American) 116.9 ml/min; Globulin 3.7 gm/dl (2.5-4.0); Magnesium 1.9 mg/dl (1.8-2.4); Potassium 4.1 mmol/L (3.5-5.1); Total Protein 6.1 gm/dl (6.4-8.2)
[2020-12-28] MEDS: dexAMETHasone 4 MG TAB PO SCH (07:20)
[2020-12-28] MEDS: MAGNESIUM OXIDE 400 MG TAB PO SCH (07:22)
[2020-12-28] MEDS: PANTOprazole 40 MG TAB PO SCH (07:24)
[2020-12-28] MEDS: MESALAMINE 4 GM/60 ML ENEMA PR SCH (07:25)
[2020-12-28] MEDS: HEPARIN SOD 5,000 UNIT/0.5 ML VIAL SQ SCH (07:26)
[2020-12-28] MEDS: busPIRone 5 MG TAB PO SCH (07:27)
[2020-12-28] MEDS: FAMOTIDINE 20 MG in SYRINGE 3 ML IV SCH (08:42)
[2020-12-28] MEDS: HYDROmorphone HCL 2 MG TAB PO PRN ×2 (08:45→13:16)
[2020-12-28] MEDS ORDERED: RASPBERRY SYRUP 5 ML UDP PO SCH ×2 (12:00→12:15)
[2020-12-28] MEDS ORDERED: VANCOMYCIN HCL 125 MG/2.5ML SOLN PO SCH ×2 (12:00→12:15)
--- NOTE | 2020-12-28 12:49 | Discharge Summary ---
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 Patient's last chemotherapy with [facility] oncology Dr. Dorantes was 2 weeks ago, and is due for chemotherapy again next week. His reports that the pain had been worsening throughout the day yesterday, and then at midnight said he could not stand anymore and asked his to bring him to the ED for assessment. She reports that he has had decreased oral intake due to severity of the pain. He has been seen by palliative care in the past, and he reports that he was [place] [facility] [place] as well for his abdominal pain. Principal Diagnosis 1. acute/chronic abdominal pain 2. acute abdominal pain multifactorial including c diff colitis, biliary obstruction, worsening metastatic disease from cancer; cannot exclude mesenteric ischemia due to compression of mesenteric vessels from cancer 3. COVID-19 illness - resolved 4. abnormal LFTs due to compression of common bile duct 5. stage 4 colon cancer Discharge Exam Constitutional + cachectic and + frail appearing; no acute distress and no altered mental status Eyes + anicteric sclerae ENMT external ear and nose normal, oropharynx normal Respiratory normal respiratory effort, lungs clear to auscultation Auscultation: + diminished lung sounds (Bases) Cardiovascular Rate/Rhythm: regular rate and regular rhythm Heart Sounds: normal S1 and normal S2 Vessels: posterior tibial pulses present and dorsalis pedis pulses present; no JVD Extremities: no edema Gastrointestinal (Abdomen) Inspection/Auscultation: normal bowel sounds and + scaphoid; abdomen not distended Percussion/Palpation: abdomen nontender, no guarding, no hepatosplenomegaly and no hernia colostomy bag in place central abdomen with brown stool - starting to be more formed Skin + pallor Psychiatric A+Ox3, euthymic affect Discharge Data Allergies Allergy/AdvReac Type Severity Reaction Status Date / Time promethazine Allergy Unknown Unknown-CHILDHOOD Verified 12/28/20 20:59 ALLERGY Consultations Consult Pain Management Consult Palliative Care Consult Gastroenterology ([facility]) Ordered Studies Abdomen/Pelvis CT 12/25/20 04:58 CT abd pelvis IV con only CLINICAL HISTORY: Colon carcinoma. Elevated LFTs. Increasing abdominal pain. Weakness. COMPARISON STUDY: September 03, 2020 TECHNIQUE: The patient was scanned in a dynamic helical fashion during intravenous administration of 79 cc of Optiray 320. A dose lowering technique was utilized adhering to the principles of ALARA. CT DOSE: 364.76 mGy.cm FINDINGS: Lower chest: There are patchy lower lobe groundglass opacities, likely infectious/inflammatory. Liver: There are multiple space-occupying hepatic masses consistent with metastatic disease. These have enlarged when compared the preceding study. An index left hepatic lobe lesion measures 39 mm. This previously measured 31 mm. The hepatic and portal veins appear patent. Gallbladder: Mildly distended Spleen: Enlarged measuring 14.1 cm. Pancreas: No intrinsic pancreatic masses are visualized Adrenal glands: Unremarkable. Kidneys: There is symmetric renal cortical enhancement. The kidneys are normal in size without hydronephrosis. Bowel: There are no transition zones to indicate bowel obstruction. There is no evidence of acute diverticulitis. The appendix is not visualized with certainty. There are postsurgical changes of a transverse colonic resection with a midline upper abdominal colostomy. There is colonic bowel wall thickening near the level of the splenic flexure possibly secondary to a colitis Peritoneum: There is a small amount of free pelvic fluid Vasculature: There is no evidence of abdominal aortic aneurysm. There is marked narrowing of the splenic vein. There is narrowing of the left renal vein. There is narrowing in the superior mesenteric vein. Adenopathy: There is retroperitoneal adenopathy with encasement of the celiac origin and superior mesenteric artery. There are pathologic para-aortic lymph nodes, some of which are calcified. Pelvic viscera: There is mild bladder wall thickening Skeletal structures: No destructive osseous lesions are seen. IMPRESSION: 1. Progressive hepatic metastatic disease. 2. Pathologic retroperitoneal adenopathy with encasement and narrowing of the splenic vein. There is also narrowing of the left renal vein and superior mesenteric vein. There is also vascular encasement of the celiac and superior mesenteric arteries. 3. No evidence of bowel obstruction. No evidence of free air 4. Mild gallbladder distention 5. Mild splenomegaly 6. Bowel wall thickening involving the colon at the level of the splenic flexure likely secondary to a nonspecific colitis ACT 112: Negative or not required by law. Electronically signed by: Dilip Soto M.D. 12/25/2020 7:53 AM Chest X-Ray 12/25/20 10:34 XR chest 1V portable CLINICAL HISTORY: COVID-19 COMPARISON STUDY: September 24, 2020 FINDINGS: No pneumothorax. No pleural effusion. No large infiltrates or consolidative lesions are seen. Cardiomediastinal silhouette is within normal limits in size. No significant pulmonary vascular congestion.. Osseous structures: Multilevel degenerative changes of the spine. Stable position of left-sided chemotherapy port. IMPRESSION: 1. No acute pulmonary process. ACT 112: Negative or not required by law. The above report was generated using voice recognition software. It may contain grammatical, syntax or spelling errors. Electronically signed by: Laura Laurent DO 12/25/2020 4:10 PM Cholangiopancreatography MRI 12/25/20 10:50 MRCP CLINICAL HISTORY: Elevated hepatic transaminases. Metastatic disease. COMPARISON STUDY: Abdominal CT dated 12/17/2020. TECHNIQUE: Abdominal MRCP is performed utilizing various T2-weighted sequences in the axial and coronal planes. IV contrast was not administered for this examination. The examination is compromised by motion artifact. FINDINGS: The gallbladder is markedly distended. No gallstones are identified. The gallbladder wall is thickened and there is pericholecystic fluid. There is intra and extrahepatic biliary ductal dilatation. The common bile duct measures up to 11 mm in diameter below the hilum. The mid to distal common bile duct is not visualized. This could be due to choledocholithiasis, or possibly extrinsic compression from a mass lesion. The pancreatic duct is normal in caliber. Again seen are findings of multifocal hepatic metastatic disease. The largest lesion measures up to 3.7 cm. The unenhanced spleen and adrenal glands are grossly normal. The kidneys are normal in size and without hydronephrosis. A mass lesion or adenopathy is again seen along the posterior aspect of the pancreatic head and neck. This measures approximately 2.5 cm and appears to encase vascular structures. Additional adenopathy is suggested in the timo hepatis. There is trace upper abdominal ascites. There is no bowel obstruction. Moderate fecal retention is present throughout the colon No pleural effusion is identified. No destructive bony lesion is clearly seen. IMPRESSION: 1. Motion compromised examination. 2. The gallbladder is distended and appears thick walled with trace surrounding fluid. Findings are typical for acute cholecystitis. 3. No gallstones are identified in the gallbladder lumen. 4. There is intra and extrahepatic biliary ductal dilatation. 5. There is focal cutoff of the proximal to mid common bile duct. This could be related to choledocholithiasis or possibly extrinsic compression by adjacent mass lesion. 6. Trace ascites. 7. Multifocal hepatic metastatic disease and upper abdominal lymphadenopathy is again noted. These findings were better characterized on today's abdominal CT. Electronically signed by: Branden Young M.D. 12/25/2020 10:31 PM Hip/Pelvis X-Ray 12/25/20 11:04 SINGLE VIEW PELVIS; 2 VIEWS LEFT HIP CLINICAL HISTORY: Left groin pain. FINDINGS: An AP view of the pelvis with AP and frog-leg views of the left hip are correlated with pelvic CT dated 12/25/2020. The skeletal structures appear osteopenic. There is no radiographic evidence of fracture involving the hips or bony pelvis. The joint spaces of the hips are maintained. The sacroiliac joints are normal. Excreted IV contrast fills the bladder. The patient is cachectic. Nonspecific edema is noted throughout the soft tissues. Phlebolith are noted in the pelvis. IMPRESSION: No acute bony abnormality is identified. No change from today's pelvic CT. Electronically signed by: Branden Young M.D. 12/25/2020 4:09 PM Hospital Course (1) Abnormal LFTs: LFTs in 08/2020 were wnl. He now has elevation of transaminases as well as alk phos and t. bili. No significant change in LFTs through his stay. MRCP done this admission showed a dilated CBD of 11mm with proximal to mid-CBD "Cutoff". Latter could be 2nd to extrinsic compression from a colon cancer metastatic lesion, or choledocholithiasis. I suspect the former as no imaging study shows gallstones in the gall bladder. Despite the abnormal LFTs, abdominal pain, etc his clinical picture was not c/w cholangitis or cholecystitis. He also never had RUQ or epigastric abdominal pain. His pain was in the lower quadrants during the stay. Seen by [facility] GI. They recommended EUS/ERCP with possible palliative biliary stent placement as an outpatient, which will be arranged for the week following discharge. He was initially NPO due to the above, but ultimately allowed to resume a diet. He started on clears, tolerated such, and then was advanced to low fiber without any difficulty. He was not given antibiotics at discharge. Although he has had recent COVID I do not suspect the abnormal LFTs were due to such. Finally, metastatic liver lesions could be contributing to abnormal LFTs in some fashion but the most likely culprit is the CBD obstruction. (2) Biliary obstruction due to cancer: MRCP concerning for such. See above in "abnormal LFTs." Outpatient EUS/ERCP planned shortly after discharge for possible CBD stent placement. (3) Intractable abdominal pain: Complex outpatient pain regimen including fentanyl patch 300mcg q72h + dilaudid 16mg PO q6h prn. He follows with pain management in [place]. He reported that he always has abdominal pain but that it was much worse leading up to this admission. Acute abdominal pain likely multifactorial including biliary obstruction, suspected c diff colitis, worsening intra-abdominal colonic metastatic disease, compression of multiple mesenteric vessels by his metastatic disease, and per haps even transient mesenteric ischemia. Pain improved with [employer] dilaudid. Patient was seen by both palliative care and pain management. At conclusion of his stay his oral dilaudid dosing was changed from q6h prn to q3h prn. A prescription for a week supply at this doing level of dilaudid was given to him at discharge. He was asked to f/u with his pain management provider in [place] for additional prescriptions. In addition, he was asked to take several days of dexamethasone at BID dosing, then revert back to once daily dosing thereafter. (4) COVID-19 virus infection: Suspect he had COVID-19 in early November and is in recovery phase. His and children all had COVID-19 in early November, lab-confirmed. Patient himself never got tested but he was indeed symptomatic at the same time as his children/. Lung cuts of bottom of lungs from admission CT c/w recent viral pneumonia/COVID- 19. He had no symptoms of COVID-19 while hospitalized. No fever, chills, loss of taste/smell, etc. It is challenging to know if he is still contagious but given the above he likely is not at time of discharge. (5) Colon cancer metastasized to multiple sites: Metastatic colon cancer to liver, etc. Follows with Dr Michel Dorantes, [facility] onc[facility], and patient plans to continue chemotherapy. He has been averse to pursuing hospice to this point despite his worsening situation, lack of response to chemotherapy, ongoing pain issues, etc. He was asked to follow-up with Dr Dorantes shortly after discharge. Strongly recommend ongoing hospice discussions with patient and his family. (6) Colitis: Patient had evidence of mild colitis on admission CT scan. C diff gene was POSITIVE; toxin was NEGATIVE. [id number] will Rx for cdiff despite the negative toxin. The constellation of colitis on CT, liquid stool, lower abdominal pain, etc all suggest possible active infection. Treat with vancomycin 125mg QID x 10 days. C diff handouts given to patient at discharge. Can't rule out an element of ischemic colitis but patient never had bloody stools, etc. (7) GERD (gastroesophageal reflux disease): Received Famotidine 20 mg IV every 12 hours + Protonix 40mg daily. Will resume latter at discharge. (8) Anxiety: Buspirone 10 mg p.o. twice daily - he had been refusing this most of his stay, but ultimately decided to start taking it again late in the hospitalization. He was given a refill on the buspar at d/c. (9) S/P colostomy: 2019, created at [facility]. no issues while here. (10) Cachexia: Secondary to advanced stage 4 colon cancer. (11) Severe protein-calorie malnutrition: BMI 14.9. 20+ kg weight loss since 06/2019. 2nd to advanced colon cancer with mets. (12) Hyponatremia: Mild, improved to 136 with IV fluids. (13) Hypokalemia: replaced and normal prior to discharge. (14) Hypomagnesemia: replaced and normal prior to discharge. (15) DVT prophylaxis: Heparin 5000 BID was ordered for him, but unfortunately he was refusing it for most of his stay. He was counseled that he was at high risk of VTE due to cancer and recent COVID illness. Total Time Total Time Spent Total Time Spent (In Minutes): 45 Total Time Includes: Examination of the Patient, Discharge Planning, Medication Reconciliation and Communication With Other Providers Discharge Plan Discharge Items Patient Disposition: Home - Self-Care Reason For Visit: WORSENING CANCER PAIN Discharge Diagnosis: 1. abdominal pain - likely combination of pain from the cancer itself, pain from c diff colitis infection, pain from the cancer pushing on arteries & veins, and potentially pain from the bile duct. 2. c diff colitis infection 3. recent COVID-19 infection 4. bile duct obstruction/blockage due to your cancer - stenting likely to be performed to relieve the blockage Activity: Resume your previous activity Driving/Machine Use: no driving due to narcotic pain killer usage Non-emergency contact: Primary Care Provider, Specialist and Medical Lab Technologist Call non-emergency contact if: you have any medication questions, your symptoms worsen, your pain is not controlled, your pain is worsening, your pain is unusual for you, your pain is concerning for you and you have a fever Follow-up/Referrals: Noah Barrera, [Primary Care Provider] - (see Dr Barrera within 1 week for your pain, c diff infection, etc) Shauna Griffiths, [Physician] - (if you do not hear anything from [facility] by MONDAY of this week please call their office directly to schedule your procedure to relieve the bile duct blockage. ) Diet: Low Fiber Addtl Attending Provider Instructions: Mr Vickers, You were treated for the problems listed above in "discharge diagnoses." Your CAT scan of the abdomen at time of admission showed a small portion of your colon having inflammation ("colitis"), abnormal bile duct, and a distended gall bladder. We did not see gallstones. We then obtained an MRI of the liver and gall bladder. The MRI showed that your bile duct was enlarged and was being compressed by your cancer. This is the likely cause of your liver function tests being elevated. The [facility] doctor feels that you may need a procedure to place a small tube in the bile duct called a "stent" to relieve the blockage. Having a blocked bile duct can lead to worsening liver tests and sepsis/infection. In addition, we discovered you had c diff in your stool. This is the likely cause of the liquid stools and colitis seen on CAT scan. This may have contributed to your pain. Although the gall bladder was distended / enlarged there is little suspicion that the gall bladder is actively ill at this time. Recommendations - 1. c diff infection - * [facility] has supplied you with a 24-hour supply of vancomycin liquid; take the liquid medication four times (every 6 hours) upon return home until it runs out * the remainder of your vancomycin will be available at [facility] for you; this vancomycin at [facility] will likely be in capsule form * know that c diff is contagious to others * I would not allow others to change your ostomy bag or empty its contents * only good handwashing with soap/water kills c diff; alcohol-based hand sanitizers don't work against c diff * see handouts 2. bile duct blockage - Kodi BRIDGES at [facility] should be contacting you tomorrow to set up the procedure you need to possibly stent the bile duct 3. abnormal liver function tests - * avoid tylenol (acetaminophen) * avoid alcohol * if you notice worsening yellow color of the eyes, face, or upper body please contact one of your doctors right away; this can be a sign that the blockage in the bile duct is worsening 4. pain control - * increase your dexamethasone steroid to TWICE A DAY for 3 days, then return to once daily thereafter * continue your fentanyl patches as previous (300mcg every 72 hours) * you can increase the frequency of the oral dilaudid to every 3 hours as needed * thus, dilaudid 16mg every 3 hours as needed for "breakthrough" pain * a small supply of the oral dilaudid was sent to [facility] for you * additional refills - obtain those from your pain doctor in [place] * NO DRIVING at any time due to the narcotic usage 5. anxiety - * buspirone 10mg every 12 hours as needed for anxiety 6. COVID-19 infection - * you likely contracted COVID-19 in early November when your children and had the infection * it is unlikely that the COVID-19 is causing active infection in you at this time * it is unlikely that you are contagious to others at this time * [id number], for the next 3 days, I would suggest remaining at home while your body recovers from this hospital stay, the cdiff, recent COVID, etc * avoid having visitors to your home over the next 3 days Follow-up - 1. [facility] as noted above 2. Oncology with Dr Dorantes as scheduled 3. See your pain doctor in the next week for refills, adjustment of meds, etc 4. Dr Barrera as needed for any other needs Return to [facility] if - * you have fevers over 100 degrees * you have worsening pain in your abdomen * concerns for jaundice (yellowing of the eyes & skin) * shortness of breath * chest pain * worsening liquid stool via your ostomy despite the vancomycin * any other concerns Continue to feel better! -Dr To Pending Studies at Discharge: No Stand-Alone Forms: My [facility], Smoking Cessation Medications and DC Order Prescriptions: New vancomycin 125 mg capsule 125 mg PO Q6H 8 Days Qty: 32 RF: 0 Continued dexamethasone [Decadron] 4 mg tablet 4 mg PO DAILY Qty: 30 RF: 1 omeprazole 40 mg capsule,delayed release(DR/EC) 40 mg PO DAILY Qty: 30 RF: 1 fentanyl 100 mcg/hr patch 72 hour 3 patch transdermal Q72H RF: 0 lidocaine-prilocaine 2.5-2.5 % cream 1 applic topical DIRECTED PRN (Reason: WHEN ACCESSING MEDIPORT) RF: 0 Narcan 4 mg/actuation spray,non-aerosol 1 spray INTRANASAL DIRECTED PRN (Reason: OVERSEDATION) RF: 0 magnesium oxide 400 mg (241.3 mg magnesium) Tablet 400 mg PO QAM Qty: 90 RF: 1 ondansetron 8 mg tablet,disintegrating 8 mg translingual Q8H PRN (Reason: NAUSEA/VOMITING) RF: 0 Changed hydromorphone [Dilaudid] 8 mg tablet 16 mg PO Q3H PRN (Reason: pain) Qty: 30 RF: 0 buspirone 10 mg tablet 10 mg PO BID PRN (Reason: anxiety) Qty: 30 RF: 0 Discharge Orders: Discharge Order (Routine); Ordered 12/28/20 Ordered By: Karan Lucas/Other Patient Handouts: 2019-nCoV, COVID-19 Prevention, Clostridium Difficile Infection, What Is C. Diff? Admission Data Admit Date/Time: 12/26/20 18:02 Attending Provider: Karan To Admit Provider: Ernesto Carpio Primary Care Provider: Noah Barrera Other Providers: Ernesto Carpio ; Analia Avalos ; Magdalene Silverman ; Dheeraj Thomas Other Interventions: Discharge Summary Assessment (RN) Last Done: 12/28/20 12:50 Coding Level of Care Code D/C Day Management >30 mins Diagnoses Abnormal LFTs R94.5 Biliary obstruction due to cancer K83.1; C80.1 Intractable abdominal pain R10.9 COVID-19 virus infection U07.1 Colon cancer metastasized to multiple sites C18.9 Colitis K52.9 GERD (gastroesophageal reflux disease) K21.9 Esophagitis presence: without esophagitis Anxiety F41.9 S/P colostomy Z93.3 Cachexia R64 Severe protein-calorie malnutrition E43 Hyponatremia E87.1 Hypokalemia E87.6 Hypomagnesemia E83.42 DVT prophylaxis Z29.9
== END 2020-12-28 13:36 | disposition home or self-care (01) | DRG 947 ==
LOC: ED 01:30 → 3E 01:30 → SUATTDRO 05:35 → 3E 08:31
DX: Z93.3 Colostomy status; K21.9 Gastro-esophageal reflux disease without esophagitis; K82.8 Other specified diseases of gallbladder; R74.01 Elevation of levels of liver transaminase levels; K55.059 Acute (reversible) ischemia of intestine, part and extent unspecified; A04.72 Enterocolitis due to Clostridium difficile, not specified as recurrent; K83.1 Obstruction of bile duct; I77.1 Stricture of artery; G89.3 Neoplasm related pain (acute) (chronic); F41.9 Anxiety disorder, unspecified; Z88.8 Allergy status to other drugs, medicaments and biological substances; R94.5 Abnormal results of liver function studies; E11.9 Type 2 diabetes mellitus without complications; K83.8 Other specified diseases of biliary tract; E87.1 Hypo-osmolality and hyponatremia; F32.9 Major depressive disorder, single episode, unspecified; R64 Cachexia; C78.7 Secondary malignant neoplasm of liver and intrahepatic bile duct; E87.6 Hypokalemia; Z79.899 Other long term (current) drug therapy; E43 Unspecified severe protein-calorie malnutrition; R63.8 Other symptoms and signs concerning food and fluid intake; C18.5 Malignant neoplasm of splenic flexure; U07.1 COVID-19

== ENCOUNTER 2020-12-28 20:24 | Inpatient (IN) ==
[2020-12-28] MEDS ORDERED: SODIUM CHLORIDE 0.9% 1000ML 1,000 ML IV STA (20:51)
[2020-12-28] MEDS ORDERED: ONDANSETRON INJ 2 MG/ML 2 ML VIAL IV STA (20:51)
[2020-12-28] MEDS: HYDROmorphone INJ 1 MG/ML SYRINGE IV PRN ×3 (21:00→21:34)
[2020-12-28 21:19] LABS: Albumin Level 2.6 gm/dl (3.4-5.0); BUN Creatinine Ratio 28.2 (10-20); Calcium 8.3 mg/dl (8.5-10.1); Creatinine Clr Calc Pharmacy 106.3 ml/min; Est GFR (African American) 137.1 ml/min; Est GFR (Non-African American) 118.3 ml/min; Potassium 3.8 mmol/L (3.5-5.1)
[2020-12-28 21:22] LABS: Albumin Globulin Ratio 0.7 (0.9-2); Bilirubin,Total 2.4 mg/dl (0.2-1); Globulin 3.7 gm/dl (2.5-4.0); Total Protein 6.3 gm/dl (6.4-8.2)
[2020-12-28 21:32] LABS: Hematocrit (blood only) 30.4 % (42-52); Hemoglobin 9.8 g/dL (14.0-18.0); Mean Corpuscular Hemoglobin 28.2 pg (25-34); Mean Corpuscular Hgb Conc 32.2 g/dL (32-36); Mean Corpuscular Volume 87.6 fL (80-100); Mean Platelet Volume 9.5 fL (7.4-10.4); Platelet Count 274 K/uL (130-400); RDW Coefficient of Variation 14.9 % (11.5-14.5); Red Blood Count 3.47 M/uL (4.7-6.1)
[2020-12-28 21:33] LABS: Eosinophils # (auto) 0.04 K/uL (0-0.5); Eosinophils % (auto) 0.4 %; Immature Granulocytes # (auto) 0.03 K/uL (0.00-0.02); Immature Granulocytes % (auto) 0.3 %; Lymphocytes # (auto) 1.21 K/uL (1.2-3.4); Lymphocytes % (auto) 11.3 %; Monocytes # (auto) 1.22 K/uL (0.11-0.59); Monocytes % (auto) 11.4 %; Neutrophils % (auto) 76.6 %; Platelet Estimate Normal (Normal); Tear Drop Cells 1+
[2020-12-28] MEDS ORDERED: fentaNYL citrate 100 MCG/2 ML VIAL IV STA ×3 (21:36→23:05)
--- NOTE | 2020-12-28 21:39 | Emergency Department Note ---
Impression & Plan Continuous severe abdominal pain, Colon cancer ED Provider Note NAME: MARCUS AG AGE: 45 SEX: M : 1975 ARRIVES VIA: Walk-In INFORMANT: Patient, ED PROVIDER(S): Juanjose Thomas DO CHIEF COMPLAINT: Abdominal pain HPI: The patient is a 45-year-old male who presented to the emergency department for an evaluation of abdominal pain. The patient started having very severe abdominal pain prior to arrival. He has a history of colon cancer. He noticed decreased output in his ostomy as well as severe abdominal pain prior to arrival. He was recently discharged in our facility. The patient states his pain is severe at this time. Is worsened with any movement. He had his fentanyl patches increased but the patient was also on a Dilaudid [employer] [facility] pump without any improvement of his symptoms. The patient denies having any fever. He denies having any chest pain. He denies having any rectal bleeding. The patient noticed that his belly is distended. He notices no blood in the ostomy bag. The patient had tried all of his outpatient medications without any relief of his symptoms. ROS: See above HPI for pertinent positives & negatives. A total of 10 systems reviewed and were otherwise negative. PAST MEDICAL HISTORY: See Below PAST SURGICAL HISTORY: See Below FAMILY HISTORY: See Below SOCIAL HISTORY: See Below HOME MEDICATIONS: See Below ALLERGIES: See Below VITALS: See Below PHYSICAL EXAMINATION: GENERAL: The patient is awake and alert. The patient is very anxious appearing and appears to be in severe distress. EYES: The conjunctivae are clear. The pupils are round and reactive. EARS, NOSE, MOUTH AND THROAT: The nose is without any evidence of any deformity. NECK: The neck is nontender and supple. RESPIRATORY: Normal respiratory effort is noted there is no evidence of wheezing rhonchi or rales CARDIOVASCULAR: Regular rate and rhythm noted there no murmurs rubs or gallops normal S1 normal S2. GASTROINTESTINAL: The abdomen is soft. There is diffuse tenderness to palpation. There is no guarding rigidity. The ostomy does appear to be patent to fingertip. There is significant herniation around the ostomy. MUSCULOSKELETAL/EXTREMITIES: There is no evidence of gross deformity full range of motion is noted in the hips and shoulders. SKIN: The skin is cool and diaphoretic. NEUROLOGIC: Patient is awake alert and oriented x3. MEDICAL DECISION MAKING: The patient is a 45-year-old male who has a history of colon cancer who presented to the emergency department with intractable pain. The patient is managed with chronic pain medication as an outpatient but his pain became much worse. He did not have signs of bowel obstruction on CT the abdomen and pelvis. I discussed the patient's laboratory and radiographic studies with him. He was treated with multiple doses of pain medication and ultimately was placed on a Dilaudid [facility] pump. Because of the patient's ongoing and worsening pain I discussed his case with the on-call [facility] hospitalist. They will evaluate the patient in the emergency department for further management and disposition. Triage Nursing notes reviewed. Prior medical records reviewed Vital Signs: reviewed and remarkable for no significant abnormalities Differential diagnosis: Etiologies such as appendicitis, diverticulitis, obstruction, inflammatory bowel disease, renal colic, PUD, biliary pathology, pancreatitis, mesenteric ischemia, aortic pathology, infections, genitourinary, UTI, perforated viscus, as well as others were entertained. ER treatment provided: See below Diagnostics interpreted by me: ECG: none Cardiac Monitoring: An order was placed for continuous cardiac monitoring. The monitor shows a rate of 89 bpm with sinus rhythm. Laboratory studies: As stated above and show below. Imaging studies: See below Consultation(s): [facility]. He will evaluate the patient in the emergency department. Past Med/Surg History Medical History Abdominal pain of multiple sites Anemia Anxiety Asthma A CHILD Colon cancer CHEMO TX Colon cancer metastasized to multiple sites Colostomy present Degenerative disc disease Depression Diabetes mellitus, type 2 Drug addiction "WAS ADDICTED TO METHADONE" Dyspnea Fatty liver Hyperlipidemia Intractable abdominal pain Intractable abdominal pain Metastatic colon cancer to liver Surgical History History of colonoscopy History of creation of ostomy History of myringotomy History of shoulder surgery RT History of tonsillectomy and adenoidectomy History of vascular access device INTACT LEFT CHEST WALL Family History Mother Family history of diabetes mellitus Father Colorectal cancer Cancer Aunt Cancer Grandfather (Maternal) Myocardial infarction Other Hypertension Denies family history of Ovarian cancer Prostate cancer Breast cancer Social History Smoking Status: Former smoker Second Hand Exposure: No; Hx Alcohol Use: No Hx Substance Use: No Preferred Language: Slovenian Communication Ability: Effective Visual Impairment: No Limitations Hearing Ability: Normal Jewel Hole Rough Opener Required: No Beliefs That Will Affect Care: None marital status: Life Partner Current Living Situation: Family current occupational status: disabled Feels Safe at Home: Yes Childhood Exposure to Second-Hand Smoke: No Dental Care, Regularly: No Assistive Devices: None Allergies Allergies Allergy/AdvReac Type Severity Reaction Status Date / Time promethazine Allergy Unknown Unknown-CHILDHOOD Verified 12/28/20 20:59 ALLERGY Home Meds Home Medications Medication Instructions Recorded Confirmed fentanyl 3 patch TRANSDERMAL Q72H 08/26/20 12/28/20 Narcan 1 spray INTRANASAL DIRECTED PRN 09/21/20 12/28/20 lidocaine-prilocaine 1 applic TOPICAL DIRECTED PRN 09/21/20 12/28/20 ondansetron 8 mg TRANSLINGUAL Q8H PRN 12/25/20 12/28/20 Previous Rx's Medication Instructions Recorded magnesium oxide 400 mg PO QAM #90 tab 09/25/20 dexamethasone 4 mg tablet 4 mg PO DAILY #30 tab 12/09/20 omeprazole 40 mg capsule,delayed 40 mg PO DAILY #30 cap 12/09/20 release buspirone 10 mg PO BID PRN #30 tab 12/28/20 hydromorphone [Dilaudid] 16 mg PO Q3H PRN #30 tab 12/28/20 vancomycin 125 mg PO Q6H 8 Days #32 cap 12/28/20 Results & Data (ED) Vital Signs Vital Signs - 24 hr 12/28/20 20:29 12/28/20 20:38 12/28/20 20:51 Temperature 36.2 C L Temperature Source Temporal Artery Scan Pulse Rate 64 72 70 Pulse Rate from SpO2 Sensor Pulse Rhythm Regular Respiratory Rate 18 14 23 Respiratory Effort / Characteristics Non-Labored Spontaneous Respiratory Depth Normal Respiratory Pattern Regular Blood Pressure 162/102 H 158/98 H Blood Pressure Mean 122 118 Blood Pressure Position Sitting Pulse Oximetry 100 100 Oxygen Delivery Method Room Air Sepsis Recent Fever Within 48 Hours No Sepsis New/Unexplained Change in Mental Status No Sepsis Action Taken by Nursing No Action Required End-Tidal CO2 12/28/20 20:54 12/28/20 21:00 12/28/20 21:04 Temperature Temperature Source Pulse Rate 67 81 67 Pulse Rate from SpO2 Sensor Pulse Rhythm Respiratory Rate 20 19 14 Respiratory Effort / Characteristics Respiratory Depth Respiratory Pattern Blood Pressure 162/95 H Blood Pressure Mean 117 Blood Pressure Position Pulse Oximetry 100 95 Oxygen Delivery Method Room Air Sepsis Recent Fever Within 48 Hours Sepsis New/Unexplained Change in Mental Status Sepsis Action Taken by Nursing End-Tidal CO2 12/28/20 21:30 12/28/20 22:00 12/28/20 22:38 Temperature Temperature Source Pulse Rate 80 90 70 Pulse Rate from SpO2 Sensor Pulse Rhythm Respiratory Rate 17 19 8 L Respiratory Effort / Characteristics Respiratory Depth Respiratory Pattern Blood Pressure 155/88 H 147/90 H Blood Pressure Mean 110 109 106 Blood Pressure Position Pulse Oximetry 96 Oxygen Delivery Method Sepsis Recent Fever Within 48 Hours Sepsis New/Unexplained Change in Mental Status Sepsis Action Taken by Nursing End-Tidal CO2 12/28/20 22:40 12/28/20 23:00 12/28/20 23:30 Temperature Temperature Source Pulse Rate 78 87 85 Pulse Rate from SpO2 Sensor 85 Pulse Rhythm Respiratory Rate 18 62 H 28 H Respiratory Effort / Characteristics Respiratory Depth Respiratory Pattern Blood Pressure 156/94 H 135/85 Blood Pressure Mean 114 101 Blood Pressure Position Pulse Oximetry 98 98 Oxygen Delivery Method Sepsis Recent Fever Within 48 Hours Sepsis New/Unexplained Change in Mental Status Sepsis Action Taken by Nursing End-Tidal CO2 40 Home Medications Current Medication List: was personally reviewed by me Laboratory Data Attestation: I reviewed the patient's lab results. Result diagrams: 12/28/20 20:48 12/28/20 20:48 Lab Results 12/28/20 12/28/20 12/28/20 Range/Units 20:48 20:48 22:08 WBC 10.70 (4.8-10.8) K/uL RBC 3.47 L (4.7-6.1) M/uL Hgb 9.8 L (14.0-18.0) g/dL Hct 30.4 L (42-52) % MCV 87.6 (80-100) fL MCH 28.2 (25-34) pg MCHC 32.2 (32-36) g/dL RDW Std Deviation 48.0 H (36.4-46.3) fL RDW Coeff of Jayelne 14.9 H (11.5-14.5) % Plt Count 274 D (130-400) K/uL MPV 9.5 (7.4-10.4) fL Immature Gran % (Auto) 0.3 % Neut % (Auto) 76.6 % Lymph % (Auto) 11.3 % Parke % (Auto) 11.4 % Eos % (Auto) 0.4 % Baso % (Auto) 0.0 % Neut # (Auto) 8.20 H (1.4-6.5) K/uL Lymph # (Auto) 1.21 (1.2-3.4) K/uL Parke # (Auto) 1.22 H (0.11-0.59) K/uL Eos # (Auto) 0.04 (0-0.5) K/uL Baso # (Auto) 0.00 (0-0.2) K/uL Immature Gran # (Auto) 0.03 H (0.00-0.02) K/uL Platelet Estimate Normal (Normal) Tear Drop Cells 1+ Sodium 134 L (136-145) mmol/L Potassium 3.8 (3.5-5.1) mmol/L Chloride 102 (98-107) mmol/L Carbon Dioxide 26 (21-32) mmol/L Anion Gap 6.0 (3-11) BUN 18 (7-18) mg/dl Creatinine 0.65 (0.6-1.4) mg/dl Est Cr Clr Drug Dosing 106.3 ml/min Est GFR ( Amer) 137.1 ml/min Est GFR (Non-Af Amer) 118.3 ml/min BUN/Creatinine Ratio 28.2 H (10-20) Glucose 122 H (70-99) mg/dl Calcium 8.3 L (8.5-10.1) mg/dl Total Bilirubin 2.4 H (0.2-1) mg/dl AST 138 H (15-37) U/L ALT 159 H (12-78) U/L Alkaline Phosphatase 289 H (45-117) U/L Total Protein 6.3 L (6.4-8.2) gm/dl Albumin 2.6 L (3.4-5.0) gm/dl Globulin 3.7 (2.5-4.0) gm/dl Albumin/Globulin Ratio 0.7 L (0.9-2) Lipase 155 (73-393) U/L Urine Color Dark Yellow Urine Appearance Clear (Clear) Urine pH 5.5 (4.5-7.5) Ur Specific [place] 1.018 (1.000-1.030) Urine Protein Trace H (Negative) Urine Glucose (UA) Negative (Negative) Urine Ketones Negative (Negative) Urine Blood Negative (Negative) Urine Nitrite Negative (Negative) Urine Bilirubin 1+ H (Negative) Urine Urobilinogen Negative (Negative) Ur Leukocyte Esterase Negative (Negative) Urine WBC (Auto) 1-5 (0-5) /hpf Urine RBC (Auto) 0-4 (0-4) /hpf U Hyaline Cast (Auto) 0 (0-5) /lpf U Epithel Cells (Auto) 0-5 (0-5) /lpf Urine Bacteria (Auto) Negative (Negative) Administered Medications Hydromorphone HCl (Hydromorphone Inj 1 Mg/Ml Syringe) 1 mg IV Q15M PRN PRN Reason: Pain Stop: 01/11/21 20:50 Last Admin: 12/28/20 21:34 Dose: 1 mg Documented by: [id number] Admin: 12/28/20 21:17 Dose: 1 mg Documented by: [id number] Admin: 12/28/20 21:00 Dose: 1 mg Documented by: [id number] Hydromorphone HCl (Hydromorphone Track Repair Laborer 30 Mg/30 Ml) 30 mg IV PRN PRN; Protocol PRN Reason: [facility] Pain Titration Stop: 01/11/21 21:48 Last Admin: 12/28/20 23:10 Dose: 30 mg Documented by: [id number] Cosigned by: [id number] Discontinued Medications Fentanyl Citrate (Fentanyl Citrate 100 Mcg/2 Ml Vial) 100 mcg IV NOW STA Stop: 12/28/20 21:37 Last Admin: 12/28/20 21:39 Dose: 100 mcg Documented by: [id number] Fentanyl Citrate (Fentanyl Citrate 100 Mcg/2 Ml Vial) 100 mcg IV NOW STA Stop: 12/28/20 22:00 Last Admin: 12/28/20 22:03 Dose: 100 mcg Documented by: [id number] Fentanyl Citrate (Fentanyl Citrate 100 Mcg/2 Ml Vial) 100 mcg IV NOW STA Stop: 12/28/20 23:06 Last Admin: 12/28/20 23:10 Dose: 100 mcg Documented by: [id number] Sodium Chloride (Nss 1000ml) 1,000 mls @ 999 mls/hr IV .Q1H1M STA Stop: 12/28/20 21:51 Last Infusion: 12/28/20 22:03 Dose: 0 mls/hr Documented by: [id number] Admin: 12/28/20 21:00 Dose: 999 mls/hr Documented by: [id number] Ondansetron HCl (Ondansetron Inj 2 Mg/Ml 2 Ml Vial) 4 mg IV NOW STA Stop: 12/28/20 20:52 Last Admin: 12/28/20 21:00 Dose: 4 mg Documented by: [id number] Imaging Data Radiologist's Impression: Patient: MARCUS AG (Male) : 77 Status: ER Date: 12/28/20 23:01 Room #: History: PAIN IN ABD Slices: [id number] Priors: Tech: DanielleBilly fishman @ [phone] Exams: CT ABDOMEN & PELVIS Without Contrast Contrast: Accession Numbers: [id number] Preliminary Findings Only See Final Report For Complete Findings CT ABDOMEN & PELVIS Without Contrast: Limited without contrast. Ventral ostomy with parastomal hernia versus ventral hernia containing bowel, fat and fluid/edema. Thickening of colonic segments, may be from some form of colitis. Colonic mass lesions involving the transverse-splenic flexure areas. Hepatic lesions/metastasis. Gallbladder distention and debris. Anemia. Mesenteric and retroperitoneal adenopathy. Fluid and edema the peritoneal cavity. Anasarca. Pulmonary lesions, may be from metastasis. Differential includes inflammatory lesions. Patchy pneumonitis in the left lung base. Appendix not identified. Radiologist: Carmelina Bo M.D. Study ready at 23:08 and initial results transmitted at 23:21 Discharge Plan Visit Data Chief Complaint: Abdominal Pain Stated Complaint: AB PAIN ED Provider: Juanjose Thomas Discharge Problem: Continuous severe abdominal pain, Colon cancer Patient Disposition: Being Evaluated by Hospitalist Condition: Good Forms Stand Alone Forms: My [facility] Prescriptions Prescriptions: No Action dexamethasone [Decadron] 4 mg tablet 4 mg PO DAILY Qty: 30 RF: 1 omeprazole 40 mg capsule,delayed release(DR/EC) 40 mg PO DAILY Qty: 30 RF: 1 fentanyl 100 mcg/hr patch 72 hour 3 patch transdermal Q72H RF: 0 lidocaine-prilocaine 2.5-2.5 % cream 1 applic topical DIRECTED PRN (Reason: WHEN ACCESSING MEDIPORT) RF: 0 Narcan 4 mg/actuation spray,non-aerosol 1 spray INTRANASAL DIRECTED PRN (Reason: OVERSEDATION) RF: 0 magnesium oxide 400 mg (241.3 mg magnesium) Tablet 400 mg PO QAM Qty: 90 RF: 1 ondansetron 8 mg tablet,disintegrating 8 mg translingual Q8H PRN (Reason: NAUSEA/VOMITING) RF: 0 vancomycin 125 mg capsule 125 mg PO Q6H 8 Days Qty: 32 RF: 0 hydromorphone [Dilaudid] 8 mg tablet 16 mg PO Q3H PRN (Reason: pain) Qty: 30 RF: 0 buspirone 10 mg tablet 10 mg PO BID PRN (Reason: anxiety) Qty: 30 RF: 0 Referrals Referrals: Noah Barrera DO [Primary Care Provider] - Discharge Problem: Colon cancer Qualifiers: Colon location: unspecified part of colon Qualified Code(s): C18.9 - Malignant neoplasm of colon, unspecified
[2020-12-28 22:55] LABS: Appearance Urine Clear (Clear); Bacteria Urine Automated Negative (Negative); Blood Urine Negative (Negative); Cast Urine Automated 0 /lpf (0-5); Color Urine Dark Yellow; Epithelial Cell Urine Auto 0-5 /lpf (0-5); Glucose Urine UA Negative (Negative); Ketones Urine Negative (Negative); Leukocyte Esterase Urine Negative (Negative); Nitrite Urine Negative (Negative); Protein Urine Trace (Negative); RBC Urine Automated 0-4 /hpf (0-4); Specific Gravity Urine 1.018 (1.000-1.030); Urobilinogen Urine Negative (Negative); pH Urine 5.5 (4.5-7.5)
[2020-12-28 22:58] LABS: Bilirubin Urine 1+ (Negative)
[2020-12-28] MEDS: HYDROmorphone PCA 30 MG/30 ML IV PRN (23:10)
[2020-12-29] MEDS ORDERED: NON-FORMULARY MEDICATION (Naloxone [Narcan] 4 mg/actuation spray,non-aerosol) INTNAS PRN (01:52)
[2020-12-29] MEDS ORDERED: busPIRone 5 MG TAB PO PRN (01:52)
[2020-12-29] MEDS ORDERED: LIDOCAINE/PRILOCAINE 2.5% EA CRM EXT PRN (01:52)
[2020-12-29] MEDS ORDERED: NALOXONE HCL 0.4 MG/1 ML VIAL/CARP IV PRN (02:19)
[2020-12-29] MEDS: HYDROmorphone PCA 30 MG/30 ML IV PRN ×4 (03:01→17:09)
[2020-12-29] MEDS: SODIUM CHLORIDE 0.9% 1000ML 1,000 ML IV SCH (03:03)
--- NOTE | 2020-12-29 03:54 | History & Physical Report ---
Date of Service December 29, 2020 Assessment & Plan (1) Colon cancer metastasized to multiple sites: Metastatic colon cancer/severe abdominal pain- Failure of outpatient treatment Admit for pain control Of note, patient is significantly more alert this admission, than when I admitted him at his most recent admission a few days ago Patient was to be scheduling an outpatient EUS/ERCP for possible palliative CBD stent, but was unable to stay in the outpatient setting for 12 hours post discharge due to worsening pain NPO IV fluids Famotidine 20 mg IV every 12 hours Patient was started on a Dilaudid GRID INSPECTOR by the ED, and will continue for now. Consult palliative care, who did see patient last admission Consult gastroenterology, who did see patient last admission Present on Admission?: Yes (2) Continuous severe abdominal pain: See above Present on Admission?: Yes (3) Common bile duct dilatation: See above Present on Admission?: Yes Admission and Anticipated Discharge Date Admission Date: December 29, 2020 History of Present Illness Chief Complaint: The patient presents to the emergency department, after having been discharged earlier in the afternoon, due to worsening abdominal pain Primary Care Provider: Noah Barrera, DO The patient is a 45-year-old male with a past medical history including colon cancer, dizziness, myofascial pain, hypercalcemia, colitis, large bowel obstruction, diabetes mellitus type 2, lumbar radiculopathy, lumbar degenerative disc disease, hepatic steatosis, extrinsic asthma and anemia. He was most recently admitted to [facility] from 12/25-12/28 for severe abdominal pain. He reports that his pain was well controlled when he left the [facility] this afternoon, however, it became severe relatively quickly after he got home, and has presented to the ED for pain management and reports he was to be scheduled for a tube to be put in his common bile duct. He is also concerned that he has not had any ostomy output since he went home. Allergies Allergy/AdvReac Type Severity Reaction Status Date / Time promethazine Allergy Unknown Unknown-CHILDHOOD Verified 12/28/20 20:59 ALLERGY Home Medications Medication Instructions Recorded Confirmed Type fentanyl 3 patch TRANSDERMAL Q72H 08/26/20 12/28/20 History Narcan 1 spray INTRANASAL DIRECTED PRN 09/21/20 12/28/20 History lidocaine-prilocaine 1 applic TOPICAL DIRECTED PRN 09/21/20 12/28/20 History magnesium oxide 400 mg PO QAM #90 tab 09/25/20 12/28/20 Rx dexamethasone 4 mg tablet 4 mg PO DAILY #30 tab 12/09/20 12/28/20 Rx omeprazole 40 mg capsule,delayed 40 mg PO DAILY #30 cap 12/09/20 12/28/20 Rx release ondansetron 8 mg TRANSLINGUAL Q8H PRN 12/25/20 12/28/20 History buspirone 10 mg PO BID PRN #30 tab 12/28/20 12/28/20 Rx hydromorphone [Dilaudid] 16 mg PO Q3H PRN #30 tab 12/28/20 12/28/20 Rx vancomycin 125 mg PO Q6H 8 Days #32 cap 12/28/20 12/28/20 Rx Past Med/Surg History Medical History Abdominal pain of multiple sites Anemia Anxiety Asthma A CHILD Colon cancer CHEMO TX Colon cancer metastasized to multiple sites Colostomy present Degenerative disc disease Depression Diabetes mellitus, type 2 Drug addiction "WAS ADDICTED TO METHADONE" Dyspnea Fatty liver Hyperlipidemia Intractable abdominal pain Intractable abdominal pain Metastatic colon cancer to liver Surgical History History of colonoscopy History of creation of ostomy History of myringotomy History of shoulder surgery RT History of tonsillectomy and adenoidectomy History of vascular access device INTACT LEFT CHEST WALL Family History Mother Family history of diabetes mellitus Father Colorectal cancer Cancer Aunt Cancer Grandfather (Maternal) Myocardial infarction Other Hypertension Denies family history of Ovarian cancer Prostate cancer Breast cancer Social History Smoking Status: Former smoker Second Hand Exposure: No; Hx Alcohol Use: No Hx Substance Use: No Preferred Language: Malagasy Communication Ability: Effective Visual Impairment: No Limitations Hearing Ability: Normal Transportation Engineer Required: No Beliefs That Will Affect Care: None marital status: Life Partner Current Living Situation: Family current occupational status: disabled Feels Safe at Home: Yes Childhood Exposure to Second-Hand Smoke: No Dental Care, Regularly: No Assistive Devices: None Review of Systems Review of Systems: The patient denies chest pain, palpitations, shortness of breath, dyspnea on exertion, cough, lower extremity swelling, sore throat, fevers, chills, sweats, vomiting, diarrhea, blood in urine or stool, dysuria, urinary frequency or urgency, lightheadedness, dizziness, headache, memory loss, loss of consciousness, rash, abnormal bruising or bleeding, imbalance, focal or generalized weakness, numbness or tingling in arms or legs, generalized arthralgias or myalgias, back or neck pain, or night sweats. The review of systems is otherwise negative other than for that already noted above, and at least 10 systems have been reviewed. Physical Exam Physical Exam: The patient is awake, alert and oriented 3, cachectic, normocephalic and atraumatic, lying in bed and in no acute distress. HEENT--PERRL, EOMI, mucous membranes and oropharynx dry. Neck--supple. No JVD. No bruits. Thyroid normal, trachea midline, no adenopathy. Heart--normal S1 and S2. No murmurs, rubs or gallops. Lungs--clear bilaterally, no respiratory distress, no accessory muscle use. Abdomen--normal bowel sounds and soft. Nontender on GRID INSPECTOR pump. Nondistended. Extremities--no cyanosis or clubbing. No edema. Dermatologic--normal skin turgor, normal color, no abnormal lymph nodes, no rash. Neurologic--cranial nerves II through XII grossly intact. Rheumatologic--normal range of motion. Psychiatric--normal affect. Results & Data Results & Data ([facility]) Vital Signs (Past 12 Hours) Vital Signs Temp Pulse Resp BP Pulse Ox 12/29/20 01:00 80 10 L 129/91 100 12/29/20 00:30 73 11 L 100 12/29/20 00:00 90 16 138/85 99 12/28/20 23:30 85 28 H 135/85 98 12/28/20 23:00 87 62 H 156/94 H 12/28/20 22:40 78 18 98 12/28/20 22:38 70 8 L 12/28/20 22:00 90 19 147/90 H 96 12/28/20 21:30 80 17 155/88 H 12/28/20 21:04 67 14 162/95 H 95 12/28/20 21:00 81 19 12/28/20 20:54 67 20 100 12/28/20 20:51 70 23 12/28/20 20:38 72 14 158/98 H 100 12/28/20 20:29 97.2 F L 64 18 162/102 H 100 Laboratory Results Laboratory Results WBC 10.70 K/uL (4.8-10.8) 12/28/20 20:48 RBC 3.47 M/uL (4.7-6.1) L 12/28/20 20:48 Hgb 9.8 g/dL (14.0-18.0) L 12/28/20 20:48 Hct 30.4 % (42-52) L 12/28/20 20:48 MCV 87.6 fL (80-100) 12/28/20 20:48 MCH 28.2 pg (25-34) 12/28/20 20:48 MCHC 32.2 g/dL (32-36) 12/28/20 20:48 RDW Std Deviation 48.0 fL (36.4-46.3) H 12/28/20 20:48 RDW Coeff of Jaylene 14.9 % (11.5-14.5) H 12/28/20 20:48 Plt Count 274 K/uL (130-400) D 12/28/20 20:48 MPV 9.5 fL (7.4-10.4) 12/28/20 20:48 Immature Gran % (Auto) 0.3 % 12/28/20 20:48 Neut % (Auto) 76.6 % 12/28/20 20:48 Lymph % (Auto) 11.3 % 12/28/20 20:48 Catron % (Auto) 11.4 % 12/28/20 20:48 Eos % (Auto) 0.4 % 12/28/20 20:48 Baso % (Auto) 0.0 % 12/28/20 20:48 Neut # (Auto) 8.20 K/uL (1.4-6.5) H 12/28/20 20:48 Lymph # (Auto) 1.21 K/uL (1.2-3.4) 12/28/20 20:48 Catron # (Auto) 1.22 K/uL (0.11-0.59) H 12/28/20 20:48 Eos # (Auto) 0.04 K/uL (0-0.5) 12/28/20 20:48 Baso # (Auto) 0.00 K/uL (0-0.2) 12/28/20 20:48 Immature Gran # (Auto) 0.03 K/uL (0.00-0.02) H 12/28/20 20:48 Platelet Estimate Normal (Normal) 12/28/20 20:48 Tear Drop Cells 1+ 12/28/20 20:48 Sodium 134 mmol/L (136-145) L 12/28/20 20:48 Potassium 3.8 mmol/L (3.5-5.1) 12/28/20 20:48 Chloride 102 mmol/L (98-107) 12/28/20 20:48 Carbon Dioxide 26 mmol/L (21-32) 12/28/20 20:48 Anion Gap 6.0 (3-11) 12/28/20 20:48 BUN 18 mg/dl (7-18) 12/28/20 20:48 Creatinine 0.65 mg/dl (0.6-1.4) 12/28/20 20:48 Est Cr Clr Drug Dosing 106.3 ml/min 12/28/20 20:48 Est GFR ( Amer) 137.1 ml/min 12/28/20 20:48 Est GFR (Non-Af Amer) 118.3 ml/min 12/28/20 20:48 BUN/Creatinine Ratio 28.2 (10-20) H 12/28/20 20:48 Glucose 122 mg/dl (70-99) H 12/28/20 20:48 Calcium 8.3 mg/dl (8.5-10.1) L 12/28/20 20:48 Total Bilirubin 2.4 mg/dl (0.2-1) H 12/28/20 20:48 AST 138 U/L (15-37) H 12/28/20 20:48 ALT 159 U/L (12-78) H 12/28/20 20:48 Alkaline Phosphatase 289 U/L (45-117) H 12/28/20 20:48 Total Protein 6.3 gm/dl (6.4-8.2) L 12/28/20 20:48 Albumin 2.6 gm/dl (3.4-5.0) L 12/28/20 20:48 Globulin 3.7 gm/dl (2.5-4.0) 12/28/20 20:48 Albumin/Globulin Ratio 0.7 (0.9-2) L 12/28/20 20:48 Lipase 155 U/L (73-393) 12/28/20 20:48 Urine Color Dark Yellow 12/28/20 22:08 Urine Appearance Clear (Clear) 12/28/20 22:08 Urine pH 5.5 (4.5-7.5) 12/28/20 22:08 Ur Specific [place] 1.018 (1.000-1.030) 12/28/20 22:08 Urine Protein Trace (Negative) H 12/28/20 22:08 Urine Glucose (UA) Negative (Negative) 12/28/20 22:08 Urine Ketones Negative (Negative) 12/28/20 22:08 Urine Blood Negative (Negative) 12/28/20 22:08 Urine Nitrite Negative (Negative) 12/28/20 22:08 Urine Bilirubin 1+ (Negative) H 12/28/20 22:08 Urine Urobilinogen Negative (Negative) 12/28/20 22:08 Ur Leukocyte Esterase Negative (Negative) 12/28/20 22:08 Urine WBC (Auto) 1-5 /hpf (0-5) 12/28/20 22:08 Urine RBC (Auto) 0-4 /hpf (0-4) 12/28/20 22:08 U Hyaline Cast (Auto) 0 /lpf (0-5) 12/28/20 22:08 U Epithel Cells (Auto) 0-5 /lpf (0-5) 12/28/20 22:08 Urine Bacteria (Auto) Negative (Negative) 12/28/20 22:08 Diagnostic Findings [facility] Patient: MARCUS AG (Male) : 77 Status: ER Date: 12/28/20 23:01 Room #: History: PAIN IN ABD Slices: [phone] Priors: Tech: Billy Jimenez @ [phone] Exams: CT ABDOMEN & PELVIS Without Contrast Contrast: Accession Numbers: [id number] Preliminary Findings Only See Final Report For Complete Findings CT ABDOMEN & PELVIS Without Contrast: Limited without contrast. Ventral ostomy with parastomal hernia versus ventral hernia containing bowel, fat and fluid/edema. Thickening of colonic segments, may be from some form of colitis. Colonic mass lesions involving the transverse-splenic flexure areas. Hepatic lesions/metastasis. Gallbladder distention and debris. Anemia. Mesenteric and retroperitoneal adenopathy. Fluid and edema the peritoneal cavity. Anasarca. Pulmonary lesions, may be from metastasis. Differential includes inflammatory lesions. Patchy pneumonitis in the left lung base. Appendix not identified. Radiologist: Carmelina Bo M.D. Study ready at 23:08 and initial results transmitted at 23:21 *This report constitutes a preliminary interpretation only. Non-acute findings felt to be unrelated to the clinical presentation may not be discussed in this report. The study will be interpreted and a final report will be generated by the local Radiologist the following shift. To reach the hospital radiology department call [phone]. If a discrepancy is found between the preliminary and final interpretations of this study, please notify us via our Client Portal at [email or web address], under QA Exams.You can also fax this report with a description of the discrepancy, or include the final report, to our daytime fax number [phone].If faxing, please indicate the severity of discrepancy using one of the following categories: [ ] 1 - Agree/Informational [ ] 2 - Unlikely to Affect Management [ ] 3 - Possible Eventual Change of Management [ ] 4 - Probable Immediate Change of Management For all other patient related information, please fax us at [phone]. [id number] Code Status & VTE Plan Code Status Full code VTE Prophylaxis Plan VTE Prophylaxis will be ordered: Yes PG Care Time/CCT Total # of Minutes Spent Total Time Spent with Patient: Total time spent is greater than 50% in coordination of care (as documented) at patient's floor/unit and/or counseling patient: Coding Level of Care Code 98640 OBS Care - Level 3 Diagnoses Colon cancer metastasized to multiple sites C18.9 Continuous severe abdominal pain R10.9 Common bile duct dilatation K83.8
[2020-12-29] MEDS ORDERED: PIPERACILL/TAZOBAC CONSULT ACTIVE PRN (04:39)
[2020-12-29] MEDS ORDERED: PIPERACILLIN/TAZOBACTAM 3.375 GM in DEXTROSE 5% 100 ML IV ONE (05:00)
[2020-12-29] MEDS: VANCOMYCIN HCL 125 MG/2.5ML SOLN PO SCH ×4 (06:06→23:53)
[2020-12-29] MEDS: RASPBERRY SYRUP 5 ML UDP PO SCH ×4 (06:06→23:53)
[2020-12-29] MEDS: CHECK fentaNYL PATCH PLACEMENT SCH ×2 (07:44→14:26)
[2020-12-29] MEDS: MAGNESIUM OXIDE 400 MG TAB PO SCH (07:47)
[2020-12-29] MEDS: dexAMETHasone 4 MG TAB PO SCH (07:47)
[2020-12-29] MEDS: PANTOprazole 40 MG TAB PO SCH (07:48)
[2020-12-29] MEDS: HEPARIN SOD 5,000 UNIT/0.5 ML VIAL SQ SCH ×2 (07:53→21:12)
--- NOTE | 2020-12-29 08:10 | CT Scan Report ---
CT OF THE ABDOMEN AND PELVIS WITHOUT CONTRAST CLINICAL HISTORY: Abdominal pain. Metastatic colorectal carcinoma. COMPARISON STUDY: CT of the abdomen and pelvis and MRCP December 25, 2020. TECHNIQUE: Axial images of the abdomen and pelvis were obtained without IV contrast. Images were revi ewed in the axial, sagittal, and coronal planes. Automated exposure control was utilized for the vlad dy. A dose lowering technique was utilized adhering to the principles of ALARA. FINDINGS: Note is made of multiple pulmonary nodules within visualized portions of the lower lungs, i ncluding a 7 mm lingular nodule. Ground glass opacities within the left lower lobe are noted. These w ere shown on prior CT of December 25, 2020. Evaluation of the abdomen and pelvis is compromised given lack of contrast and paucity of intra-abdominal fat with anasarca. No pneumatosis, free air or portal radha ous gas is present. Numerous hepatic metastases are again noted. Extensive abdominal adenopathy is si milar to prior examination. The gallbladder is distended. There is layering hyperdense material withi n the gallbladder. Biliary ductal dilatation is better depicted on MRCP. There is no hydronephrosis. There is no evidence for a bowel obstruction. Note is made of wall thickening of the distal transvers e colon as well as the splenic flexure of the colon, shown on prior CT. Note is made of an apparent t ransverse colostomy. Parastomal hernia is now noted. A small amount of ascites within the abdomen and pelvis is noted. There is no abscess. IMPRESSION: 1. Technically difficult study to interpret given lack of contrast and paucity of intra-abdominal fat with anasarca. 2. Redemonstration of hepatic metastases and pathologic abdominal lymphadenopathy. 3. Apparent transverse colostomy with parastomal hernia. Persistent wall thickening of the distal tra nsverse colon and splenic flexure of the colon, similar to prior CT. This could represent a colitis o r colonic lesion. No bowel obstruction. 4. Persistent gallbladder distention. Acute cholecystitis cannot be excluded. ACT 112: Negative or not required by law. Electronically signed by: Sueliman Landeros M.D. 12/29/2020 8:09 AM
--- NOTE | 2020-12-29 10:01 | Communication Note ---
Date of Service: December 29, 2020 GI tried to contact pt via room phone at 9:58. No answer. Will attempt at later time. 45 year old male with advanced metastatic colon cancer diagnosed 3 years ago with mets to the liver and chronic abd pain s/p partial colectomy and transverse colostomy and on chemotherapy followed by [facility] who was re-admitted less than 1 day since discharge for worsening abdominal pain. Kodi BRIDGES asked to arrange OP EUS/ERCP for biliary evaluation. Due to readmission will attempt to get this done during his hospital stay. Reviewed imaging shows intra and extrahepatic biliary ductal dilatation, CBD dilation up to 11 mm w/ concern for choledocholithiasis or possibly extrinsic compression from a mass lesion. He is afebrile w/o leukocytosis, persistently elevated LFTs. Will tentatively schedule pt for EUS/ERCP tomorrow 12/30. Would defer non-biliary GI care to his established GI team.
[2020-12-29] MEDS: PIPERACILLIN/TAZOBACTAM 3.375 GM in DEXTROSE 5% 100 ML IV SCH ×2 (10:26→17:19)
[2020-12-29] MEDS: ONDANSETRON INJ 2 MG/ML 2 ML VIAL IV PRN (10:37)
--- NOTE | 2020-12-29 13:42 | Palliative Care Consultation ---
Date of Consultation December 29, 2020 Assessment & Plan (1) Abdominal pain: I had a vane discussion with Russel about his pain. He has been followed by pain management in [place] and has been on fentanyl 300mcg patch with hydromorphone 16mg po prn with frequency increased to every three hours as needed. He has had different descriptions of the pain, often with neuropathic components. Given his significant opioid dosing and lack of efficacy with pain, we have considered adjuvant therapies. He has declined methadone as he had significant dental problems after taking it in the past. He does have decadron and topical lidocaine. I did discuss possible oral ketamine for NMDA receptor activity, however, that would be contraindicated with his current hepatobiliary problems. He feels certain that if he has ERCP and stent placement, his pain will improve. We did discuss that best option at this point may be to discontinue fentanyl and use hydromorphone infusion though he would likely need to be on hospice care for monitoring this and he is not interested in hospice care. (2) Palliative care encounter: We discussed CT results and indication that cancer has progressed despite active chemotherapy with Dr. Dorantes. He was scheduled for his next treatment tomorrow as an outpatient. We talked about at some point, the benefit of pain management and additional support will outweigh the benefits of chemotherapy for his cancer and I suggested that we may be at that point. Russel was quiet for a moment and then told me that he will sit down with Dr. Dorantes and talk about what the next chemotherapy will be if this isn't working because hospice is not an option. (3) Common bile duct dilatation: (4) Colon cancer metastasized to multiple sites: History of Present Illness Reason for Consultation: pain management Requesting Physician: Dr. Spencer Attending Physician: Karan To History of Present Illness 45 yo gentleman with advanced colon cancer and severe intractable abdominal pain. He had been discharged home yesterday and was watching TV with his family and eating fruit and chicken soup when pain became the worst he has ever experienced and he returned to the hospital. He describes the pain as a band around his abdomen that radiates to his back. He denies nausea. He has had imaging which shows dilated CBD, progressive hepatic metastases and tumor encasement of the superior mesenteric vein, left renal and splenic veins. He has been started on a hydromorphone HOME STAGER and currently tells me that the pain is controlled at a 6/10. He notes that a 6/10 is a level that he considers t olerable. Allergies Allergy/AdvReac Type Severity Reaction Status Date / Time promethazine Allergy Unknown Unknown-CHILDHOOD Verified 12/28/20 20:59 ALLERGY Home Medications Medication Instructions Recorded Confirmed Type fentanyl 3 patch TRANSDERMAL Q72H 08/26/20 12/28/20 History Narcan 1 spray INTRANASAL DIRECTED PRN 09/21/20 12/28/20 History lidocaine-prilocaine 1 applic TOPICAL DIRECTED PRN 09/21/20 12/28/20 History magnesium oxide 400 mg PO QAM #90 tab 09/25/20 12/28/20 Rx dexamethasone 4 mg tablet 4 mg PO DAILY #30 tab 12/09/20 12/28/20 Rx omeprazole 40 mg capsule,delayed 40 mg PO DAILY #30 cap 12/09/20 12/28/20 Rx release ondansetron 8 mg TRANSLINGUAL Q8H PRN 12/25/20 12/28/20 History buspirone 10 mg PO BID PRN #30 tab 12/28/20 12/28/20 Rx hydromorphone [Dilaudid] 16 mg PO Q3H PRN #30 tab 12/28/20 12/28/20 Rx vancomycin 125 mg PO Q6H 8 Days #32 cap 12/28/20 12/28/20 Rx Patient History Medical History Abdominal pain of multiple sites Anemia Asthma A CHILD Colon cancer CHEMO TX Colon cancer metastasized to multiple sites Colostomy present Degenerative disc disease Depression Diabetes mellitus, type 2 Drug addiction "WAS ADDICTED TO METHADONE" Dyspnea Fatty liver Hyperlipidemia Intractable abdominal pain Intractable abdominal pain Intractable abdominal pain Metastatic colon cancer to liver Surgical History History of colonoscopy History of creation of ostomy History of myringotomy History of shoulder surgery RT History of tonsillectomy and adenoidectomy History of vascular access device INTACT LEFT CHEST WALL S/P colostomy Family History Mother Family history of diabetes mellitus Father Colorectal cancer Cancer Aunt Cancer Grandfather (Maternal) Myocardial infarction Other Hypertension Denies family history of Ovarian cancer Prostate cancer Breast cancer Social History Smoking Status: Never smoker Second Hand Exposure: No; Do You Dip or Chew Tobacco: No; Tobacco Cessation Education Requested by Patient: No Hx Alcohol Use: No Hx Substance Use: No Preferred Language: Vietnamese Communication Ability: Effective Visual Impairment: No Limitations Hearing Ability: Normal Network Systems Consultant Required: No Beliefs That Will Affect Care: None marital status: Life Partner Current Living Situation: Family current occupational status: disabled Other Information That Helps Us Care for You: No Feels Safe at Home: Yes Safety Concerns: Feels Safe At This Time Childhood Exposure to Second-Hand Smoke: No Dental Care, Regularly: No Assistive Devices: None Review of Systems Constitutional: [place] Symptom Assessment Scale Pain 2/3 Dyspnea 0/3 Anxiety 0/3 Fatigue 2/3 Nausea 0/3 Drowsiness 1/3 Palliative Performance Score 50% Physical Exam Constitutional: + cachectic; no acute distress ENMT: Mouth: + dry oral mucous membranes Respiratory: normal respiratory effort; no labored breathing Gastrointestinal (Abdomen): Inspection/Auscultation: abdomen not distended colostomy Musculoskeletal: Extremities: + muscle atrophy Neurologic: awake; not confused Results & Data ([facility]) Vital Signs (Past 12 Hours) Vital Signs Temp Pulse Resp BP Pulse Ox 12/29/20 11:29 97.5 F L 74 14 125/85 100 12/29/20 07:54 98.1 F 71 14 115/78 98 PG Care Time/CCT Total # of Minutes Spent Total Time Spent with Patient: Total time spent is greater than 50% in coordination of care (as documented) at patient's floor/unit and/or counseling patient: total time spent 70 minutes with more than 50% of time spent on goals of care, symptom management Coding Level of Care Code 48625 Inpt Consult Level 4 Diagnoses Abdominal pain R10.9 Palliative care encounter Z51.5 Common bile duct dilatation K83.8 Colon cancer metastasized to multiple sites C18.9
--- NOTE | 2020-12-29 14:28 | Gastrointestinal Consultation ---
Date of Consultation December 29, 2020 Assessment & Plan (1) Colon cancer metastasized to multiple sites: Patient with advanced colorectal cancer now with evidence of biliary obstruction on imaging. The biliary obstruction could be related to portal lymphadenopathy causing a malignant stricture. We could certainly proceed with endoscopic ultrasound and ERCP for further evaluation. I have discussed the risks of the procedures with the patient to include bleeding, infection, perforation, insufficient cellularity, failed biliary cannulation and need for follow-up studies. Recommendations ERCP scheduled for tomorrow N.p.o. at midnight May have a liquid diet today We will consent patient for endoscopic ultrasound in case we are having difficulty with his ERCP History of Present Illness Reason for Consultation: Biliary obstruction Attending Physician: Karan To History of Present Illness The patient is a 45-year-old male who has a past history notable for advanced colorectal cancer. This was initially diagnosed several years ago and he was found to not be a surgical candidate. He did have a diverting ostomy performed and has been on different therapeutic regimens with chemotherapy since that time. Over the past week he has noted worsening abdominal discomfort which is localized to his lower abdomen. Imaging work-up did show that he has had new dilation of the biliary tree in addition to elevation of his liver associated enzymes. The patient is known to have multiple hepatic masses but on MRCP appears to have a stricture in the mid common bile duct suspicious for malignant neoplasm. Allergies Allergy/AdvReac Type Severity Reaction Status Date / Time promethazine Allergy Unknown Unknown-CHILDHOOD Verified 12/28/20 20:59 ALLERGY Home Medications Medication Instructions Recorded Confirmed Type fentanyl 3 patch TRANSDERMAL Q72H 08/26/20 12/28/20 History Narcan 1 spray INTRANASAL DIRECTED PRN 09/21/20 12/28/20 History lidocaine-prilocaine 1 applic TOPICAL DIRECTED PRN 09/21/20 12/28/20 History magnesium oxide 400 mg PO QAM #90 tab 09/25/20 12/28/20 Rx dexamethasone 4 mg tablet 4 mg PO DAILY #30 tab 12/09/20 12/28/20 Rx omeprazole 40 mg capsule,delayed 40 mg PO DAILY #30 cap 12/09/20 12/28/20 Rx release ondansetron 8 mg TRANSLINGUAL Q8H PRN 12/25/20 12/28/20 History buspirone 10 mg PO BID PRN #30 tab 12/28/20 12/28/20 Rx hydromorphone [Dilaudid] 16 mg PO Q3H PRN #30 tab 12/28/20 12/28/20 Rx vancomycin 125 mg PO Q6H 8 Days #32 cap 12/28/20 12/28/20 Rx Patient History Medical History Abdominal pain of multiple sites Anemia Asthma A CHILD Colon cancer CHEMO TX Colon cancer metastasized to multiple sites Colostomy present Degenerative disc disease Depression Diabetes mellitus, type 2 Drug addiction "WAS ADDICTED TO METHADONE" Dyspnea Fatty liver Hyperlipidemia Intractable abdominal pain Intractable abdominal pain Intractable abdominal pain Metastatic colon cancer to liver Surgical History History of colonoscopy History of creation of ostomy History of myringotomy History of shoulder surgery RT History of tonsillectomy and adenoidectomy History of vascular access device INTACT LEFT CHEST WALL S/P colostomy Family History Mother Family history of diabetes mellitus Father Colorectal cancer Cancer Aunt Cancer Grandfather (Maternal) Myocardial infarction Other Hypertension Denies family history of Ovarian cancer Prostate cancer Breast cancer Social History Smoking Status: Never smoker Second Hand Exposure: No; Do You Dip or Chew Tobacco: No; Tobacco Cessation Education Requested by Patient: No Hx Alcohol Use: No Hx Substance Use: No Preferred Language: Macedonian Communication Ability: Effective Visual Impairment: No Limitations Hearing Ability: Normal Car Checker Required: No Beliefs That Will Affect Care: None marital status: Life Partner Current Living Situation: Family current occupational status: disabled Other Information That Helps Us Care for You: No Feels Safe at Home: Yes Safety Concerns: Feels Safe At This Time Childhood Exposure to Second-Hand Smoke: No Dental Care, Regularly: No Assistive Devices: None Review of Systems Constitutional: + malaise, + weakness and + weight loss; no fever and no sweats Eyes: no diplopia Ear, Nose, Mouth, Throat: no ear pain and no ear trauma Respiratory: no change in sputum Cardiovascular: no chest pain with activity and no dyspnea at rest Gastrointestinal: + nausea; no bloating and no hematemesis Genitourinary: no urinary frequency Musculoskeletal: no radicular pain Neurologic: no falls and no paralysis Psychiatric: no hopelessness and no change in appetite Endocrine: + fatigue; no polydipsia and no cold intolerance Hematologic / Lymphatic: no coagulopathy Allergy / Immunological: no lip swelling and no tongue swelling Physical Exam Constitutional: + ill appearing, + thin and + cachectic; + not well nourished and no acute distress Eyes: Mild scleral icterus Respiratory: no respiratory distress, no retractions and no dullness to percussion Cardiovascular: Heart Sounds: + murmur Gastrointestinal (Abdomen): Percussion/Palpation: abdomen soft; abdomen nontender Ostomy noted in mid epigastric region Skin: + jaundice; no crusts Results & Data ([facility]) Vital Signs (Past 12 Hours) Vital Signs Temp Pulse Resp BP Pulse Ox 12/29/20 11:29 36.4 C L 74 14 125/85 100 12/29/20 07:54 36.7 C 71 14 115/78 98 Laboratory Results Laboratory Results - last 24 hr 12/28/20 12/28/20 12/28/20 20:48 20:48 22:08 WBC 10.70 RBC 3.47 L Hgb 9.8 L Hct 30.4 L MCV 87.6 MCH 28.2 MCHC 32.2 RDW Std Deviation 48.0 H RDW Coeff of Jaylene 14.9 H Plt Count 274 D MPV 9.5 Immature Gran % (Auto) 0.3 Neut % (Auto) 76.6 Lymph % (Auto) 11.3 [place] % (Auto) 11.4 Eos % (Auto) 0.4 Baso % (Auto) 0.0 Neut # (Auto) 8.20 H Lymph # (Auto) 1.21 [place] # (Auto) 1.22 H Eos # (Auto) 0.04 Baso # (Auto) 0.00 Immature Gran # (Auto) 0.03 H Platelet Estimate Normal Tear Drop Cells 1+ Sodium 134 L Potassium 3.8 Chloride 102 Carbon Dioxide 26 Anion Gap 6.0 BUN 18 Creatinine 0.65 Est Cr Clr Drug Dosing 106.3 Est GFR ( Amer) 137.1 Est GFR (Non-Af Amer) 118.3 BUN/Creatinine Ratio 28.2 H Glucose 122 H Calcium 8.3 L Total Bilirubin 2.4 H AST 138 H ALT 159 H Alkaline Phosphatase 289 H Total Protein 6.3 L Albumin 2.6 L Globulin 3.7 Albumin/Globulin Ratio 0.7 L Lipase 155 Urine Color Dark Yellow Urine Appearance Clear Urine pH 5.5 Ur Specific [place] 1.018 Urine Protein Trace H Urine Glucose (UA) Negative Urine Ketones Negative Urine Blood Negative Urine Nitrite Negative Urine Bilirubin 1+ H Urine Urobilinogen Negative Ur Leukocyte Esterase Negative Urine WBC (Auto) 1-5 Urine RBC (Auto) 0-4 U Hyaline Cast (Auto) 0 U Epithel Cells (Auto) 0-5 Urine Bacteria (Auto) Negative
[2020-12-29] MEDS: busPIRone 5 MG TAB PO SCH (21:12)
[2020-12-30] MEDS: ONDANSETRON INJ 2 MG/ML 2 ML VIAL IV PRN ×2 (00:56→10:26)
[2020-12-30] MEDS: PIPERACILLIN/TAZOBACTAM 3.375 GM in DEXTROSE 5% 100 ML IV SCH ×3 (01:38→18:10)
[2020-12-30] MEDS: HYDROmorphone PCA 30 MG/30 ML IV PRN ×3 (02:47→19:26)
[2020-12-30] MEDS: RASPBERRY SYRUP 5 ML UDP PO SCH ×3 (06:10→18:39)
[2020-12-30] MEDS: VANCOMYCIN HCL 125 MG/2.5ML SOLN PO SCH ×3 (06:10→18:39)
[2020-12-30 06:31] LABS: Basophils # (auto) 0.01 K/uL (0-0.2); Basophils % (auto) 0.1 %; Eosinophils # (auto) 0.15 K/uL (0-0.5); Hematocrit (blood only) 27.3 % (42-52); Hemoglobin 8.6 g/dL (14.0-18.0); Immature Granulocytes # (auto) 0.02 K/uL (0.00-0.02); Immature Granulocytes % (auto) 0.3 %; Lymphocytes # (auto) 0.89 K/uL (1.2-3.4); Lymphocytes % (auto) 11.9 %; Mean Corpuscular Hemoglobin 27.5 pg (25-34); Mean Corpuscular Hgb Conc 31.5 g/dL (32-36); Mean Corpuscular Volume 87.2 fL (80-100); Mean Platelet Volume 10.5 fL (7.4-10.4); Monocytes % (auto) 13.4 %; Neutrophils # (auto) 5.38 K/uL (1.4-6.5); Neutrophils % (auto) 72.3 %; Platelet Count 171 K/uL (130-400); RDW Coefficient of Variation 15.3 % (11.5-14.5); RDW Standard Deviation 49.1 fL (36.4-46.3); Red Blood Count 3.13 M/uL (4.7-6.1); White Blood Count 7.45 K/uL (4.8-10.8)
[2020-12-30 07:04] LABS: Albumin Level 2.3 gm/dl (3.4-5.0); BUN Creatinine Ratio 19.9 (10-20); Calcium 8.5 mg/dl (8.5-10.1); Creatinine Clr Calc Pharmacy 93.3 ml/min; Est GFR (Non-African American) 112.2 ml/min; Potassium 3.6 mmol/L (3.5-5.1)
[2020-12-30 07:07] LABS: Albumin Globulin Ratio 0.7 (0.9-2); Bilirubin,Total 2.3 mg/dl (0.2-1); Globulin 3.4 gm/dl (2.5-4.0); Total Protein 5.7 gm/dl (6.4-8.2)
[2020-12-30] MEDS: busPIRone 5 MG TAB PO SCH ×2 (08:42→21:37)
[2020-12-30] MEDS: dexAMETHasone 4 MG TAB PO SCH (08:49)
[2020-12-30] MEDS: MAGNESIUM OXIDE 400 MG TAB PO SCH (08:49)
[2020-12-30] MEDS: PANTOprazole 40 MG TAB PO SCH (08:49)
[2020-12-30] MEDS ORDERED: fentaNYL 100 MCG/HR TDSY TD SCH (09:00)
[2020-12-30] MEDS: SODIUM CHLORIDE 0.9% 1000ML 1,000 ML IV SCH (10:27)
[2020-12-30] MEDS ORDERED: PROPOFOL IV EMULSION 10 MG/ML 20 ML VIAL IV ONE (12:56)
[2020-12-30] MEDS ORDERED: DEXAMETHASONE SOD INJ 4 MG/ML VIAL ONE (12:56)
[2020-12-30] MEDS ORDERED: LIDOCAINE 2% 2 ML VIAL/AMP(20MG/ML) INFIL ONE (12:56)
[2020-12-30] MEDS ORDERED: ONDANSETRON INJ 2 MG/ML 2 ML VIAL ONE (12:56)
[2020-12-30] MEDS ORDERED: SUCCINYLCHOLINE CHLORIDE 20 MG/ML 10 ML VIAL IV ONE (12:56)
[2020-12-30] MEDS ORDERED: fentaNYL citrate 100 MCG/2 ML VIAL ONE (12:57)
[2020-12-30] MEDS ORDERED: HYDROmorphone INJ 1 MG/ML SYRINGE IV PRN (13:25)
[2020-12-30] MEDS ORDERED: LABETALOL HCL IV 5 MG/ML 20ML IV PRN (13:25)
[2020-12-30] MEDS ORDERED: ONDANSETRON INJ 2 MG/ML 2 ML VIAL IV PRN (13:25)
[2020-12-30] MEDS ORDERED: ATROPINE SULFATE 0.1 MG/ML 10ML SYR IV PRN (13:25)
[2020-12-30] MEDS ORDERED: MEPERIDINE HCL 25 MG/ML CARP/VIAL IV PRN (13:25)
[2020-12-30] MEDS ORDERED: PHENYLEPHRINE 100MCG/ML 5ML SYR IV PRN (13:25)
[2020-12-30] MEDS ORDERED: ePHEDrine sulfate 50 MG/ML AMP IV PRN (13:25)
--- NOTE | 2020-12-30 13:42 | Anesthesiology Consultation ---
Date of Service December 30, 2020 The patient is to have an ERCP due to biliary obstruction. As per Dr. Zapien the procedure is therapeutic and palliative as the patient is in severe pain from his metastatic colon cancer. The patient and his family apparently had C ovid 19 over three weeks ago. They were all symptomatic with respiratory symptoms and his and children tested positive for Covid 19 at that time. The patient was never tested that time. He is now asymptomatic but tested positive for Covid 19 on 12/25/20. Since this was his first time testing positive for Covid 19 he needs to remain on Covid 19 isolation protocols. He will be intubated and extubated in the negative pressure room located in the PACU and will be transferred to OR 1 with the Ambu bag. Assessment & Plan (1) Encounter for pre-operative examination: Chart Review Chart Review: Acceptable Risk for Surgery (palliative procedure) and Patient NOT seen in Pre Admission Testing Consults Requested none History Surgery Operation Date: 12/30/20 13:40 Proposed Procedures p Endoscopic Retrograde Cholangiopancreato - Wendy Zapien DO s Endoscopic Ultrasonography Upper - Wendy Zapien DO Height/Weight Height: 5 ft 10 in Weight: 51.8 kg Allergies Allergy/AdvReac Type Severity Reaction Status Date / Time promethazine Allergy Unknown Unknown-CHILDHOOD Verified 12/28/20 20:59 ALLERGY Medications Home Medications Medication Instructions Recorded Confirmed Last Taken fentanyl 3 patch TRANSDERMAL Q72H 08/26/20 12/28/20 12/28/20 Narcan 1 spray INTRANASAL DIRECTED PRN 09/21/20 12/28/20 Unknown lidocaine-prilocaine 1 applic TOPICAL DIRECTED PRN 09/21/20 12/28/20 Unknown magnesium oxide 400 mg PO QAM #90 tab 09/25/20 12/28/20 12/24/20 dexamethasone 4 mg tablet 4 mg PO DAILY #30 tab 12/09/20 12/28/20 12/24/20 omeprazole 40 mg capsule,delayed 40 mg PO DAILY #30 cap 12/09/20 12/28/20 12/24/20 release ondansetron 8 mg TRANSLINGUAL Q8H PRN 12/25/20 12/28/20 Unknown buspirone 10 mg PO BID PRN #30 tab 12/28/20 12/28/20 Unknown hydromorphone [Dilaudid] 16 mg PO Q3H PRN #30 tab 12/28/20 12/28/20 Unknown vancomycin 125 mg PO Q6H 8 Days #32 cap 12/28/20 12/28/20 Unknown Active Medications Generic Name Dose Route Start Last Admin Trade Name Freq PRN Reason Stop Dose Admin Buspirone HCl 10 mg 12/29/20 21:00 12/30/20 08:42 Buspirone 5 Mg Tab PO 01/28/21 20:59 10 mg BID ELI Administration Dexamethasone 4 mg 12/29/20 09:00 12/30/20 08:49 Dexamethasone 4 Mg Tab PO 01/28/21 08:59 4 mg DAILY ELI Administration Heparin Sodium (Porcine) 5,000 units 12/29/20 09:00 12/29/20 21:12 Heparin Sod 5,000 Unit/0.5 Ml Vial SQ 01/28/21 08:59 Not Given Q12 ELI Hydromorphone HCl 30 mg 12/28/20 21:49 12/30/20 04:34 Hydromorphone Lacing Operator 30 Mg/30 Ml IV 01/11/21 21:48 30 mg PRN PRN Administration [employer] Pain Titration Protocol Sodium Chloride 1,000 mls @ 0 mls/hr 12/29/20 02:30 12/30/20 10:27 Nss 1000ml IV 01/12/21 02:20 30 mls/hr .Q24H ELI Administration KVO Piperacillin Sod/Tazobactam 115 mls @ 28.75 mls/hr 12/29/20 10:00 12/30/20 10:28 Sod 3.375 gm/ Dextrose IV 01/08/21 09:59 28.8 mls/hr Q8H ELI Administration Protocol Magnesium Oxide 400 mg 12/29/20 09:00 12/30/20 08:49 Magnesium Oxide 400 Mg Tab PO 01/28/21 08:59 400 mg QAM ELI Administration Ondansetron HCl 4 mg 12/29/20 01:52 12/30/20 10:26 Ondansetron Inj 2 Mg/Ml 2 Ml Vial IV 01/28/21 01:51 4 mg Q6H PRN Administration Nausea Pantoprazole Sodium 40 mg 12/29/20 09:00 12/30/20 08:49 Pantoprazole 40 Mg Tab PO 01/28/21 08:59 40 mg DAILY ELI Administration Raspberry 5 ml 12/29/20 06:00 12/30/20 11:28 Raspberry Syrup 5 Ml Udp PO 01/12/21 05:59 5 ml Q6 ELI Administration Vancomycin HCl 125 mg 12/29/20 06:00 12/30/20 11:28 Vancomycin Hcl 125 Mg/2.5ml Soln PO 01/08/21 05:59 125 mg Q6 ELI Administration NPO Date Last Intake of Fluids: 12/29/20 Time Last Intake of Fluids: 23:00 Date Last Intake of Solids: 12/29/20 Time Last Intake of Solids: 23:00 Past Medical History Medical History (Updated 12/30/20 @ 13:43 by Justin Lin MD) Abdominal pain of multiple sites Anemia Asthma A CHILD Colon cancer CHEMO TX Colon cancer metastasized to multiple sites Colostomy present Degenerative disc disease Depression Diabetes mellitus, type 2 Drug addiction "WAS ADDICTED TO METHADONE" Dyspnea Fatty liver Hyperlipidemia Intractable abdominal pain Intractable abdominal pain Intractable abdominal pain Metastatic colon cancer to liver Past Family History Family History Mother Family history of diabetes mellitus Father Colorectal cancer Cancer Aunt Cancer Grandfather (Maternal) Myocardial infarction Other Hypertension Denies family history of Ovarian cancer Prostate cancer Breast cancer Past Surgical History Surgical History History of colonoscopy History of creation of ostomy History of myringotomy History of shoulder surgery RT History of tonsillectomy and adenoidectomy History of vascular access device INTACT LEFT CHEST WALL S/P colostomy Social History Smoking Status: Never smoker tobacco type: cigarettes Do You Dip or Chew Tobacco: No Hx Alcohol Use: No Hx Substance Use: No substance use type: former substance user Substance Use Type Other:: methadone abuse in past Last Used Substance Other:: MEDICAL MARIJUANA Physical Exam Vital Signs Last Vital Signs Temp 37.1 C 12/30/20 13:26 Pulse 87 12/30/20 13:26 Resp 18 12/30/20 13:26 BP 143/94 H 12/30/20 13:26 Pulse Ox 98 12/30/20 13:26 Testing Laboratory Results 12/30/20 05:43 12/30/20 05:43 Urine Color Dark Yellow 12/28/20 22:08 Urine Appearance Clear (Clear) 12/28/20 22:08 Urine pH 5.5 (4.5-7.5) 12/28/20 22:08 Ur Specific [place] 1.018 (1.000-1.030) 12/28/20 22:08 Urine Protein Trace (Negative) H 12/28/20 22:08 Urine Glucose (UA) Negative (Negative) 12/28/20 22:08 Urine Ketones Negative (Negative) 12/28/20 22:08 Urine Nitrite Negative (Negative) 12/28/20 22:08 Ur Leukocyte Esterase Negative (Negative) 12/28/20 22:08 Urine WBC (Auto) 1-5 /hpf (0-5) 12/28/20 22:08 Urine RBC (Auto) 0-4 /hpf (0-4) 12/28/20 22:08 U Hyaline Cast (Auto) 0 /lpf (0-5) 12/28/20 22:08 U Epithel Cells (Auto) 0-5 /lpf (0-5) 12/28/20 22:08 Urine Bacteria (Auto) Negative (Negative) 12/28/20 22:08 Electrocardiogram Date: 09/21/20 Findings: + NSR @ (96) Chest X-Ray Date: 12/25/20 XR chest 1V portable CLINICAL HISTORY: COVID-19 COMPARISON STUDY: September 24, 2020 FINDINGS: No pneumothorax. No pleural effusion. No large infiltrates or consolidative lesions are seen. Cardiomediastinal silhouette is within normal limits in size. No significant pulmonary vascular congestion.. Osseous structures: Multilevel degenerative changes of the spine. Stable position of left-sided chemotherapy port. IMPRESSION: 1. No acute pulmonary process. ACT 112: Negative or not required by law. The above report was generated using voice recognition software. It may contain grammatical, syntax or spelling errors. Electronically signed by: Laura Laurent DO 12/25/2020 4:10 PM Dictated: 12/25/20 160Transcribed: 12/25/20 160 Echocardiogram Date: 09/22/20 EF: 55-60 LV Function: normal pericardial effusion Other Testing CT OF THE ABDOMEN AND PELVIS WITHOUT CONTRAST CLINICAL HISTORY: Abdominal pain. Metastatic colorectal carcinoma. COMPARISON STUDY: CT of the abdomen and pelvis and MRCP December 25, 2020. TECHNIQUE: Axial images of the abdomen and pelvis were obtained without IV contrast. Images were reviewed in the axial, sagittal, and coronal planes. Automated exposure control was utilized for the study. A dose lowering te chnique was utilized adhering to the principles of ALARA. FINDINGS: Note is made of multiple pulmonary nodules within visualized portions of the lower lungs, including a 7 mm lingular nodule. Ground glass opacities within the left lower lobe are noted. These were shown on prior CT of December 25, 2020. Evaluation of the abdomen and pelvis is compromised given lack of contrast and paucity of intra-abdominal fat with anasarca. No pneumatosis, free air or portal venous gas is present. Numerous hepatic metastases are again noted. Extensive abdominal adenopathy is similar to prior examination. The gallbladder is distended. There is layering hyperdense material within the gallbladder. Biliary ductal dilatation is better depicted on MRCP. There is no hydronephrosis. There is no evidence for a bowel obstruction. Note is made of wall thickening of the distal transverse colon as well as the splenic flexure of the colon, shown on prior CT. Note is made of an apparent transverse colostomy. Parastomal hernia is now noted. A small amount of ascites within the abdomen and pelvis is noted. There is no abscess. IMPRESSION: 1. Technically difficult study to interpret given lack of contrast and paucity of intra-abdominal fat with anasarca. 2. Redemonstration of hepatic metastases and pathologic abdominal lymphadenopathy. 3. Apparent transverse colostomy with parastomal hernia. Persistent wall thickening of the distal transverse colon and splenic flexure of the colon, similar to prior CT. This could represent a colitis or colonic lesion. No bowel obstruction. 4. Persistent gallbladder distention. Acute cholecystitis cannot be excluded. ACT 112: Negative or not required by law. Electronically signed by: Suleiman Landeros M.D. 12/29/2020 8:09 AM Dictated: 12/29/20 0757Transcribed: 12/29/20 0757
[2020-12-30] MEDS ORDERED: INDOMETHACIN 50 MG SUPP PR ONE (14:11)
[2020-12-30] MEDS ORDERED: fentaNYL citrate 100 MCG/2 ML VIAL IV STA ×2 (14:16→14:38)
--- NOTE | 2020-12-30 14:18 | History & Physical Bridge Note ---
Date of Service December 30, 2020 History & Physical Bridge Note I have examined the patient, reviewed the History & Physical and in the interval since the performance of the History & Physical I have noted the following changes of clinical significance: no changes noted. The patient does have evidence of biliary obstruction on several imaging studies. Given this palliative biliary stent has been requested by the internal medicine service and the patient's oncology service to determine if he may ultimately be a candidate for continued chemotherapy in the near future. I have discussed the risks and benefits of the procedure with the patient at great length. We have discussed the risks to include bleeding, infection, perforation, pain, pancreatitis, failed biliary cannulation and referral to a tertiary center. We have also discussed the potential need for an enteral stent if he has evidence of duodenal outlet obstruction.
--- NOTE | 2020-12-30 15:29 | Post Operative Brief Note ---
Immediate Post Op Note v1 Date of Surgery December 30, 2020 Pre & Post Diagnosis Operation Date: 12/30/20 13:40 Pre-Op Diagnosis: Common Bile Duct Dilatation; Colon Cancer Post-Op Diagnosis: Common Bile Duct Dilatation; Colon Cancer I identified the patient and participated in the time-out.: Yes Procedure Operation Date: 12/30/20 13:40 Actual Procedures p Endoscopic Retrograde Cholangiopancreatogram(Not Applicable) - Wendy Zapien DO Surgeon Wendy Zapien DO [place] Electronic none Estimated Blood Loss 0 Findings Consistent with Post-Op Diagnosis
--- NOTE | 2020-12-30 15:31 | Communication Note ---
Date of Service: December 30, 2020 The patient underwent ERCP this afternoon. The procedure was notable for stricture in the midportion of the common bile duct consistent with the malignant appearing stricture on MRCP. Due to difficulty of the procedure we did need to place a prophylactic pancreatic stent. A covered biliary stent was placed for palliation. Recommendations Patient may have clear liquids this evening Continue with IV hydration overnight Antibiotic coverage for an additional 5 days please Avoid nonsteroidals for 1 week if possible Repeat CMP tomorrow morning Cytology obtained, patient to follow with his outpatient oncology provider
--- NOTE | 2020-12-30 15:34 | GI REPORT ---
Patient Name: Russel Vickers Procedure Date: 12/30/2020 2:51 PM Date of : 1975 Admit Type: Inpatient Age: 45 Gender: Male Attending MD: Wendy Zapien DO Procedure: ERCP Providers: Wendy Zapien DO Referring MD: Michel Florian Indications: Abnormal MRCP, Jaundice Medicines: General Anesthesia Complications: No immediate complications. Estimated blood loss: Minimal. Estimated Blood Loss: Estimated blood loss was minimal. Procedure: Pre-Anesthesia Assessment: - Prior to the procedure, a History and Physical was performed, and patient medications, allergies and sensitivities were reviewed. The patient's tolerance of previous anesthesia was reviewed. - The risks and benefits of the procedure and the sedation options and risks were discussed with the patient. All questions were answered and informed consent was obtained. - Patient identification and proposed procedure were verified prior to the procedure by the physician, the nurse and the shoe treer. The procedure was verified in the procedure room. - Pre-procedure physical examination revealed no contraindications to sedation. - ASA Grade Assessment: IV - A patient with severe systemic disease that is a constant threat to life. - After reviewing the risks and benefits, the patient was deemed in satisfactory condition to undergo the procedure. - The anesthesia plan was to use general anesthesia. - Immediately prior to administration of medications, the patient was re-assessed for adequacy to receive sedatives. - The heart rate, respiratory rate, oxygen saturations, blood pressure, adequacy of pulmonary ventilation, and response to care were monitored throughout the procedure. - The physical status of the patient was re-assessed after the procedure. After obtaining informed consent, the scope was passed under direct vision. Throughout the procedure, the patient's blood pressure, pulse, and oxygen saturations were monitored continuously. The scope was introduced through the mouth, and advanced to the duodenum and used to inject contrast into the bile duct. The ERCP was accomplished without difficulty. The patient tolerated the procedure well. Findings: The esophagus was successfully intubated under direct vision. The scope was advanced to a normal major papilla in the descending duodenum without detailed examination of the pharynx, larynx and associated structures, and upper GI tract. The upper GI tract was grossly normal. The ventral pancreatic duct was inadvertently cannulated with the short-nosed traction sphincterotome and 0.035 in Acrobat 2 guidewire without any complications. The wire was left in place to aid in biliary cannulation and later place a prophylactic pancreatic stent. The bile duct was deeply cannulated with the short-nosed traction sphincterotome and 0.025 in Angled Acrobat 2 guidewire. Contrast was injected. I personally interpreted the bile duct images. Contrast extended to the hepatic ducts. The middle third of the main bile duct contained a single segmental stenosis 20 mm in length. The upper third of the main bile duct and left and right hepatic ducts and all intrahepatic branches were moderately dilated and diffusely dilated, with an obstruction. The largest diameter was 12 mm. Biliary sphincterotomy was made with a monofilament Fusion OMNI sphincterotome using ERBE electrocautery. There was no post-sphincterotomy bleeding. Cells for cytology were obtained by brushing in the middle third of the main bile duct. One 5 Fr by 7 cm pancreatic stent with a full external pigtail and no internal flaps was placed 7 cm into the ventral pancreatic duct. Clear fluid flowed through the stent. The stent was in good position. One 10 Fr by 8 cm covered metal stent was placed 8 cm into the common bile duct (Nora Viabil, [id number], SN [id number]). Bile flowed through the stent. The stent was in good position. The endoscope was withdrawn from the patient. Indomethacin 100 mg was given via suppository to decrease the risk of post-ERCP pancreatitis (PEP). Impression: - A single segmental biliary stricture was found in the middle third of the main bile duct. The stricture was malignant appearing, cytology obtained and a covered metal stent placed. - One prophylactic pancreatic stent was placed into the ventral pancreatic duct. - Indomethacin given to decrease risk of post-ERCP pancreatitis. Recommendation: - Avoid aspirin and nonsteroidal anti-inflammatory medicines for 1 week. - Return patient to [facility] for ongoing care. - Clear liquid diet today. - Use broad spectrum antibiotics for 5 days. - Await cytology results. -KUB in 4 weeks to ensure passage of the pancreatic stent Wendy Zapien D.O. Wendy Zapien, 12/30/2020 3:34:09 PM This report has been signed electronically. Note Initiated On: 12/30/2020 2:51 PM Number of Addenda: 0 I attest to the content of the Intraoperative Record and orders documented therein, exceptions below {[id number]}
--- NOTE | 2020-12-30 15:48 | Fluoroscopy Report ---
[place] ERCP biliary ductal CLINICAL HISTORY: Elevated LFTs. Intra and extrahepatic biliary ductal dilatation.Abnormal MRCP COMPARISON STUDY: MRCP dated 12/17/2020 FLUOROSCOPY TIME: 44 seconds. NUMBER OF FLUOROSCOPIC IMAGES: 11 FINDINGS: 11 intraoperative fluoroscopic spot images are provided for interpretation. Initial images demonstrate catheterization of the common bile duct and pancreatic duct and retrograde fashion. Contrast was instilled into the common bile duct. There is filling of the cystic duct and gallbladder . There is irregular narrowing of the common bile duct. The final image demonstrates placement of a c ommon bile duct and pancreatic stent. IMPRESSION: 1. Irregular narrowing of the common bile duct. 2. Biliary and pancreatic stents were placed. ACT 112: Negative or not required by law. Electronically signed by: Dilip Soto M.D. 12/30/2020 3:47 PM
[2020-12-30] MEDS: fentaNYL citrate 100 MCG/2 ML VIAL IV PRN ×4 (15:53→16:10)
[2020-12-30] MEDS ORDERED: HYDROmorphone INJ 0.5 MG/0.5 ML SYR ONE (16:37)
--- NOTE | 2020-12-30 17:19 | Anesthesiology Progress Note ---
Date of Service December 30, 2020 Anesthesia Post Procedure Vital Signs Vital Signs: Temp Pulse Pulse Resp BP Pulse Ox 12/30/20 17:00 64 12 155/89 H 100 12/30/20 16:50 66 14 149/92 H 100 12/30/20 16:40 64 12 145/87 H 100 12/30/20 16:30 68 12 155/90 H 100 12/30/20 16:20 36.5 C 72 16 152/96 H 100 12/30/20 16:10 76 14 152/99 H 100 12/30/20 16:00 80 12 167/94 H 100 12/30/20 15:50 78 20 151/90 H 100 12/30/20 15:40 79 16 160/100 H 100 12/30/20 15:37 36.3 C L 93 H 15 128/97 100 12/30/20 13:26 37.1 C 87 18 143/94 H 98 12/30/20 11:30 37.0 C 81 16 132/83 98 12/30/20 08:52 37.1 C 73 16 134/82 98 12/30/20 06:28 36.8 C 62 22 145/80 H 100 12/29/20 22:06 36.7 C 79 18 103/66 98 12/29/20 17:22 36.8 C 84 14 95/59 L 99 Pain Intensity Abdomen: Pain Intensity: 6 Transfer of Care Handoff Completed per policy Notes Mental Status: alert / awake / arousable and participated in evaluation Patient Amnestic to Procedure: Yes Nausea / Vomiting: adequately controlled Pain: adequately controlled Airway Patency, RR, SpO2: stable & adequate BP & HR: stable & adequate Hydration State: stable & adequate Anesthetic Complications: no major complications apparent
[2020-12-30] MEDS: HEPARIN SOD 5,000 UNIT/0.5 ML VIAL SQ SCH ×2 (18:04→21:37)
--- NOTE | 2020-12-30 21:14 | Hospitalist Progress Note ---
Date of Service December 30, 2020 Assessment & Plan (1) Common bile duct (CBD) stricture: s/p bare metal stent today by Dr Zapien. cause of stricture - compression from cancer. no evidence of CBD stones or cholangitis. can likely d/c IV zosyn. recheck lfts with lipase in am. allow clears tonight per GI. (2) Severe protein-calorie malnutrition: 2nd to advanced, stage 4 colon ca (3) Neoplasm related pain: considerable disease burden as seen on recent CT. multiple metastatic lesions compressing arteries and veins in the abdomen, liver mets, etc. cannot exclude that the "colitis" seen on CT is recurrent cancer in the colon. appreciate palliative care consultation. continue dilaudid infusion -- increase basal rate to 3mg/hour. change demand dosing interval to [id number]. fentanyl patches have been d/c. oral dilaudid d/c. (4) Colon cancer metastasized to multiple sites: stage 4 colon ca, follows with Dr Michel Dorantes locally. patient has expressed a desire to continue chemo but likely to not have much benefit as his cancer continues to progress in the face of palliative chemo focus on pain control (5) Colitis: infectious (c diff)? ischemic? combination? at minimum will continue cdiff treatment - first day of treatment was 12/27/20 thus, today is day #4 of Rx; plan at least 10 days of Rx if ischemic this will likely happen again. multiple mesenteric arteries are encased by tumor. cont pain control with IV dilaudid. (6) C. difficile colitis: as above (7) COVID-19: patient's family had COVID in early November. he was symptomatic with presumed COVID at that time as well. several family members got tested and were + but he never had a test until being admitted. we truly do not know day #1 of his illness. thus, continue airborne isolation. (8) GERD (gastroesophageal reflux disease): PPI (9) DVT prophylaxis: heparin 5000 BID Admission and Anticipated Discharge Date Admission Date: December 29, 2020 Subjective saw patient late in the day following his ERCP he was in considerable pain with elevated BP with tachycardia he asked for adjustments in his pain regimen most of the pain is low abdomen no vomiting since coming back from ERCP no dyspea or chest pain Review of Systems Respiratory: no cough and no dyspnea Cardiovascular: no chest pain Gastrointestinal: + abdominal pain; no nausea and no vomiting Physical Exam Constitutional: + acute distress (2nd abd pain ), + ill appearing, + cachectic and + frail appearing; no altered mental status ENMT: external ear and nose normal, oropharynx normal Respiratory: normal respiratory effort, lungs clear to auscultation Cardiovascular: Rate/Rhythm: regular rhythm and + tachycardic Heart Sounds: normal S1 and normal S2; no murmur Vessels: posterior tibial pulses present and dorsalis pedis pulses present; no JVD Extremities: no edema Gastrointestinal (Abdomen): Inspection/Auscultation: normal bowel sounds; abdomen not distended Percussion/Palpation: + abdomen tender (LLQ) and abdomen soft; no guarding and no hepatosplenomegaly ostomy bag in place with liquid stool Psychiatric: Orientation: alert and oriented x 3 Results & Data Results & Data [facility]) Vital Signs (Past 12 Hours) Vital Signs Temp Pulse Pulse Resp BP BP Pulse Ox 12/30/20 20:28 37.1 C 91 H 16 136/84 97 12/30/20 19:34 95 H 16 148/83 H 96 12/30/20 18:00 37 C 96 H 16 155/85 H 98 12/30/20 17:22 36.4 C L 79 16 157/81 H 100 12/30/20 17:00 64 12 155/89 H 100 12/30/20 16:50 66 14 149/92 H 100 12/30/20 16:40 64 12 145/87 H 100 12/30/20 16:30 68 12 155/90 H 100 12/30/20 16:20 36.5 C 72 16 152/96 H 100 12/30/20 16:10 76 14 152/99 H 100 12/30/20 16:00 80 12 167/94 H 100 12/30/20 15:50 78 20 151/90 H 100 12/30/20 15:40 79 16 160/100 H 100 12/30/20 15:37 36.3 C L 93 H 15 128/97 100 12/30/20 13:26 37.1 C 87 18 143/94 H 98 12/30/20 11:30 37.0 C 81 16 132/83 98 Laboratory Results Laboratory Results - last 24 hr 12/30/20 12/30/20 12/30/20 05:43 05:43 15:55 WBC 7.45 RBC 3.13 L Hgb 8.6 L Hct 27.3 L MCV 87.2 MCH 27.5 MCHC 31.5 L RDW Std Deviation 49.1 H RDW Coeff of Jaylene 15.3 H Plt Count 171 MPV 10.5 H Immature Gran % (Auto) 0.3 Neut % (Auto) 72.3 Lymph % (Auto) 11.9 [place] % (Auto) 13.4 Eos % (Auto) 2.0 Baso % (Auto) 0.1 Neut # (Auto) 5.38 Lymph # (Auto) 0.89 L [place] # (Auto) 1.00 H Eos # (Auto) 0.15 Baso # (Auto) 0.01 Immature Gran # (Auto) 0.02 Sodium 137 Potassium 3.6 Chloride 104 Carbon Dioxide 29 Anion Gap 4.0 BUN 15 Creatinine 0.74 Est Cr Clr Drug Dosing 93.3 Est GFR ( Amer) 130.0 Est GFR (Non-Af Amer) 112.2 BUN/Creatinine Ratio 19.9 Glucose 80 POC Glucose 103 H Calcium 8.5 Total Bilirubin 2.3 H AST 111 H ALT 129 H Alkaline Phosphatase 242 H Total Protein 5.7 L Albumin 2.3 L Globulin 3.4 Albumin/Globulin Ratio 0.7 L PG Care Time/CCT Total # of Minutes Spent Total Time Spent with Patient: Total time spent is greater than 50% in coordination of care (as documented) at patient's floor/unit and/or counseling patient: Coding Level of Care Code 28033 Subseq Hosp Care Lvl 2 Diagnoses Common bile duct (CBD) stricture K83.1 Severe protein-calorie malnutrition E43 Neoplasm related pain G89.3 Colon cancer metastasized to multiple sites C18.9 Colitis K52.9 C. difficile colitis A04.72 COVID-19 U07.1 GERD (gastroesophageal reflux disease) K21.9 DVT prophylaxis Z29.9
[2020-12-31] MEDS: VANCOMYCIN HCL 125 MG/2.5ML SOLN PO SCH ×5 (00:08→22:52)
[2020-12-31] MEDS: RASPBERRY SYRUP 5 ML UDP PO SCH ×5 (00:08→22:51)
[2020-12-31] MEDS: HYDROmorphone PCA 30 MG/30 ML IV PRN ×4 (01:29→22:51)
[2020-12-31] MEDS: PIPERACILLIN/TAZOBACTAM 3.375 GM in DEXTROSE 5% 100 ML IV SCH ×3 (01:31→18:04)
[2020-12-31 06:09] LABS: Basophils # (auto) 0.01 K/uL (0-0.2); Basophils % (auto) 0.1 %; Eosinophils % (auto) 0.9 %; Hematocrit (blood only) 29.3 % (42-52); Hemoglobin 9.3 g/dL (14.0-18.0); Immature Granulocytes # (auto) 0.05 K/uL (0.00-0.02); Immature Granulocytes % (auto) 0.4 %; Lymphocytes # (auto) 1.58 K/uL (1.2-3.4); Lymphocytes % (auto) 13.5 %; Mean Corpuscular Hgb Conc 31.7 g/dL (32-36); Mean Corpuscular Volume 88.3 fL (80-100); Mean Platelet Volume 10.1 fL (7.4-10.4); Monocytes # (auto) 1.22 K/uL (0.11-0.59); Monocytes % (auto) 10.4 %; Neutrophils # (auto) 8.77 K/uL (1.4-6.5); Neutrophils % (auto) 74.7 %; Platelet Count 286 K/uL (130-400); RDW Coefficient of Variation 15.3 % (11.5-14.5); RDW Standard Deviation 49.6 fL (36.4-46.3); Red Blood Count 3.32 M/uL (4.7-6.1); White Blood Count 11.73 K/uL (4.8-10.8)
[2020-12-31 06:37] LABS: Albumin Level 2.3 gm/dl (3.4-5.0); BUN Creatinine Ratio 20.2 (10-20); Calcium 8.1 mg/dl (8.5-10.1); Creatinine Clr Calc Pharmacy 77.6 ml/min; Est GFR (African American) 120.5 ml/min; Potassium 3.5 mmol/L (3.5-5.1)
[2020-12-31 06:43] LABS: Albumin Globulin Ratio 0.7 (0.9-2); Bilirubin,Total 1.6 mg/dl (0.2-1); Globulin 3.3 gm/dl (2.5-4.0); Total Protein 5.6 gm/dl (6.4-8.2)
[2020-12-31] MEDS ORDERED: AZELASTINE SCH (09:00)
[2020-12-31] MEDS: busPIRone 5 MG TAB PO SCH ×2 (10:42→21:35)
[2020-12-31] MEDS: dexAMETHasone 4 MG TAB PO SCH (10:43)
[2020-12-31] MEDS: HEPARIN SOD 5,000 UNIT/0.5 ML VIAL SQ SCH ×2 (10:43→21:35)
[2020-12-31] MEDS: MAGNESIUM OXIDE 400 MG TAB PO SCH (10:44)
[2020-12-31] MEDS: PANTOprazole 40 MG TAB PO SCH (10:44)
[2020-12-31] MEDS ORDERED: AZELASTINE HCL 0.1% NASAL 200 SPRAYS/27,400 MCG BTL SCH (11:00)
[2020-12-31] MEDS: AZELASTINE HCL 0.1% NASAL 200 SPRAYS/27,400 MCG BTL SCH ×2 (13:06→21:34)
--- NOTE | 2020-12-31 13:54 | Gastroenterology Progress Note ---
Date of Service December 31, 2020 Assessment & Plan (1) Biliary stricture: The patient is status post ERCP for treatment of an obstructing biliary stricture. 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 Of note he does seem to be significantly improved today after biliary drainage was performed. Recommendations Advance diet as tolerated Avoid anticoagulation for 1 week Avoid nonsteroidals for 1 week Continue ciprofloxacin for an additional 5 days Repeat liver enzymes in 1 to 2 weeks as outpatient Patient to follow with his hematology/oncology provider for further re commendations GI to sign off, please call with any questions or concerns Admission and Anticipated Discharge Date Admission Date: December 29, 2020 Subjective The patient underwent ERCP yesterday afternoon with placement of a covered biliary stent. He notes that today he actually feels much improved and seems to be in a better state as compared to yesterday afternoon. Review of Systems Constitutional: no sweats Respiratory: no change in sputum and no hemoptysis Cardiovascular: no chest pain with activity and no dyspnea at rest Gastrointestinal: no abdominal pain and no nausea Physical Exam Constitutional: + thin; + not well nourished and no acute distress Respiratory: no respiratory distress, no retractions and no cough Gastrointestinal (Abdomen): Inspection/Auscultation: abdomen not distended Percussion/Palpation: abdomen nontender Ostomy site noted Results & Data ([facility]) Vital Signs (Past 12 Hours) Vital Signs Temp Pulse Resp BP BP Pulse Ox 12/31/20 11:10 36.8 C 85 20 92/58 L 100 12/31/20 07:36 36.8 C 82 18 110/64 97 12/31/20 03:46 36.7 C 90 16 114/76 99 Laboratory Results Laboratory Results - last 24 hr 12/30/20 12/31/20 12/31/20 15:55 05:45 05:45 WBC 11.73 H RBC 3.32 L Hgb 9.3 L Hct 29.3 L MCV 88.3 MCH 28.0 MCHC 31.7 L RDW Std Deviation 49.6 H RDW Coeff of Jaylene 15.3 H Plt Count 286 D MPV 10.1 Immature Gran % (Auto) 0.4 Neut % (Auto) 74.7 Lymph % (Auto) 13.5 [place] % (Auto) 10.4 Eos % (Auto) 0.9 Baso % (Auto) 0.1 Neut # (Auto) 8.77 H Lymph # (Auto) 1.58 [place] # (Auto) 1.22 H Eos # (Auto) 0.10 Baso # (Auto) 0.01 Immature Gran # (Auto) 0.05 H Sodium 133 L Potassium 3.5 Chloride 99 Carbon Dioxide 27 Anion Gap 7.0 BUN 18 Creatinine 0.89 Est Cr Clr Drug Dosing 77.6 Est GFR ( Amer) 120.5 Est GFR (Non-Af Amer) 104.0 BUN/Creatinine Ratio 20.2 H Glucose 175 H POC Glucose 103 H Calcium 8.1 L Total Bilirubin 1.6 H AST 58 H ALT 90 H Alkaline Phosphatase 205 H Total Protein 5.6 L Albumin 2.3 L Globulin 3.3 Albumin/Globulin Ratio 0.7 L Lipase 418 H
--- NOTE | 2020-12-31 14:27 | Palliative Care Progress Note ---
Date of Service December 31, 2020 Assessment & Plan (1) Palliative care encounter: Ivan has stated that he still wants to continue with aggressive treatment with Dr. Dorantes. We did discuss how eventually its important to reassess goals and when we can't cure something, focusing on what brings someone quality of life and focus on that and symptom management. Ivan talked about his 4 children, all boys, ages 6,9,13,18. He expressed how important it is for him to be with them. His 6 and 9 year olds live with him. He stated that every year they all go to the [employer] car show together and it is this weekend. I would worry about discontinuing the HAND PRESSER and not having enough time to evaluate effec tiveness of restarting the Fentanyl patches. He has been clear that he is not ready for Hospice and would like to continue treatment and appointments. I was able to talk with [facility] Palliative Care who was willing to accept him as a patient with the HAND PRESSER and work on transitioning him back to oral and TD pain management over the weekend and into next week in order for him to go to this car show which is important to him and may help him as he transitions into the end of his life. Dr. Verma and case management aware and supportive of the plan. Goal is to arrange today and discharge tomorrow. (2) Common bile duct dilatation: Patient had an ERCP performed yesterday s/p stent placement. Pain has improved. Tolerating clear liquid diet, advancing as tolerated. (3) Colon cancer metastasized to multiple sites: Admission and Anticipated Discharge Date Admission Date: December 29, 2020 Subjective The patient underwent ERCP yesterday afternoon with placement of a covered biliary stent. He notes that today he actually feels much improved and seems to be in a better state as compared to yesterday afternoon, still on Dilaudid HAND PRESSER. Goal to wean back to PO/TD pain coverage Review of Systems Constitutional: [place] Symptom Assessment Scale Pain 2/3 Dyspnea 0/3 Anxiety 0/3 Fatigue 2/3 Nausea 0/3 Drowsiness 1/3 Palliative Performance Score 50% Physical Exam Constitutional: + cachectic; no acute distress ENMT: Mouth: + dry oral mucous membranes Respiratory: normal respiratory effort; no labored breathing Gastrointestinal (Abdomen): Inspection/Auscultation: abdomen not distended Musculoskeletal: Extremities: + muscle atrophy Neurologic: awake; not confused Results & Data ([facility]) Vital Signs (Past 12 Hours) Vital Signs Temp Pulse Resp BP BP Pulse Ox 12/31/20 11:10 36.8 C 85 20 92/58 L 100 12/31/20 07:36 36.8 C 82 18 110/64 97 12/31/20 03:46 36.7 C 90 16 114/76 99 PG Care Time/CCT Total # of Minutes Spent Total Time Spent with Patient: Total time spent is greater than 50% in coordinat ion of care (as documented) at patient's floor/unit and/or counseling patient: 45 minutes with > 50% of that time spent assessing the patient, discussing goals of care, evaluating symptom management and collaborating with IDT Coding Level of Care Code 80225 Prolonged Care (int'l) Diagnoses Palliative care encounter Z51.5 Common bile duct dilatation K83.8 Colon cancer metastasized to multiple sites C18.9 Time Spent (min) 45
[2020-12-31] MEDS: HEPARIN 100 UNIT/ML 5ML FLUSH FLUSH PRN (14:55)
[2020-12-31] MEDS ORDERED: FAMOTIDINE 20 MG in SYRINGE 3 ML IV STA (21:19)
--- NOTE | 2020-12-31 22:52 | Hospitalist Progress Note ---
Date of Service December 31, 2020 Assessment & Plan (1) Common bile duct (CBD) stricture: 12/30/20 - s/p CBD bare metal stent by Dr Zapien. cause of stricture - compression from cancer. no evidence of CBD stones or cholangitis. prophylactic pancreatic duct stent also deployed yesterday. LFTs trending down. lipase level scantly elevated - likely of no significance. advance diet today. (2) Severe protein-calorie malnutrition: 2nd to advanced, stage 4 colon ca (3) Neoplasm related pain: considerable disease burden as seen on recent CT. multiple metastatic lesions compressing arteries and veins in the abdomen, liver mets, biliary stricture 2nd to cancer,etc. cannot exclude that the "colitis" seen on CT is recurrent cancer in the colon. cannot exclude that the colitis is due to episodes of ischemia. appreciate palliative care consultation. continue dilaudid infusion at 3mg/hour. continue demand doses of 0.5mg. continue lock-out time of q20min. Appreciate Ms Abigail Mena from palliative care team who coordinated with a [employer] company the obtainment of a SAFETY INTERN dilaudid pump for him. He will be able to return home with the SAFETY INTERN dilaudid which has worked very nicely for him during this stay and previous stay. fentanyl patches have been d/c. oral dilaudid d/c. (4) Colon cancer metastasized to multiple sites: stage 4 colon ca, follows with Dr Michel Dorantes locally. patient has expressed a desire to continue chemo but likely to not have much benefit as his cancer continues to progress in the face of palliative chemo focus on pain control see above (5) Colitis: infectious (c diff)? ischemic? combination? at minimum will continue cdiff treatment - first day of treatment was 12/27/20 thus, today is day #5 of Rx; plan at least 10 days of Rx if ischemic this will likely happen again. multiple mesenteric arteries are encased by tumor. cont pain control with IV dilaudid. (6) C. difficile colitis: as above (7) COVID-19: patient's family had COVID in early November. he was symptomatic with presumed COVID at that time as well. several family members got tested and were + but he never had a test until being admitted. we truly do not know day #1 of his illness. thus, continue airborne isolation. (8) GERD (gastroesophageal reflux disease): PPI (9) Hyponatremia: 133 minimal (10) DVT prophylaxis: heparin 5000 BID anticipate d/c home tomorrow with SAFETY INTERN dilaudid significant other extensively updated by phone this evening she voiced that she understands the gravity of his situation and that his cancer is VERY advanced with essentially no hope for cancer improvement she alluded to wanting him home with hospice Admission and Anticipated Discharge Date Admission Date: December 29, 2020 Subjective patient asking if diet can be advanced he has had a really good day today pain controlled; minimal SAFETY INTERN use throughout the day hopeful to go home tomorrow he knows he will be able to return home with the SAFETY INTERN denies any new complaints Review of Systems Constitutional: no fever Respiratory: no cough and no pain on inspiration Cardiovascular: no chest pain Gastrointestinal: + abdominal pain; no nausea and no vomiting Physical Exam Constitutional: + ill appearing, + cachectic and + frail appearing; no acute distress and no altered mental status overall looks good today! ENMT: external ear and nose normal, oropharynx normal Respiratory: normal respiratory effort, lungs clear to auscultation Cardiovascular: Rate/Rhythm: regular rate and regular rhythm Heart Sounds: normal S1 and normal S2; no murmur Vessels: posterior tibial pulses present and dorsalis pedis pulses present; no JVD Extremities: no edema Gastrointestinal (Abdomen): Inspection/Auscultation: normal bowel sounds; abdomen not distended Percussion/Palpation: abdomen soft; abdomen nontender, no guarding and no hepatosplenomegaly ostomy in place right side of abdomen with semi-liquid stool in bag Psychiatric: Orientation: alert and oriented x 3 Results & Data Results & Data ([facility]) Vital Signs (Past 12 Hours) Vital Signs Temp Pulse Resp BP BP Pulse Ox 12/31/20 19:46 37.0 C 79 20 102/59 L 99 12/31/20 14:59 36.9 C 87 18 102/65 100 12/31/20 11:10 36.8 C 85 20 92/58 L 100 Laboratory Results Laboratory Results - last 24 hr 12/31/20 12/31/20 05:45 05:45 WBC 11.73 H RBC 3.32 L Hgb 9.3 L Hct 29.3 L MCV 88.3 MCH 28.0 MCHC 31.7 L RDW Std Deviation 49.6 H RDW Coeff of Jaylene 15.3 H Plt Count 286 D MPV 10.1 Immature Gran % (Auto) 0.4 Neut % (Auto) 74.7 Lymph % (Auto) 13.5 [place] % (Auto) 10.4 Eos % (Auto) 0.9 Baso % (Auto) 0.1 Neut # (Auto) 8.77 H Lymph # (Auto) 1.58 [place] # (Auto) 1.22 H Eos # (Auto) 0.10 Baso # (Auto) 0.01 Immature Gran # (Auto) 0.05 H Sodium 133 L Potassium 3.5 Chloride 99 Carbon Dioxide 27 Anion Gap 7.0 BUN 18 Creatinine 0.89 Est Cr Clr Drug Dosing 77.6 Est GFR ( Amer) 120.5 Est GFR (Non-Af Amer) 104.0 BUN/Creatinine Ratio 20.2 H Glucose 175 H Calcium 8.1 L Total Bilirubin 1.6 H AST 58 H ALT 90 H Alkaline Phosphatase 205 H Total Protein 5.6 L Albumin 2.3 L Globulin 3.3 Albumin/Globulin Ratio 0.7 L Lipase 418 H PG Care Time/CCT Total # of Minutes Spent Total Time Spent with Patient: Total time spent is greater than 50% in coordination of care (as documented) at patient's floor/unit and/or counseling patient: Coding Level of Care Code 19109 Subseq Hosp Care Lvl 2 Diagnoses Common bile duct (CBD) stricture K83.1 Severe protein-calorie malnutrition E43 Neoplasm related pain G89.3 Colon cancer metastasized to multiple sites C18.9 Colitis K52.9 C. difficile colitis A04.72 COVID-19 U07.1 GERD (gastroesophageal reflux disease) K21.9 Hyponatremia E87.1 DVT prophylaxis Z29.9
[2020-12-31] MEDS: SODIUM CHLORIDE 0.9% 1000ML 1,000 ML IV SCH (22:59)
[2021-01-01] MEDS: PANTOprazole 40 MG TAB PO SCH (05:06)
[2021-01-01] MEDS: RASPBERRY SYRUP 5 ML UDP PO SCH ×3 (05:09→17:39)
[2021-01-01] MEDS: VANCOMYCIN HCL 125 MG/2.5ML SOLN PO SCH ×3 (05:09→17:39)
[2021-01-01 06:09] LABS: Hematocrit (blood only) 26.7 % (42-52); Hemoglobin 8.4 g/dL (14.0-18.0); Mean Corpuscular Hgb Conc 31.5 g/dL (32-36); Mean Platelet Volume 10.2 fL (7.4-10.4); Platelet Count 189 K/uL (130-400); RDW Coefficient of Variation 15.5 % (11.5-14.5); RDW Standard Deviation 50.3 fL (36.4-46.3); White Blood Count 8.63 K/uL (4.8-10.8)
[2021-01-01 06:53] LABS: Albumin Globulin Ratio 0.6 (0.9-2); Albumin Level 2.2 gm/dl (3.4-5.0); BUN Creatinine Ratio 26.9 (10-20); Bilirubin,Total 1.2 mg/dl (0.2-1); Calcium 7.6 mg/dl (8.5-10.1); Creatinine Clr Calc Pharmacy 117.1 ml/min; Est GFR (African American) 142.7 ml/min; Est GFR (Non-African American) 123.1 ml/min; Globulin 3.5 gm/dl (2.5-4.0); Potassium 3.5 mmol/L (3.5-5.1); Total Protein 5.7 gm/dl (6.4-8.2)
[2021-01-01] MEDS: HYDROmorphone PCA 30 MG/30 ML IV PRN ×2 (07:33→15:27)
[2021-01-01] MEDS: dexAMETHasone 4 MG TAB PO SCH (07:45)
[2021-01-01] MEDS: busPIRone 5 MG TAB PO SCH (07:45)
[2021-01-01] MEDS: MAGNESIUM OXIDE 400 MG TAB PO SCH (07:46)
[2021-01-01] MEDS: AZELASTINE HCL 0.1% NASAL 200 SPRAYS/27,400 MCG BTL SCH (07:46)
[2021-01-01] MEDS: HEPARIN SOD 5,000 UNIT/0.5 ML VIAL SQ SCH (07:46)
--- NOTE | 2021-01-01 16:02 | Discharge Summary ---
Date of Service date of admission - December 29, 2020 date of discharge - January 01, 2021 Admission HPI Per Admitting Provider The patient is a 45-year-old male with a past medical history including state 4 colon cancer, dizziness, myofascial pain, hypercalcemia, colitis, large bowel obstruction, diabetes mellitus type 2, lumbar radiculopathy, lumbar degenerative disc disease, hepatic steatosis, extrinsic asthma and anemia. He was most recently admitted to [facility] from 12/25-12/28 for severe abdominal pain and COVID-19 illness. He reports that his pain was well controlled when he left the hospital this afternoon, however, it became severe relatively quickly after he got home, and has presented to the ED for pain management and reports he was to be scheduled for a tube to be put in his common bile duct. He is also concerned that he has not had any ostomy output since he went home. Principal Diagnosis 1. severe abdominal pain - multifactorial - d/c home with hospice on MOULDER OPERATOR dilaudid infusion 2. CBD obstruction/stricture 2nd to metastatic colon cancer s/p CBD stent 3. recent COVID-19 illness - resolved 4. severe protein calorie malnutrition 5. metastatic colon cancer Discharge Exam Constitutional + ill appearing, + cachectic and + frail appearing; no acute distress and no altered mental status ENMT external ear and nose normal, oropharynx normal Respiratory normal respiratory effort, lungs clear to auscultation Auscultation: + diminished lung sounds (Bases) Cardiovascular Rate/Rhythm: regular rate and regular rhythm Heart Sounds: normal S1 and normal S2; no murmur Vessels: posterior tibial pulses present and dorsalis pedis pulses present; no JVD Extremities: no edema Gastrointestinal (Abdomen) Inspection/Auscultation: normal bowel sounds; abdomen not distended Percussion/Palpation: + abdomen tender (LLQ) and abdomen soft; no guarding and no hepatosplenomegaly colostomy in place with liquid stool in bag Skin port left upper chest clean Psychiatric Orientation: alert and oriented x 3 Discharge Data Allergies Allergy/AdvReac Type Severity Reaction Status Date / Time promethazine Allergy Unknown Unknown-CHILDHOOD Verified 12/28/20 20:59 ALLERGY Consultations Palliative Care [facility] Gastroenterology Procedures Performed Operation Date: 12/30/20 13:40 Actual Procedures p Endoscopic Retrograde Cholangiopancreatogram(Not Applicable) - Wendy Zapien DO - A single segmental biliary stricture was found in the middle third of the main bile duct. The stricture was malignant appearing, cytology obtained and a covered metal stent placed. - One prophylactic pancreatic stent was placed into the ventral pancreatic duct. - Indomethacin given to decrease risk of post-ERCP pancreatitis. Ordered Studies Abdomen/Pelvis CT 12/28/20 20:51 CT OF THE ABDOMEN AND PELVIS WITHOUT CONTRAST CLINICAL HISTORY: Abdominal pain. Metastatic colorectal carcinoma. COMPARISON STUDY: CT of the abdomen and pelvis and MRCP December 25, 2020. TECHNIQUE: Axial images of the abdomen and pelvis were obtained without IV contrast. Images were reviewed in the axial, sagittal, and coronal planes. Automated exposure control was utilized for the study. A dose lowering technique was utilized adhering to the principles of ALARA. FINDINGS: Note is made of multiple pulmonary nodules within visualized portions of the lower lungs, including a 7 mm lingular nodule. Ground glass opacities within the left lower lobe are noted. These were shown on prior CT of December 25, 2020. Evaluation of the abdomen and pelvis is compromised given lack of contrast and paucity of intra-abdominal fat with anasarca. No pneumatosis, free air or portal venous gas is present. Numerous hepatic metastases are again noted. Extensive abdominal adenopathy is similar to prior examination. The gallbladder is distended. There is layering hyperdense material within the gallbladder. Biliary ductal dilatation is better depicted on MRCP. There is no hydronephrosis. There is no evidence for a bowel obstruction. Note is made of wall thickening of the distal transverse colon as well as the splenic flexure of the colon, shown on prior CT. Note is made of an apparent transverse colostomy. Parastomal hernia is now noted. A small amount of ascites within the abdomen and pelvis is noted. There is no abscess. IMPRESSION: 1. Technically difficult study to interpret given lack of contrast and paucity of intra-abdominal fat with anasarca. 2. Redemonstration of hepatic metastases and pathologic abdominal lymphadenopathy. 3. Apparent transverse colostomy with parastomal hernia. Persistent wall thickening of the distal transverse colon and splenic flexure of the colon, similar to prior CT. This could represent a colitis or colonic lesion. No bowel obstruction. 4. Persistent gallbladder distention. Acute cholecystitis cannot be excluded. ACT 112: Negative or not required by law. Electronically signed by: Suleiman Landeros M.D. 12/29/2020 8:09 AM Endo Retro Cholangiopancreatogram 12/30/20 13:40 [place] ERCP biliary ductal CLINICAL HISTORY: Elevated LFTs. Intra and extrahepatic biliary ductal dilatation.Abnormal MRCP COMPARISON STUDY: MRCP dated 12/17/2020 FLUOROSCOPY TIME: 44 seconds. NUMBER OF FLUOROSCOPIC IMAGES: 11 FINDINGS: 11 intraoperative fluoroscopic spot images are provided for interpretation. Initial images demonstrate catheterization of the common bile duct and pancreatic duct and retrograde fashion. Contrast was instilled into the common bile duct. There is filling of the cystic duct and gallbladder. There is irregular narrowing of the common bile duct. The final image demonstrates placement of a common bile duct and pancreatic stent. IMPRESSION: 1. Irregular narrowing of the common bile duct. 2. Biliary and pancreatic stents were placed. ACT 112: Negative or not required by law. Electronically signed by: Dilip Soto M.D. 12/30/2020 3:47 PM Hospital Course (1) Common bile duct (CBD) stricture: 12/30/20 - s/p CBD bare metal stent by Dr Zapien. cause of stricture - compression from cancer. no evidence of CBD stones or cholangitis. prophylactic pancreatic duct stent also deployed during the ERCP. LFTs trended down post-ERCP. lipase level scantly elevated post-ERCP likely of no significance. diet resumed post-ERCP and advanced as tolerated. Will need KUB x-ray in 1 month to ensure pancreatic duct stent has migrated appropriately. (2) Severe protein-calorie malnutrition: 2nd to advanced, stage 4 colon cancer. BMI 16. (3) Neoplasm related pain: considerable disease burden of the abdomen as seen on recent CT. multiple metastatic lesions compressing arteries and veins in the abdomen, liver mets, biliary stricture 2nd to cancer,etc. cannot exclude that the "colitis" seen on CT is recurrent cancer in the colon. cannot exclude that the colitis is due to episodes of ischemia. he also has concomitant c diff infection. all of the above factors cause severe abdominal pain. seen in consult by Dr Silverman from palliative care. fentanyl patches discontinued. oral dilaudid discontinued. MOULDER OPERATOR dilaudid infusion started, and ultimately titrated to 3mg/hour continuously. can receive demand doses of 0.5mg. lock-out time is q20min. pain ultimately controlled with the above regimen. after multiple discussions with patient he was agreeable to home with hospice. he will continue on the MOULDER OPERATOR dilaudid at home as above. again this fentanyl patches and oral dilaudid have been discontinued. (4) Colon cancer metastasized to multiple sites: stage 4 colon ca, follows with Dr Michel Dorantes [facility]. patient has expressed a desire to continue chemo but likely to not have much benefit as his cancer continues to progress in the face of palliative chemo. focus on pain control as above. (5) Colitis: infectious (c diff)? ischemic? combination? at minimum will continue cdiff treatment - first day of treatment was 12/27/20. needs to complete at least 10 days of Rx. if ischemic this will likely happen again as multiple mesenteric arteries are encased by tumor. cont pain control with IV dilaudid as noted above. (6) C. difficile colitis: as above (7) COVID-19: patient's family had COVID in early November 2020. he was symptomatic with presumed COVID at that time as well. several family members got tested and were + but he never had a test until being admitted on 12/25/20. he has no symptoms/ signs of active COVID at this time. although he received airborne isolation during this stay he can likely safely d/c isolation outside of the hospital. (8) GERD (gastroesophageal reflux disease): PPI (9) Hyponatremia: 133 minimal (10) Discharge planning issues: patient's abdominal pain was relatively controlled on MOULDER OPERATOR dilaudid while here. in order to receive such outside the hospital he would need to enroll in a formal hospice program. he was agreeable to this at discharge. with the above in mind, however, patient did relate to several individuals that he wanted to discuss with Dr Dorantes when he could resume chemotherapy for his stage 4 colon cancer. patient was reminded that if he elected to continue standard chemo care for his cancer that he would likely need to revoke hospice in that situation. revoking hospice would likely lead to loss of his ability to secure the MOULDER OPERATOR dilaudid for home use. he voiced understanding. Home Health Attestation I certify that this patient is under my care and that I, or a physicians physical therapy assistant instructor working with me, had a face to-face encounter that meets the home health [id number] encounter requirements with this patient. The encounter with the patient was in whole, or in part, for the following medical condition, which is the primary reason for home health care (list medical condition): uncontrolled cancer pain I certify that, based on my findings, the following services are medically necessary home health services: My clinical findings support the need for the above services because: Medication Compliance and Monitoring Effective of New Medications Skilled Nsg Assessment Further, I certify that my clinical findings support that this patient is homebound (i.e. absences from home require considerable and taxing effort and are for medical reasons or christianity services or infrequently or of short duration when for other reasons) because: Transportation Assistance/Unable to Leave Home Unassisted Certification for Home Health Services: Based on the above findings, I certify that this patient is confined to the home and needs intermittent nursing home care, physical therapy and/or speech therapy or continues to need occupational therapy. The patient is under my care, and I have initiated the establishment of the plan of care. This patient will be followed by a physician who will periodically review the plan of care. Total Time Total Time Spent Total Time Spent (In Minutes): 45 Total Time Includes: Examination of the Patient, Discharge Planning, Medication Reconciliation and Communication With Other Providers Discharge Plan Discharge Items Patient Disposition: Hospice - Home Reason For Visit: UNCONTROLLED CANCER PAIN Discharge Diagnosis: 1. uncontrolled abdominal pain due to cancer, bile duct blockage, colitis, cancer compressing various arteries and veins 2. bile duct blockage - placement of stent by Dr Jorje Zapien 3. c diff colitis - improving 4. recent COVID-19 infection in November - resolved Activity: Resume your previous activity Non-emergency contact: Primary Care Provider and Oncologist Call non-emergency contact if: you have any medication questions, your symptoms worsen, your pain is not controlled, your pain is worsening and you have a fever Follow-up/Referrals: Noah Barrera DO [Primary Care Provider] - (telehealth visit within 1 week ) Michel Dorantes MD [Surgeon] - (contact Dr Dorantes at your convenience to schedule a phone call to discuss your care ) Diet: Low Fiber Addtl Attending Provider Instructions: Mr Vickers - We treated you for the problems listed above in "discharge diagnoses." Your abdominal pain improved with use of MOULDER OPERATOR dilaudid. The [facility] GI team saw you in consult for the blocked bile duct, and on 12/30/20 Dr Jorje Zapien placed a stent into the bile duct as well as the pancreatic duct. Your liver tests improved with this supporting that the duct was now open and bile was flowing normally. Ms Abigail Rajesh from the palliative care team saw you. We all agreed that your best option for pain control was to secure a MOULDER OPERATOR pump for your home. Fortunately one of the local hospice companies can provide this for you. You have done nicely off of the oral dilaudid and fentanyl patches. The MOULDER OPERATOR dilaudid will help control your pain at home and can be easily adjusted if your pain worsens. Your c diff colitis is slowly improving with antibiotics (vancomycin). Recommendations - 1. finish your course of vancomycin for the c diff; take until the bottle is gone. Remember that c diff is contagious. Do not let anyone except yourself handle your ostomy and its contents. Lots of good handwashing with soap and water - purell alcohol rub does not kill c. diff. 2. take 3 days of amoxicillin for your bile duct as recommended by Dr Zapien. 3. in 1 month you will need an x-ray of your abdomen to ensure the duct in the pancreas has passed ; the bile duct stent remains. Dr Ballard or Dr Dorantes can order this for you. 4. for anxiety / sleep - lorazepam 0.5mg every 8 hrs as needed. You may continue on the buspar if desired. 5. for nausea / vomiting - ondansetron 8mg every 8 hrs as needed. 6. STOP your fentanyl patches - throw them away. 7. STOP your oral dilaudid - throw it away. 8. COVID-19 - you are unlikely to be contagious at this time. You do NOT need to isolate. When you are home - if you have ANY questions, concerns, problems, worsening pain, or any needs - please contact the Home Health & Hospice agency FIRST. Do not call 911. Call Home health & hospice first. They will be able to address the bulk of your problems by phone or by coming to your home. Enjoy your weekend with your family and enjoy being home! -Dr To Pending Studies at Discharge: No Stand-Alone Forms: My [facility] Medications and DC Order Prescriptions: New hydromorphone (PF)-0.9 % NaCl 30 mg/30 mL (1 mg/mL) Pt Controlled Analgesia Syring 30 mg IV CONTINOUS Qty: 150 RF: 0 azelastine 137 mcg (0.1 %) Aerosol,[place] 2 spray NA BID Qty: 30 RF: 0 lorazepam [Ativan] 0.5 mg tablet 0.5 mg PO Q8H PRN (Reason: anxiety/sleep) Qty: 20 RF: 0 Continued dexamethasone [Decadron] 4 mg tablet 4 mg PO DAILY Qty: 30 RF: 1 omeprazole 40 mg capsule,delayed release(DR/EC) 40 mg PO DAILY Qty: 30 RF: 1 lidocaine-prilocaine 2.5-2.5 % cream 1 applic topical DIRECTED PRN (Reason: WHEN ACCESSING MEDIPORT) RF: 0 Narcan 4 mg/actuation spray,non-aerosol 1 spray INTRANASAL DIRECTED PRN (Reason: OVERSEDATION) RF: 0 magnesium oxide 400 mg (241.3 mg magnesium) Tablet 400 mg PO QAM Qty: 90 RF: 1 buspirone 10 mg tablet 10 mg PO BID PRN (Reason: anxiety) Qty: 30 RF: 0 ondansetron 8 mg tablet,disintegrating 8 mg translingual Q8H PRN (Reason: NAUSEA/VOMITING) Qty: 20 RF: 0 Discontinued fentanyl 100 mcg/hr patch 72 hour 3 patch transdermal Q72H RF: 0 vancomycin 125 mg capsule 125 mg PO Q6H 8 Days Qty: 32 RF: 0 hydromorphone [Dilaudid] 8 mg tablet 16 mg PO Q3H PRN (Reason: pain) Qty: 30 RF: 0 Discharge Orders: Discharge Order (Routine); Ordered 01/01/21 Ordered By: Karan To Admission Data Admit Date/Time: 12/29/20 10:32 Attending Provider: Karan To Admit Provider: Ernesto Carpio Primary Care Provider: Noah Barrera Other Providers: Ernesto Carpio ; Magdalene Silverman ; Shauna Griffiths ; [facility],Home Healthcare ; Tricia,Fax Other Interventions: Discharge Summary Assessment (RN) Last Done: 01/01/21 08:59 Coding Level of Care Code D/C Day Management >30 mins Diagnoses Common bile duct (CBD) stricture K83.1 Severe protein-calorie malnutrition E43 Neoplasm related pain G89.3 Colon cancer metastasized to multiple sites C18.9 Colitis K52.9 C. difficile colitis A04.72 COVID-19 U07.1 GERD (gastroesophageal reflux disease) K21.9 Hyponatremia E87.1 Discharge planning issues Z02.9
[2021-01-01] MEDS: HEPARIN 100 UNIT/ML 5ML FLUSH FLUSH PRN (18:11)
== END 2021-01-01 18:22 | disposition hospice, home (50) | DRG 444 ==
LOC: ED 20:24 → 3E 20:24 → SUATTDRO 12-29 00:41 → 3E 12-29 01:30

== ENCOUNTER 2021-05-27 21:51 | Inpatient (IN) ==
[2021-05-27] MEDS ORDERED: SODIUM CHLORIDE 0.9% 1000ML 1,000 ML IV ONE (22:03)
[2021-05-27] MEDS ORDERED: ONDANSETRON INJ 2 MG/ML 2 ML VIAL IV STA (22:03)
[2021-05-27] MEDS: HYDROmorphone INJ 1 MG/ML SYRINGE IV PRN ×2 (22:46→23:30)
--- NOTE | 2021-05-27 22:46 | Emergency Department Note ---
Impression & Plan Acute dehydration, Abnormal LFTs, Metastatic colon cancer to liver, Acute hypotension, Weakness, Hypoglycemia, Thrombocytopenia ED Provider Note NAME: MARCUS AG AGE: 45 SEX: M : 1975 ARRIVES VIA: Ambulance INFORMANT: Patient, ED PROVIDER(S): Juanjose Thomas DO CHIEF COMPLAINT: Weakness HPI: The patient is a 45-year-old male who has a history of stage IV colon cancer who presented to the emergency department from his home for an evaluation of generalized weakness. The patient has been suffering with generalized decline decreased p.o. intake and overall pain. The patient is on a Dilaudid SIGNAL INTEGRITY ENGINEER pump but this appears to not be helping him. The patient has not been eating he has been dropping weight. He denies having any chest pain but does complain of some shortness of breath. He also complains of lower extremity edema. The patient had some problems with his pain clinic doctor recently. He still been getting his Dilaudid SIGNAL INTEGRITY ENGINEER. He was sent to the emergency department with family because of ongoing and worsening symptoms. ROS: See above HPI for pertinent positives & negatives. A total of 10 systems reviewed and were otherwise negative. PAST MEDICAL HISTORY: See Below PAST SURGICAL HISTORY: See Below FAMILY HISTORY: See Below SOCIAL HISTORY: See Below HOME MEDICATIONS: See Below ALLERGIES: See Below VITALS: See Below PHYSICAL EXAMINATION: GENERAL: The patient is awake and alert. He is very cachectic and frail- appearing. EYES: The conjunctivae are clear. The pupils are round and reactive. EARS, NOSE, MOUTH AND THROAT: The nose is without any evidence of any deformity. Mucous membranes are dry. NECK: The neck is nontender and supple. RESPIRATORY: Normal respiratory effort is noted there is no evidence of wheezing rhonchi or rales CARDIOVASCULAR: Regular rate and rhythm noted there no murmurs rubs or gallops normal S1 normal S2. GASTROINTESTINAL: The abdomen is mildly distended but soft. There is an ostomy noted with significant herniation of bowel. The patient states this is baseline for him. There is no tenderness or guarding. MUSCULOSKELETAL/EXTREMITIES: There is no evidence of gross deformity full range of motion is noted in the hips and shoulders. SKIN: Skin is cold and dry. Pedal edema was noted bilaterally. NEUROLOGIC: Patient is awake alert and oriented x3. MEDICAL DECISION MAKING: The patient is a 45-year-old male who has end-stage colon cancer with metastasis who presented to the emergency department by ambulance for an evaluation of generalized weakness and pain. The patient has abnormal LFTs but they are worse than baseline. He was treated with IV fluids and IV pain medication in the emergency department. His blood pressure slowly improved while he was in the emergency department. I discussed the patient's laboratory and radiographic studies with him. Because of his symptoms [facility] also [facility] have agreed to evaluate the patient in the emergency department for further management and disposition. Triage Nursing notes reviewed. Prior medical records reviewed Vital Signs: reviewed and remarkable for hypotension and tachycardia. Differential diagnosis: Infection, dehydration, metabolic abnormality, hypo/hyperglycemia, electrolyte disturbance, anemia, hypoxia, cardiac sources, intracerebral event, toxicologic, neurologic, as well as other pathologies. ER treatment provided: See below Diagnostics interpreted by me: ECG: EKG was obtained in the emergency department. My interpretation is sinus rhythm at 95 bpm. First-degree AV block was noted. Low voltage was noted. Diffuse T wave flattening was noted. This was compared to a tracing from September 212020. The low voltage is new as well as the T wave abnormalities. Cardiac Monitoring: An order was placed for continuous cardiac monitoring. The monitor shows a rate of 100 bpm with sinus tachycardia rhythm Laboratory studies: As stated above and show below. Imaging studies: See below Consultation(s): I discussed this case with Dr. Bronson who is on-call for the [facility] hospitalist group. Past Med/Surg History Medical History Anemia Asthma Childhood Colitis Colostomy present Degenerative disc disease Depression Diabetes mellitus, type 2 Diet controlled, hgba1c 09/25/20 5.5% Dyspnea Fatty liver Hyperlipidemia Infection due to Port-A-Cath Intractable abdominal pain Metastatic colon cancer to liver s/p chemo (2019) Surgical History History of colonoscopy History of creation of ostomy History of ERCP 12/2020 with stent History of myringotomy History of removal of Port-a-Cath (03/24/21) Removal of Access Port, Insertion of New Access Port with Fluoroscopy - Ankur Turcios DO, FACS History of shoulder surgery Right History of tonsillectomy and adenoidectomy History of vascular access device Left chest wall (+ infection/reason for upcoming procedure) S/P colostomy S/P PICC central line placement Has IV Dilaudid infusing thru PICC line Family History Mother Family history of diabetes mellitus Father Colorectal cancer Cancer Aunt Cancer Grandfather (Maternal) Myocardial infarction Other Hypertension Denies family history of Ovarian cancer Prostate cancer Breast cancer Social History Smoking Status: Never smoker Second Hand Exposure: No; Hx Alcohol Use: No Hx Substance Use: Yes Substance Use Type Other:: Hx methadone abuse Preferred Language: Korean Communication Ability: Effective Visual Impairment: No Limitations Hearing Ability: Normal [employer] 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 Required: No Beliefs That Will Affect Care: None marital status: Life Partner Current Living Situation: Family current occupational status: disabled Feels Safe at Home: Yes Childhood Exposure to Second-Hand Smoke: No Dental Care, Regularly: No Assistive Devices: None Allergies Allergies Allergy/AdvReac Type Severity Reaction Status Date / Time promethazine Allergy Unknown HAPPENED Verified 05/27/21 22:29 A CHILD Home Meds Home Medications Medication Instructions Recorded Confirmed lidocaine-prilocaine 2.5 %-2.5 % 1 applic TOPICAL DIRECTED PRN 09/21/20 05/27/21 topical cream naloxone 4 mg/actuation nasal 1 spray INTRANASAL DIRECTED PRN 09/21/20 05/27/21 spray (Narcan) Previous Rx's Medication Instructions Recorded hydromorphone (PF) 30 mg/30 mL (1 30 mg IV CONTINOUS #150 ml 01/01/21 mg/mL) in 0.9 % NaCl IV SIGNAL INTEGRITY ENGINEER syringe lorazepam 0.5 mg tablet (Ativan) 0.5 mg PO Q8H PRN #20 tab 01/01/21 ondansetron 8 mg disintegrating 8 mg TRANSLINGUAL Q8H PRN #20 tab 01/01/21 tablet Results & Data (ED) Vital Signs Vital Signs - 24 hr 05/27/21 22:00 05/27/21 22:26 05/27/21 22:47 Temperature 36.6 C Temperature Source Oral Pulse Rate 105 H Pulse Rate [Left] Pulse Rhythm [Left] Pulse Strength [Left] Respiratory Rate 16 16 Respiratory Effort / Characteristics Spontaneous Non-Labored Respiratory Depth Normal Respiratory Pattern Regular Blood Pressure 77/50 L Blood Pressure [Left Arm] Blood Pressure Mean 59 Blood Pressure Mean [Left Arm] Blood Pressure Position Lying Pulse Oximetry 100 100 92 Oxygen Delivery Method Nasal Cannula Nasal Cannula Nasal Cannula Oxygen Flow Rate 4 4 4 Sepsis Recent Fever Within 48 Hours No Sepsis New/Unexplained Change in Mental Status N/A Sepsis Action Taken by Nursing Physician Notified 05/27/21 22:48 05/27/21 23:00 05/27/21 23:03 Temperature Temperature Source Pulse Rate Pulse Rate [Left] 96 H 96 H Pulse Rhythm [Left] Regular Pulse Strength [Left] Normal Respiratory Rate 16 18 Respiratory Effort / Characteristics Non-Labored Respiratory Depth Respiratory Pattern Blood Pressure Blood Pressure [Left Arm] 79/57 L 83/58 L Blood Pressure Mean Blood Pressure Mean [Left Arm] 64 66 Blood Pressure Position Pulse Oximetry 89 L 96 100 Oxygen Delivery Method Nasal Cannula Nasal Cannula Nasal Cannula Oxygen Flow Rate 4 4 Sepsis Recent Fever Within 48 Hours Sepsis New/Unexplained Change in Mental Status Sepsis Action Taken by Nursing 05/27/21 23:15 05/27/21 23:30 05/27/21 23:45 Temperature Temperature Source Pulse Rate Pulse Rate [Left] 94 H 101 H 99 H Pulse Rhythm [Left] Pulse Strength [Left] Respiratory Rate 18 20 20 Respiratory Effort / Characteristics Non-Labored Non-Labored Respiratory Depth Respiratory Pattern Blood Pressure Blood Pressure [Left Arm] 82/57 L 78/59 L 81/62 L Blood Pressure Mean Blood Pressure Mean [Left Arm] 65 65 68 Blood Pressure Position Pulse Oximetry 96 100 100 Oxygen Delivery Method Nasal Cannula Nasal Cannula Nasal Cannula Oxygen Flow Rate 4 4 4 Sepsis Recent Fever Within 48 Hours Sepsis New/Unexplained Change in Mental Status Sepsis Action Taken by Nursing 05/28/21 00:00 05/28/21 00:15 Temperature Temperature Source Pulse Rate Pulse Rate [Left] 102 H 100 H Pulse Rhythm [Left] Pulse Strength [Left] Respiratory Rate 20 20 Respiratory Effort / Characteristics Non-Labored Respiratory Depth Respiratory Pattern Blood Pressure Blood Pressure [Left Arm] 89/62 L 83/62 L Blood Pressure Mean Blood Pressure Mean [Left Arm] 71 69 Blood Pressure Position Pulse Oximetry 100 100 Oxygen Delivery Method Nasal Cannula Nasal Cannula Oxygen Flow Rate 4 4 Sepsis Recent Fever Within 48 Hours Sepsis New/Unexplained Change in Mental Status Sepsis Action Taken by Prison Medications Current Medication List: was personally reviewed by me Laboratory Data Attestation: I reviewed the patient's lab results. Result diagrams: 05/27/21 22:33 05/27/21 22:33 Lab Results 05/27/21 05/27/21 05/27/21 Range/Units 22:06 22:33 22:33 WBC 6.85 (4.8-10.8) K/uL RBC 3.57 L (4.7-6.1) M/uL Hgb 8.4 L (14.0-18.0) g/dL Hct 26.1 L (42-52) % MCV 73.1 L (80-100) fL MCH 23.5 L (25-34) pg MCHC 32.2 (32-36) g/dL RDW Std Deviation 59.0 H (36.4-46.3) fL RDW Coeff of Jaylene 22.3 H (11.5-14.5) % Plt Count 56 L (130-400) K/uL MPV 9.0 (7.4-10.4) fL Immature Gran % (Auto) 0.7 % Neut % (Auto) 88.8 % Lymph % (Auto) 6.6 % [place] % (Auto) 3.9 % Eos % (Auto) 0.0 % Baso % (Auto) 0.0 % Neut # (Auto) 6.08 (1.4-6.5) K/uL Lymph # (Auto) 0.45 L (1.2-3.4) K/uL [place] # (Auto) 0.27 (0.11-0.59) K/uL Eos # (Auto) 0.00 (0-0.5) K/uL Baso # (Auto) 0.00 (0-0.2) K/uL Immature Gran # (Auto) 0.05 H (0.00-0.02) K/uL Platelet Estimate Decreased L (Normal) Hypochromasia Present Ovalocytes 1+ Echinocytes 1+ PT 19.7 H (9.0-12.0) Seconds INR 2.1 H (0.9-1.1) APTT 49.7 H* (21.0-31.0) Seconds PTT Ratio 1.9 Sodium (136-145) mmol/L Potassium (3.5-5.1) mmol/L Chloride (98-107) mmol/L Carbon Dioxide (21-32) mmol/L Anion Gap (3-11) BUN (7-18) mg/dl Creatinine (0.6-1.4) mg/dl Est Cr Clr Drug Dosing ml/min Est GFR ( Amer) ml/min Est GFR (Non-Af Amer) ml/min BUN/Creatinine Ratio (10-20) Glucose (70-99) mg/dl POC Glucose 79 (70-99) mg/dl Lactate (0.4-2.0) mmol/L Calcium (8.5-10.1) mg/dl Magnesium (1.8-2.4) mg/dl Total Bilirubin (0.2-1) mg/dl AST (15-37) U/L ALT (12-78) U/L Alkaline Phosphatase (45-117) U/L Troponin I (0-0.045) ng/ml Total Protein (6.4-8.2) gm/dl Albumin (3.4-5.0) gm/dl Globulin (2.5-4.0) gm/dl Albumin/Globulin Ratio (0.9-2) COVID-19 Eval Order 05/27/21 05/27/21 05/27/21 Range/Units 22:33 22:33 22:56 WBC (4.8-10.8) K/uL RBC (4.7-6.1) M/uL Hgb (14.0-18.0) g/dL Hct (42-52) % MCV (80-100) fL MCH (25-34) pg MCHC (32-36) g/dL RDW Std Deviation (36.4-46.3) fL RDW Coeff of Jaylene (11.5-14.5) % Plt Count (130-400) K/uL MPV (7.4-10.4) fL Immature Gran % (Auto) % Neut % (Auto) % Lymph % (Auto) % [place] % (Auto) % Eos % (Auto) % Baso % (Auto) % Neut # (Auto) (1.4-6.5) K/uL Lymph # (Auto) (1.2-3.4) K/uL [place] # (Auto) (0.11-0.59) K/uL Eos # (Auto) (0-0.5) K/uL Baso # (Auto) (0-0.2) K/uL Immature Gran # (Auto) (0.00-0.02) K/uL Platelet Estimate (Normal) Hypochromasia Ovalocytes Echinocytes PT (9.0-12.0) Seconds INR (0.9-1.1) APTT (21.0-31.0) Seconds PTT Ratio Sodium 136 (136-145) mmol/L Potassium 3.4 L (3.5-5.1) mmol/L Chloride 108 H (98-107) mmol/L Carbon Dioxide 17 L (21-32) mmol/L Anion Gap 11.0 (3-11) BUN 37 H (7-18) mg/dl Creatinine 0.54 L (0.6-1.4) mg/dl Est Cr Clr Drug Dosing 112.0 ml/min Est GFR ( Amer) 148.0 ml/min Est GFR (Non-Af Amer) 127.7 ml/min BUN/Creatinine Ratio 68.0 H (10-20) Glucose 53 L* (70-99) mg/dl POC Glucose (70-99) mg/dl Lactate 3.6 H* (0.4-2.0) mmol/L Calcium 7.4 L (8.5-10.1) mg/dl Magnesium 1.9 (1.8-2.4) mg/dl Total Bilirubin 6.1 H (0.2-1) mg/dl AST 185 H (15-37) U/L ALT 81 H (12-78) U/L Alkaline Phosphatase 715 H (45-117) U/L Troponin I < 0.015 (0-0.045) ng/ml Total Protein 4.6 L (6.4-8.2) gm/dl Albumin 1.3 L (3.4-5.0) gm/dl Globulin 3.3 (2.5-4.0) gm/dl Albumin/Globulin Ratio 0.4 L (0.9-2) COVID-19 Eval Order Covid19 at [facility] Administered Medications Hydromorphone HCl (Hydromorphone Inj 1 Mg/Ml Syringe) 1 mg IV Q15M PRN PRN Reason: Pain Stop: 06/10/21 22:02 Last Admin: 05/27/21 23:30 Dose: 1 mg Documented by: [id number] Admin: 05/27/21 22:46 Dose: 1 mg Documented by: [id number] Discontinued Medications Sodium Chloride (Nss 1000ml) 1,000 mls @ 999 mls/hr IV .Q1H1M ONE Stop: 05/27/21 23:03 Last Infusion: 05/27/21 23:43 Dose: 0 mls/hr Documented by: [id number] Admin: 05/27/21 22:39 Dose: 999 mls/hr Documented by: [id number] Ondansetron HCl (Ondansetron Inj 2 Mg/Ml 2 Ml Vial) 4 mg IV NOW STA Stop: 05/27/21 22:04 Last Admin: 05/27/21 22:36 Dose: 4 mg Documented by: [id number] Imaging Data Attestation: I personally reviewed and interpreted this imaging study as follows: My Impression: One view chest x-ray was obtained in the emergency department. My interpretation is central access port was noted in the right chest wall. There is no definite infiltrate. Heart size is normal. This was compared to a chest x-ray from March 242020. No changes were noted. Discharge Plan Visit Data Chief Complaint: Shortness of Breath/Dyspnea Stated Complaint: SOB ED Provider: Juanjose Thomas Discharge Problem: Acute dehydration, Abnormal LFTs, Metastatic colon cancer to liver, Acute hypotension, Weakness, Hypoglycemia, Thrombocytopenia Patient Disposition: Being Evaluated by Hospitalist Forms Stand Alone Forms: My [facility] Prescriptions Prescriptions: No Action lidocaine-prilocaine 2.5-2.5 % cream 1 applic topical DIRECTED PRN (Reason: WHEN ACCESSING [facility]) RF: 0 Narcan 4 mg/actuation spray,non-aerosol 1 spray INTRANASAL DIRECTED PRN (Reason: OVERSEDATION) RF: 0 hydromorphone (PF)-0.9 % NaCl 30 mg/30 mL (1 mg/mL) Pt Controlled Analgesia Syring 30 mg IV CONTINOUS Qty: 150 RF: 0 lorazepam [Ativan] 0.5 mg tablet 0.5 mg PO Q8H PRN (Reason: anxiety/sleep) Qty: 20 RF: 0 ondansetron 8 mg tablet,disintegrating 8 mg translingual Q8H PRN (Reason: NAUSEA/VOMITING) Qty: 20 RF: 0 Referrals Referrals: Noah Barrera, [Primary Care Provider] -
[2021-05-27 23:04] LABS: Hematocrit (blood only) 26.1 % (42-52); Hemoglobin 8.4 g/dL (14.0-18.0); Mean Corpuscular Hemoglobin 23.5 pg (25-34); Mean Corpuscular Hgb Conc 32.2 g/dL (32-36); Mean Corpuscular Volume 73.1 fL (80-100); RDW Coefficient of Variation 22.3 % (11.5-14.5); Red Blood Count 3.57 M/uL (4.7-6.1); White Blood Count 6.85 K/uL (4.8-10.8)
[2021-05-27 23:24] LABS: INR 2.1 (0.9-1.1); Partial Thromboplastin Ratio 1.9; Prothrombin Time 19.7 Seconds (9.0-12.0)
[2021-05-27 23:32] LABS: Alanine Aminotransferase 81 U/L (12-78); Albumin Globulin Ratio 0.4 (0.9-2); Albumin Level 1.3 gm/dl (3.4-5.0); Alkaline Phosphatase 715 U/L (45-117); Aspartate Aminotransferase 185 U/L (15-37); Bilirubin,Total 6.1 mg/dl (0.2-1); Blood Urea Nitrogen 37 mg/dl (7-18); Calcium 7.4 mg/dl (8.5-10.1); Carbon Dioxide 17 mmol/L (21-32); Chloride 108 mmol/L (98-107); Est GFR (Non-African American) 127.7 ml/min; Globulin 3.3 gm/dl (2.5-4.0); Glucose 53 mg/dl (70-99); Magnesium 1.9 mg/dl (1.8-2.4); Partial Thromboplastin Time 49.7 Seconds (21.0-31.0); Potassium 3.4 mmol/L (3.5-5.1); Sodium 136 mmol/L (136-145); Total Protein 4.6 gm/dl (6.4-8.2); Troponin I < 0.015 ng/ml (0-0.045)
[2021-05-27 23:42] LABS: Platelet Count 56 K/uL (130-400)
[2021-05-27 23:44] LABS: Echinocytes 1+; Hypochromasia Present; Immature Granulocytes # (auto) 0.05 K/uL (0.00-0.02); Immature Granulocytes % (auto) 0.7 %; Lymphocytes # (auto) 0.45 K/uL (1.2-3.4); Lymphocytes % (auto) 6.6 %; Monocytes # (auto) 0.27 K/uL (0.11-0.59); Monocytes % (auto) 3.9 %; Neutrophils # (auto) 6.08 K/uL (1.4-6.5); Neutrophils % (auto) 88.8 %; Ovalocytes 1+; Platelet Estimate Decreased (Normal)
[2021-05-28] MEDS: HYDROmorphone INJ 1 MG/ML SYRINGE IV PRN ×3 (00:54→02:16)
[2021-05-28 01:04] LABS: Appearance Urine Cloudy (Clear); Blood Urine Negative (Negative); Color Urine Dark Yellow; Glucose Urine UA Negative (Negative); Ketones Urine Negative (Negative); Protein Urine Trace (Negative); Specific Gravity Urine 1.016 (1.000-1.030)
[2021-05-28 01:05] LABS: Bacteria Urine Automated Negative (Negative); Epithelial Cell Urine Auto 0-5 /lpf (0-5); Leukocyte Esterase Urine Negative (Negative); Nitrite Urine Negative (Negative); Urobilinogen Urine Negative (Negative)
[2021-05-28 01:07] LABS: Bilirubin Urine 2+ (Negative)
--- NOTE | 2021-05-28 01:16 | History & Physical Report ---
Date of Service May 28, 2021 Assessment & Plan (1) Metastatic colon cancer to liver: Plan: Metastatic colon cancer to liver- Subsequent abnormalities including: Abnormal LFTs, chronic pain syndrome, lower extremity edema due to low albumin and anemia chronic disease, and others (2) Thrombocytopenia: Plan: Chronic and associated with metastatic colon cancer and history of chemotherapy (3) Type 2 diabetes mellitus: Plan: History of diabetes mellitus, no longer on medications, and initial glucose was hypoglycemic at 53 upon admission (4) Lumbar degenerative disc disease: Plan: Because of chronic low back pain (5) Hepatic steatosis: Plan: Abnormal liver enzymes associated with hepatic steatosis and metastatic colon cancer to liver (6) Chronic pain syndrome: Plan: Patient reports he has been trying to get his Dilaudid ONLINE PRODUCER tapered, as he has had somewhat in the outpatient setting, syncope back on methadone, with which he was on before, sitting undergo colon cancer treatments again. Dilaudid ONLINE PRODUCER settings were 3 mg basal, and 3 mg IV push every 15 minutes as needed. New settings will be 2 mg basal and 2 mg IV push every 15 minutes as needed. We will consult palliative care, as patient is in between doctors to try to get his ONLINE PRODUCER pump controlled, and would like to be on methadone instead History of Present Illness Chief Complaint: The patient presents to the emergency department due to generalized fatigue, decreased ability to get his Dilaudid ONLINE PRODUCER taking care of an outpatient setting, and generally feeling unwell Primary Care Provider: Noah Barrera DO The patient is a 45-year-old male with a past medical history including metastatic colon cancer to liver, colon cancer stage IV, thrombocytopenia, large bowel obstruction, diabetes mellitus type 2, lumbar radiculopathy, lumbago, hepatic steatosis, CAD, pancreatitis, ilioinguinal neuralgia left side, and anemia. Patient presents with symptoms as noted above. The patient's Dilaudid ONLINE PRODUCER pump was stopped by the ED. He was given by the ED 1 mg IV q. 15 minutes as needed, which did not seem to control his pain. Patient reports that he was looking forward to being changed from Dilaudid ONLINE PRODUCER, which is being tapered in the outpatient setting, to methadone, so he can undergo colon cancer treatment again Allergies Allergy/AdvReac Type Severity Reaction Status Date / Time promethazine Allergy Unknown HAPPENED Verified 05/27/21 22:29 A CHILD Home Medications Medication Instructions Recorded Confirmed Type lidocaine-prilocaine 2.5 %-2.5 % 1 applic TOPICAL DIRECTED PRN 09/21/20 05/27/21 History topical cream naloxone 4 mg/actuation nasal 1 spray INTRANASAL DIRECTED PRN 09/21/20 05/27/21 History spray (Narcan) hydromorphone (PF) 30 mg/30 mL (1 30 mg IV CONTINOUS #150 ml 01/01/21 05/27/21 Rx mg/mL) in 0.9 % NaCl IV ONLINE PRODUCER syringe lorazepam 0.5 mg tablet (Ativan) 0.5 mg PO Q8H PRN #20 tab 01/01/21 05/27/21 Rx ondansetron 8 mg disintegrating 8 mg TRANSLINGUAL Q8H PRN #20 tab 01/01/21 05/27/21 Rx tablet Past Med/Surg History Medical History Anemia Asthma Childhood Colitis Colostomy present Degenerative disc disease Depression Diabetes mellitus, type 2 Diet controlled, hgba1c 09/25/20 5.5% Dyspnea Fatty liver Hyperlipidemia Infection due to Port-A-Cath Intractable abdominal pain Metastatic colon cancer to liver s/p chemo (2018) Surgical History History of colonoscopy History of creation of ostomy History of ERCP 12/2020 with stent History of myringotomy History of removal of Port-a-Cath (03/24/21) Removal of Access Port, Insertion of New Access Port with Fluoroscopy - Ankur Turcios DO, FACS History of shoulder surgery Right History of tonsillectomy and adenoidectomy History of vascular access device Left chest wall (+ infection/reason for upcoming procedure) S/P colostomy S/P PICC central line placement Has IV Dilaudid infusing thru PICC line Family History Mother Family history of diabetes mellitus Father Colorectal cancer Cancer Aunt Cancer Grandfather (Maternal) Myocardial infarction Other Hypertension Denies family history of Ovarian cancer Prostate cancer Breast cancer Social History Smoking Status: Former smoker Smoking End Date: 20 years ago; Second Hand Exposure: No; Hx Alcohol Use: No Hx Substance Use: Yes Substance Use Type Other:: Hx methadone abuse Preferred Language: [place] Communication Ability: Effective Visual Impairment: No Limitations Hearing Ability: Normal Suppression Crew Leader Required: No Beliefs That Will Affect Care: Religion marital status: Life Partner Current Living Situation: Family 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 Feels Safe at Home: Yes Childhood Exposure to Second-Hand Smoke: No Dental Care, Regularly: No Assistive Devices: None Review of Systems Review of Systems: The patient denies chest pain, palpitations, shortness of breath, dyspnea on exertion, cough, sore throat, fevers, chills, sweats, vomiting, diarrhea , constipation, abdominal pain, pelvic pain, blood in urine or stool, dysuria, urinary frequency or urgency, lightheadedness, dizziness, headache, memory loss, loss of consciousness, rash, abnormal bruising or bleeding, imbalance, focal or generalized weakness, numbness or tingling in arms or legs, generalized arthralgias or myalgias, back or neck pain, or night sweats. The review of systems is otherwise negative other than for that already noted above, and at least 10 systems have been reviewed. Physical Exam Physical Exam: The patient is awake, alert and oriented 3, looks emaciated, normocephalic and atraumatic, lying in bed and in no acute distress. HEENT--PERRL, EOMI, mucous membranes and oropharynx dry. Neck--supple. No JVD. No bruits. Thyroid normal, trachea midline, no adenopathy. Heart--normal S1 and S2. No murmurs, rubs or gallops. Lungs--clear bilaterally, no respiratory distress, no accessory muscle use. Abdomen--normal bowel sounds and soft. Nontender. Nondistended, no hernias or masses, no organomegaly. Extremities--no cyanosis or clubbing. No edema. Dermatologic--normal skin turgor, normal color, no abnormal lymph nodes, no rash. Neurologic--cranial nerves II through XII grossly intact. Rheumatologic--normal range of motion. Psychiatric--normal affect. Results & Data Results & Data ([facility]) Vital Signs (Past 12 Hours) Vital Signs Temp Pulse Pulse Resp BP BP Pulse Ox 05/28/21 01:00 101 H 20 87/73 L 100 05/28/21 00:45 102 H 22 93/68 L 100 05/28/21 00:30 98 H 20 90/69 L 100 05/28/21 00:15 100 H 20 83/62 L 100 05/28/21 00:00 102 H 20 89/62 L 100 05/27/21 23:45 99 H 20 81/62 L 100 05/27/21 23:30 101 H 20 78/59 L 100 05/27/21 23:15 94 H 18 82/57 L 96 05/27/21 23:03 100 05/27/21 23:00 96 H 18 83/58 L 96 05/27/21 22:48 96 H 16 79/57 L 89 L 05/27/21 22:47 16 92 05/27/21 22:26 100 05/27/21 22:00 97.9 F 105 H 16 77/50 L 100 Laboratory Results Laboratory Results WBC 6.85 K/uL (4.8-10.8) 05/27/21 22:33 RBC 3.57 M/uL (4.7-6.1) L 05/27/21 22:33 Hgb 8.4 g/dL (14.0-18.0) L 05/27/21 22:33 Hct 26.1 % (42-52) L 05/27/21 22:33 MCV 73.1 fL (80-100) L 05/27/21 22:33 MCH 23.5 pg (25-34) L 05/27/21 22:33 MCHC 32.2 g/dL (32-36) 05/27/21 22:33 RDW Std Deviation 59.0 fL (36.4-46.3) H 05/27/21 22:33 RDW Coeff of Jaylene 22.3 % (11.5-14.5) H 05/27/21 22:33 Plt Count 56 K/uL (130-400) L 05/27/21 22:33 MPV 9.0 fL (7.4-10.4) 05/27/21 22:33 Immature Gran % (Auto) 0.7 % 05/27/21 22:33 Neut % (Auto) 88.8 % 05/27/21 22:33 Lymph % (Auto) 6.6 % 05/27/21 22:33 Rooks % (Auto) 3.9 % 05/27/21 22: Eos % (Auto) 0.0 % 05/27/21 22: Baso % (Auto) 0.0 % 05/27/21 22: Neut # (Auto) 6.08 K/uL (1.4-6.5) 05/27/21 22: Lymph # (Auto) 0.45 K/uL (1.2-3.4) L 05/27/21 22: Rooks # (Auto) 0.27 K/uL (0.11-0.59) 05/27/21 22: Eos # (Auto) 0.00 K/uL (0-0.5) 05/27/21: Baso # (Auto) 0.00 K/uL (0-0.2) 05/27/21 22: Immature Gran # (Auto) 0.05 K/uL (0.00-0.02) H 05/27/21 22: Platelet Estimate Decreased (Normal) L 05/27/21 22: Hypochromasia Present 05/27/21 22: Ovalocytes 1+ 05/27/21: Echinocytes 1+ 05/27/21 22: PT 19.7 Seconds (9.0-12.0) H 05/27/21 22: INR 2.1 (0.9-1.1) H 05/27/21 22: APTT 49.7 Seconds (21.0-31.0) H* 05/27/21: PTT Ratio 1.9 05/27/21 22: Sodium 136 mmol/L (136-145) 05/27/21 22: Potassium 3.4 mmol/L (3.5-5.1) L 05/27/21 22: Chloride 108 mmol/L (98-107) H 05/27/21: Carbon Dioxide 17 mmol/L (21-32) L 05/27/21: Anion Gap 11.0 (3-11) 05/27/21 22: BUN 37 mg/dl (7-18) H 05/27/21 22: Creatinine 0.54 mg/dl (0.6-1.4) L 05/27/21 22: Est Cr Clr Drug Dosing 112.0 ml/min 05/27/21 22:33 Est GFR ( Amer) 148.0 ml/min 05/27/21 22:33 Est GFR (Non-Af Amer) 127.7 ml/min 05/27/21 22: BUN/Creatinine Ratio 68.0 (10-20) H 05/27/21 22:33 Glucose 53 mg/dl (70-99) L* 05/27/21 22:33 POC Glucose 79 mg/dl (70-99) 05/27/21 22:06 Lactate 2.8 mmol/L (0.4-2.0) H* 05/28/21 00:38 Calcium 7.4 mg/dl (8.5-10.1) L 05/27/21 22: Magnesium 1.9 mg/dl (1.8-2.4) 05/27/21 22: Total Bilirubin 6.1 mg/dl (0.2-1) H 05/27/21 22:33 AST 185 U/L (15-37) H 05/27/21 22: ALT 81 U/L (12-78) H 05/27/21 22:33 Alkaline Phosphatase 715 U/L (45-117) H 05/27/21 22:33 Troponin I < 0.015 ng/ml (0-0.045) 05/27/21 22: Total Protein 4.6 gm/dl (6.4-8.2) L 05/27/21 22: Albumin 1.3 gm/dl (3.4-5.0) L 05/27/21: Globulin 3.3 gm/dl (2.5-4.0) 05/27/21 22: Albumin/Globulin Ratio 0.4 (0.9-2) L 05/27/21 22: Procalcitonin 14.72 ng/ml (0-0.5) H 05/27/21 22: Urine Color Dark Yellow 05/28/21 00:30 Urine Appearance Cloudy (Clear) A 05/28/21 00:30 Urine pH 5.0 (4.5-7.5) 05/28/21 00:30 Ur Specific [place] 1.016 (1.000-1.030) 05/28/21 00:30 Urine Protein Trace (Negative) H 05/28/21 00:30 Urine Glucose (UA) Negative (Negative) 05/28/21 00:30 Urine Ketones Negative (Negative) 05/28/21 00:30 Urine Blood Negative (Negative) 05/28/21 00:30 Urine Nitrite Negative (Negative) 05/28/21 00:30 Urine Bilirubin 2+ (Negative) H 05/28/21 00:30 Urine Urobilinogen Negative (Negative) 05/28/21 00:30 Ur Leukocyte Esterase Negative (Negative) 05/28/21 00:30 Urine WBC (Auto) 1-5 /hpf (0-5) 05/28/21 00:30 Urine RBC (Auto) 5-10 /hpf (0-4) H 05/28/21 00:30 U Hyaline Cast (Auto) 1-5 /lpf (0-5) 05/28/21 00:30 U Epithel Cells (Auto) 0-5 /lpf (0-5) 05/28/21 00:30 Urine Bacteria (Auto) Negative (Negative) 05/28/21 00:30 Granular Casts 1-5 /lpf (0) H 05/28/21 00:30 COVID-19 Eval Order Covid19 at [facility] 05/27/21 22:56 SARS-CoV-2 (PCR) NEGATIVE (Negative) 05/27/21 22:56 Code Status & VTE Plan Code Status Full code VTE Prophylaxis Plan VTE Prophylaxis will be ordered: Yes PG Care Time/CCT Total # of Minutes Spent Total Time Spent with Patient: Total time spent is greater than 50% in coordination of care (as documented) at patient's floor/unit and/or counseling patient: Coding Level of Care Code 81627 Initial Inpt Care Lvl 3 Diagnoses Metastatic colon cancer to liver C18.9; C78.7 Thrombocytopenia D69.6 Type 2 diabetes mellitus E11.9 Diabetes mellitus fci insulin use: without manager intermediate use Diabetes mellitus complication status: without complication Lumbar degenerative disc disease M51.36 Hepatic steatosis K76.0 Chronic pain syndrome G89.4 (1) Type 2 diabetes mellitus Diabetes mellitus fci insulin use: without fci use Diabetes mellitus complication status: without complication Qualified Code(s): E11.9 - Type 2 diabetes mellitus without complications
[2021-05-28] MEDS: ALBUMIN 25% 100 mL 25 GM/100 ML VIAL IV SCH ×2 (01:41→03:25)
[2021-05-28] MEDS ORDERED: NALOXONE NASAL SPRAY 4 MG ER HOMEPACK PRN (03:13)
[2021-05-28] MEDS ORDERED: HYDROmorphone PCA 30 MG/30 ML IV SCH (03:13)
[2021-05-28] MEDS ORDERED: ENOXAPARIN INJ 30 MG/0.3 ML SYR SQ SCH (03:13)
[2021-05-28] MEDS ORDERED: HYDROmorphone HCL 0.5MG/ML 50 ML CASSETTE IV PRN (03:18)
[2021-05-28] MEDS ORDERED: HYDROmorphone INJ 2 MG/ML SYR/VIAL IV STA (03:25)
[2021-05-28] MEDS ORDERED: HYDROmorphone INJ 1 MG/ML SYRINGE ONE (03:28)
[2021-05-28] MEDS ORDERED: NALOXONE HCL 0.4 MG/1 ML VIAL/CARP IV PRN (03:57)
[2021-05-28] MEDS ORDERED: HYDROmorphone PCA 30 MG/30 ML IV ONE (04:02)
[2021-05-28] MEDS: HYDROmorphone PCA 30 MG/30 ML IV PRN ×3 (04:03→17:30)
[2021-05-28] MEDS: SODIUM CHLORIDE 0.9% 1000ML 1,000 ML IV SCH (04:32)
[2021-05-28] MEDS ORDERED: PIPERACILL/TAZOBAC CONSULT ACTIVE PRN (07:52)
[2021-05-28] MEDS: FAMOTIDINE 20 MG TAB PO SCH (08:04)
[2021-05-28] MEDS: ONDANSETRON INJ 2 MG/ML 2 ML VIAL IV PRN (08:04)
[2021-05-28] MEDS ORDERED: PIPERACILLIN/TAZOBACTAM 3.375 GM in DEXTROSE 5% 100 ML IV ONE (08:15)
[2021-05-28] MEDS ORDERED: DEXTROSE 50% 50 ML SYRINGE IV ONE (08:19)
--- NOTE | 2021-05-28 08:24 | Hospitalist Progress Note ---
Date of Service May 28, 2021 Assessment & Plan (1) Goals of care, counseling/discussion: Plan: Patient appears to be nearing the end of his life and has inconsistent goals. He is intermittently refuses further imaging despite explaining this is a life threatening condition. Even if biliary stricture/stent occlusion is seen the patient has a close to 0% likelihood of surviving a cardiac arrest. Consult palliative care to continue to aid in decision making. (2) Metastatic colon cancer to liver: Plan: Bilirubin 6.1 from prior baseline 1.2 in December. Unknown if represents biliary stricture/stent occlusion vs. spread of metastatic cancer. CT A/P with IV contrast, MRCP and GI consult ordered. Patient made NPO. Will empirically place on Zosyn given hypoglycemia. INR 2.1 suspect from liver mets however will reverse any vitamin def. with 10mg IV vitamin K (3) Thrombocytopenia: Plan: Chronic and associated with metastatic colon cancer and history of chemotherapy (4) Lumbar degenerative disc disease: Plan: Because of chronic low back pain (5) Chronic pain syndrome: Plan: Dilaudid BLENDER OPERATOR on hold given respiratory depression requiring naloxone this morning. Consult palliative care to aid in pain management moving forward. (6) Non-sustained ventricular tachycardia: Plan: K 2.9 this morning. 40 meq IV KCl ordered. Further management per ICU. (7) Acute respiratory failure with hypoxia: Plan: CT chest for PE ordered (8) Hypoglycemia: Plan: Suspect due to poor nutritional state and liver mets. Cover empirically for sepsis/infection with Zosyn. (9) Severe protein-calorie malnutrition: Plan: To be addressed after acute issues resolve Plan: VTE prophylaxis - deferred given elevated INR, thrombocytopenia and decision regarding ERCP Diet - NPO Disposition - transfer to ICU due to episodes of NSVT Admission and Anticipated Discharge Date Admission Date: May 28, 2021 Subjective Unable to have meaningful conversation about wishes with the patient. Mainly just wants help turning. Does confirm full code wishes however. Discussed with Shauna (listed contact in EHR) over the phone. She tells me she lives with him a nd is power of attorney law clerk. Notes he is definitely full code although briefly transitioned to hospice just to be able to get his Dilaudid BLENDER OPERATOR as he was dropped by his pain management team. His plan is to go back onto chemotherapy. Occasional NSVT < 10 seconds on telemetry Review of Systems Review of Systems: All systems reviewed & are unremarkable except as noted in HPI & below Generalized pain "everywhere" Physical Exam Constitutional: + cachectic; + not well nourished Cardiovascular: Rate/Rhythm: + tachycardic and + irregularly irregular Heart Sounds: no murmur Extremities: + pedal edema (3+ b/l equal) Gastrointestinal (Abdomen): Inspection/Auscultation: + abdomen distended and + hypoactive bowel sounds Percussion/Palpation: + abdomen tender (generalized) and abdomen soft; no guarding and abdomen not rigid Skin: no rashes, warm and dry (no areas of cellulitis) Neurologic: moves all extremities, awake (lethargic) and + confused Psychiatric: Orientation: alert, oriented to person and oriented to place; + not oriented to time Results & Data Results & Data ([facility]) Vital Signs (Past 12 Hours) Vital Signs Temp Pulse Pulse Pulse Resp BP BP 05/28/21 07:15 36.6 C 79 10 L 93/64 L 05/28/21 04:39 93 H 05/28/21 04:21 36.8 C 96 H 16 91/67 L 05/28/21 02:28 96 H 20 96/71 L 05/28/21 01:45 98 H 20 94/70 L 05/28/21 01:30 103 H 20 103/73 05/28/21 01:15 107 H 20 107/79 05/28/21 01:00 101 H 20 87/73 L 05/28/21 00:45 102 H 22 93/68 L 05/28/21 00:30 98 H 20 90/69 L 05/28/21 00:15 100 H 20 83/62 L 05/28/21 00:00 102 H 20 89/62 L 05/27/21 23:45 99 H 20 81/62 L 05/27/21 23:30 101 H 20 78/59 L 05/27/21 23:15 94 H 18 82/57 L 05/27/21 23:03 05/27/21 23:00 96 H 18 83/58 L 05/27/21 22:48 96 H 16 79/57 L 05/27/21 22:47 16 05/27/21 22:26 05/27/21 22:00 36.6 C 105 H 16 77/50 L Pulse Ox 05/28/21 07:15 99 05/28/21 04:39 05/28/21 04:21 96 05/28/21 02:28 100 05/28/21 01:45 100 05/28/21 01:30 100 05/28/21 01:15 100 05/28/21 01:00 100 05/28/21 00:45 100 05/28/21 00:30 100 05/28/21 00:15 100 05/28/21 00:00 100 05/27/21 23:45 100 05/27/21 23:30 100 05/27/21 23:15 96 05/27/21 23:03 100 05/27/21 23:00 96 05/27/21 22:48 89 L 05/27/21 22:47 92 05/27/21 22:26 100 05/27/21 22:00 100 PG Care Time/CCT Total # of Minutes Spent Total Time Spent with Patient: Total time spent is greater than 50% in coordination of care (as documented) at patient's floor/unit and/or counseling patient: Critical Care Time: Yes Total Critical Care Time: 50 management of NSVT, acutely sick patient, transfer to ICU, discussions with ICU team, discussions with his POA Coding Level of Care Code None Diagnoses Metastatic colon cancer to liver C18.9; C78.7 Thrombocytopenia D69.6 Lumbar degenerative disc disease M51.36 Chronic pain syndrome G89.4 Goals of care, counseling/discussion Z71.89 Non-sustained ventricular tachycardia I47.2 Acute respiratory failure with hypoxia J96.01 Hypoglycemia E16.2 Severe protein-calorie malnutrition E43 Additional Codes Critical Care Time - Critical Care Time: Yes ([id number])
--- NOTE | 2021-05-28 08:24 | XRay Report ---
XR chest 1V portable HISTORY: 45 years-old Male SEPSIS acute sepsis COMPARISON: Chest radiograph 03/24/2021 TECHNIQUE: Supine AP view of the chest FINDINGS: The cardiomediastinal and hilar silhouettes are within normal limits. A right-sided PICC and right IJ [id number]-t-[id number] catheter present with distal tips overlying the right atrium. No pneumothorax, pleural effusion, airspace consolidation or overt pulmonary edema. Mild right hemidiaphragmatic elevation. N o acute fracture. IMPRESSION: 1. No acute process. 2. Satisfactory positioning of the right-sided PICC and right IJ central venous catheters. ACT 112: Negative or not required by law. The above report was generated using voice recognition software. It may contain grammatical, syntax o r spelling errors. Electronically signed by: Johny Andersen M.D. 05/28/2021 8:23 AM
[2021-05-28] MEDS ORDERED: GLUCOSE 40% GEL 15 GM TUBE PO PRN (08:25)
[2021-05-28] MEDS ORDERED: GLUCOSE 10 TABS/TUBE PO PRN (08:25)
[2021-05-28] MEDS ORDERED: CARBOHYDRATES FOR HYPOGLYCEMIA PO PRN (08:25)
[2021-05-28] MEDS ORDERED: PHYTONADIONE 10 MG in SODIUM CHLORIDE 0.9% 50 ML IV ONE ×2 (08:30→09:15)
[2021-05-28 08:38] LABS: Hematocrit (blood only) 23.4 % (42-52); Hemoglobin 7.5 g/dL (14.0-18.0); Mean Corpuscular Hemoglobin 23.7 pg (25-34); Mean Corpuscular Volume 74.1 fL (80-100); RDW Coefficient of Variation 22.2 % (11.5-14.5); RDW Standard Deviation 59.7 fL (36.4-46.3); Red Blood Count 3.16 M/uL (4.7-6.1); White Blood Count 5.53 K/uL (4.8-10.8)
[2021-05-28 08:42] LABS: Mean Corpuscular Hgb Conc 32.1 g/dL (32-36)
[2021-05-28 08:47] LABS: Anisocytosis Present; Echinocytes 2+; Immature Granulocytes # (auto) 0.03 K/uL (0.00-0.02); Immature Granulocytes % (auto) 0.5 %; Lymphocytes # (auto) 0.24 K/uL (1.2-3.4); Lymphocytes % (auto) 4.3 %; Monocytes # (auto) 0.24 K/uL (0.11-0.59); Monocytes % (auto) 4.3 %; Neutrophils # (auto) 5.02 K/uL (1.4-6.5); Neutrophils % (auto) 90.9 %; Platelet Count 46 K/uL (130-400)
[2021-05-28 09:38] LABS: Alanine Aminotransferase 79 U/L (12-78); Albumin Globulin Ratio 0.8 (0.9-2); Albumin Level 2.1 gm/dl (3.4-5.0); Alkaline Phosphatase 599 U/L (45-117); Aspartate Aminotransferase 186 U/L (15-37); BUN Creatinine Ratio 66.6 (10-20); Bilirubin,Total 6.5 mg/dl (0.2-1); Blood Urea Nitrogen 34 mg/dl (7-18); Calcium 7.5 mg/dl (8.5-10.1); Carbon Dioxide 18 mmol/L (21-32); Chloride 110 mmol/L (98-107); Creatinine Clr Calc Pharmacy 151.3 ml/min; Est GFR (African American) > 150.0 ml/min; Est GFR (Non-African American) 129.7 ml/min; Globulin 2.8 gm/dl (2.5-4.0); Glucose 53 mg/dl (70-99); Potassium 2.9 mmol/L (3.5-5.1); Sodium 138 mmol/L (136-145); Total Protein 4.9 gm/dl (6.4-8.2)
--- NOTE | 2021-05-28 09:42 | Electrocardiogram Report ---
Test Reason : Blood Pressure : / mmHG Vent. Rate : 095 BPM Atrial Rate : 095 BPM P-R Int : 214 ms QRS Dur : 078 ms QT Int : 352 ms P-R-T Axes : 069 083 079 degrees QTc Int : 442 ms Poor data quality, interpretation may be adversely affected Sinus rhythm with 1st degree A-V block Low voltage QRS Borderline ECG When compared with ECG of 21-SEP-2020 17:23, [place] interval has increased QRS duration has decreased QRS voltage has decreased T wave amplitude has decreased in Anterior leads Confirmed by Russel Albarado ([id number]) on 05/28/2021 9:42:00 AM Referred By: REFERRED SELF Confirmed By:Milton Albarado
[2021-05-28] MEDS ORDERED: POTASSIUM CHLORIDE / WTR 10 MEQ/100 ML PLCT IV SCH (10:00)
--- NOTE | 2021-05-28 10:26 | Gastrointestinal Consultation ---
Date of Consultation May 28, 2021 Assessment & Plan (1) Abnormal LFTs: (2) Metastatic colon cancer to liver: This is a 45 y/o male with metastatic colon CA to the liver, bones, with malignant biliary stricture s/p placement of covered CBD stent December 2020, admitted w/ weakness, poor PO intake, chronic pain. We are asked to see for ? biliary stricture; his bilirubin is elevated today and he is obviously jaundiced; cachectic and frail appearing. His INR is elevated, is anemic w/ thrombocytopenia. Labs/presentation concerning for possible occluded stent. Being moved to ICU for concern of episodes of V-tach. - Pending stabilization from a cardiac standpoint given concern for V-tach and correction of potassium and INR, we could offer ERCP today to potentially exchange stent for uncovered stent - Will need to have INR and potassium corrected; has Vit K and potassium ordered - Keep NPO - Trend H&H, transfuse PRN - Appreciate primary team mgmt of his co-morbidities - Analgesia PRN Thank you for allowing us to participate in the care of this patient. Please call with any acute changes, questions or concerns. Please see addendum below with additional recommendation from my supervising physician. Supervising Physician Co-Signing Physician Notes I performed a history and physical examination of the patient today, including specifically on physical exam - soft abdomen. I have discussed the patient's management with the advanced practitioner. Please refer to the nurse practitioner's note for the documented findings and plan of care. Clinically declining due to his metastatic colon cancer however his rising bilirubin and AST/ALT suggest biliary stent occlusion, would benefit from ERCP with stent exchange. Patient was explained in detail regarding risks, benefits, limitations and alternatives of the above endoscopic procedure. Risks of intravenous sedation used for procedure were also explained. Risks include, but not limited to perforation, bleeding, infection, respiratory distress, cardiac arrest and . Patient is also aware about the possibility of missed lesion. Patient's questions were answered. The patient verbalized understanding the information and agreed to undergo the procedure. History of Present Illness Reason for Consultation: ?biliary stricture Requesting Physician: Karan Galvan MD Attending Physician: Karan Galvan MD History of Present Illness Mr. Russel Vickers is a 45 year old male with advanced metastatic colon cancer diagnosed 3 years ago with mets to the liver and chronic abd pain s/p partial colectomy and transverse colostomy, with malignant biliary stricture undergoing underwent ERCP and had covered metal stent placed. He presented to the hospital with generalized fatigue, ongoing pain; having trouble getting Dilaudid COUNCIL ON AGING DIRECTOR as an outpt. Labs notable for HGB 7.5 (baseline 8-9), tcytopenia PLT 46 k, increase bilirubin (6.5 up from 2), AST 186, ALT 79, ALP 599, INR 2, stable renal fxn, hypokalemia, albumin 2.1, glucose 53. At present he is being moved to ICU for concerns over V-tach. Has had issues with hypotension, low resp rate. He is on 3 L NC. CXR neg. Appears cachectic, frail; in NAD. States he has abd/back pain that is fairly constant. Hasn't been eating much; has nausea but no vomiting. Stool output in ostomy is semi-formed/nonbloody, no melena, hematochezia, hematemesis, denies fevers, syncope, CP. Allergies Allergy/AdvReac Type Severity Reaction Status Date / Time promethazine Allergy Unknown HAPPENED Verified 05/27/21 22:29 A CHILD Home Medications Medication Instructions Recorded Confirmed Type lidocaine-prilocaine 2.5 %-2.5 % 1 applic TOPICAL DIRECTED PRN 09/21/20 05/27/21 History topical cream naloxone 4 mg/actuation nasal 1 spray INTRANASAL DIRECTED PRN 09/21/20 05/27/21 History spray (Narcan) hydromorphone (PF) 30 mg/30 mL (1 30 mg IV CONTINOUS #150 ml 01/01/21 05/27/21 Rx mg/mL) in 0.9 % NaCl IV COUNCIL ON AGING DIRECTOR syringe lorazepam 0.5 mg tablet (Ativan) 0.5 mg PO Q8H PRN #20 tab 01/01/21 05/27/21 Rx ondansetron 8 mg disintegrating 8 mg TRANSLINGUAL Q8H PRN #20 tab 01/01/21 05/27/21 Rx tablet Patient History Medical History Anemia Asthma Childhood Colitis Colostomy present Degenerative disc disease Depression Diabetes mellitus, type 2 Diet controlled, hgba1c 09/25/20 5.5% Dyspnea Fatty liver Hyperlipidemia Infection due to Port-A-Cath Intractable abdominal pain Metastatic colon cancer to liver s/p chemo (2019) Surgical History History of colonoscopy History of creation of ostomy History of ERCP 12/2020 with stent History of myringotomy History of removal of Port-a-Cath (03/24/21) Removal of Access Port, Insertion of New Access Port with Fluoroscopy - Ankur Turcios DO, FACS History of shoulder surgery Right History of tonsillectomy and adenoidectomy History of vascular access device Left chest wall (+ infection/reason for upcoming procedure) S/P colostomy S/P PICC central line placement Has IV Dilaudid infusing thru PICC line Family History Mother Family history of diabetes mellitus Father Colorectal cancer Cancer Aunt Cancer Grandfather (Maternal) Myocardial infarction Other Hypertension Denies family history of Ovarian cancer Prostate cancer Breast cancer Social History Smoking Status: Former smoker Smoking End Date: 20 years ago; Second Hand Exposure: No; Hx Alcohol Use: No Hx Substance Use: Yes Substance Use Type Other:: Hx methadone abuse Preferred Language: [place] Communication Ability: Effective Visual Impairment: No Limitations Hearing Ability: Normal 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 Dump 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 Operator Required: No Beliefs That Will Affect Care: Hindu marital status: Life Partner Current Living Situation: Family 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 Feels Safe at Home: Yes Childhood Exposure to Second-Hand Smoke: No Dental Care, Regularly: No Assistive Devices: None Review of Systems Review of Systems: All systems reviewed & are unremarkable except as noted in Subjective Physical Exam Constitutional: cachectic, frail, no acute distress, obviously jaundiced Respiratory: normal respiratory effort, lungs clear to auscultation Cardiovascular: + tachycardic, no murmur Gastrointestinal (Abdomen): soft, + BS, nondistended, ostomy in central abd w/ semiformed brown stool Skin: no rashes, warm and dry Psychiatric: Resting in bed with eyes closed, arouses to voice, answers questions appropriately, seems lethargic but oriented Results & Data ([facility]) Vital Signs (Past 12 Hours) Vital Signs Temp Pulse Pulse Pulse Resp BP Pulse Ox 05/28/21 09:54 36.5 C 92 H 10 L 102/69 100 05/28/21 09:35 36.6 C 97 H 14 93/62 L 100 05/28/21 07:15 36.6 C 79 10 L 93/64 L 99 05/28/21 04:39 93 H 05/28/21 04:21 36.8 C 96 H 16 91/67 L 96 05/28/21 02:28 96 H 20 96/71 L 100 05/28/21 01:45 98 H 20 94/70 L 100 05/28/21 01:30 103 H 20 103/73 100 05/28/21 01:15 107 H 20 107/79 100 05/28/21 01:00 101 H 20 87/73 L 100 05/28/21 00:45 102 H 22 93/68 L 100 05/28/21 00:30 98 H 20 90/69 L 100 05/28/21 00:15 100 H 20 83/62 L 100 05/28/21 00:00 102 H 20 89/62 L 100 05/27/21 23:45 99 H 20 81/62 L 100 05/27/21 23:30 101 H 20 78/59 L 100 05/27/21 23:15 94 H 18 82/57 L 96 05/27/21 23:03 100 05/27/21 23:00 96 H 18 83/58 L 96 05/27/21 22:48 96 H 16 79/57 L 89 L 05/27/21 22:47 16 92 05/27/21 22:26 100 Laboratory Results 05/28/21 05/28/21 05/28/21 Range/Units 10:25 10:24 08:35 WBC (4.8-10.8) K/uL RBC (4.7-6.1) M/uL Hgb (14.0-18.0) g/dL Hct (42-52) % MCV (80-100) fL MCH (25-34) pg MCHC (32-36) g/dL RDW Std Deviation (36.4-46.3) fL RDW Coeff of Jaylene (11.5-14.5) % Plt Count (130-400) K/uL MPV (7.4-10.4) fL Immature Gran % (Auto) % Neut % (Auto) % Lymph % (Auto) % [place] % (Auto) % Eos % (Auto) % Baso % (Auto) % Neut # (Auto) (1.4-6.5) K/uL Lymph # (Auto) (1.2-3.4) K/uL [place] # (Auto) (0.11-0.59) K/uL Eos # (Auto) (0-0.5) K/uL Baso # (Auto) (0-0.2) K/uL Immature Gran # (Auto) (0.00-0.02) K/uL Platelet Estimate (Normal) Hypochromasia Anisocytosis Ovalocytes Echinocytes PT (9.0-12.0) Seconds INR (0.9-1.1) APTT (21.0-31.0) Seconds PTT Ratio Sodium (136-145) mmol/L Potassium (3.5-5.1) mmol/L Chloride (98-107) mmol/L Carbon Dioxide (21-32) mmol/L Anion Gap (3-11) BUN (7-18) mg/dl Creatinine (0.6-1.4) mg/dl Est Cr Clr Drug Dosing ml/min Est GFR ( Amer) ml/min Est GFR (Non-Af Amer) ml/min BUN/Creatinine Ratio (10-20) Glucose (70-99) mg/dl POC Glucose 30 L* 25 L* 118 H (70-99) mg/dl Lactate (0.4-2.0) mmol/L Calcium (8.5-10.1) mg/dl Magnesium (1.8-2.4) mg/dl Total Bilirubin (0.2-1) mg/dl AST (15-37) U/L ALT (12-78) U/L Alkaline Phosphatase (45-117) U/L Troponin I (0-0.045) ng/ml Total Protein (6.4-8.2) gm/dl Albumin (3.4-5.0) gm/dl Globulin (2.5-4.0) gm/dl Albumin/Globulin Ratio (0.9-2) Procalcitonin (0-0.5) ng/ml Urine Color Urine Appearance (Clear) Urine pH (4.5-7.5) Ur Specific Freeborn (1.000-1.030) Urine Protein (Negative) Urine Glucose (UA) (Negative) Urine Ketones (Negative) Urine Blood (Negative) Urine Nitrite (Negative) Urine Bilirubin (Negative) Urine Urobilinogen (Negative) Ur Leukocyte Esterase (Negative) Urine WBC (Auto) (0-5) /hpf Urine RBC (Auto) (0-4) /hpf U Hyaline Cast (Auto) (0-5) /lpf U Epithel Cells (Auto) (0-5) /lpf Urine Bacteria (Auto) (Negative) Granular Casts (0) /lpf COVID-19 Eval Order SARS-CoV-2 (PCR) (Negative) 05/28/21 05/28/21 05/28/21 Range/Units 08:13 08:13 08:11 WBC 5.53 (4.8-10.8) K/uL RBC 3.16 L (4.7-6.1) M/uL Hgb 7.5 L (14.0-18.0) g/dL Hct 23.4 L (42-52) % MCV 74.1 L (80-100) fL MCH 23.7 L (25-34) pg MCHC 32.1 (32-36) g/dL RDW Std Deviation 59.7 H (36.4-46.3) fL RDW Coeff of Jaylene 22.2 H (11.5-14.5) % Plt Count 46 L (130-400) K/uL MPV (7.4-10.4) fL Immature Gran % (Auto) 0.5 % Neut % (Auto) 90.9 % Lymph % (Auto) 4.3 % [place] % (Auto) 4.3 % Eos % (Auto) 0.0 % Baso % (Auto) 0.0 % Neut # (Auto) 5.02 (1.4-6.5) K/uL Lymph # (Auto) 0.24 L (1.2-3.4) K/uL [place] # (Auto) 0.24 (0.11-0.59) K/uL Eos # (Auto) 0.00 (0-0.5) K/uL Baso # (Auto) 0.00 (0-0.2) K/uL Immature Gran # (Auto) 0.03 H (0.00-0.02) K/uL Platelet Estimate (Normal) Hypochromasia Anisocytosis Present Ovalocytes Echinocytes 2+ PT (9.0-12.0) Seconds INR (0.9-1.1) APTT (21.0-31.0) Seconds PTT Ratio Sodium 138 (136-145) mmol/L Potassium 2.9 L (3.5-5.1) mmol/L Chloride 110 H (98-107) mmol/L Carbon Dioxide 18 L (21-32) mmol/L Anion Gap 10.0 (3-11) BUN 34 H (7-18) mg/dl Creatinine 0.52 L (0.6-1.4) mg/dl Est Cr Clr Drug Dosing 151.3 ml/min Est GFR ( Amer) > 150.0 ml/min Est GFR (Non-Af Amer) 129.7 ml/min BUN/Creatinine Ratio 66.6 H (10-20) Glucose 53 L* (70-99) mg/dl POC Glucose 58 L* (70-99) mg/dl Lactate (0.4-2.0) mmol/L Calcium 7.5 L (8.5-10.1) mg/dl Magnesium (1.8-2.4) mg/dl Total Bilirubin 6.5 H (0.2-1) mg/dl AST 186 H (15-37) U/L ALT 79 H (12-78) U/L Alkaline Phosphatase 599 H (45-117) U/L Troponin I (0-0.045) ng/ml Total Protein 4.9 L (6.4-8.2) gm/dl Albumin 2.1 L (3.4-5.0) gm/dl Globulin 2.8 (2.5-4.0) gm/dl Albumin/Globulin Ratio 0.8 L (0.9-2) Procalcitonin (0-0.5) ng/ml Urine Color Urine Appearance (Clear) Urine pH (4.5-7.5) Ur Specific Freeborn (1.000-1.030) Urine Protein (Negative) Urine Glucose (UA) (Negative) Urine Ketones (Negative) Urine Blood (Negative) Urine Nitrite (Negative) Urine Bilirubin (Negative) Urine Urobilinogen (Negative) Ur Leukocyte Esterase (Negative) Urine WBC (Auto) (0-5) /hpf Urine RBC (Auto) (0-4) /hpf U Hyaline Cast (Auto) (0-5) /lpf U Epithel Cells (Auto) (0-5) /lpf Urine Bacteria (Auto) (Negative) Granular Casts (0) /lpf COVID-19 Eval Order SARS-CoV-2 (PCR) (Negative) 05/28/21 05/28/21 05/28/21 Range/Units 08:09 00:38 00:30 WBC (4.8-10.8) K/uL RBC (4.7-6.1) M/uL Hgb (14.0-18.0) g/dL Hct (42-52) % MCV (80-100) fL MCH (25-34) pg MCHC (32-36) g/dL RDW Std Deviation (36.4-46.3) fL RDW Coeff of Jaylene (11.5-14.5) % Plt Count (130-400) K/uL MPV (7.4-10.4) fL Immature Gran % (Auto) % Neut % (Auto) % Lymph % (Auto) % [place] % (Auto) % Eos % (Auto) % Baso % (Auto) % Neut # (Auto) (1.4-6.5) K/uL Lymph # (Auto) (1.2-3.4) K/uL [place] # (Auto) (0.11-0.59) K/uL Eos # (Auto) (0-0.5) K/uL Baso # (Auto) (0-0.2) K/uL Immature Gran # (Auto) (0.00-0.02) K/uL Platelet Estimate (Normal) Hypochromasia Anisocytosis Ovalocytes Echinocytes PT (9.0-12.0) Seconds INR (0.9-1.1) APTT (21.0-31.0) Seconds PTT Ratio Sodium (136-145) mmol/L Potassium (3.5-5.1) mmol/L Chloride (98-107) mmol/L Carbon Dioxide (21-32) mmol/L Anion Gap (3-11) BUN (7-18) mg/dl Creatinine (0.6-1.4) mg/dl Est Cr Clr Drug Dosing ml/min Est GFR ( Amer) ml/min Est GFR (Non-Af Amer) ml/min BUN/Creatinine Ratio (10-20) Glucose (70-99) mg/dl POC Glucose 62 L* (70-99) mg/dl Lactate 2.8 H* (0.4-2.0) mmol/L Calcium (8.5-10.1) mg/dl Magnesium (1.8-2.4) mg/dl Total Bilirubin (0.2-1) mg/dl AST (15-37) U/L ALT (12-78) U/L Alkaline Phosphatase (45-117) U/L Troponin I (0-0.045) ng/ml Total Protein (6.4-8.2) gm/dl Albumin (3.4-5.0) gm/dl Globulin (2.5-4.0) gm/dl Albumin/Globulin Ratio (0.9-2) Procalcitonin (0-0.5) ng/ml Urine Color Dark Yellow Urine Appearance Cloudy A (Clear) Urine pH 5.0 (4.5-7.5) Ur Specific Freeborn 1.016 (1.000-1.030) Urine Protein Trace H (Negative) Urine Glucose (UA) Negative (Negative) Urine Ketones Negative (Negative) Urine Blood Negative (Negative) Urine Nitrite Negative (Negative) Urine Bilirubin 2+ H (Negative) Urine Urobilinogen Negative (Negative) Ur Leukocyte Esterase Negative (Negative) Urine WBC (Auto) 1-5 (0-5) /hpf Urine RBC (Auto) 5-10 H (0-4) /hpf U Hyaline Cast (Auto) 1-5 (0-5) /lpf U Epithel Cells (Auto) 0-5 (0-5) /lpf Urine Bacteria (Auto) Negative (Negative) Granular Casts 1-5 H (0) /lpf COVID-19 Eval Order SARS-CoV-2 (PCR) (Negative) 05/27/21 05/27/21 05/27/21 Range/Units 22:56 22:56 22:33 WBC (4.8-10.8) K/uL RBC (4.7-6.1) M/uL Hgb (14.0-18.0) g/dL Hct (42-52) % MCV (80-100) fL MCH (25-34) pg MCHC (32-36) g/dL RDW Std Deviation (36.4-46.3) fL RDW Coeff of Jaylene (11.5-14.5) % Plt Count (130-400) K/uL MPV (7.4-10.4) fL Immature Gran % (Auto) % Neut % (Auto) % Lymph % (Auto) % [place] % (Auto) % Eos % (Auto) % Baso % (Auto) % Neut # (Auto) (1.4-6.5) K/uL Lymph # (Auto) (1.2-3.4) K/uL [place] # (Auto) (0.11-0.59) K/uL Eos # (Auto) (0-0.5) K/uL Baso # (Auto) (0-0.2) K/uL Immature Gran # (Auto) (0.00-0.02) K/uL Platelet Estimate (Normal) Hypochromasia Anisocytosis Ovalocytes Echinocytes PT (9.0-12.0) Seconds INR (0.9-1.1) APTT (21.0-31.0) Seconds PTT Ratio Sodium (136-145) mmol/L Potassium (3.5-5.1) mmol/L Chloride (98-107) mmol/L Carbon Dioxide (21-32) mmol/L Anion Gap (3-11) BUN (7-18) mg/dl Creatinine (0.6-1.4) mg/dl Est Cr Clr Drug Dosing ml/min Est GFR ( Amer) ml/min Est GFR (Non-Af Amer) ml/min BUN/Creatinine Ratio (10-20) Glucose (70-99) mg/dl POC Glucose (70-99) mg/dl Lactate (0.4-2.0) mmol/L Calcium (8.5-10.1) mg/dl Magnesium (1.8-2.4) mg/dl Total Bilirubin (0.2-1) mg/dl AST (15-37) U/L ALT (12-78) U/L Alkaline Phosphatase (45-117) U/L Troponin I (0-0.045) ng/ml Total Protein (6.4-8.2) gm/dl Albumin (3.4-5.0) gm/dl Globulin (2.5-4.0) gm/dl Albumin/Globulin Ratio (0.9-2) Procalcitonin 14.72 H (0-0.5) ng/ml Urine Color Urine Appearance (Clear) Urine pH (4.5-7.5) Ur Specific Freeborn (1.000-1.030) Urine Protein (Negative) Urine Glucose (UA) (Negative) Urine Ketones (Negative) Urine Blood (Negative) Urine Nitrite (Negative) Urine Bilirubin (Negative) Urine Urobilinogen (Negative) Ur Leukocyte Esterase (Negative) Urine WBC (Auto) (0-5) /hpf Urine RBC (Auto) (0-4) /hpf U Hyaline Cast (Auto) (0-5) /lpf U Epithel Cells (Auto) (0-5) /lpf Urine Bacteria (Auto) (Negative) Granular Casts (0) /lpf COVID-19 Eval Order Covid19 at [facility] SARS-CoV-2 (PCR) NEGATIVE (Negative) 05/27/21 05/27/21 05/27/21 Range/Units 22:33 22:33 22:33 WBC (4.8-10.8) K/uL RBC (4.7-6.1) M/uL Hgb (14.0-18.0) g/dL Hct (42-52) % MCV (80-100) fL MCH (25-34) pg MCHC (32-36) g/dL RDW Std Deviation (36.4-46.3) fL RDW Coeff of Jaylene (11.5-14.5) % Plt Count (130-400) K/uL MPV (7.4-10.4) fL Immature Gran % (Auto) % Neut % (Auto) % Lymph % (Auto) % [place] % (Auto) % Eos % (Auto) % Baso % (Auto) % Neut # (Auto) (1.4-6.5) K/uL Lymph # (Auto) (1.2-3.4) K/uL [place] # (Auto) (0.11-0.59) K/uL Eos # (Auto) (0-0.5) K/uL Baso # (Auto) (0-0.2) K/uL Immature Gran # (Auto) (0.00-0.02) K/uL Platelet Estimate (Normal) Hypochromasia Anisocytosis Ovalocytes Echinocytes PT 19.7 H (9.0-12.0) Seconds INR 2.1 H (0.9-1.1) APTT 49.7 H* (21.0-31.0) Seconds PTT Ratio 1.9 Sodium 136 (136-145) mmol/L Potassium 3.4 L (3.5-5.1) mmol/L Chloride 108 H (98-107) mmol/L Carbon Dioxide 17 L (21-32) mmol/L Anion Gap 11.0 (3-11) BUN 37 H (7-18) mg/dl Creatinine 0.54 L (0.6-1.4) mg/dl Est Cr Clr Drug Dosing 112.0 ml/min Est GFR ( Amer) 148.0 ml/min Est GFR (Non-Af Amer) 127.7 ml/min BUN/Creatinine Ratio 68.0 H (10-20) Glucose 53 L* (70-99) mg/dl POC Glucose (70-99) mg/dl Lactate 3.6 H* (0.4-2.0) mmol/L Calcium 7.4 L (8.5-10.1) mg/dl Magnesium 1.9 (1.8-2.4) mg/dl Total Bilirubin 6.1 H (0.2-1) mg/dl AST 185 H (15-37) U/L ALT 81 H (12-78) U/L Alkaline Phosphatase 715 H (45-117) U/L Troponin I < 0.015 (0-0.045) ng/ml Total Protein 4.6 L (6.4-8.2) gm/dl Albumin 1.3 L (3.4-5.0) gm/dl Globulin 3.3 (2.5-4.0) gm/dl Albumin/Globulin Ratio 0.4 L (0.9-2) Procalcitonin (0-0.5) ng/ml Urine Color Urine Appearance (Clear) Urine pH (4.5-7.5) Ur Specific Freeborn (1.000-1.030) Urine Protein (Negative) Urine Glucose (UA) (Negative) Urine Ketones (Negative) Urine Blood (Negative) Urine Nitrite (Negative) Urine Bilirubin (Negative) Urine Urobilinogen (Negative) Ur Leukocyte Esterase (Negative) Urine WBC (Auto) (0-5) /hpf Urine RBC (Auto) (0-4) /hpf U Hyaline Cast (Auto) (0-5) /lpf U Epithel Cells (Auto) (0-5) /lpf Urine Bacteria (Auto) (Negative) Granular Casts (0) /lpf COVID-19 Eval Order SARS-CoV-2 (PCR) (Negative) 05/27/21 05/27/21 Range/Units 22:33 22:06 WBC 6.85 (4.8-10.8) K/uL RBC 3.57 L (4.7-6.1) M/uL Hgb 8.4 L (14.0-18.0) g/dL Hct 26.1 L (42-52) % MCV 73.1 L (80-100) fL MCH 23.5 L (25-34) pg MCHC 32.2 (32-36) g/dL RDW Std Deviation 59.0 H (36.4-46.3) fL RDW Coeff of Jaylene 22.3 H (11.5-14.5) % Plt Count 56 L (130-400) K/uL MPV 9.0 (7.4-10.4) fL Immature Gran % (Auto) 0.7 % Neut % (Auto) 88.8 % Lymph % (Auto) 6.6 % [place] % (Auto) 3.9 % Eos % (Auto) 0.0 % Baso % (Auto) 0.0 % Neut # (Auto) 6.08 (1.4-6.5) K/uL Lymph # (Auto) 0.45 L (1.2-3.4) K/uL [place] # (Auto) 0.27 (0.11-0.59) K/uL Eos # (Auto) 0.00 (0-0.5) K/uL Baso # (Auto) 0.00 (0-0.2) K/uL Immature Gran # (Auto) 0.05 H (0.00-0.02) K/uL Platelet Estimate Decreased L (Normal) Hypochromasia Present Anisocytosis Ovalocytes 1+ Echinocytes 1+ PT (9.0-12.0) Seconds INR (0.9-1.1) APTT (21.0-31.0) Seconds PTT Ratio Sodium (136-145) mmol/L Potassium (3.5-5.1) mmol/L Chloride (98-107) mmol/L Carbon Dioxide (21-32) mmol/L Anion Gap (3-11) BUN (7-18) mg/dl Creatinine (0.6-1.4) mg/dl Est Cr Clr Drug Dosing ml/min Est GFR ( Amer) ml/min Est GFR (Non-Af Amer) ml/min BUN/Creatinine Ratio (10-20) Glucose (70-99) mg/dl POC Glucose 79 (70-99) mg/dl Lactate (0.4-2.0) mmol/L Calcium (8.5-10.1) mg/dl Magnesium (1.8-2.4) mg/dl Total Bilirubin (0.2-1) mg/dl AST (15-37) U/L ALT (12-78) U/L Alkaline Phosphatase (45-117) U/L Troponin I (0-0.045) ng/ml Total Protein (6.4-8.2) gm/dl Albumin (3.4-5.0) gm/dl Globulin (2.5-4.0) gm/dl Albumin/Globulin Ratio (0.9-2) Procalcitonin (0-0.5) ng/ml Urine Color Urine Appearance (Clear) Urine pH (4.5-7.5) Ur Specific Free[place] (1.000-1.030) Urine Protein (Negative) Urine Glucose (UA) (Negative) Urine Ketones (Negative) Urine Blood (Negative) Urine Nitrite (Negative) Urine Bilirubin (Negative) Urine Urobilinogen (Negative) Ur Leukocyte Esterase (Negative) Urine WBC (Auto) (0-5) /hpf Urine RBC (Auto) (0-4) /hpf U Hyaline Cast (Auto) (0-5) /lpf U Epithel Cells (Auto) (0-5) /lpf Urine Bacteria (Auto) (Negative) Granular Casts (0) /lpf COVID-19 Eval Order SARS-CoV-2 (PCR) (Negative)
[2021-05-28] MEDS: DEXTROSE 50% 50 ML SYRINGE IV PRN ×2 (10:29→15:54)
[2021-05-28] MEDS ORDERED: PROPOFOL IV EMULSION 10 MG/ML 20 ML VIAL IV ONE (10:44)
[2021-05-28] MEDS ORDERED: DEXAMETHASONE SOD INJ 4 MG/ML VIAL ONE (10:44)
[2021-05-28] MEDS ORDERED: ONDANSETRON INJ 2 MG/ML 2 ML VIAL ONE (10:44)
[2021-05-28] MEDS ORDERED: SUCCINYLCHOLINE 100MG/5ML SYR IV ONE (10:44)
[2021-05-28] MEDS ORDERED: fentaNYL citrate 100 MCG/2 ML VIAL ONE (10:44)
[2021-05-28] MEDS: DEXTROSE 10% 1,000 ML IV SCH (10:54)
[2021-05-28] MEDS ORDERED: INDOMETHACIN 50 MG SUPP PR ONE (11:08)
--- NOTE | 2021-05-28 11:12 | Anesthesiology Consultation ---
Date of Service May 28, 2021 Assessment & Plan (1) Encounter for pre-operative examination: Chart Review Chart Review: Acceptable Risk for Surgery Consults Requested none ASA ASA4 Proposed Anesthesia Anesthesia Type: MAC Risk / Benefits Reviewed With: PT / POA / Parent / Guardian, Accepts Plan and Informed Consent Obtained History Surgery Operation Date: 05/28/21 11:00 Proposed Procedures p Endoscopic Retrograde Cholangiopancreato - Manish Cohn MD Height/Weight Height: 5 ft 10 in Weight: 59 kg Allergies Allergy/AdvReac Type Severity Reaction Status Date / Time promethazine Allergy Unknown HAPPENED Verified 05/27/21 22:29 A CHILD Medications Home Medications Medication Instructions Recorded Confirmed Last Taken lidocaine-prilocaine 2.5 %-2.5 % 1 applic TOPICAL DIRECTED PRN 09/21/20 05/27/21 Unknown topical cream naloxone 4 mg/actuation nasal 1 spray INTRANASAL DIRECTED PRN 09/21/20 05/27/21 Unknown spray (Narcan) hydromorphone (PF) 30 mg/30 mL (1 30 mg IV CONTINOUS #150 ml 01/01/21 05/27/21 03/24/21 09:30 mg/mL) in 0.9 % NaCl IV CLEANING SUPERVISOR syringe lorazepam 0.5 mg tablet (Ativan) 0.5 mg PO Q8H PRN #20 tab 01/01/21 05/27/21 03/23/21 23:59 ondansetron 8 mg disintegrating 8 mg TRANSLINGUAL Q8H PRN #20 tab 01/01/21 05/27/21 Unknown tablet Active Medications Generic Name Dose Route Start Last Admin Trade Name Freq PRN Reason Stop Dose Admin Dextrose 25 - 50 ml 05/28/21 08:25 05/28/21 10:29 Dextrose 50% 50 Ml Syringe IV 06/27/21 08:24 50 ml UD PRN Administration Hypoglycemia Protocol Protocol Famotidine 20 mg 05/28/21 09:00 05/28/21 08:04 Famotidine 20 Mg Tab PO 06/27/21 08:59 Not Given QAM ELI Sodium Chloride 1,000 mls @ 30 mls/hr 05/28/21 04:00 05/28/21 04:32 Nss 1000ml IV 06/27/21 03:59 30 mls/hr .Q24H ELI Administration Dextrose 1,000 mls @ 50 mls/hr 05/28/21 10:30 05/28/21 10:54 D10w IV 06/27/21 10:29 50 mls/hr .Q20H ELI Administration Naloxone HCl 0.1 mg 05/28/21 03:57 05/28/21 07:56 Naloxone Hcl 0.4 Mg/1 Ml Vial/Carp IV 06/11/21 03:56 0.1 mg Q5M PRN Administration Oversedation/Resp Depression Protocol Ondansetron HCl 4 mg 05/28/21 03:13 05/28/21 08:04 Ondansetron Inj 2 Mg/Ml 2 Ml Vial IV 06/27/21 03:12 4 mg Q6H PRN Administration Nausea Past Medical History Medical History Anemia Asthma Childhood Colitis Colostomy present Degenerative disc disease Depression Diabetes mellitus, type 2 Diet controlled, hgba1c 09/25/20 5.5% Dyspnea Fatty liver Hyperlipidemia Infection due to Port-A-Cath Intractable abdominal pain Metastatic colon cancer to liver s/p chemo (2018) Exercise / Class Metabolic Activity IV < 2 Limit ADL/Bedbound Past Family History Family History Mother Family history of diabetes mellitus Father Colorectal cancer Cancer Aunt Cancer Grandfather (Maternal) Myocardial infarction Other Hypertension Denies family history of Ovarian cancer Prostate cancer Breast cancer Past Surgical History Surgical History History of colonoscopy History of creation of ostomy History of ERCP 12/2020 with stent History of myringotomy History of removal of Port-a-Cath (03/24/21) Removal of Access Port, Insertion of New Access Port with Fluoroscopy - Ankur Turcios DO, FACS History of shoulder surgery Right History of tonsillectomy and adenoidectomy History of vascular access device Left chest wall (+ infection/reason for upcoming procedure) S/P colostomy S/P PICC central line placement Has IV Dilaudid infusing thru PICC line Past Anesthesia History No Hx of Anesthesia Complications and No Family Hx of Anesthesia Complications History of PONV No Hx of PONV and No Hx of Motion Sickness Social History Smoking Status: Former smoker tobacco type: cigarettes Smoking End Date: 20 years ago Hx Alcohol Use: No Hx Substance Use: Yes substance use type: marijuana (Medical) Substance Use Type Other:: Hx methadone abuse Physical Exam Vital Signs Last Vital Signs Temp 97.5 F L 05/28/21 11:00 Pulse 93 H 05/28/21 10:45 Resp 23 05/28/21 10:30 BP 94/70 L 05/28/21 10:58 Pulse Ox 100 05/28/21 10:45 ENMT Mouth: + poor dentition and + chipped teeth Thyromental Distance: > or= 3.5 Finger Breadths Mallampati Class: II Neck normal visual inspection Respiratory normal respiratory effort Auscultation: lungs clear to auscultation bilaterally Cardiovascular Rate/Rhythm: regular rhythm and + tachycardic Testing Laboratory Results 05/28/21 08:13 05/28/21 08:13 PT 19.7 Seconds (9.0-12.0) H 05/27/21 22:33 INR 2.1 (0.9-1.1) H 05/27/21 22:33 APTT 49.7 Seconds (21.0-31.0) H* 05/27/21 22:33 Urine Color Dark Yellow 05/28/21 00:30 Urine Appearance Cloudy (Clear) A 05/28/21 00:30 Urine pH 5.0 (4.5-7.5) 05/28/21 00:30 Ur Specific [place] 1.016 (1.000-1.030) 05/28/21 00:30 Urine Protein Trace (Negative) H 05/28/21 00:30 Urine Glucose (UA) Negative (Negative) 05/28/21 00:30 Urine Ketones Negative (Negative) 05/28/21 00:30 Urine Nitrite Negative (Negative) 05/28/21 00:30 Ur Leukocyte Esterase Negative (Negative) 05/28/21 00:30 Urine WBC (Auto) 1-5 /hpf (0-5) 05/28/21 00:30 Urine RBC (Auto) 5-10 /hpf (0-4) H 05/28/21 00:30 U Hyaline Cast (Auto) 1-5 /lpf (0-5) 05/28/21 00:30 U Epithel Cells (Auto) 0-5 /lpf (0-5) 05/28/21 00:30 Urine Bacteria (Auto) Negative (Negative) 05/28/21 00:30 05/28/21 05/28/21 05/28/21 10:41 10:25 10:24 POC Glucose 166 H 30 L* 25 L* 05/28/21 05/28/21 05/28/21 08:35 08:11 08:09 POC Glucose 118 H 58 L* 62 L* Electrocardiogram Date: 05/27/21 Sinus rhythm with 1st degree A-V block, rate 95 bpm Low voltage QRS Borderline ECG When compared with ECG of 21-SEP-2020 17:23, CO interval has increased QRS duration has decreased QRS voltage has decreased T wave amplitude has decreased in Anterior leads Confirmed by Russel Albarado ([id number]) on 05/28/2021 9:42:00 AM Chest X-Ray Date: 05/27/21 IMPRESSION: 1. No acute process. 2. Satisfactory positioning of the right-sided PICC and right IJ central venous catheters. Echocardiogram Date: 09/22/20 LV systolic function is normal Small pericardial effusion Image quality was limited but no obvious valvular heart disease
[2021-05-28] MEDS ORDERED: KETAMINE 50 MG/5 ML SYRINGE ONE (11:14)
[2021-05-28] MEDS ORDERED: MIDAZOLAM HCL 1 MG/ML 2ML VIAL ONE (11:14)
[2021-05-28] MEDS: POTASSIUM CHLORIDE / WTR 20 MEQ/100 ML PLCT IV SCH ×2 (11:17→12:33)
--- NOTE | 2021-05-28 11:18 | History & Physical Bridge Note ---
Date of Service May 28, 2021 History & Physical Bridge Note I have examined the patient, reviewed the History & Physical and in the interval since the performance of the History & Physical I have noted the following changes of clinical significance: no changes noted
[2021-05-28] MEDS ORDERED: PHENYLEPHRINE 100MCG/ML 5ML SYR ONE (11:54)
--- NOTE | 2021-05-28 12:10 | Operative Report ---
Post Operative Report Pre & Post Diagnosis Operation Date: 05/28/21 11:00 Pre-Op Diagnosis: DYSPNEA, CANCER PAIN Post-Op Diagnosis: DYSPNEA, CANCER PAIN I identified the patient and participated in the time-out.: Yes Procedure Operation Date: 05/28/21 11:00 Actual Procedures p Endoscopic Retrograde Cholangiopancreatography(Not Applicable) - Manish Cohn MD Surgeon Manish Cohn MD Community Life Director None Estimated Blood Loss 0 Findings See Below (CBD stent was occluded, this was removed and replaced) Specimens None Description of Procedure ERCP I attest to the content of the Intraoperative Record and any orders documented therein. Any exceptions are noted below.
--- NOTE | 2021-05-28 12:10 | Critical Care Consultation ---
Date of Consultation May 28, 2021 Assessment & Plan (1) Chronic pain syndrome: (2) Metastatic colon cancer to liver: (3) Hypoglycemia: (4) Non-sustained ventricular tachycardia: (5) Hypokalemia: 45-year-old male with metastatic colon cancer to the liver and likely biliary obstruction presenting due to fatigue. Currently in the ICU due to hypokalemia, hypoglycemia and nonsustained ventricular tachycardia. He essentially has a picture of earlier to thrive due to his widespread metastatic disease. Overall he has a very poor prognosis. Palliative care is following the patient. D10 drip initiated due to hypoglycemia and poor p.o. intake. Potassium is being rapidly replaced due to hypokalemia and nonsustained ventricular tachycardia on the floor. Continue to monitor telemetry closely. We will recheck BM and magnesium/phosphorus GI is following and patient will undergo possible ERCP and common bile duct stent exchange today. Continue Zosyn for possible biliary sepsis. Patient with thrombocytopenia possibly related to liver failure, chemotherapy, consumptive coagulopathy from sepsis and/or DIC related to malignancy. Patient also with an elevated INR likely due to liver failure and poor nutrition. 10 mg of vitamin K was given by the hospitalist team. We will check a fibrinogen level to evaluate for DIC. FLASK FITTER pump will be restarted with basal Dilaudid due to chronic severe pain. He is at risk for decompensation and respiratory failure related to high-dose opiates. Patient reiterated to me today that he would like to remain a full code and he has plans on going back on chemotherapy when he has more strength. Thank you for the consultation. ICU will continue to follow. Case was personally discussed with the palliative care physician, Dr. Silverman, hospitalist physician, Dr. Galvan and the bedside nurse. History of Present Illness Reason for Consultation: Episodes of ventricular tachycardia and hypokalemia Attending Physician: Karan Galvan MD History of Present Illness 45-year-old male with history of colon cancer metastatic to the liver who presented to the hospital overnight due to increased fatigue. Today he complains of diffuse abdominal and back pain. He is normally on a Dilaudid FLASK FITTER. He has had issues with pain management as an outpatient. He follows with [facility] hematology/oncology. He was previously under hospice care. Patient notes that he would like to continue with aggressive measures such as chemotherapy when he is feeling stronger. He also would like to be a full code he had an event where he suffered a cardiac arrest or worsening respiratory failure. He currently appears stable on 3 L of oxygen saturating 100%. He is hypotensive, but this appears chronic. His functional status is very poor. Gastroenterology was consulted due to concern of biliary stricture. His total bilirubin is elevated. He previously underwent a covered CBD stent in December 2020 due to a malignant biliary stricture. Gastroenterology is considering an ERCP with stent exchange. He reportedly had episodes of nonsustained ventricular tachycardia while on the telemetry floor. He is hypokalemic this morning and his potassium is being replaced. Allergies Allergy/AdvReac Type Severity Reaction Status Date / Time promethazine Allergy Unknown HAPPENED Verified 05/27/21 22:29 A CHILD Home Medications Medication Instructions Recorded Confirmed Type lidocaine-prilocaine 2.5 %-2.5 % 1 applic TOPICAL DIRECTED PRN 09/21/20 05/27/21 History topical cream naloxone 4 mg/actuation nasal 1 spray INTRANASAL DIRECTED PRN 09/21/20 05/27/21 History spray (Narcan) hydromorphone (PF) 30 mg/30 mL (1 30 mg IV CONTINOUS #150 ml 01/01/21 05/27/21 Rx mg/mL) in 0.9 % NaCl IV FLASK FITTER syringe lorazepam 0.5 mg tablet (Ativan) 0.5 mg PO Q8H PRN #20 tab 01/01/21 05/27/21 Rx ondansetron 8 mg disintegrating 8 mg TRANSLINGUAL Q8H PRN #20 tab 01/01/21 05/27/21 Rx tablet Patient History Medical History (Updated 05/28/21 @ 12:02 by Ranjit Crawford MD) Anemia Asthma Childhood Colitis Colostomy present Degenerative disc disease Depression Diabetes mellitus, type 2 Diet controlled, hgba1c 09/25/20 5.5% Dyspnea Fatty liver Hyperlipidemia Hypoglycemia Hypokalemia Infection due to Port-A-Cath Intractable abdominal pain Metastatic colon cancer to liver s/p chemo (2019) Surgical History History of colonoscopy History of creation of ostomy History of ERCP 12/2020 with stent History of myringotomy History of removal of Port-a-Cath (03/24/21) Removal of Access Port, Insertion of New Access Port with Fluoroscopy - Ankur Turcios, , FACS History of shoulder surgery Right History of tonsillectomy and adenoidectomy History of vascular access device Left chest wall (+ infection/reason for upcoming procedure) S/P colostomy S/P PICC central line placement Has IV Dilaudid infusing thru PICC line Family History Mother Family history of diabetes mellitus Father Colorectal cancer Cancer Aunt Cancer Grandfather (Maternal) Myocardial infarction Other Hypertension Denies family history of Ovarian cancer Prostate cancer Breast cancer Social History Smoking Status: Former smoker Smoking End Date: 20 years ago; Second Hand Exposure: No; Hx Alcohol Use: No Hx Substance Use: Yes Substance Use Type Other:: Hx methadone abuse Preferred Language: Polish Communication Ability: Effective Visual Impairment: No Limitations Hearing Ability: Normal Manager Music Required: No Beliefs That Will Affect Care: Hoahaoism marital status: Life Partner Current Living Situation: Family 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 No significant distress at present. Eyes: Scleral icterus. Pupils equal. Ears nose, mouth and throat: Bitemporal wasting. No obvious deformities. Neck: Trachea is midline. Visual inspection is normal. Respiratory: Clear to auscultation bilaterally. No use of accessory muscles. Cardiovascular: Regular rate and rhythm. No murmurs. No edema. Gastrointestinal: Normal bowel sounds, soft, nontender and nondistended. No hepatosplenomegaly noted. Musculoskeletal: Diffusely weak. Skin: Jaundiced Neurologic: No obvious focal neurological deficits seen. Psychiatric: Alert and oriented x3 with a euthymic affect. Results & Data Results & Data ([facility]) Vital Signs (Past 12 Hours) Vital Signs Temp Pulse Pulse Pulse Resp BP Pulse Ox 05/28/21 11:05 97.3 F L 108 H 22 94/70 L 100 05/28/21 11:00 97.5 F L 05/28/21 10:58 94/70 L 10/29/21 10:45 93 H 100 05/28/21 10:30 109 H 23 84/63 L 100 05/28/21 10:20 98 H 22 05/28/21 09:54 97.7 F 92 H 10 L 102/69 100 05/28/21 09:35 97.9 F 97 H 14 93/62 L 100 05/28/21 07:15 97.9 F 79 10 L 93/64 L 99 05/28/21 04:39 93 H 05/28/21 04:21 98.2 F 96 H 16 91/67 L 96 05/28/21 02:28 96 H 20 96/71 L 100 05/28/21 01:45 98 H 20 94/70 L 100 05/28/21 01:30 103 H 20 103/73 100 05/28/21 01:15 107 H 20 107/79 100 05/28/21 01:00 101 H 20 87/73 L 100 05/28/21 00:45 102 H 22 93/68 L 100 05/28/21 00:30 98 H 20 90/69 L 100 05/28/21 00:15 100 H 20 83/62 L 100 05/28/21 00:00 102 H 20 89/62 L 100 vital signs, labs and imaging personally reviewed Coding Level of Care Code 35494 Inpt Consult Level 5 Diagnoses Chronic pain syndrome G89.4 Metastatic colon cancer to liver C18.9; C78.7 Hypoglycemia E16.2 Non-sustained ventricular tachycardia I47.2 Hypokalemia E87.6
--- NOTE | 2021-05-28 12:37 | GI REPORT ---
Patient Name: Russel Vickers Procedure Date: 05/28/2021 11:19 AM Date of : 1975 Admit Type: Inpatient Age: 45 Gender: Male Attending MD: Manish Cohn MD Procedure: ERCP Providers: Manish Cohn MD Referring MD: Karan Galvan Md Indications: For therapy of ascending cholangitis, Stent change Medicines: Propofol per Anesthesia Complications: No immediate complications. Estimated Blood Loss: Estimated blood loss: none. Procedure: Pre-Anesthesia Assessment: - Prior to the procedure, a History and Physical was performed, and patient medications, allergies and sensitivities were reviewed. The patient's tolerance of previous anesthesia was reviewed. - The risks and benefits of the procedure and the sedation options and risks were discussed with the patient. All questions were answered and informed consent was obtained. - Patient identification and proposed procedure were verified prior to the procedure by the physician and the nurse. The procedure was verified in the procedure room. - Pre-procedure physical examination revealed no contraindications to sedation. After obtaining informed consent, the scope was passed under direct vision. Throughout the procedure, the patient's blood pressure, pulse, and oxygen saturations were monitored continuously. The Scope was introduced through the mouth, and advanced to the duodenum and used to inject contrast into the bile duct. The ERCP was accomplished without difficulty. The patient tolerated the procedure well. Findings: A biliary stent was visible on the hot roller film. A pancreatic stent was visible on the hot roller film. The esophagus was successfully intubated under direct vision. The scope was advanced to a normal major papilla in the descending duodenum without detailed examination of the pharynx, larynx and associated structures, and upper GI tract. The upper GI tract was grossly normal. A biliary sphincterotomy had been performed. The sphincterotomy appeared open. One covered metal biliary stent originating in the common bile duct was emerging from the major papilla. The stent was visibly occluded. One plastic pancreatic stent originating in the pancreatic duct was emerging from the major papilla. One stent was removed from the pancreatic duct using a snare. One stent was removed from the common bile duct using a snare. A 0.035 inch straight standard wire was passed into the biliary tree. The 8.5 mm balloon was passed over the guidewire and the bile duct was then deeply cannulated. Contrast was injected. I personally interpreted the bile duct images. Ductal flow of contrast was adequate. Image quality was adequate. Contrast extended to the main bile duct. Opacification of the entire biliary tree except for the gallbladder was successful. The maximum diameter of the ducts was 10 mm. The lower third of the main bile duct and middle third of the main bile duct contained a single mild stenosis. The biliary tree was swept with a 12 mm balloon starting at the bifurcation. Sludge was swept from the duct. A few stones were removed. No stones remained. Pus was swept from the duct. One 10 mm by 8 cm uncovered metal biliary stent was placed into the common bile duct. Bile flowed through the stent. The stent was in good position. Impression: - One stent was removed from the pancreatic duct. - One stent was removed from the common bile duct. The stent was completely occluded. - Malignant appearing distal biliary stricture. - The biliary tree was swept and extensive amount of debris and pus was found. - One uncovered metal biliary stent was placed into the common bile duct. Recommendation: - Return patient to ICU for ongoing care. - Continue IV ABx. - Correct coagulopathy. - Recall GI if needed. Manish Cohn MD 05/28/2021 12:36:53 PM This report has been signed electronically. Note Initiated On: 05/28/2021 11:19 AM Number of Addenda: 0 I attest to the content of the Intraoperative Record and orders documented therein, exceptions below {[id number]}
[2021-05-28 12:44] LABS: Fibrinogen 261 mg/dl (184-400)
--- NOTE | 2021-05-28 13:18 | Anesthesiology Progress Note ---
Date of Service May 28, 2021 Anesthesia Post Procedure Vital Signs Vital Signs: Temp Pulse Pulse Pulse Resp BP BP 05/28/21 11:05 97.3 F L 108 H 22 94/70 L 05/28/21 11:00 97.5 F L 05/28/21 10:58 94/70 L 05/28/21 10:45 93 H 05/28/21 10:30 109 H 23 84/63 L 05/28/21 10:20 98 H 22 05/28/21 09:54 97.7 F 92 H 10 L 102/69 05/28/21 09:35 97.9 F 97 H 14 93/62 L 05/28/21 07:15 97.9 F 79 10 L 93/64 L 05/28/21 04:39 93 H 05/28/21 04:21 98.2 F 96 H 16 91/67 L 05/28/21 02:28 96 H 20 96/71 L 05/28/21 01:45 98 H 20 94/70 L 05/28/21 01:30 103 H 20 103/73 05/28/21 01:15 107 H 20 107/79 05/28/21 01:00 101 H 20 87/73 L 05/28/21 00:45 102 H 22 93/68 L 05/28/21 00:30 98 H 20 90/69 L 05/28/21 00:15 100 H 20 83/62 L 05/28/21 00:00 102 H 20 89/62 L 05/27/21 23:45 99 H 20 81/62 L 05/27/21 23:30 101 H 20 78/59 L 05/27/21 23:15 94 H 18 82/57 L 05/27/21 23:03 05/27/21 23:00 96 H 18 83/58 L 05/27/21 22:48 96 H 16 79/57 L 05/27/21 22:47 16 05/27/21 22:26 05/27/21 22:00 97.9 F 105 H 16 77/50 L Pulse Ox 05/28/21 11:05 100 05/28/21 11:00 05/28/21 10:58 05/28/21 10:45 100 05/28/21 10:30 100 05/28/21 10:20 10/29/21 09:54 100 05/28/21 09:35 100 05/28/21 07:15 99 05/28/21 04:39 05/28/21 04:21 96 05/28/21 02:28 100 05/28/21 01:45 100 05/28/21 01:30 100 05/28/21 01:15 100 05/28/21 01:00 100 05/28/21 00:45 100 05/28/21 00:30 100 05/28/21 00:15 100 05/28/21 00:00 100 05/27/21 23:45 100 05/27/21 23:30 100 05/27/21 23:15 96 05/27/21 23:03 100 05/27/21 23:00 96 05/27/21 22:48 89 L 05/27/21 22:47 92 05/27/21 22:26 100 05/27/21 22:00 100 Pain Intensity Generalized: Pain Intensity: 10 Transfer of Care Handoff Completed per policy Notes Mental Status: alert / awake / arousable and participated in evaluation Patient Amnestic to Procedure: Yes Nausea / Vomiting: adequately controlled Pain: adequately controlled Airway Patency, RR, SpO2: stable & adequate BP & HR: stable & adequate Hydration State: stable & adequate Anesthetic Complications: no major complications apparent and Pt Satisfied with anesthetic care
[2021-05-28 13:22] LABS: BUN Creatinine Ratio 61.2 (10-20); Blood Urea Nitrogen 32 mg/dl (7-18); Calcium 7.2 mg/dl (8.5-10.1); Carbon Dioxide 20 mmol/L (21-32); Chloride 108 mmol/L (98-107); Creatinine Clr Calc Pharmacy 151.3 ml/min; Est GFR (African American) > 150.0 ml/min; Est GFR (Non-African American) 129.7 ml/min; Glucose 63 mg/dl (70-99); Magnesium 1.9 mg/dl (1.8-2.4); Phosphorus 1.9 mg/dl (2.5-4.9); Potassium 3.3 mmol/L (3.5-5.1); Sodium 137 mmol/L (136-145)
[2021-05-28] MEDS ORDERED: MAGNESIUM SULFATE / D5W 1 GM/100 ML BAG IV ONE (13:43)
[2021-05-28] MEDS ORDERED: POTASSIUM PHOS 3 MMOL/1 ML INFUSION IV STA (13:43)
--- NOTE | 2021-05-28 14:23 | Fluoroscopy Report ---
[place] ERCP biliary ductal CLINICAL HISTORY: ERCP ADD ON. Common bile duct stent removal and placement. COMPARISON STUDY: Abdomen and pelvis CT 12/28/2020. FLUOROSCOPY TIME: 47 seconds. FINDINGS: 8 fluoroscopic spot images were submitted. Initial images demonstrate a stent within the ma in pancreatic duct and a metallic common bile duct stent. The ampulla was cannulated and contrast was injected into the common bile duct. There is an irregular filling defect within the mid common bile duct. The indwelling stents were removed. This is followed by placement of a new common bile duct gloria nt which appears in good position. IMPRESSION: Fluoroscopy provided for common bile duct stent exchange as described above. ACT 112: Negative or not required by law. Electronically signed by: Justin Mireles M.D. 05/28/2021 2:21 PM
[2021-05-28] MEDS ORDERED: POTASSIUM PHOSPHATE 30 MMOL in SODIUM CHLORIDE 0.9% 500 ML IV ONE (14:45)
[2021-05-28] MEDS: PIPERACILLIN/TAZOBACTAM 3.375 GM in DEXTROSE 5% 100 ML IV SCH ×2 (15:05→22:38)
[2021-05-28] MEDS ORDERED: SODIUM PHOSPHATE 30 MMOL in SODIUM CHLORIDE 0.9% 500 ML IV ONE (15:30)
--- NOTE | 2021-05-28 15:30 | Palliative Care Consultation ---
Date of Consultation May 28, 2021 Assessment & Plan (1) Chronic pain syndrome: I have talked with Mr. Vickers about his pain management multiple times but have not seen him since his last admission here in early summer. He has been on high dose fentanyl, oxycodone, hydromorphone and methadone in the past without adequate control. While the majority of his pain has been abdominal, he does have musculoskeletal pain as well. He had been on higher dose basal rate with bolus dosing prior to his episode of NSVT and bradypnea earlier today. Per RN on floor, he had nearly 30mg hydromorphone since admission. He has high tolerance for opioids and I do not think that the hydromorphone was the singular factor in his decompensation. He will need some form of ongoing analgesia and for now, I agree with hydromorphone basal rate of 2mg/hr with no bolus dosing. He is currently monitored in ICU and sedated from procedure. (2) Palliative care encounter: I have had multiple discussions with Mr. Vickers regarding his goals for care. He has two young sons under the age of ten and wants to live as long as possible for them. He has been adamant about not considering anything other than full care which is evident in his hospice revocation. He is unable to participate in discussion today but I did speak with his significant other, Shauna Cruz. She tells me that she does have healthcare POA for Russel. She understands that his cancer continues to progress and he is not a candidate for further treatment with his severe cachexia and protein calorie malnutrition. She tells me that she realizes that he is approaching his dying time but that he is not ready. He has been adamant with her as well that he would want full code, full treatment. We discussed likelihood that he has sepsis in addition to his other medical problems and has a very poor prognosis. With or without CPR, he is likely to within days to weeks. She would want his dying time to be peaceful and understands the futility and potential harm of performing CPR, however, she wants to respect his wishes. Russel's brother is en route from [place] and she plans to discuss this further with him and hopefully with Russel later today. Palliative care will follow. 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 Carpio Attending Physician: Karan Galvan MD History of Present Illness 45 yo gentleman known to palliative care with Stage IV colon cancer metastatic to liver. He has had ongoing problems with severe abdominal pain and has been on multiple medications. At his last hospitalization, he was started on a hydromorphone infusion and discharged to home on hospice. He revoked hospice and had been hoping to restart his cancer treatment. He has severe protein calorie malnutrition with weight of 100lbs. He had been having increased abdominal pain not controlled with the ROLLER SKATER and was admitted for pain management. Per his history and physical, he had been on 3mg/hr with 3mg bolus every fifteen minutes as needed for pain prior to admission. On admission the ROLLER SKATER was initially stopped and subsequently restarted at 2mg/hr. Earlier today he had an episode of bradypnea and NSVT. ROLLER SKATER was again stopped. He was also found to be significantly hypokalemic and hypoglycemic. He has elevated lactic acid. He did undergo ERCP earlier today for replacement of obstructed biliary stent. He is currently sedated and unable to provide any history or review of systems. Allergies Allergy/AdvReac Type Severity Reaction Status Date / Time promethazine Allergy Unknown HAPPENED Verified 05/27/21 22:29 A CHILD Home Medications Medication Instructions Recorded Confirmed Type lidocaine-prilocaine 2.5 %-2.5 % 1 applic TOPICAL DIRECTED PRN 09/21/20 05/27/21 History topical cream naloxone 4 mg/actuation nasal 1 spray INTRANASAL DIRECTED PRN 09/21/20 05/27/21 History spray (Narcan) hydromorphone (PF) 30 mg/30 mL (1 30 mg IV CONTINOUS #150 ml 01/01/21 05/27/21 Rx mg/mL) in 0.9 % NaCl IV ROLLER SKATER syringe lorazepam 0.5 mg tablet (Ativan) 0.5 mg PO Q8H PRN #20 tab 01/01/21 05/27/21 Rx ondansetron 8 mg disintegrating 8 mg TRANSLINGUAL Q8H PRN #20 tab 01/01/21 05/27/21 Rx tablet Patient History Medical History Anemia Asthma Childhood Colitis Colostomy present Degenerative disc disease Depression Diabetes mellitus, type 2 Diet controlled, hgba1c 09/25/20 5.5% Dyspnea Fatty liver Hyperlipidemia Hypoglycemia Hypokalemia Infection due to Port-A-Cath Intractable abdominal pain Metastatic colon cancer to liver s/p chemo (2019) Surgical History History of colonoscopy History of creation of ostomy History of ERCP 12/2020 with stent History of myringotomy History of removal of Port-a-Cath (03/24/21) Removal of Access Port, Insertion of New Access Port with Fluoroscopy - Ankur Turcios, DO, FACS History of shoulder surgery Right History of tonsillectomy and adenoidectomy History of vascular access device Left chest wall (+ infection/reason for upcoming procedure) S/P colostomy S/P PICC central line placement Has IV Dilaudid infusing thru PICC line Family History Mother Family history of diabetes mellitus Father Colorectal cancer Cancer Aunt Cancer Grandfather (Maternal) Myocardial infarction Other Hypertension Denies family history of Ovarian cancer Prostate cancer Breast cancer Social History Smoking Status: Former smoker Smoking End Date: 20 years ago; Second Hand Exposure: No; Hx Alcohol Use: No Hx Substance Use: Yes Substance Use Type Other:: Hx methadone abuse Preferred Language: Mongolian Communication Ability: Unable Visual Impairment: No Limitations Hearing Ability: Normal 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 Required: No Beliefs That Will Affect Care: Hinduism marital status: Single Current Living Situation: Family 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 Feels Safe at Home: Yes Childhood Exposure to Second-Hand Smoke: No Dental Care, Regularly: No Assistive Devices: None Review of Systems Review of Systems: Unobtainable due to reduced consciousness [place] Symptom Assessment Scale Pain by observation 0/3 Dyspnea by observation 0/3 Palliative Performance Score 50% prior to admission Physical Exam Constitutional: + ill appearing and + cachectic Respiratory: normal respiratory effort; no labored breathing Cardiovascular: Rate/Rhythm: regular rate and regular rhythm Gastrointestinal (Abdomen): colostomy Musculoskeletal: Extremities: + muscle atrophy Skin: jaundice Results & Data ([facility]) Vital Signs (Past 12 Hours) Vital Signs Temp Pulse Pulse Pulse Resp BP BP 05/28/21 14:02 79 16 86/61 L 05/28/21 14:00 05/28/21 13:30 97.7 F 81 12 91/58 L 05/28/21 13:20 84 13 89/58 L 05/28/21 13:10 83 12 103/56 L 05/28/21 13:00 97.7 F 84 12 82/60 L 05/28/21 12:50 78 14 78/60 L 05/28/21 12:40 77 12 77/54 L 05/28/21 12:30 79 16 79/58 L 05/28/21 12:20 97.7 F 92 H 12 71/53 L 05/28/21 11:05 97.3 F L 108 H 22 94/70 L 05/28/21 11:00 97.5 F L 05/28/21 10:58 94/70 L 05/28/21 10:45 93 H 05/28/21 10:30 109 H 20 84/63 L 05/28/21 10:20 98 H 22 05/28/21 09:54 97.7 F 92 H 10 L 102/69 05/28/21 09:35 97.9 F 97 H 14 93/62 L 05/28/21 07:15 97.9 F 79 10 L 93/64 L 05/28/21 04:39 93 H 05/28/21 04:21 98.2 F 96 H 16 91/67 L Pulse Ox 05/28/21 14:02 05/28/21 14:00 100 05/28/21 13:30 100 05/28/21 13:20 100 05/28/21 13:10 100 05/28/21 13:00 97 05/28/21 12:50 100 05/28/21 12:40 100 05/28/21 12:30 97 05/28/21 12:20 100 05/28/21 11:05 100 05/28/21 11:00 05/28/21 10:58 05/28/21 10:45 100 05/28/21 10:30 100 05/28/21 10:20 05/28/21 09:54 100 05/28/21 09:35 100 05/28/21 07:15 99 05/28/21 04:39 05/28/21 04:21 96 PG Care Time/CCT Total # of Minutes Spent Total Time Spent: 130 Total Time Spent with Patient: Total time spent is greater than 50% in coordination of care (as documented) at patient's floor/unit and/or counseling patient: complex symptom management, goals of care, code status, family education and support Coding Level of Care Code 14843 Initial Inpt Care Lvl 3 Diagnoses Chronic pain syndrome G89.4 Palliative care encounter Z51.5 Severe protein-calorie malnutrition E43 Acute respiratory failure with hypoxia J96.01 Non-sustained ventricular tachycardia I47.2 Hypoglycemia E16.2 Hypokalemia E87.6 Biliary obstruction due to malignant neoplasm K83.1; C80.1 Colon cancer C18.9 Time Spent (min) 130
[2021-05-28] MEDS ORDERED: OPTIRAY 320 125ml IV ONE (16:37)
--- NOTE | 2021-05-28 16:51 | CT Scan Report ---
CT ANGIOGRAM OF THE CHEST CLINICAL HISTORY: Dyspnea. COMPARISON STUDY: Chest CT dated 09/23/2020. TECHNIQUE: Following the IV administration of 115 cc of Optiray 320, CT angiogram of the chest was pe rformed from the upper abdomen to the thoracic inlet utilizing the pulmonary embolus protocol. Images are reviewed in the axial, sagittal, and coronal planes. 3-D MIPS images are created and assessed. I V contrast was administered without complication. A dose lowering technique was utilized adhering to the principles of ALARA. There is motion artifact. There is also streak artifact from the arms which could not be elevated above the chest. CT DOSE: 859.25 mGycm FINDINGS: Thyroid: Imaged portions of the thyroid gland are normal in size and attenuation. Thoracic aorta: The thoracic aorta is normal in caliber and demonstrates standard 3-vessel arch anato my. No dissection is seen. Pulmonary vasculature: The pulmonary trunk is normal in caliber. There are no filling defects identif ied in main, lobar, or segmental pulmonary branches to suggest pulmonary embolus. Heart: A right PICC line is in place. The heart is normal in size and without pericardial effusion. Lungs and pleural spaces: There are moderate pleural effusions, right larger than left with associate d right lower lobe consolidation. Mild patchy consolidation is seen in the right upper and middle lob es. Mild patchy consolidation is also seen in the left lower lobe. No pneumothorax is identified. Lizz ris/secretions fill the right lower lobe airways. The trachea is clear. Left lower lobe pulmonary nod ules measure up to 6 mm. Mediastinum: There is no mediastinal lymphadenopathy. Natty: Mildly enlarged hilar nodes measure up to 13 mm in short axis. Axillae: There is no axillary lymphadenopathy. Upper abdomen: Ascites is noted in the upper abdomen. Pneumobilia is observed. There is evidence of m ultifocal hepatic metastatic disease. Skeletal structures: No lytic or blastic bony lesions are seen. Soft tissues: The patient is cachectic. There is anasarca of the body wall. IMPRESSION: 1. There is no evidence of pulmonary embolus in the main, lobar, or segmental pulmonary arteries. 2. There are moderate pleural effusions, right larger than left. 3. Dense airspace consolidation is seen throughout the right lower lobe. Milder patchy airspace conso lidation is seen in the right upper, right middle, and left lower lobes. Additionally, there is fluid /debris filling the right lower lobe airways. The appearance is typical for pneumonia/aspiration pneu monitis and clinical correlation will be required. 4. Mildly enlarged hilar lymph nodes are likely reactive. 5. Anasarca of the body wall. 6. Upper abdominal ascites. 7. Multifocal hepatic metastatic disease. 8. Left lower lobe pulmonary nodules measure up to 6 mm. These are indeterminant and metastatic disea se is not excluded. 9. Additional findings as above. ACT 112: Negative or not required by law. Electronically signed by: Branden Yuong M.D. 05/28/2021 4:49 PM
--- NOTE | 2021-05-28 17:06 | CT Scan Report ---
CT abd pelvis IV con only CLINICAL HISTORY: ?biliary stricture ?acute cholecystitis TECHNIQUE: Helical axial images of the abdomen and pelvis were obtained and displayed. Automated dose lowering techniques and/or adjustment according to patient size were utilized for this exam. This e xam was performed with intravenous contrast. COMPARISON: Comparison is made to pelvis 12/28/2020 FINDINGS: Lower chest: For findings above the diaphragm, please see CT chest performed same day. Liver: Innumerable hepatic metastases are seen occupying the majority of the parenchyma of the liver. Gallbladder and biliary tree: No calcified gallstones. Normal caliber wall. A biliary drain is seen. There is a small amount of central pneumobilia and suggestion of prominence of the biliary ducts. Pancreas: Unremarkable, no focal lesions. Spleen: Unremarkable. Adrenals: Unremarkable. Kidneys and ureters: Unremarkable. Bladder: Unremarkable. Reproductive organs: Unremarkable. Bowel: Patient is status post transverse colostomy with parastomal hernia again noted. Lymph nodes Retroperitoneal: Ill-defined soft tissue densities in the retroperitoneum, some with calcifications, measuring up to 13 mm. Mesenteric: Unremarkable. Pelvic: Unremarkable. Peritoneum: Large ascites is seen, significantly increased from prior exam. Vessels: Atherosclerotic calcifications are seen. Abdominal wall: Anasarca is noted. Bones: Degenerative changes in the visualized spine. IMPRESSION: 1. The gallbladder wall is not enlarged. A biliary stent is in place without definite new intrahepat ic biliary ductal dilation. 2. Significant increase in anasarca and ascites. 3. Redemonstration of colostomy with peristomal hernia. 4. Soft tissue nodules are seen in the retroperitoneum, limited visualization due to ascites but fav ored to represent metastatic lymph node. ACT 112: Negative or not required by law. Electronically signed by: Cristofer Torrez M.D. 05/28/2021 5:05 PM
[2021-05-28 20:17] LABS: BUN Creatinine Ratio 59.5 (10-20); Blood Urea Nitrogen 30 mg/dl (7-18); Carbon Dioxide 19 mmol/L (21-32); Chloride 109 mmol/L (98-107); Creatinine Clr Calc Pharmacy 157.3 ml/min; Est GFR (African American) > 150.0 ml/min; Est GFR (Non-African American) 131.8 ml/min; Glucose 87 mg/dl (70-99); Sodium 137 mmol/L (136-145)
[2021-05-28] MEDS: LORazepam 0.5 MG TAB PO PRN (22:38)
[2021-05-29] MEDS ORDERED: ALBUMIN 25% 100 mL 25 GM/100 ML VIAL IV ONE (00:26)
[2021-05-29] MEDS: DEXTROSE 10% 1,000 ML IV SCH ×2 (00:48→11:27)
[2021-05-29] MEDS ORDERED: HEPARIN 100 UNIT/ML 5ML FLUSH FLUSH PRN (01:00)
[2021-05-29] MEDS ORDERED: HYDROmorphone INJ 1 MG/ML SYRINGE IV STA ×2 (01:06→04:30)
[2021-05-29 01:07] LABS: Mean Corpuscular Hgb Conc 31.9 g/dL (32-36)
[2021-05-29 01:16] LABS: INR 2.1 (0.9-1.1); Prothrombin Time 20.5 Seconds (9.0-12.0)
[2021-05-29 01:30] LABS: Hemoglobin 8.6 g/dL (14.0-18.0); Mean Corpuscular Hemoglobin 23.4 pg (25-34); Mean Corpuscular Volume 73.6 fL (80-100); RDW Coefficient of Variation 22.5 % (11.5-14.5); RDW Standard Deviation 59.7 fL (36.4-46.3); Red Blood Count 3.67 M/uL (4.7-6.1)
[2021-05-29 01:32] LABS: Platelet Count 65 K/uL (130-400)
[2021-05-29 01:35] LABS: Echinocytes 2+; Eosinophils # (auto) 0.01 K/uL (0-0.5); Eosinophils % (auto) 0.1 %; Immature Granulocytes # (auto) 0.08 K/uL (0.00-0.02); Lymphocytes # (auto) 0.26 K/uL (1.2-3.4); Lymphocytes % (auto) 3.2 %; Monocytes # (auto) 0.09 K/uL (0.11-0.59); Monocytes % (auto) 1.1 %; Neutrophils # (auto) 7.66 K/uL (1.4-6.5); Neutrophils % (auto) 94.6 %; Tear Drop Cells 1+
[2021-05-29 01:50] LABS: Albumin Globulin Ratio 0.5 (0.9-2); Albumin Level 1.5 gm/dl (3.4-5.0); BUN Creatinine Ratio 40.3 (10-20); Bilirubin,Total 6.2 mg/dl (0.2-1); Calcium 6.8 mg/dl (8.5-10.1); Creatinine Clr Calc Pharmacy 119.2 ml/min; Est GFR (African American) 136.3 ml/min; Est GFR (Non-African American) 117.6 ml/min; Globulin 2.8 gm/dl (2.5-4.0); Magnesium 1.7 mg/dl (1.8-2.4); Potassium 2.7 mmol/L (3.5-5.1); Total Protein 4.3 gm/dl (6.4-8.2)
[2021-05-29] MEDS: MAGNESIUM SULFATE / D5W 1 GM/100 ML BAG IV SCH ×2 (02:22→04:15)
[2021-05-29] MEDS: POTASSIUM CHLORIDE / WTR 20 MEQ/100 ML PLCT IV SCH ×4 (02:22→09:02)
[2021-05-29] MEDS: HYDROmorphone PCA 30 MG/30 ML IV PRN ×2 (05:46→21:04)
[2021-05-29] MEDS: SODIUM CHLORIDE 0.9% 1000ML 1,000 ML IV SCH (06:20)
[2021-05-29] MEDS: PIPERACILLIN/TAZOBACTAM 3.375 GM in DEXTROSE 5% 100 ML IV SCH ×3 (06:21→22:42)
[2021-05-29] MEDS: DEXTROSE 50% 50 ML SYRINGE IV PRN ×3 (07:59→19:41)
[2021-05-29] MEDS ORDERED: PHYTONADIONE 10 MG in SODIUM CHLORIDE 0.9% 50 ML IV ONE (08:45)
[2021-05-29] MEDS: FAMOTIDINE 20 MG TAB PO SCH (09:03)
[2021-05-29 09:18] LABS: BUN Creatinine Ratio 49.1 (10-20); Calcium 7.2 mg/dl (8.5-10.1); Creatinine Clr Calc Pharmacy 148.4 ml/min; Est GFR (African American) 149.1 ml/min; Est GFR (Non-African American) 128.7 ml/min; Potassium 3.5 mmol/L (3.5-5.1)
--- NOTE | 2021-05-29 09:56 | Hospitalist Progress Note ---
Date of Service May 29, 2021 Assessment & Plan (1) Goals of care, counseling/discussion: Plan: Appreciate palliative management with goals of care and pain management. Patient remains for full resuscitation and active treatment. (2) Sepsis: Plan: Suspected from biliary obstruction GNB growing in blood cultures, continue IV Zosyn, awaiting final cultures. Present on Admission?: Yes (3) Biliary obstruction due to malignant neoplasm: Plan: Relieved with repalcement of biliary stent fro ERCP yesterday. (4) Metastatic colon cancer to liver: Plan: INR 2.1 suspect from liver mets given lack of reversibility. Will give additional Vit K 10mg IV per GI recommendations but suspect this is inherent to his liver disease at this stage. Doubtful candidate for ongoing chemotherapy Appreciate palliative management in symptom control (5) Thrombocytopenia: Plan: Chronic, improving and associated with metastatic colon cancer and history of chemotherapy (6) Lumbar degenerative disc disease: Plan: Because of chronic low back pain (7) Chronic pain syndrome: Plan: Continue Dilaudid NOC ENGINEER per palliative recommendations Consult palliative care to aid in pain management moving forward. (8) Non-sustained ventricular tachycardia: Plan: Frequent episodes resolved with potassium replacement and sepis management. K 3.5 KCl ordered by ICU. Will repeat in AM. (9) Acute respiratory failure with hypoxia: Plan: Suspect sepsis and atelectasis. Possibility of pneumonia covered with IV Zosyn. Will (10) Hypoglycemia: Plan: Secondary to sepsis. Continue D10. If improving will cancel (11) Severe protein-calorie malnutrition: Plan: Boost drinks PRN Plan: VTE prophylaxis - No PE on CT for PE, start lovenox 30mg SQ daily tomorrow Diet - regular, easy to chew Disposition - stable for transfer to PCU Admission and Anticipated Discharge Date Admission Date: May 28, 2021 Subjective Continues to have diffuse pain but much more alert than admission. Eating small amounts. Remains significantly jaundiced. No bowel movements since admission. No cough. Thrush noted on throat - he feels nystatin is helping. Review of Systems Review of Systems: All systems reviewed & are unremarkable except as noted in HPI & below Physical Exam Constitutional: + cachectic; + not well nourished Eyes: + scleral abnormality (icteric) and + anicteric sclerae Cardiovascular: Rate/Rhythm: + tachycardic and + irregularly irregular Heart Sounds: no murmur Extremities: + pedal edema (3+ b/l equal) Gastrointestinal (Abdomen): Inspection/Auscultation: + abdomen distended and + hypoactive bowel sounds Percussion/Palpation: + abdomen tender (generalized) and abdomen soft; no guarding and abdomen not rigid Skin: no rashes, warm and dry (no areas of cellulitis) Neurologic: moves all extremities, awake (lethargic) and + confused Psychiatric: Orientation: alert, oriented to person and oriented to place; + not oriented to time Results & Data Results & Data ([facility]) Vital Signs (Past 12 Hours) Vital Signs Pulse Resp BP Pulse Ox Pulse Ox 05/29/21 09:00 100 H 14 91/70 L 100 05/29/21 08:01 129 H 22 93/67 L 98 05/29/21 07:00 101 H 10 L 86/60 L 100 05/29/21 06:30 18 99 05/29/21 06:00 107 H 10 L 81/56 L 100 05/29/21 05:30 18 94 05/29/21 05:01 113 H 11 L 91/65 L 100 05/29/21 05:00 17 94 05/29/21 04:30 18 96 05/29/21 04:01 132 H 14 80/45 L 99 05/29/21 04:00 16 95 05/29/21 03:30 18 95 05/29/21 03:13 95 05/29/21 03:00 110 H 11 L 98 05/29/21 02:30 16 94 05/29/21 02:00 133 H 10 L 78/64 L 97 05/29/21 01:30 22 05/29/21 01:00 151 H 16 96 05/29/21 00:30 18 95 05/29/21 00:00 134 H 12 100 05/28/21 23:30 99 05/28/21 23:00 110 H 20 118/81 96 05/28/21 22:30 99 05/28/21 22:03 99 05/28/21 22:00 104 H 12 107/74 98 PG Care Time/CCT Total # of Minutes Spent Total Time Spent with Patient: Total time spent is greater than 50% in coordination of care (as documented) at patient's floor/unit and/or counseling patient: Coding Level of Care Code 41747 Subseq Hosp Care Lvl 3 Diagnoses Goals of care, counseling/discussion Z71.89 Metastatic colon cancer to liver C18.9; C78.7 Thrombocytopenia D69.6 Lumbar degenerative disc disease M51.36 Chronic pain syndrome G89.4 Non-sustained ventricular tachycardia I47.2 Acute respiratory failure with hypoxia J96.01 Hypoglycemia E16.2 Severe protein-calorie malnutrition E43 Sepsis A41.9 Biliary obstruction due to malignant neoplasm K83.1; C80.1
[2021-05-29] MEDS ORDERED: METOPROLOL TARTRATE 1 MG/ML VIAL IV ONE (10:00)
--- NOTE | 2021-05-29 10:35 | Critical Care Progress Note ---
Date of Service May 29, 2021 Assessment & Plan (1) Chronic pain syndrome: (2) Metastatic colon cancer to liver: (3) Hypoglycemia: (4) Non-sustained ventricular tachycardia: (5) Hypokalemia: (6) Bacteremia: (7) Anasarca: Plan: 45-year-old male with metastatic colon cancer to the liver and likely biliary obstruction presenting due to fatigue. Currently in the ICU due to hypokalemia, hypoglycemia and nonsustained ventricular tachycardia. He essentially has a picture of failure to thrive due to his widespread metastatic disease. Overall, he has a very poor prognosis. Palliative care is following the patient. D10 drip increased due to ongoing hypoglycemia. This is a very poor prognostic finding. Continue replacement of potassium. Continue to monitor telemetry closely. Underwent biliary stent exchange yesterday on 05/28/2021. Blood cultures positive for gram-negative bacilli likely related to biliary sepsis. Continue Zosyn. Patient with thrombocytopenia possibly related to liver failure, chemotherapy, and/or consumptive coagulopathy from sepsis. Thrombocytopenia improved today. INR continues to be elevated despite vitamin K administration. Fibrinogen level within normal limits. Continue POWER BARKER OPERATOR pump for pain control with Dilaudid. CT chest concerning for possible aspiration given debris noted in the right lower lobes. He has evidence of anasarca with abdominal ascites and bilateral pleural effusions. Consider paracentesis by radiology for symptom control. Patient remains a full code per his wishes. He will be downgraded to PCU status. Discussed with the hospitalist. ICU will sign off. Thank you for the consult. Admission and Anticipated Discharge Date Admission Date: May 28, 2021 Subjective Patient seen and examined this morning. Lethargic, but arousable. No significant hemodynamic issues overnight. He did have some periods of tachycardia. Continues to have pain diffusely. Significant other is at bedside. Review of Systems Review of Systems: All systems reviewed & are unremarkable except as noted in HPI & below Physical Exam Physical Exam: Constitutional: Frail and cachectic appearing male. No si gnificant distress at present. Eyes: Scleral icterus. Pupils equal. Ears nose, mouth and throat: Bitemporal wasting. No obvious deformities. Neck: Trachea is midline. Visual inspection is normal. Respiratory: Clear to auscultation bilaterally. No use of accessory muscles. Cardiovascular: Regular rate and rhythm. No murmurs. No edema. Gastrointestinal: Normal bowel sounds, soft, nontender and nondistended. No hepatosplenomegaly noted. Musculoskeletal: Diffusely weak. Skin: Jaundiced Neurologic: No obvious focal neurological deficits seen. Psychiatric: Alert and oriented x3 with a euthymic affect. Results & Data Results & Data ([facility]) Vital Signs (Past 12 Hours) Vital Signs Pulse Resp BP Pulse Ox Pulse Ox 05/29/21 09:00 100 H 14 91/70 L 100 05/29/21 08:01 129 H 22 93/67 L 98 05/29/21 07:30 14 100 05/29/21 07:00 101 H 10 L 86/60 L 100 05/29/21 06:30 18 99 05/29/21 06:00 107 H 10 L 81/56 L 100 05/29/21 05:30 18 94 05/29/21 05:01 113 H 11 L 91/65 L 100 05/29/21 05:00 17 94 05/29/21 04:30 18 96 05/29/21 04:01 132 H 14 80/45 L 99 05/29/21 04:00 16 95 05/29/21 03:30 18 95 05/29/21 03:13 95 05/29/21 03:00 110 H 11 L 98 05/29/21 02:30 16 94 05/29/21 02:00 133 H 10 L 78/64 L 97 05/29/21 01:30 22 05/29/21 01:00 151 H 16 96 05/29/21 00:30 18 95 05/29/21 00:00 134 H 12 100 05/28/21 23:30 99 05/28/21 23:00 110 H 20 118/81 96 vital signs, labs and imaging reviewed. Coding Level of Care Code 60173 Subseq Hosp Care Lvl 3 Diagnoses Chronic pain syndrome G89.4 Metastatic colon cancer to liver C18.9; C78.7 Hypoglycemia E16.2 Non-sustained ventricular tachycardia I47.2 Hypokalemia E87.6 Bacteremia R78.81 Anasarca R60.1
[2021-05-29] MEDS ORDERED: DEXTROSE 10% 1,000 ML IV SCH (20:00)
[2021-05-30] MEDS: PIPERACILLIN/TAZOBACTAM 3.375 GM in DEXTROSE 5% 100 ML IV SCH ×2 (06:28→16:40)
[2021-05-30 07:16] LABS: Albumin Level 1.4 gm/dl (3.4-5.0); BUN Creatinine Ratio 35.9 (10-20); Calcium 6.9 mg/dl (8.5-10.1); Creatinine Clr Calc Pharmacy 151.2 ml/min; Est GFR (African American) 149.1 ml/min; Est GFR (Non-African American) 128.7 ml/min; Potassium 3.1 mmol/L (3.5-5.1)
[2021-05-30 07:18] LABS: Albumin Globulin Ratio 0.5 (0.9-2); Bilirubin,Total 6.6 mg/dl (0.2-1); Globulin 2.7 gm/dl (2.5-4.0); Total Protein 4.1 gm/dl (6.4-8.2)
[2021-05-30 07:21] LABS: Hematocrit (blood only) 25.2 % (42-52); Hemoglobin 8.1 g/dL (14.0-18.0); Mean Corpuscular Hemoglobin 23.9 pg (25-34); Mean Corpuscular Hgb Conc 32.1 g/dL (32-36); Mean Corpuscular Volume 74.3 fL (80-100); Platelet Count 26 K/uL (130-400); RDW Coefficient of Variation 22.2 % (11.5-14.5); RDW Standard Deviation 59.4 fL (36.4-46.3); Red Blood Count 3.39 M/uL (4.7-6.1); White Blood Count 9.19 K/uL (4.8-10.8)
[2021-05-30 07:22] LABS: Anisocytosis Present; Basophils # (auto) 0.01 K/uL (0-0.2); Basophils % (auto) 0.1 %; Dohle Bodies 1+; Echinocytes 1+; Eosinophils # (auto) 0.02 K/uL (0-0.5); Eosinophils % (auto) 0.2 %; Hypochromasia Present; Immature Granulocytes # (auto) 0.04 K/uL (0.00-0.02); Immature Granulocytes % (auto) 0.4 %; Lymphocytes # (auto) 0.42 K/uL (1.2-3.4); Lymphocytes % (auto) 4.6 %; Monocytes # (auto) 0.57 K/uL (0.11-0.59); Monocytes % (auto) 6.2 %; Neutrophils # (auto) 8.13 K/uL (1.4-6.5); Neutrophils % (auto) 88.5 %; Ovalocytes 1+; Platelet Estimate SIGNIFIC DECREASED (Normal)
[2021-05-30] MEDS: SODIUM CHLORIDE 0.9% 1000ML 1,000 ML IV SCH (08:15)
[2021-05-30] MEDS ORDERED: ENOXAPARIN INJ 30 MG/0.3 ML SYR SQ SCH (09:00)
--- NOTE | 2021-05-30 09:18 | Hospitalist Progress Note ---
Date of Service May 30, 2021 Assessment & Plan (1) Goals of care, counseling/discussion: Plan: Appreciate palliative management with goals of care and pain management. Patient remains for full resuscitation and active treatment. (2) Sepsis: Plan: Suspected from biliary obstruction Klebsiella Oxytoca growing in blood cultures, can narrow antibiotics (cipro/metronidazole) once bilirubin improving and patient definitely improving as local infection likely polymicrobial. 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 Discussed with Dr Knight to review patient as Bilirubin increased today. Possibly his LFTs are still just a reflection of his metastatic disease given extent on CT (4) Metastatic colon cancer to liver: Plan: Doubtful candidate for ongoing chemotherapy given his current nutritional state Appreciate palliative management in symptom control (5) Hypoglycemia: Plan: Secondary to sepsis and poor nutritional state. Stop D10W BSG q6h No need to treat unless glucose < 50. Trial oral supplementation first but if not successful use D50W. (6) Thrombocytopenia: Plan: DIC labs negative yesterday. Plt 26. Holding off Lovenox because of this. Secondary to metastatic liver disease and sepsis. (7) Lumbar degenerative disc disease: Plan: Noted [employer] Dilaudid as below (8) Chronic pain syndrome: Plan: Continue Dilaudid [employer] per palliative recommendations Consult palliative care to aid in pain management moving forward. (9) Non-sustained ventricular tachycardia: Plan: Resolved. Secondary to hypokalemia and sepsis. Continue daily KCl replacement as needed. (10) Acute respiratory failure with hypoxia: Plan: Suspect sepsis and atelectasis. Possibility of pneumonia covered with IV Zosyn. Incentive spirometer Humidified oxygen (11) Severe protein-calorie malnutrition: Plan: Boost drinks PRN (12) Oral thrush: Plan: Improving, continue nystatin Plan: VTE prophylaxis - No PE on CT for PE, start lovenox 30mg SQ daily tomorrow (as long as Plt > 50) Diet - regular, easy to chew Disposition - Continue on PCU, PT/OT ordered Admission and Anticipated Discharge Date Admission Date: May 28, 2021 Subjective Reports feeling much improved. No symptoms with his low glucose levels. Eating small amounts. Mainly asking about when he can go home. Discussed with his significant other (Shauna) at bedside. Review of Systems Review of Systems: All systems reviewed & are unremarkable except as noted in HPI & below Physical Exam Constitutional: + cachectic; + not well nourished Eyes: + scleral abnormality (icteric) Cardiovascular: Rate/Rhythm: regular rhythm and + tachycardic Heart Sounds: no murmur Extremities: + pedal edema (3+ b/l equal) Gastrointestinal (Abdomen): Inspection/Auscultation: + abdomen distended and + hypoactive bowel sounds Percussion/Palpation: + abdomen tender (generalized) and abdomen soft; no guarding and abdomen not rigid Skin: no rashes, warm and dry (no areas of cellulitis) Neurologic: moves all extremities, awake (lethargic) and + confused Psychiatric: Orientation: alert, oriented to person and oriented to place; + not oriented to time Results & Data Results & Data ([facility]) Vital Signs (Past 12 Hours) Vital Signs Temp Pulse Pulse Resp BP Pulse Ox Pulse Ox 05/30/21 07:56 36.5 C 111 H 22 85/57 L 05/30/21 04:28 36.4 C L 57 L 15 119/69 94 05/30/21 04:00 12 94 05/30/21 00:48 104 H 05/30/21 00:00 12 05/29/21 22:38 36.3 C L 114 H 10 L 101/69 98 05/29/21 22:00 95 PG Care Time/CCT Total # of Minutes Spent Total Time Spent with Patient: Total time spent is greater than 50% in coordination of care (as documented) at patient's floor/unit and/or counseling patient: Coding Level of Care Code 05893 Subseq Hosp Care Lvl 3 Diagnoses Goals of care, counseling/discussion Z71.89 Sepsis A41.9 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
[2021-05-30] MEDS: FAMOTIDINE 20 MG TAB PO SCH (09:26)
[2021-05-30] MEDS: POTASSIUM CHLORIDE / WTR 20 MEQ/100 ML PLCT IV SCH ×2 (10:09→12:12)
--- NOTE | 2021-05-30 11:37 | Gastroenterology Progress Note ---
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 no abdominal pains at this time. Recs: --continue to monitor LFTs daily for now, suspect they will improve slowly over time --if bilirubin continues to rise can consider MRCP tomorrow or monday to further evaluate Admission and Anticipated Discharge Date Admission Date: May 28, 2021 Subjective no events overnight, denies abd pains, pruritus. LFTs ALP slowly coming down, bilirubin slowly rising. labs reviewed, afebrile. Review of Systems Constitutional: no fever and no chills Respiratory: no cough, no dyspnea and no dyspnea on exertion Cardiovascular: no chest pain and no dyspnea Gastrointestinal: as per Subjective / HPI Psychiatric: no depression and no anxiety Physical Exam Constitutional: WD/WN, vitals as above Respiratory: normal respiratory effort, lungs clear to auscultation Cardiovascular: RRR, no murmur, no edema Gastrointestinal (Abdomen): normal bowel sounds, soft, nontender, no hepatosplenomegaly Musculoskeletal: no lower extremity edema Psychiatric: A+Ox3, euthymic affect Results & Data Results & Data ([facility]) Vital Signs (Past 12 Hours) Vital Signs Temp Pulse Pulse Resp BP Pulse Ox 05/30/21 10:56 107 H 16 87/60 L 100 05/30/21 08:34 110 H 05/30/21 07:56 36.5 C 111 H 22 85/57 L 05/30/21 04:28 36.4 C L 57 L 15 119/69 94 05/30/21 04:00 12 94 05/30/21 00:48 104 H 05/30/21 00:00 12 PG Care Time/CCT Total # of Minutes Spent Total Time Spent with Patient: Total time spent is greater than 50% in coordination of care (as documented) at patient's floor/unit and/or counseling patient: Coding Level of Care Code 24181 Subseq Hosp Care Lvl 3 Diagnoses Biliary obstruction due to malignant neoplasm K83.1; C80.1 Abnormal LFTs R94.5
[2021-05-30] MEDS: DEXTROSE 50% 50 ML SYRINGE IV PRN (11:45)
[2021-05-30] MEDS: GLUCAGON FOR INJ 1 MG VIAL SQ PRN (11:47)
[2021-05-30] MEDS: ONDANSETRON INJ 2 MG/ML 2 ML VIAL IV PRN (11:53)
[2021-05-30] MEDS: HYDROmorphone PCA 30 MG/30 ML IV PRN (13:38)
[2021-05-31] MEDS: DEXTROSE 50% 50 ML SYRINGE IV PRN ×2 (06:08→15:04)
[2021-05-31 06:15] LABS: INR 1.9 (0.9-1.1); Prothrombin Time 18.4 Seconds (9.0-12.0)
[2021-05-31 06:30] LABS: Alanine Aminotransferase 94 U/L (12-78); Albumin Globulin Ratio 0.5 (0.9-2); Albumin Level 1.4 gm/dl (3.4-5.0); Alkaline Phosphatase 529 U/L (45-117); Anisocytosis Present; Aspartate Aminotransferase 191 U/L (15-37); BUN Creatinine Ratio 51.4 (10-20); Basophils # (auto) 0.02 K/uL (0-0.2); Basophils % (auto) 0.1 %; Bilirubin,Total 7.1 mg/dl (0.2-1); Blood Urea Nitrogen 24 mg/dl (7-18); Calcium 7.2 mg/dl (8.5-10.1); Carbon Dioxide 21 mmol/L (21-32); Chloride 106 mmol/L (98-107); Creatinine Clr Calc Pharmacy 173.9 ml/min; Echinocytes 2+; Eosinophils # (auto) 0.11 K/uL (0-0.5); Eosinophils % (auto) 0.7 %; Est GFR (African American) > 150.0 ml/min; Est GFR (Non-African American) 135.2 ml/min; Glucose 40 mg/dl (70-99); Hematocrit (blood only) 27.7 % (42-52); Hemoglobin 8.8 g/dL (14.0-18.0); Immature Granulocytes # (auto) 0.04 K/uL (0.00-0.02); Immature Granulocytes % (auto) 0.3 %; Lymphocytes # (auto) 1.09 K/uL (1.2-3.4); Lymphocytes % (auto) 7.3 %; Mean Corpuscular Hemoglobin 23.6 pg (25-34); Mean Corpuscular Hgb Conc 31.8 g/dL (32-36); Mean Corpuscular Volume 74.3 fL (80-100); Monocytes # (auto) 1.18 K/uL (0.11-0.59); Monocytes % (auto) 7.9 %; Neutrophils # (auto) 12.46 K/uL (1.4-6.5); Neutrophils % (auto) 83.7 %; Ovalocytes 1+; Phosphorus 1.7 mg/dl (2.5-4.9); Platelet Count 30 K/uL (130-400); Platelet Estimate SIGNIFIC DECREASED (Normal); Potassium 3.4 mmol/L (3.5-5.1); RDW Coefficient of Variation 21.8 % (11.5-14.5); RDW Standard Deviation 58.6 fL (36.4-46.3); Red Blood Count 3.73 M/uL (4.7-6.1); Sodium 134 mmol/L (136-145); Total Protein 4.4 gm/dl (6.4-8.2); Toxic Granulation 1+
[2021-05-31] MEDS: PIPERACILLIN/TAZOBACTAM 3.375 GM in DEXTROSE 5% 100 ML IV SCH ×4 (09:03→23:49)
[2021-05-31] MEDS: FAMOTIDINE 20 MG TAB PO SCH (09:08)
[2021-05-31] MEDS ORDERED: POTASSIUM PHOS 3 MMOL/1 ML INFUSION IV STA (09:52)
--- NOTE | 2021-05-31 09:55 | Hospitalist Progress Note ---
Date of Service May 31, 2021 Assessment & Plan (1) Goals of care, counseling/discussion: Plan: Appreciate palliative management with goals of care and pain management. Patient remains for full resuscitation and active treatment. although is limiting what he takes po, will continue to work with the patient and his family moving toward continued symptom control (2) Sepsis: Plan: Suspected from biliary obstruction Klebsiella Oxytoca growing in blood cultures, zosyn, once bilirubin improving and patient definitely improving as local infection likely polymicrobial. 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 Possibly his LFTs are still just a reflection of his metastatic disease given extent on CT (4) Metastatic colon cancer to liver: Plan: Doubtful candidate for ongoing chemotherapy given his current nutritional state Appreciate palliative management in symptom control (5) Hypoglycemia: Plan: Secondary to sepsis and poor nutritional state. offer glucagon iv if persistently an issue BSG q6h No need to treat unless glucose < 50. pt refuses oral supplementation can use amps of D50 (6) Thrombocytopenia: Plan: DIC labs negative yesterday. Plt remain low Holding off Lovenox because of this. Secondary to metastatic liver disease and sepsis. (7) Lumbar degenerative disc disease: Plan: Noted [employer] Dilaudid (8) Chronic pain syndrome: Plan: Continue Dilaudid [employer] per palliative recommendations Consult palliative care to aid in pain management moving forward. (9) Non-sustained ventricular tachycardia: Plan: Resolved. Secondary to hypokalemia and sepsis. Continue daily KCl replacement did have k phos 05/31/21 (10) Acute respiratory failure with hypoxia: Plan: Suspect sepsis and atelectasis. Possibility of pneumonia covered with IV Zosyn. Incentive spirometer,but pt not participating reliable Humidified oxygen (11) Severe protein-calorie malnutrition: Plan: Boost drinks PRN, pt refusing to take po intake 05/31 (12) Oral thrush: Plan: Improving, continue nystatin Plan: VTE prophylaxis - No PE on CT for PE, Diet - regular, easy to chew pt refusing for the most part Disposition - Continue on PCU, due to some respiratory supression with pain control overall outlook is very poor for pt to leave hospital unless under hospice circumstances Admission and Anticipated Discharge Date Admission Date: May 28, 2021 Subjective Patient is awake and alert refused any oral intake including oral treatment for hypoglycemia. Has marked dental caries is laying on his right side curled in a ball. Some examination of his abdomen was difficult as he was reluctant to stretch out. His belly felt fairly soft he has a colostomy in place. Difficulties regarding the patient's refusal to take oral intake or medications but at the same time refusing to enter into a palliative care comfort care mode given his widely metastatic colon cancer. IV is without oral support the patient will continue to decline. Family is approved for visit this evening. Review of Systems Review of Systems: moderate distress and fatigue no headache, no visual changes no speech or swallowing issues no chest pain, pressure or palpitations no shortness of breath, cough or wheezes mild abdominal pain however is reluctant to come off [employer], no nausea or vomiting, stool output in colostomy bag no dysuria, hematuria or frequency general acheness all over no bruising, bleeding or rashes no focal signs of weakness or numbness or altered sensation seems anxious but denies Physical Exam Physical Exam: The patient appeared to have chronic malnutrition associated with metastatic cancer Vital signs as documented. Head exam is normocephalic atraumatic Neck is without JVD, thyromegaly, or carotid bruits. Lungs are clear to auscultation, no focal loss of breath sounds Cardiac exam, Rhythm is regular.. No murmurs, rubs or gallops., decree of sarcopenia shows each anterior rib Abdominal exam reveals hypoactive bowel sounds, soft mildly tender, colostomy functioning Extremities are mildly edematous and both pedal pulses are present Neurologic exam is alert and oriented, no focal loss of strength or sensation Skin is without bruises or rashes Psychologically is with concerns for anxiety & depression Results & Data Results & Data ([facility]) Vital Signs (Past 12 Hours) Vital Signs Temp Pulse Pulse Resp BP Pulse Ox Pulse Ox 05/31/21 08:23 98.4 F 66 16 158/71 H 96 05/31/21 04:00 10 L 93 05/31/21 03:58 97.3 F L 110 H 19 103/73 100 05/31/21 03:00 93 05/31/21 01:47 92 H 05/31/21 00:00 11 L 94 05/30/21 23:20 97.9 F 102 H 19 98/72 L 95 05/30/21 22:00 92 PG Care Time/CCT Total # of Minutes Spent Total Time Spent with Patient: Total time spent is greater than 50% in coordination of care (as documented) at patient's floor/unit and/or counseling patient: Coding Level of Care Code 73524 Subseq Hosp Care Lvl 2 Diagnoses Goals of care, counseling/discussion Z71.89 Sepsis A41.9 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
[2021-05-31] MEDS ORDERED: POTASSIUM PHOSPHATE 15 MMOL in SODIUM CHLORIDE 0.9% 250 ML IV SCH (10:15)
--- NOTE | 2021-05-31 10:54 | Gastroenterology Progress Note ---
Date of Service May 31, 2021 Assessment & Plan Admission and Anticipated Discharge Date Admission Date: May 28, 2021 Subjective I reviewed the CT scan and it showed extensive metastatic disease to the liver, actually there is hardly any normal liver tissue remaining which indicates that his worsening LFTs are due to metastatic liver disease rather than just biliary obstruction. His elevated INR and ascites also go along his decompensated liver. Recommend: Palliative evaluation. No further intervention from GI stand point. Results & Data ([facility]) Vital Signs (Past 12 Hours) Vital Signs Temp Pulse Pulse Resp BP Pulse Ox Pulse Ox 05/31/21 08:23 36.9 C 66 16 158/71 H 96 05/31/21 08:02 10 L 96 05/31/21 04:00 10 L 93 05/31/21 03:58 36.3 C L 110 H 19 103/73 100 05/31/21 03:00 93 05/31/21 01:47 92 H 05/31/21 00:00 11 L 94 05/30/21 23:20 36.6 C 102 H 19 98/72 L 95
--- NOTE | 2021-05-31 11:16 | Palliative Care Progress Note ---
Date of Service May 31, 2021 Assessment & Plan (1) Chronic pain syndrome: Plan: Continue hydromorphone infusion. He is on considerably lower dose than he had been at home. He had asked on admission to be converted to methadone. EKG on admission showed QTc of 442 and he had run of NSVT earlier in this admission. I would not convert him to methadone. If he survives this admission for discharge, we could consider conversion to oral hydromorphone. His pain is considerably better after stent placement. (2) Palliative care encounter: Plan: Mr. Vickers has consistently indicated that he wants full code, full treatment. He revoked hospice with the hope of being able to have further cancer treatment. In his current state, he would not be a candidate for further cancer treatment. He is insistent that he does not want to focus on comfort measures. I did speak with is significant other and Shauna GOLDEN. She was not able to have a goals of care discussion with Russel's brother, Richy, when he was here on Monday. She feels that she would want to continue full code full treatment at this time and understands that if he is unable to make medical decisions, that would fall to her. We have discussed that CPR would be traumatic for Russel and not likely to be successful. 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 Arouses briefly. Denies pain. Hydromorphone infusion running at 1mg/hr. Infusion was stopped overnight for four hours due to RR of 6. Currently rate is 16. He has been declining care this morning per RN. He tells me that he didn't sleep well last night with roommate and wants to rest now. Review of Systems Review of Systems: [place] Symptom Assessment Scale Pain 0/3 Dyspnea 0/3 Fatigue 2/3 Nausea 0/3 Drowsiness 2/3 Palliative Performance Score 40% Physical Exam Constitutional: + ill appearing, + cachectic and + lethargic Respiratory: normal respiratory effort; no labored breathing Cardiovascular: Extremities: + edema (upper and lower extremities) Gastrointestinal (Abdomen): colostomy soft brown stool Musculoskeletal: Extremities: + muscle atrophy Skin: + jaundice Results & Data ([facility]) Vital Signs (Past 12 Hours) Vital Signs Temp Pulse Pulse Resp BP Pulse Ox Pulse Ox 05/31/21 08:23 98.4 F 66 16 158/71 H 96 05/31/21 08:02 10 L 96 05/31/21 07:12 86 05/31/21 04:00 10 L 93 05/31/21 03:58 97.3 F L 110 H 19 103/73 100 05/31/21 03:00 93 05/31/21 01:47 92 H 05/31/21 00:00 11 L 94 05/30/21 23:20 97.9 F 102 H 19 98/72 L 95 PG Care Time/CCT Total # of Minutes Spent Total Time Spent: 38 Total Time Spent with Patient: Total time spent is greater than 50% in coordination of care (as documented) at patient's floor/unit and/or counseling patient:symptom management, goals of care, code status Coding Level of Care Code 27707 Subseq Hosp Care Lvl 3 Diagnoses Chronic pain syndrome G89.4 Palliative care encounter Z51.5 Biliary obstruction due to malignant neoplasm K83.1; C80.1 Sepsis A41.9 Colon cancer C18.9
[2021-05-31] MEDS ORDERED: HYDROmorphone PCA 30 MG/30 ML IV ONE (14:16)
[2021-05-31] MEDS: HYDROmorphone PCA 30 MG/30 ML IV PRN ×2 (14:18→15:47)
[2021-05-31] MEDS ORDERED: GLUCAGON FOR INJ 1 MG VIAL SQ PRN (17:29)
[2021-06-01] MEDS: DEXTROSE 50% 50 ML SYRINGE IV PRN ×4 (06:11→18:15)
[2021-06-01 06:23] LABS: Mean Corpuscular Hgb Conc 32.8 g/dL (32-36)
[2021-06-01 06:31] LABS: INR 1.9 (0.9-1.1); Prothrombin Time 18.5 Seconds (9.0-12.0)
[2021-06-01 06:34] LABS: Hematocrit (blood only) 26.8 % (42-52); Hemoglobin 8.8 g/dL (14.0-18.0); Mean Corpuscular Hemoglobin 24.2 pg (25-34); Mean Corpuscular Volume 73.8 fL (80-100); RDW Coefficient of Variation 21.6 % (11.5-14.5); RDW Standard Deviation 57.8 fL (36.4-46.3); Red Blood Count 3.63 M/uL (4.7-6.1); White Blood Count 16.94 K/uL (4.8-10.8)
[2021-06-01 06:55] LABS: Platelet Count 32 K/uL (130-400)
[2021-06-01 06:57] LABS: Anisocytosis Present; Basophils # (auto) 0.01 K/uL (0-0.2); Basophils % (auto) 0.1 %; Echinocytes 2+; Eosinophils # (auto) 0.04 K/uL (0-0.5); Eosinophils % (auto) 0.2 %; Immature Granulocytes # (auto) 0.13 K/uL (0.00-0.02); Immature Granulocytes % (auto) 0.8 %; Lymphocytes # (auto) 1.25 K/uL (1.2-3.4); Lymphocytes % (auto) 7.4 %; Monocytes % (auto) 5.3 %; Neutrophils # (auto) 14.61 K/uL (1.4-6.5); Neutrophils % (auto) 86.2 %; Platelet Estimate SIGNIFIC DECREASED (Normal); Toxic Granulation 2+
[2021-06-01] MEDS: HYDROmorphone PCA 30 MG/30 ML IV PRN ×3 (07:04→19:11)
[2021-06-01 08:21] LABS: Alanine Aminotransferase 98 U/L (12-78); Albumin Globulin Ratio 0.5 (0.9-2); Albumin Level 1.4 gm/dl (3.4-5.0); Alkaline Phosphatase 523 U/L (45-117); Aspartate Aminotransferase 196 U/L (15-37); BUN Creatinine Ratio 64.9 (10-20); Bilirubin,Total 7.2 mg/dl (0.2-1); Blood Urea Nitrogen 27 mg/dl (7-18); Calcium 7.8 mg/dl (8.5-10.1); Carbon Dioxide 19 mmol/L (21-32); Chloride 104 mmol/L (98-107); Creatinine Clr Calc Pharmacy 191.7 ml/min; Est GFR (African American) > 150.0 ml/min; Est GFR (Non-African American) 141.6 ml/min; Globulin 3.1 gm/dl (2.5-4.0); Glucose 27 mg/dl (70-99); Potassium 3.8 mmol/L (3.5-5.1); Sodium 132 mmol/L (136-145); Total Protein 4.5 gm/dl (6.4-8.2)
[2021-06-01] MEDS: PIPERACILLIN/TAZOBACTAM 3.375 GM in DEXTROSE 5% 100 ML IV SCH ×2 (08:43→16:35)
[2021-06-01] MEDS: FAMOTIDINE 20 MG TAB PO SCH (09:12)
[2021-06-01 10:31] LABS: Phosphorus 2.8 mg/dl (2.5-4.9)
[2021-06-01] MEDS: GLUCAGON FOR INJ 1 MG VIAL SQ PRN (11:05)
--- NOTE | 2021-06-01 11:20 | Palliative Care Progress Note ---
Date of Service June 01, 2021 Assessment & Plan (1) Chronic pain syndrome: Plan: Continue hydromorphone infusion. I talked with him about conversion to po opioid. He would not be a candidate for methadone. He could potentially be converted to po hydromorphone but I did explain to him that his condition is so tenuous at this time that I would advise continuing infusion. (2) Palliative care encounter: Plan: I had a very vane discussion with Ivan about his prognosis. He has young children and is extremely motivated to live as long as possible to spend time with his children. Unfortunately, despite best efforts, he continues to decline and is likely to within days to weeks. I asked him if he knew that time was short, what would be most important to him. His response was "to live longer". He was not willing to acknowledge that he will at some point from his cancer. I spoke with Shauna, his SO, on the phone. They are currently moving in with friends as they are forced to move out of the house they are renting. She is doing her very best to support their sons and keep a normal routine for them. She attributes Ivan's drowsiness yesterday to moving to a different room. We discussed that he continues to weaken and will likely be more and more drowsy. I discussed concern that time is very short for Ivan and that continued focus on disease management may be getting in the way of them having valuable conversations and time together. She acknowledges this but does not want to change plan of care at this time. (3) Hypoglycemia: (4) Severe protein-calorie malnutrition: (5) Metastatic colon cancer to liver: Admission and Anticipated Discharge Date Admission Date: May 28, 2021 Subjective Sleeping but arouses briefly and answers questions. Complains of some pain with sacral ulcer but overall feels that pain is reasonably controlled. He asked me about converting his pain medicine to pills and getting off the pump. Per RN and his SO, he was drowsy and had difficulty visiting with kids yesterday. Continues to have hypoglycemia with BG 27 this morning. Review of Systems Review of Systems: [place] Symptom Assessment Scale Pain 1/3 Dyspnea 0/3 Anxiety 0/3 Fatigue 3/3 Nausea 0/3 Drowsiness 2/3 Palliative Performance Score 30% Physical Exam Constitutional: + ill appearing, + cachectic and + lethargic Respiratory: normal respiratory effort; no labored breathing Cardiovascular: Rate/Rhythm: regular rate and regular rhythm Gastrointestinal (Abdomen): colostomy, soft brown stool Musculoskeletal: temporal wasting, muscle atrophy Skin: + jaundice Neurologic: Speech / Cognition: normal cognition Results & Data ([facility]) Vital Signs (Past 12 Hours) Vital Signs Temp Pulse Pulse Resp BP Pulse Ox 06/01/21 08:00 87 12 99 06/01/21 07:58 97.5 F L 97 H 18 111/81 93 06/01/21 04:00 97.7 F 111 H 12 104/78 98 06/01/21 00:00 97.5 F L 99 H 92 H 12 110/82 99 PG Care Time/CCT Total # of Minutes Spent Total Time Spent: 40 Total Time Spent with Patient: Total time spent is greater than 50% in coordination of care (as documented) at patient's floor/unit and/or counseling patient: symptom management , goals of care, prognosis, patient and family education and support Coding Level of Care Code 18064 Subseq Hosp Care Lvl 3 Diagnoses Chronic pain syndrome G89.4 Hypoglycemia E16.2 Severe protein-calorie malnutrition E43 Metastatic colon cancer to liver C18.9; C78.7 Palliative care encounter Z51.5
[2021-06-01] MEDS: ONDANSETRON INJ 2 MG/ML 2 ML VIAL IV PRN (16:36)
[2021-06-01] MEDS ORDERED: HYDROmorphone INJ 0.5 MG/0.5 ML SYR IV STA ×2 (18:03→18:50)
[2021-06-01] MEDS ORDERED: HYDROmorphone INJ 0.5 MG/0.5 ML SYR ONE (18:06)
--- NOTE | 2021-06-01 18:06 | Hospitalist Progress Note ---
Date of Service June 01, 2021 Assessment & Plan (1) Goals of care, counseling/discussion: Plan: Appreciate palliative management with goals of care and pain management. Patient remains for full resuscitation and active treatment. 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 Possibly his LFTs are still just a reflection of his metastatic disease given extent on CT (4) Metastatic colon cancer to liver: Plan: Doubtful candidate for ongoing chemotherapy given his current exterrmly poor nutritional state/sarcopenia Appreciate palliative management in symptom control (5) Hypoglycemia: Plan: Secondary to sepsis and poor nutritional state. severe protein calorie malnutrition offer glucagon iv adding D10 in evening of 06/01/21 No need to treat unless glucose < 50. pt refuses oral supplementation can use amps of D50 (6) Thrombocytopenia: Plan: DIC labs negative yesterday. Plt remain low Holding off Lovenox because of this. Secondary to metastatic liver disease and sepsis. (7) Lumbar degenerative disc disease: Plan: Noted IMPREGNATION OPERATOR Dilaudid , need to add prn dosing (8) Chronic pain syndrome: Plan: Continue Dilaudid IMPREGNATION OPERATOR per palliative recommendations Consult palliative care to aid in pain management moving forward. (9) Non-sustained ventricular tachycardia: Plan: Resolved. Secondary to hypokalemia and sepsis. Continue daily KCl replacement did have k phos 05/31/21 (10) Acute respiratory failure with hypoxia: Plan: Suspect sepsis and atelectasis. Possibility of pneumonia covered with IV Zosyn. Incentive spirometer,but pt not participating reliable Humidified oxygen (11) Severe protein-calorie malnutrition: Plan: Boost drinks PRN, pt refusing to take po intake 05/31 (12) Oral thrush: Plan: Improving, continue nystatin Plan: VTE prophylaxis - No PE on CT for PE, Diet - regular, easy to chew pt refusing for the most part Disposition - Continue on PCU, due to some respiratory supression with pain control overall outlook is very poor for pt to leave hospital unless under hospice circumstances Admission and Anticipated Discharge Date Admission Date: May 28, 2021 Subjective Sleeping but arouses briefly and answers questions. startes he is good, but remarkable pain with minimal repositioning, later in afternoon severe pain to spine. he was drowsy and had difficulty visiting with kids yesterday. Continues to have hypoglycemia with BG recurrently being low pt not taking po, no help with glucogaon and still refusing to take po Review of Systems Review of Systems: moderate distress and fatigue no headache, no visual changes no speech or swallowing issues no chest pain, pressure or palpitations no shortness of breath, cough or wheezes mild abdominal pain however is reluctant to come off IMPREGNATION OPERATOR, no nausea or vomiting, stool output in colostomy bag no dysuria, hematuria or frequency general acheness all over worse in low back no bruising, bleeding or rashes no focal signs of weakness or numbness or altered sensation seems anxious but denies Physical Exam Physical Exam: The patient appeared to have chronic malnutrition associated with metastatic cancer Vital signs as documented. Head exam is normocephalic atraumatic Neck is without JVD, thyromegaly, or carotid bruits. Lungs are clearbut diminshed Cardiac exam, Rhythm is regular.. No murmurs, rubs or gallops., decree of sarcopenia shows each anterior rib Abdominal exam reveals hypoactive bowel sounds, soft mildly tender with movement , colostomy functioning Extremities are mildly edematous and both pedal pulses are present Neurologic exam is alert but lethargic, no focal loss of strength or sensation Skin is with various bruises consistent with his level of poor nutrition Psychologically is with concerns for anxiety & depression Results & Data Results & Data ([facility]) Vital Signs (Past 12 Hours) Vital Signs Temp Pulse Pulse Resp BP Pulse Ox 06/01/21 14:59 92 H 06/01/21 14:48 96.1 F L 95 H 16 107/79 06/01/21 11:50 97.5 F L 81 14 98/68 L 100 06/01/21 08:00 87 12 99 06/01/21 07:58 97.5 F L 97 H 18 111/81 93 PG Care Time/CCT Total # of Minutes Spent Total Time Spent with Patient: Total time spent is greater than 50% in coordination of care (as documented) at patient's floor/unit and/or counseling patient: Coding Level of Care Code 59165 Subseq Obs Care Lvl 2 Diagnoses Goals of care, counseling/discussion Z71.89 Sepsis A41.9 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
[2021-06-01] MEDS: SODI CHLOR 2.5MEQ/ML 14.6% 77 MEQ in DEXTROSE 10% 1,000 ML IV SCH (18:37)
[2021-06-01] MEDS: MoRPHine SULFATE 10 MG/0.5 ML UDP PO PRN (21:23)
[2021-06-02] MEDS: PIPERACILLIN/TAZOBACTAM 3.375 GM in DEXTROSE 5% 100 ML IV SCH ×3 (00:33→16:45)
[2021-06-02] MEDS: MoRPHine SULFATE 10 MG/0.5 ML UDP PO PRN ×3 (01:47→13:26)
[2021-06-02] MEDS: ONDANSETRON INJ 2 MG/ML 2 ML VIAL IV PRN ×2 (04:51→21:29)
[2021-06-02 06:51] LABS: Mean Corpuscular Hgb Conc 33.3 g/dL (32-36)
[2021-06-02 07:05] LABS: INR 1.8 (0.9-1.1); Prothrombin Time 17.2 Seconds (9.0-12.0)
[2021-06-02 07:21] LABS: Hematocrit (blood only) 24.3 % (42-52); Hemoglobin 8.1 g/dL (14.0-18.0); Mean Corpuscular Hemoglobin 24.2 pg (25-34); Mean Corpuscular Volume 72.5 fL (80-100); RDW Coefficient of Variation 21.5 % (11.5-14.5); RDW Standard Deviation 56.8 fL (36.4-46.3); Red Blood Count 3.35 M/uL (4.7-6.1); White Blood Count 13.39 K/uL (4.8-10.8)
[2021-06-02 07:32] LABS: Alanine Aminotransferase 108 U/L (12-78); Albumin Globulin Ratio 0.5 (0.9-2); Albumin Level 1.4 gm/dl (3.4-5.0); Alkaline Phosphatase 505 U/L (45-117); Aspartate Aminotransferase 194 U/L (15-37); Bilirubin,Total 6.3 mg/dl (0.2-1); Blood Urea Nitrogen 26 mg/dl (7-18); Calcium 7.1 mg/dl (8.5-10.1); Carbon Dioxide 19 mmol/L (21-32); Chloride 106 mmol/L (98-107); Creatinine Clr Calc Pharmacy 160.3 ml/min; Est GFR (African American) > 150.0 ml/min; Est GFR (Non-African American) 129.7 ml/min; Globulin 2.9 gm/dl (2.5-4.0); Glucose 67 mg/dl (70-99); Magnesium 1.8 mg/dl (1.8-2.4); Phosphorus 2.3 mg/dl (2.5-4.9); Potassium 3.5 mmol/L (3.5-5.1); Sodium 134 mmol/L (136-145); Total Protein 4.3 gm/dl (6.4-8.2)
[2021-06-02 07:46] LABS: Platelet Count 36 K/uL (130-400)
[2021-06-02 07:48] LABS: Anisocytosis Present; Echinocytes 3+; Eosinophils # (auto) 0.07 K/uL (0-0.5); Eosinophils % (auto) 0.5 %; Immature Granulocytes # (auto) 0.06 K/uL (0.00-0.02); Immature Granulocytes % (auto) 0.4 %; Lymphocytes # (auto) 1.16 K/uL (1.2-3.4); Lymphocytes % (auto) 8.7 %; Monocytes # (auto) 0.72 K/uL (0.11-0.59); Monocytes % (auto) 5.4 %; Neutrophils # (auto) 11.38 K/uL (1.4-6.5); Ovalocytes 1+; Platelet Estimate SIGNIFIC DECREASED (Normal); Schistocytes 1+; Toxic Granulation 3+
[2021-06-02] MEDS: FAMOTIDINE 20 MG TAB PO SCH (08:02)
[2021-06-02] MEDS: SODI CHLOR 2.5MEQ/ML 14.6% 77 MEQ in DEXTROSE 10% 1,000 ML IV SCH ×2 (08:10→20:58)
--- NOTE | 2021-06-02 14:18 | Hospitalist Progress Note ---
Date of Service June 02, 2021 Assessment & Plan (1) Goals of care, counseling/discussion: Plan: Appreciate palliative management with goals of care and pain management. Patient remains for full resuscitation. 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 Patient continues to have signs of wasting with significant muscle mass loss. BMI of 19. Family at the bedside did reinforce the fact that if he is resuscitated they would feel very uncomfortable making decisions to terminate the resuscitative effort if there will be no hope of recovery. Explained that with metastatic malignancy causing obstructive jaundice without undergoing treatment he is going going to progress to have a mortal event from his malignancy. Family however is still not comfortable forcing the issue with Ivan and Ivan continues to offer descriptions of his condition contrary to his physical complaints. 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 Possibly his LFTs are still just a reflection of his metastatic disease given extent on CT (4) Metastatic colon cancer to liver: Plan: Doubtful candidate for ongoing chemotherapy given his current exterrmly poor nutritional state/sarcopenia Appreciate palliative management in symptom control (5) Hypoglycemia: Plan: Secondary to sepsis and poor nutritional state. severe protein calorie malnutrition offer glucagon iv adding D10 in evening of 06/01/21 continue to reinforce oral supplements (6) Thrombocytopenia: Plan: DIC labs negative . Plt remain low. Holding off Lovenox because of this. Secondary to metastatic liver disease and sepsis. (7) Lumbar degenerative disc disease: Plan: Noted CLINICAL DIETETIC TECHNICIAN Dilaudid , need to add prn dosing (8) Chronic pain syndrome: Plan: Continue Dilaudid CLINICAL DIETETIC TECHNICIAN per palliative recommendations Consult palliative care to aid in pain management moving forward. (9) Non-sustained ventricular tachycardia: Plan: Resolved. Secondary to hypokalemia and sepsis. Continue daily KCl replacement did have k phos 11/01/21 (10) Acute respiratory failure with hypoxia: Plan: Suspect sepsis and atelectasis. Possibility of pneumonia covered with IV Zosyn. Incentive spirometer,but pt not participating reliable Humidified oxygen (11) Severe protein-calorie malnutrition: Plan: Boost drinks PRN, pt refusing to take po intake 05/31 (12) Oral thrush: Plan: Improving, continue nystatin Plan: VTE prophylaxis - No PE on CT for PE, Diet - regular, easy to chew pt refusing for the most part Disposition - Continue on PCU, due to some respiratory supression with pain control overall outlook is very poor for pt to leave hospital unless under hospice circumstances Admission and Anticipated Discharge Date Admission Date: May 28, 2021 Subjective pt still with expressions of being alright contrary to him with significant sarcopenia and pain with movement Review of Systems Review of Systems: weakened and tired, not able to get out of bed no headache, no visual changes no speech or swallowing issues, dental carries not painful no chest pain, pressure or palpitations no shortness of breath, cough or wheezes, lobo from fatigue no abdominal pain, nausea or vomiting, diarrhea or constipation no dysuria, hematuria or frequency no focal joint pain or swelling no back pain, CVA tenderness or radicular pain no bruising, bleeding or rashes no focal signs of weakness or numbness or altered sensation no complaints of anxiety or depression.. Physical Exam Physical Exam: The patient appeared sarcopenic and jaundiced Vital signs as documented. Head exam is normocephalic atraumatic, has dental carries Neck is without JVD, thyromegaly, or carotid bruits. Lungs are clear to auscultation, no focal loss of breath sounds Cardiac exam, Rhythm is regular.. No murmurs, rubs or gallops. Abdominal exam reveals normal bowel sounds, soft RLQ colostomy, tender to exam, hepatomegally Extremities are edematous and both pedal pulses are present Neurologic exam is alert and oriented, extreme weakness and muscle wasting Skin is with jaundice Results & Data Results & Data ([facility]) Vital Signs (Past 12 Hours) Vital Signs Temp Pulse Pulse Pulse Resp BP Pulse Ox 06/02/21 11:42 97.9 F 106 H 16 103/76 100 06/02/21 08:48 97.3 F L 101 H 24 102/72 06/02/21 08:00 126 H 24 96 06/02/21 04:00 12 96 06/02/21 03:21 97.5 F L 113 H 16 109/80 98 06/02/21 03:00 Pulse Ox 06/02/21 11:42 06/02/21 08:48 06/02/21 08:00 06/02/21 04:00 06/02/21 03:21 06/02/21 03:00 96 PG Care Time/CCT Total # of Minutes Spent Total Time Spent with Patient: Total time spent is greater than 50% in coordination of care (as documented) at patient's floor/unit and/or counseling patient: Coding Level of Care Code 34678 Subseq Hosp Care Lvl 2 Diagnoses Goals of care, counseling/discussion Z71.89 Sepsis A41.9 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
--- NOTE | 2021-06-02 14:37 | Palliative Care Progress Note ---
Date of Service June 02, 2021 Assessment & Plan (1) Chronic pain syndrome: Plan: I discussed that concern for him is not addiction to medications as he has legitimate pain. He has been on chronic high dose opioids and does have opioid tolerance. His wish is to convert to po in order to go home. However, he and Shauna have agreed to go home with [facility] hospice following and pump could be managed by hospice. Pain would be more difficult to manage for him with po medication and he has had problems with this in the past. He would also need 50mg of oral morphine every four hours as equivalent to current OME dosing. I will adjust prn medication to hydromorphone to determine if that is effective for his pain. Given dose equivalence, hydromorphone would be a better choice if Ivan is insistent on oral medication. Monitor over the next 24 hours. (2) Palliative care encounter: Plan: I talked with Dr. Magana and then with Shauna on the phone. We reviewed visitation policy. Exception had been made for his sons to visit. Shauna will visit him alone today. Her hope is that they can further discuss his code status. Per Shauna, yesterday they were discussing this and Ivan had asked her what she wanted. Unfortunately, they were interrupted. She is aware that he will likely have progressive encephalopathy with is hepatic failure and that she is his healthcare POA. She tells me that she is comfortable with hospice support in their new living situation with friends and that they have full support from their friends. 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 Complaining of pain in lumbar spine and sacrum. Trying to adjust position of bed for comfort. He did have 10mg roxanol with only mild relief and is now asking for the other 10mg of prescribed dose. He tells me that he didn't take the full dose because he is worried about getting addicted. He is anxious to get home and requesting discontinuation of hydromorphone infusion. Review of Systems Review of Systems: [place] Symptom Assessment Scale Pain 2/3 Dyspnea 0/3 Anxiety 1/3 Fatigue 2/3 Anorexia 3/3 Drowsiness 1/3 Palliative Performance Score 30% Physical Exam Constitutional: + ill appearing and + cachectic (severe) ENMT: Mouth: + dry oral mucous membranes Respiratory: normal respiratory effort; no labored breathing Cardiovascular: Rate/Rhythm: regular rate and regular rhythm Gastrointestinal (Abdomen): colostomy Musculoskeletal: Extremities: + muscle atrophy (severe) Neurologic: Speech / Cognition: normal cognition Results & Data ([facility]) Vital Signs (Past 12 Hours) Vital Signs Temp Pulse Pulse Pulse Resp BP Pulse Ox 06/02/21 11:42 97.9 F 106 H 16 103/76 100 06/02/21 08:48 97.3 F L 101 H 24 102/72 06/02/21 08:00 126 H 24 96 06/02/21 04:00 12 96 06/02/21 03:21 97.5 F L 113 H 16 109/80 98 06/02/21 03:00 Pulse Ox 06/02/21 11:42 06/02/21 08:48 06/02/21 08:00 06/02/21 04:00 06/02/21 03:21 06/02/21 03:00 96 PG Care Time/CCT Total # of Minutes Spent Total Time Spent: 45 Total Time Spent with Patient: Total time spent is greater than 50% in coordination of care (as documented) at patient's floor/unit and/or counseling patient:symptom management, goals of care, coordination of care Coding Level of Care Code 56150 Subseq Hosp Care Lvl 3 Diagnoses Chronic pain syndrome G89.4 Palliative care encounter Z51.5 Sepsis A41.9 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
[2021-06-02] MEDS: HYDROmorphone HCL 2 MG TAB PO PRN ×2 (16:45→21:19)
[2021-06-03] MEDS: HYDROmorphone PCA 30 MG/30 ML IV PRN ×3 (00:13→23:33)
[2021-06-03] MEDS: PIPERACILLIN/TAZOBACTAM 3.375 GM in DEXTROSE 5% 100 ML IV SCH ×4 (00:29→23:33)
[2021-06-03] MEDS ORDERED: SODIUM CHLORIDE 0.9% 1000ML 500 ML IV ONE ×2 (01:00→20:28)
[2021-06-03] MEDS: HYDROmorphone HCL 2 MG TAB PO PRN ×2 (04:12→10:44)
[2021-06-03 06:04] LABS: Mean Corpuscular Hgb Conc 32.3 g/dL (32-36)
[2021-06-03 06:13] LABS: Hematocrit (blood only) 25.1 % (42-52); Hemoglobin 8.1 g/dL (14.0-18.0); Mean Corpuscular Hemoglobin 23.8 pg (25-34); Mean Corpuscular Volume 73.6 fL (80-100); RDW Coefficient of Variation 21.3 % (11.5-14.5); RDW Standard Deviation 57.1 fL (36.4-46.3); Red Blood Count 3.41 M/uL (4.7-6.1)
[2021-06-03 06:17] LABS: INR 1.8 (0.9-1.1); Prothrombin Time 17.2 Seconds (9.0-12.0)
[2021-06-03 06:33] LABS: Platelet Count 38 K/uL (130-400)
[2021-06-03 06:37] LABS: Basophils # (auto) 0.01 K/uL (0-0.2); Basophils % (auto) 0.1 %; Echinocytes 1+; Eosinophils # (auto) 0.05 K/uL (0-0.5); Eosinophils % (auto) 0.3 %; Immature Granulocytes # (auto) 0.09 K/uL (0.00-0.02); Immature Granulocytes % (auto) 0.5 %; Lymphocytes # (auto) 1.45 K/uL (1.2-3.4); Lymphocytes % (auto) 8.6 %; Microcytosis Present; Monocytes # (auto) 0.86 K/uL (0.11-0.59); Monocytes % (auto) 5.1 %; Neutrophils # (auto) 14.44 K/uL (1.4-6.5); Neutrophils % (auto) 85.4 %; Ovalocytes 1+; Platelet Estimate Decreased (Normal); Toxic Granulation 1+
[2021-06-03 06:53] LABS: Alanine Aminotransferase 120 U/L (12-78); Albumin Globulin Ratio 0.4 (0.9-2); Albumin Level 1.3 gm/dl (3.4-5.0); Alkaline Phosphatase 480 U/L (45-117); Aspartate Aminotransferase 220 U/L (15-37); BUN Creatinine Ratio 37.4 (10-20); Bilirubin,Total 6.5 mg/dl (0.2-1); Blood Urea Nitrogen 19 mg/dl (7-18); Calcium 7.2 mg/dl (8.5-10.1); Carbon Dioxide 18 mmol/L (21-32); Chloride 105 mmol/L (98-107); Creatinine Clr Calc Pharmacy 160.3 ml/min; Est GFR (African American) > 150.0 ml/min; Est GFR (Non-African American) 129.7 ml/min; Globulin 3.2 gm/dl (2.5-4.0); Glucose 117 mg/dl (70-99); Magnesium 1.8 mg/dl (1.8-2.4); Phosphorus 1.8 mg/dl (2.5-4.9); Sodium 133 mmol/L (136-145); Total Protein 4.5 gm/dl (6.4-8.2)
[2021-06-03] MEDS: FAMOTIDINE 20 MG TAB PO SCH ×2 (08:17→08:35)
[2021-06-03] MEDS: SODI CHLOR 2.5MEQ/ML 14.6% 77 MEQ in DEXTROSE 10% 1,000 ML IV SCH ×3 (09:58→22:39)
--- NOTE | 2021-06-03 10:35 | Palliative Care Progress Note ---
Date of Service June 03, 2021 Assessment & Plan (1) Chronic pain syndrome: Plan: I discussed with Ivan that converting him to oral medication would require high dose opioids at the equivalent of his current dosing. I am also concerned that we would have delayed ability to control his pain. Continuing COMMERCIAL DESIGNER would allow tightest control of his pain at home. He is agreeable to this if it does not impede his ability to go home. Shauna agrees as well. In anticipation of his discharge home, would convert prn dosing to COMMERCIAL DESIGNER bolus dosing. Discussed with Dr. Magana. (2) Palliative care encounter: Plan: I talked with Ivan about going home with hospice care for support. He is agreeable to this. I also spoke with Shauna. She is in the process of moving out of their house and has to be out by tomorrow. She would need until Monday or Monday to get things set up for his return home. 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 Ate a few bites of oatmeal and jello for breakfast. He has had prn oral hydromorphone x 3 since ordered. He tells me that it does relieve the pain. Review of Systems Review of Systems: [place] Symptom Assessment Scale Pain 2/3 Dyspnea 0/3 Nausea 0/3 Anorexia 3/3 Drowsiness 1/3 Palliative Performance Score 30% Physical Exam Constitutional: + ill appearing and + cachectic ENMT: Mouth: + dry oral mucous membranes Respiratory: normal respiratory effort; no labored breathing Cardiovascular: Extremities: + edema LE mottling Gastrointestinal (Abdomen): colostomy, liquid brown stool Musculoskeletal: severe muscle atrophy Results & Data ([facility]) Vital Signs (Past 12 Hours) Vital Signs Temp Pulse Pulse Resp BP Pulse Ox 06/03/21 09:00 12 06/03/21 05:00 12 98 06/03/21 01:49 89 103/71 06/03/21 01:00 12 100 06/03/21 00:30 97.5 F L 128 H 12 93/70 L 100 PG Care Time/CCT Total # of Minutes Spent Total Time Spent with Patient: Total time spent is greater than 50% in coordination of care (as documented) at patient's floor/unit and/or counseling patient: Coding Level of Care Code 51738 Subseq Hosp Care Lvl 3 Diagnoses Chronic pain syndrome G89.4 Palliative care encounter Z51.5 Sepsis A41.9 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
[2021-06-03] MEDS ORDERED: HYDROmorphone HCL 2 MG TAB PO PRN (10:43)
[2021-06-03] MEDS: ONDANSETRON INJ 2 MG/ML 2 ML VIAL IV PRN ×2 (16:16→22:40)
--- NOTE | 2021-06-03 18:51 | Hospitalist Progress Note ---
Date of Service June 03, 2021 Assessment & Plan (1) Goals of care, counseling/discussion: Plan: Appreciate palliative management with goals of care and pain management. Patient remains for full resuscitation. Agreed to some oral pain medicine, will continue to work with the patient and his family moving toward continued symptom control, at times wanting to get off internet sourcer but now agreees to go home with internet sourcer. Persistent continued disconnect of the patient saying he wants to fight his disease and get better but then refusing simple things such as oral nutrition and medication intake. Patient continues to have signs of wasting with significant muscle mass loss. BMI of 19. Family at the bedside did reinforce the fact that if he is resuscitated they would feel very uncomfortable making decisions to terminate the resuscitative effort if there will be no hope of recovery. Explained that with metastatic malignancy causing obstructive jaundice without undergoing treatment he is going going to progress to have a mortal event from his malignancy. Family however is still not comfortable forcing the issue with Ivan and Ivan continues to offer descriptions of his condition contrary to his physical complaints. 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 Possibly his LFTs are still just a reflection of his metastatic disease given extent on CT (4) Metastatic colon cancer to liver: Plan: Doubtful candidate for ongoing chemotherapy given his current exterrmly poor nutritional state/sarcopenia Appreciate palliative management in symptom control (5) Hypoglycemia: Plan: Secondary to sepsis and poor nutritional state. severe protein calorie malnutrition offer glucagon iv adding D10 in evening of 06/01/21 continue to reinforce oral supplements (6) Thrombocytopenia: Plan: DIC labs negative . Plt remain low. Holding off Lovenox because of this. Secondary to metastatic liver disease and sepsis. 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 (9) Non-sustained ventricular tachycardia: Plan: Resolved. Secondary to hypokalemia and sepsis. Continue daily KCl replacement did have k phos 05/31/21 (10) Acute respiratory failure with hypoxia: Plan: Suspect sepsis and atelectasis. Possibility of pneumonia covered with IV Zosyn. Incentive spirometer,but pt not participating reliable Humidified oxygen (11) Severe protein-calorie malnutrition: Plan: Boost drinks PRN, pt refusing to take po intake 05/31 (12) Oral thrush: Plan: Improving, continue nystatin Plan: VTE prophylaxis - No PE on CT for PE, Diet - regular, easy to chew pt refusing for the most part Disposition - Continue on PCU, due to some respiratory supression with pain control overall outlook is very poor for pt to leave hospital unless under hospice circumstances Admission and Anticipated Discharge Date Admission Date: May 28, 2021 Subjective pt continues to decline, family still discussing change to DNR status, not changed yet, home on hospice looking for weekend but need to coordinate meds Review of Systems Review of Systems: weakened and tired, not able to get out of bed no headache, no visual changes no speech or swallowing issues, dental carries not painful no chest pain, pressure or palpitations no shortness of breath, cough or wheezes, lobo from fatigue no abdominal pain, nausea or vomiting, diarrhea or constipation no dysuria, hematuria or frequency no focal joint pain or swelling no back pain, CVA tenderness or radicular pain no bruising, bleeding or rashes no focal signs of weakness or numbness or altered sensation no complaints of anxiety or depression.. Physical Exam Physical Exam: The patient appeared sarcopenic and jaundiced Vital signs as documented. Head exam is normocephalic atraumatic, has dental carries Neck is without JVD, thyromegaly, or carotid bruits. Lungs are clear to auscultation, no focal loss of breath sounds Cardiac exam, Rhythm is regular.. No murmurs, rubs or gallops. Abdominal exam reveals normal bowel sounds, soft RLQ colostomy, tender to exam, hepatomegally Extremities are edematous and both pedal pulses are present Neurologic exam is alert and oriented, extreme weakness and muscle wasting Skin is with jaundice Results & Data Results & Data ([facility]) Vital Signs (Past 12 Hours) Vital Signs Temp Pulse Resp BP 06/03/21 17:00 10 L 06/03/21 15:22 97.5 F L 97 H 7 L 84/60 L 06/03/21 13:00 12 06/03/21 09:00 12 PG Care Time/CCT Total # of Minutes Spent Total Time Spent with Patient: Total time spent is greater than 50% in coordination of care (as documented) at patient's floor/unit and/or counseling patient: Coding Level of Care Code 29299 Subseq Hosp Care Lvl 1 Diagnoses Goals of care, counseling/discussion Z71.89 Sepsis A41.9 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
[2021-06-04 06:57] LABS: INR 1.8 (0.9-1.1); Prothrombin Time 17.1 Seconds (9.0-12.0)
[2021-06-04 07:14] LABS: Anisocytosis Present; Echinocytes 1+; Eosinophils # (auto) 0.04 K/uL (0-0.5); Eosinophils % (auto) 0.3 %; Hematocrit (blood only) 22.6 % (42-52); Hemoglobin 7.3 g/dL (14.0-18.0); Immature Granulocytes # (auto) 0.05 K/uL (0.00-0.02); Immature Granulocytes % (auto) 0.3 %; Lymphocytes # (auto) 0.89 K/uL (1.2-3.4); Lymphocytes % (auto) 5.9 %; Mean Corpuscular Hemoglobin 23.6 pg (25-34); Mean Corpuscular Hgb Conc 32.3 g/dL (32-36); Mean Corpuscular Volume 73.1 fL (80-100); Monocytes # (auto) 0.66 K/uL (0.11-0.59); Monocytes % (auto) 4.3 %; Neutrophils # (auto) 13.56 K/uL (1.4-6.5); Neutrophils % (auto) 89.2 %; Platelet Count 26 K/uL (130-400); Platelet Estimate SIGNIFIC DECREASED (Normal); Red Blood Count 3.09 M/uL (4.7-6.1)
[2021-06-04 07:29] LABS: Alanine Aminotransferase 222 U/L (12-78); Albumin Globulin Ratio 0.4 (0.9-2); Albumin Level 1.2 gm/dl (3.4-5.0); Alkaline Phosphatase 531 U/L (45-117); Aspartate Aminotransferase 565 U/L (15-37); BUN Creatinine Ratio 46.1 (10-20); Bilirubin,Total 6.1 mg/dl (0.2-1); Blood Urea Nitrogen 16 mg/dl (7-18); Carbon Dioxide 20 mmol/L (21-32); Chloride 105 mmol/L (98-107); Creatinine Clr Calc Pharmacy 231.5 ml/min; Est GFR (African American) > 150.0 ml/min; Est GFR (Non-African American) > 150.0 ml/min; Glucose 105 mg/dl (70-99); Magnesium 1.8 mg/dl (1.8-2.4); Phosphorus 1.6 mg/dl (2.5-4.9); Potassium 3.2 mmol/L (3.5-5.1); Sodium 133 mmol/L (136-145); Total Protein 4.2 gm/dl (6.4-8.2)
[2021-06-04] MEDS: SODI CHLOR 2.5MEQ/ML 14.6% 77 MEQ in DEXTROSE 10% 1,000 ML IV SCH (08:36)
[2021-06-04] MEDS: PIPERACILLIN/TAZOBACTAM 3.375 GM in DEXTROSE 5% 100 ML IV SCH ×3 (08:36→23:58)
[2021-06-04] MEDS: FAMOTIDINE 20 MG TAB PO SCH (09:02)
[2021-06-04] MEDS: LORazepam 0.5 MG TAB PO PRN (09:30)
[2021-06-04] MEDS ORDERED: HYDROmorphone INJ 1 MG/ML SYRINGE IV STA (10:20)
[2021-06-04] MEDS ORDERED: LORazepam 0.5 MG/1 ML VIAL IV STA (10:20)
--- NOTE | 2021-06-04 14:24 | Palliative Care Progress Note ---
Date of Service June 04, 2021 Assessment & Plan (1) Chronic pain syndrome: Plan: with acute exacerbation. Additional IV bolus dose of 1mg hydromorphone ordered. Additional 0.5 mg dose of lorazepam ordered. Continue SENIOR QUALITY ASSURANCE ENGINEER at current dosing and monitor. I checked back on Ivan after meds administered. He is resting comfortably. (2) Palliative care encounter: Plan: Plan for discharge home with hospice. I spoke with Dr. Magana, case management and restaurant front manager, Keri Goetz. He will have bolus dose of 0.5mg hydromorphone prior to SENIOR QUALITY ASSURANCE ENGINEER removal at time of discharge. He will also receive 4mg hydromorphone orally. Script written for hydromorphone infusion to be sent to [facility]. Case management will notify them at time of discharge and they will have nurse with at the house to set up hydromorphone infusion when he arrives home. 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 He has been using bolus doses and has had four doses with 10 attempts in last 2-3 hours. He is very anxious and asking for pain relief. Review of Systems Review of Systems: [place] Symptom Assessment Scale Pain 3/3 Dyspnea 0/3 Fatigue 2/3 Nausea 0/3 Drowsiness 0/3 Palliative Performance Score 20% Physical Exam Constitutional: + cachectic (severe) and + in distress; + uncomfortable Respiratory: normal respiratory effort; no labored breathing Cardiovascular: Extremities: + edema Gastrointestinal (Abdomen): colostomy Musculoskeletal: Extremities: + muscle atrophy Skin: + jaundice Neurologic: Speech / Cognition: normal cognition Results & Data ([facility]) Vital Signs (Past 12 Hours) Vital Signs Temp Pulse Pulse Pulse Resp BP Pulse Ox 06/04/21 12:15 97.3 F L 88 14 97/67 L 100 06/04/21 08:00 18 98 06/04/21 07:49 97.3 F L 107 H 12 98/73 L 100 06/04/21 04:12 97.3 F L 94 H 10 L 100/70 99 06/04/21 04:10 10 L 99 PG Care Time/CCT Total # of Minutes Spent Total Time Spent: 45 Total Time Spent with Patient: Total time spent is greater than 50% in coordination of care (as documented) at patient's floor/unit and/or counseling patient: symptom management, coordination of care Coding Level of Care Code 19255 Subseq Hosp Care Lvl 3 Diagnoses Chronic pain syndrome G89.4 Palliative care encounter Z51.5 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
--- NOTE | 2021-06-04 17:49 | Hospitalist Progress Note ---
Date of Service June 04, 2021 Assessment & Plan (1) Goals of care, counseling/discussion: Plan: Appreciate palliative management with goals of care and pain management. Patient remains for full resuscitation. Agreed to some oral pain medicine, will continue to work with the patient and his family moving toward continued symptom control, at times wanting to get off barn manager but now agreees to go home with barn manager. P Patient continues to have signs of wasting with significant muscle mass loss. BMI of 19. metastatic malignancy causing obstructive jaundice without undergoing treatment he is going going to progress to have a mortal event from his malignancy. Family however is still not comfortable forcing the issue with Ivan Love continues to offer descriptions of his condition contrary to his physical complaints. 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 Possibly his LFTs are still just a reflection of his metastatic disease given extent on CT (4) Metastatic colon cancer to liver: Plan: Doubtful candidate for ongoing chemotherapy given his current exterrmly poor nutritional state/sarcopenia Appreciate palliative management in symptom control will have home on barn manager for pain (5) Hypoglycemia: Plan: Secondary to sepsis and poor nutritional state. severe protein calorie malnutrition offer glucagon iv adding D10 in evening of 06/01/21 continue to reinforce oral supplements (6) Thrombocytopenia: Plan: DIC labs negative . Plt remain low. Holding off Lovenox because of this. Secondary to metastatic liver disease and sepsis. (7) Lumbar degenerative disc disease: Plan: Noted APPLICATION DEVELOPMENT SPECIALIST Dilaudid , need to add prn dosing (8) Chronic pain syndrome: Plan: Continue Dilaudid APPLICATION DEVELOPMENT SPECIALIST per palliative recommendations Consult palliative care to aid in pain management moving forward. (9) Non-sustained ventricular tachycardia: Plan: Resolved. Secondary to hypokalemia and sepsis. Continue daily KCl replacement did have k phos 05/31/21 (10) Acute respiratory failure with hypoxia: Plan: Suspect sepsis and atelectasis. Possibility of pneumonia covered with IV Zosyn. Incentive spirometer,but pt not participating reliable Humidified oxygen (11) Severe protein-calorie malnutrition: Plan: Boost drinks PRN, pt refusing to take po intake 05/31 (12) Oral thrush: Plan: Improving, continue nystatin Plan: VTE prophylaxis - No PE on CT for PE, Diet - regular, easy to chew pt refusing for the most part Disposition - Continue on PCU, due to some respiratory supression with pain control overall outlook is very poor for pt to leave hospital unless under hospice circumstances Admission and Anticipated Discharge Date Admission Date: May 28, 2021 Subjective Crying out with severe pain after routine care this morning. He has been using bolus doses and has had four doses with 10 attempts in last 2-3 hours. He is very anxious and asking for pain relief. Review of Systems Review of Systems: moderate to severe distress and fatigue no headache, no visual changes no speech or swallowing issues no chest pain, pressure or palpitations no shortness of breath, cough or wheezes abdominal pain distension no dysuria, hematuria or frequency diffuse joint pain no back pain, CVA tenderness or radicular pain no bruising, bleeding or rashes sarcopenia . Physical Exam Physical Exam: The patient to be declining and wasting away Vital signs as documented. Lungs are diminished Cardiac exam, Rhythm is regular.. No murmurs, rubs or gallops. Abdominal exam reveals distension, dull and full Extremities are edematous both hands and feet Neurologic exam is alert and oriented, no focal loss of strength or sensation Skin is without bruises or rashes Psychologically is without concerns for anxiety or depression. Results & Data Results & Data ([facility]) Vital Signs (Past 12 Hours) Vital Signs Temp Pulse Pulse Resp BP Pulse Ox 06/04/21 17:30 96.8 F L 16 100 06/04/21 16:11 94.8 F L 98 H 16 88/64 L 100 06/04/21 12:15 97.3 F L 88 14 97/67 L 100 06/04/21 12:00 18 06/04/21 08:00 18 98 06/04/21 07:49 97.3 F L 107 H 12 98/73 L 100 PG Care Time/CCT Total # of Minutes Spent Total Time Spent with Patient: Total time spent is greater than 50% in coordination of care (as documented) at patient's floor/unit and/or counseling patient: Coding Level of Care Code 27600 Subseq Hosp Care Lvl 2 Diagnoses Goals of care, counseling/discussion Z71.89 Sepsis A41.9 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
[2021-06-04] MEDS: HYDROmorphone PCA 30 MG/30 ML IV PRN (20:18)
[2021-06-05] MEDS ORDERED: SODIUM CHLORIDE 0.9% 1000ML 1,000 ML IV ONE (00:35)
[2021-06-05] MEDS: DEXTROSE 50% 50 ML SYRINGE IV PRN (06:12)
--- NOTE | 2021-06-05 06:24 | Communication Note ---
Date of Service: June 05, 2021 Called to patient's bedside for concerns for obtundation. Saturating well on nasal cannula, vitals otherwise normal with normal BP (did give NSS bolus ea rlier this evening for hypotension). Patient able to open eyes to voice but then goes back to sleep. Lungs clear to auscultation, heart RRR. Abdomen palpated, no wincing. Patient found to have BSG 17, given hypoglycemia protocol medications with increase in BSG to 220 with some improvement in obtundation. Also noted to be hypothermic; Radha hugger placed. Did call patient's point of contact Shauna to have her call family members to see the patient as I am concerned that he may be in active dying process given changes in vital signs. Did clarify with family that patient is a DNR/DNI; order changed in the chart (patient was listed as full code, but known to be going home with home hospice today). Resident Activity Tracking Resident Involvement: Resident Care Provided Care Provided: Adult Hospital Medicine
[2021-06-05] MEDS: ATROPINE SULFATE 1% OP SOLN 5 ML BTL SL PRN ×2 (07:28→13:16)
[2021-06-05] MEDS: PIPERACILLIN/TAZOBACTAM 3.375 GM in DEXTROSE 5% 100 ML IV SCH (09:47)
[2021-06-05] MEDS ORDERED: HYDROmorphone INJ 0.5 MG/0.5 ML SYR IV PRN (09:47)
[2021-06-05] MEDS ORDERED: LORazepam 0.5 MG/1 ML VIAL IV PRN ×2 (09:47→09:53)
[2021-06-05] MEDS ORDERED: STAT IV Infusion **Titration per Protocol STA (09:48)
[2021-06-05] MEDS: FAMOTIDINE 20 MG TAB PO SCH (09:48)
[2021-06-05] MEDS ORDERED: LORazepam 0.5 MG TAB PO PRN (09:53)
[2021-06-05] MEDS ORDERED: ONDANSETRON INJ 2 MG/ML 2 ML VIAL IV PRN (09:53)
[2021-06-05] MEDS ORDERED: HYDROmorphone/NSS 100 MG/100 ML BAG IV SCH (10:00)
--- NOTE | 2021-06-05 14:58 | Hospitalist Progress Note ---
Date of Service June 05, 2021 Assessment & Plan (1) Metastatic colon cancer to liver: Plan: Patient has been declining throughout hospital stay. He has had poor oral intake. He is refused augmentation of nutrition and hydration by mouth. He wants to transition home on hospice however in the morning of 06/05 he became less responsive became tachycardic family was called came to the bedside transition him to DNR status wishes for his comfort care to be pursued today and I do not believe he would be stable enough for transfer to home even for home hospice at this point (2) Goals of care, counseling/discussion: Plan: Appreciate palliative management with goals of care and pain management. Patient remains for full resuscitation. 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 Patient continues to have signs of wasting with significant muscle mass loss. BMI of 19. Severe protein malnutrition metastatic malignancy causing obstructive jaundice without undergoing treatment he is going going to progress to have a mortal event from his malignancy. (3) Sepsis: Plan: resolved Suspected from biliary obstruction Klebsiella Oxytoca growing in blood cultures 05/27/21, Comfort care will be pursued now that patient has declined. 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 Possibly his LFTs are still just a reflection of his metastatic disease given extent on CT (5) Hypoglycemia: Plan: Secondary to sepsis and poor nutritional state. severe protein calorie malnutrition (6) Thrombocytopenia: Plan: DIC labs negative . Plt remain low. Secondary to metastatic liver disease and sepsis. (7) Lumbar degenerative disc disease: Plan: SLIDE FASTENERS INSPECTOR transition to comfort care Dilaudid infusion (8) Chronic pain syndrome: (9) Non-sustained ventricular tachycardia: Plan: Resolved. Secondary to hypokalemia and sepsis. Continue daily KCl replacement did have k phos 05/31/21 (10) Acute respiratory failure with hypoxia: Plan: Humidified oxygen (11) Severe protein-calorie malnutrition: (12) Oral thrush: Plan: overall outlook is very poor for pt to leave hospital alive Admission and Anticipated Discharge Date Admission Date: May 28, 2021 Subjective Patient took extreme turn for the worse this morning. Family arrived changing to DNR/DNI status. Family is not comfortable taking the patient home at this point expect his demise occurred while in the hospital. Family agreed to transition from SLIDE FASTENERS INSPECTOR to continuous hydromorphone infusion Review of Systems Review of Systems: Unobtainable due to reduced consciousness Physical Exam Physical Exam: The patient appeared severely ill, sarcopenic, jaundiced Vital signs as documented. Lungs labored Cardiac exam, tachycardic Abdominal exam reveals distension, dullness, colostomy in right abdomen Extremities areedematous Neurologic exam is able to awaken briefly. Results & Data Results & Data (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
[2021-06-06] MEDS ORDERED: HYDROmorphone HCL 2 MG TAB PO ONE ×2 (09:00→10:00)
--- NOTE | 2021-06-11 21:27 | Discharge Summary ---
Date of Service June 05, 2021 Principal Diagnosis pt at 1545 06/05/21 from metastatic colon cancer Discharge Exam no spontaneous respiration or heart tones Discharge Data Allergies Allergy/AdvReac Type Severity Reaction Status Date / Time promethazine Allergy Unknown HAPPENED Verified 05/27/21 22:29 A CHILD Consultations 05/28/21 00:22 ED Decision to Admit Stat 05/28/21 01:15 Consult Palliative Care Routine 05/28/21 07:52 Consult Gastroenterology Routine 05/28/21 10:27 Consult Caponizer Routine 05/30/21 09:35 Consult Health Information Management Routine Procedures Performed Operation Date: 05/28/21 11:00 Actual Procedures p Endoscopic Retrograde Cholangiopancreatography(Not Applicable) - Manish Cohn MD Ordered Studies 05/28/21 [place] ERCP biliary ductal Routine 05/28/21 08:03 CT abd pelvis IV con only Stat CT angio chest PE protocol Stat Hospital Course (1) : Pt on confort measures at 1545 [facility] cause of is metastatic colon cancer (2) Metastatic colon cancer to liver: Patient has been declining throughout hospital stay. He has had poor oral intake. He is refused augmentation of nutrition and hydration by mouth. He wants to transition home on hospice however in the morning of 06/05 he became less responsive became tachycardic family was called came to the bedside transition him to DNR status wishes for his comfort care to be pursued today and I do not believe he would be stable enough for transfer to home even for home hospice at this point (3) Goals of care, counseling/discussion: Appreciate palliative management with goals of care and pain management. Patient remains for full resuscitation. Agreed to some oral pain medicine, will continue to work with the patient and his family moving toward continued symptom control, at times wanting to get off sales representative marine supplies but now agreees to go home with sales representative marine supplies. Patient continues to have signs of wasting with significant muscle mass loss. BMI of 19. Severe protein malnutrition metastatic malignancy causing obstructive jaundice without undergoing treatment he is going going to progress to have a mortal event from his malignancy. (4) Sepsis: resolved Suspected from biliary obstruction Klebsiella Oxytoca growing in blood cultures 05/27/21, Comfort care will be pursued now that patient has declined. 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 Possibly his LFTs are still just a reflection of his metastatic disease given extent on CT (6) Hypoglycemia: Secondary to sepsis and poor nutritional state. severe protein calorie malnutrition (7) Thrombocytopenia: DIC labs negative . Plt remain low. Secondary to metastatic liver disease and sepsis. (8) Lumbar degenerative disc disease: CATALYST OPERATOR transition to comfort care Dilaudid infusion (9) Chronic pain syndrome: (10) Non-sustained ventricular tachycardia: Resolved. Secondary to hypokalemia and sepsis. Continue daily KCl replacement did have k phos 05/31/21 (11) Acute respiratory failure with hypoxia: Humidified oxygen (12) Severe protein-calorie malnutrition: (13) Oral thrush: overall outlook is very poor for pt to leave hospital alive Total Time Total Time Spent Total Time Spent (In Minutes): it took greater than 30 minutes to complete this process Discharge Plan Discharge Items Patient Disposition: Discharge Diagnosis: metastatic colon cancer Addtl Attending Provider Instructions: Please see progress note from the same date. Patient was transition to s infusion for comfort care family was present at the bedside throughout the day. Reportedly patient faded off into unresponsive state. Patient then ceased to bleed at 1545 hrs. Audible heart tones with spontaneous respirations and patient was pronounced in front of his family. 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
== END 2021-06-05 18:19 | disposition expired | DRG 871 ==
LOC: ED 21:51 → 2W 05-28 01:15 → SUATTDRO 05-28 01:15 → 2W 05-28 02:37 → 1E 05-28 08:23 → 2S 05-29 11:02 → 3E 06-02 19:01
DX: E87.6 Hypokalemia; C78.7 Secondary malignant neoplasm of liver and intrahepatic bile duct; E43 Unspecified severe protein-calorie malnutrition; Z51.5 Encounter for palliative care; C18.9 Malignant neoplasm of colon, unspecified; D69.6 Thrombocytopenia, unspecified; Z93.3 Colostomy status; C78.89 Secondary malignant neoplasm of other digestive organs; G89.4 Chronic pain syndrome; K83.1 Obstruction of bile duct; Z87.891 Personal history of nicotine dependence; Z82.49 Family history of ischemic heart disease and other diseases of the circulatory system; I47.2 Ventricular tachycardia; R18.8 Other ascites; M51.36 Other intervertebral disc degeneration, lumbar region; J96.01 Acute respiratory failure with hypoxia; K76.0 Fatty (change of) liver, not elsewhere classified; Z83.3 Family history of diabetes mellitus; A41.9 Sepsis, unspecified organism; K83.09 Other cholangitis; E11.9 Type 2 diabetes mellitus without complications; Z80.0 Family history of malignant neoplasm of digestive organs; C79.51 Secondary malignant neoplasm of bone; B37.0 Candidal stomatitis